=== PATIENT | male | born 1980 ===

== ENCOUNTER 2020-05-07 18:28 | Emergency (ER) | payer MEDICARE, MEDICAID, SELFPAY ==
[2020-05-07 18:37] VITALS: BP 163/84; PULSE 72; RESP 18; TEMP 36.8; O2SAT 99; BMI 32.8
--- NOTE | 2020-05-07 18:45 | XR_ITS ---
EXAMINATION: XR CHEST CLINICAL INFORMATION: Chest pain COMPARISON: Chest x-ray dated 07/23/2019 TECHNIQUE: Frontal view of the chest was obtained. FINDINGS: Normal symmetric lung volumes. No parenchymal consolidation. No pleural effusion. No pneumothorax. Cardiomediastinal silhouette and pulmonary vascularity are within normal limits. No acute osseous abnormalities. IMPRESSION: No acute findings
--- NOTE | 2020-05-07 18:45 | ECG_ITS ---
Test Reason : CP Blood Pressure : / mmHG Vent. Rate : 076 BPM Atrial Rate : 076 BPM P-R Int : 166 ms QRS Dur : 088 ms QT Int : 368 ms P-R-T Axes : 037 -01 -01 degrees QTc Int : 414 ms Normal sinus rhythm Possible Left atrial enlargement Nonspecific T wave abnormality Abnormal ECG When compared with ECG of 22-JUL-2019 23:10, No significant change was found Referred By: Marline Sheffield Electronically Signed By:TANA HOANG MD
--- NOTE | 2020-05-07 19:07 | ED_ITS ---
HPI - Chest Pain General Chief Complaint: Chest Pain Stated Complaint: chest pain Time Seen by Provider: 05/07/20 19:06 Source: patient Mode of arrival: ambulatory Limitations: no limitations History of Present Illness HPI narrative: 39-year-old male presents with left-sided chest pain, pressure, and intermittent shortness of breath for several days. States the pain got worse after using and erectile dysfunction medication last night. He does have a history of MS in the past associated with possible cocaine use. He does report that both of his parents had MIs at young ages approximately in their 30s. He started hyperlipidemia medications approximately 2 weeks ago and stated that His intermittent chest pain worsened with that medication. he does report to have increased fatigue and weakness, fatigue and weakness have been chronic over the past 6 months. He does not report any changes in vision, pain on inspiration, abdominal pain, abdominal distention, dysuria, hematuria, fevers, chills, nausea, vomiting, diarrhea, constipation and edema. Does not report smoking, alcohol use, or illicit drug use. MD complaint: chest pain and chest discomfort Pertinent past history: prior MS Onset (ago): day(s) ( Several days) Timing of current episode: episodic Prior episodes: Yes Onset: during rest and during exertion Pain location: left chest Pain radiation: none Severity: moderate Pain scale (0-10): 6 Quality: tightness, aching, heaviness, dull, similar to prior MS and burning Relieving factors: nothing Exacerbating factors: exertion, inspiration and stress Treatment prior to arrival: none Risk Factors Coronary artery disease risk factors: hyperlipidemia, hypertension and family history of CAD before age 50 Related Data Previous Rx's Medication Instructions Recorded metoprolol succinate 25 mg 25 mg PO DAILY #30 tab 04/28/20 tablet,extended release 24 hr nicotine 14 mg/24 hr daily 1 patch TRANSDERMAL DAILY #28 ea 04/28/20 transdermal patch omega-3 fatty acids 1,000 mg 1,000 mg PO BID #60 cap 04/28/20 capsule alprazolam 0.5 mg tablet 0.5 mg PO DAILY #30 tab 05/02/20 aspirin 81 mg tablet,delayed 81 mg PO DAILY 90 Days #90 tab 05/02/20 release gabapentin 300 mg capsule 300 mg PO TID 90 Days #270 cap 05/02/20 Allergies Allergy/AdvReac Type Severity Reaction Status Date / Time diclofenac [DICLOFENAC] Allergy Unknown STOMACH Verified 04/28/20 10:05 CRAMP, diarrhea duloxetine Allergy Unknown erectily Verified 04/28/20 10:05 dysfunction gabapentin Allergy Unknown sleepiness Verified 04/28/20 10:05 Flexeril Allergy Unknown erectile Uncoded 03/17/20 00:00 dysfunction Motrin Allergy Unknown blood in Uncoded 03/17/20 00:00 stools Review of Systems Review of Systems: Constitutional: No Weight loss, No Fever, No Chills, No Night Sweats, No Fatigue, No Malaise ENT/Mouth: No Hearing loss, No Ear Pain, No Nasal Congestion, No Sinus Pain, No Hoarseness, No sore throat, No Rhinorrhea, No Swallowing Difficulty Eyes: No Eye Pain, No Swelling, No Redness, No Foreign Body, No Discharge, No Vision Changes Cardiovascular: pos Chest Pain, pos SOB on exertion, no Dyspnea on Exertion, No Orthopnea, No Edema, No Palpitations Respiratory: No Cough, No Sputum, No Wheezing, No Smoke Exposure, No Dyspnea Gastrointestinal: no Nausea, No Vomiting, No Diarrhea, No abdominal Pain, No Hematochezia, No Melena Genitourinary: No irregular bleeding, No Dysuria, No Urinary Frequency, No Hematuria, No Urinary Incontinence, No Urgency, No Flank Pain, No Urinary Flow Changes, No Hesitancy Musculoskeletal: No joint pain, No Myalgias, No Joint Swelling Skin: No Skin Lesions, No rash Neuro: pos fatigue, No Weakness, No Numbness, No Paresthesias, No Loss of C onsciousness, No Dizziness, No Headache Psych: No Anxiety/Panic, No Depression, No SI/HI/AH/VH Heme/Lymph: No Bruising, No Bleeding,No Lymphadenopathy Endocrine: No Polyuria, No Polydipsia, No Temperature Intolerance [facility] Past Medical History Attestation statement: The following information was validated with the patient. Medical History CAD (coronary artery disease) Current smoker HTN (hypertension) Hyperlipidemia Long-term use of aspirin therapy Lumbar radiculopathy Past heart attack Surgical History History of back surgery S/P hernia surgery Social History Social History Smoking Status: Current every day smoker Use of substances other than those prescribed or required for medical reasons: No Advance Directives: No Advance Directives Information Provided: Yes Physical Exam Vital Signs: Vital Signs: Vital Signs Temp Pulse Resp BP Pulse Ox 05/07/20 21:54 60 16 138/93 H 05/07/20 20:00 97.9 F 63 18 119/71 99 05/07/20 18:37 98.3 F 72 18 163/84 H 99 Body Mass Index 32.8 Appearance: Alert. Oriented X3. No acute distress. Eyes: Pupils equal, round and reactive to light. ENT: Pharynx normal. Neck: Normal inspection. Neck supple. CVS: Normal heart rate and rhythm. Pulses normal. Respiratory: No respiratory distress. Breath sounds normal. Abdomen: Soft and nontender. Skin: Skin warm and dry. Normal skin color. Normal skin turgor. Extremities: No lower extremity edema. No lower extremity edema. Neuro: Oriented X 3. No motor deficit. No sensory deficit. Course Course Course Narrative: with his prior history of MS, family history of early MS, we will rule out ACS at this time. BUN elevated at 20, glucose 129, troponin is 5.8 . Repeat troponin is 6.0, heart score is 3, highly unlikely that this is ACS at this time. EKG is normal sinus rhythm, no changes noted to prior EKG. Vital signs are Hemodynamically stable. patient does verbalize understanding of and agrees to plan of care discharge home. He will follow-up with his primary care provider. official court interpreter utilized for all correspondence, Google translate Utilized for discharge instructions. MDM - Chest Pain Differential Diagnosis Differential diagnosis: Likely fracture of rib, pneumothorax, stable angina, unstable angina pectoris, atypical chest pain, st elevation myocardial infarction, costochondritis, chest pain and biliary colic Medical Records Data Attestation: I reviewed the patient's medical records. Lab Data Attestation: I reviewed the patient's lab results. Result diagrams: 05/07/20 19:07 05/07/20 19: Labs: Lab Results 05/07/20 05/07/20 05/07/20 Range/Units 19:07 19:07 19:07 WBC 7.7 (4.8-10.8) X10*3/uL RBC 4.40 L (4.60-5.80) X10*6/uL Hgb 14.0 (14.0-18.0) g/dl Hct 40.1 L (42-52) % MCV 91.1 (80-98) fL MCH 31.8 (27.0-33.0) pg MCHC 34.9 (31.0-36.0) g/dl RDW 12.4 (11.0-16.0) % Plt Count 252 (160-400) X10*3/uL MPV 9.8 (9.4-12.4) fL Immature Gran % (Auto) 1.0 H (0.0-0.4) % Neut % (Auto) 54.9 (45-73) % Lymph % (Auto) 35.5 (20-40) % Hudson % (Auto) 5.5 (2-11) % Eos % (Auto) 2.3 (0-4) % Baso % (Auto) 0.8 (0-2) % Lymph # (Auto) 2.7 (1.2-4.9) X10*3/uL Hudson # (Auto) 0.4 (0.1-1.2) X10*3/uL Eos # (Auto) 0.2 (0.0-0.4) X10*3/uL Baso # (Auto) 0.1 (0.0-0.2) X10*3/uL Abs Immat Gran (auto) 0.08 H (0.00-0.03) X10*3/uL Absolute Neuts (auto) 4.2 (2.0-8.3) X10*3/uL Absolute Nucleated RBC 0.000 (0.0-0.012) X10*3/uL Nucleated RBC % (auto) 0.0 (0.0-0.2) /100WBC Hold Blue Top SEE NOTE Sodium 139 (135-145) mmol/L Potassium 4.4 (3.3-5.1) mmol/l Chloride 105 (96-108) mmol/L Carbon Dioxide 24 (22-29) mmol/L Anion Gap 14 (12-20) BUN 20 H (9-16) mg/dL Creatinine 1.05 (0.5-1.4) mg/dL Estim Creat Clear Calc 105.0 Estimated GFR > 60 Random Glucose 129 H (60-115) mg/dL Calcium 9.1 (8.4-10.2) mg/dL Magnesium (1.6-2.6) mg/dL Total Bilirubin (0.0-1.0) mg/dL Direct Bilirubin (0.0-0.5) mg/dL AST (5-37) U/L ALT (0-40) U/L Alkaline Phosphatase (39-117) U/L Troponin I High Sens (<3.5-35.0) ng/L Total Protein (6.5-8.0) g/dL Albumin (3.5-5.0) g/dL Lipase (8-78) U/L 05/07/20 05/07/20 05/07/20 Range/Units 19:07 19:07 21:54 WBC (4.8-10.8) X10*3/uL RBC (4.60-5.80) X10*6/uL Hgb (14.0-18.0) g/dl Hct (42-52) % MCV (80-98) fL MCH (27.0-33.0) pg MCHC (31.0-36.0) g/dl RDW (11.0-16.0) % Plt Count (160-400) X10*3/uL MPV (9.4-12.4) fL Immature Gran % (Auto) (0.0-0.4) % Neut % (Auto) (45-73) % Lymph % (Auto) (20-40) % Hudson % (Auto) (2-11) % Eos % (Auto) (0-4) % Baso % (Auto) (0-2) % Lymph # (Auto) (1.2-4.9) X10*3/uL Hudson # (Auto) (0.1-1.2) X10*3/uL Eos # (Auto) (0.0-0.4) X10*3/uL Baso # (Auto) (0.0-0.2) X10*3/uL Abs Immat Gran (auto) (0.00-0.03) X10*3/uL Absolute Neuts (auto) (2.0-8.3) X10*3/uL Absolute Nucleated RBC (0.0-0.012) X10*3/uL Nucleated RBC % (auto) (0.0-0.2) /100WBC Hold Blue Top Sodium (135-145) mmol/L Potassium (3.3-5.1) mmol/l Chloride (96-108) mmol/L Carbon Dioxide (22-29) mmol/L Anion Gap (12-20) BUN (9-16) mg/dL Creatinine (0.5-1.4) mg/dL Estim Creat Clear Calc Estimated GFR Random Glucose (60-115) mg/dL Calcium (8.4-10.2) mg/dL Magnesium 2.1 (1.6-2.6) mg/dL Total Bilirubin 0.2 (0.0-1.0) mg/dL Direct Bilirubin < 0.2 (0.0-0.5) mg/dL AST 25 (5-37) U/L ALT 27 (0-40) U/L Alkaline Phosphatase 88 (39-117) U/L Troponin I High Sens 5.8 6.0 (<3.5-35.0) ng/L Total Protein 6.9 (6.5-8.0) g/dL Albumin 4.1 (3.5-5.0) g/dL Lipase 26 (8-78) U/L Imaging Data Chest x-ray: Attestation: I personally reviewed and interpreted this imaging study as follows: Radiologist's impression: TECHNIQUE: Frontal view of the chest was obtained. FINDINGS: Normal symmetric lung volumes. No parenchymal consolidation. No pleural effusion. No pneumothorax. Cardiomediastinal silhouette and pulmonary vascularity are within normal limits. No acute osseous abnormalities. IMPRESSION: No acute findings ECG Data ECG #1: Attestation: I personally reviewed and interpreted this ECG as follows: ECG interpretation date: 05/07/20 ECG interpretation time: 18:30 Interpretation: Vent. rate 76 BPM LA interval 166 ms QRS duration 88 ms QT/QTc 368/414 ms P-R-T axes 37 -1 -1 Normal sinus rhythm Possible Left atrial enlargement Nonspecific T wave abnormality Abnormal ECG When compared with ECG of 22-JUL-2019 23:10, No significant change was found Scores Heart Score History: -1- moderately suspicious ECG: -1- non specific repolarization disturbance Age: -0- < or = 45 Risk factory: -1- 1 or 2 risk factors Troponin: -0- < or = normal limit Score: 3 Risk: 1.7% Critical Care Time Critical Care Time Critical Care Time: Yes Total Critical Care Time: 35 Attestation: I have personally provided critical care time exclusive of time spent on separately billable procedures. Time includes review of laboratory data, radiology results, discussion with consultants, and monitoring for potential decompensation. Interventions were performed as documented. Discharge Plan Discharge Clinical Impression: Atypical chest pain Patient Disposition: Home, Self-Care Instructions: Chest Pain (ED) Additional Instructions: se le evalu? para el dolor tor?cico. Las troponinas son negativas, el EKG es el ritmo sinusal normal sin cambios en el electrocardiograma anterior. Usted debe hacer un seguimiento del m?dico de atenci?n primaria para un mayor e jercicio. Es posible que necesites gerard prueba de esfuerzo. Benjamin por elegir wayne departamento de emergencias para la evaluaci?n. Por favor, florinda un seguimiento con el m?dico de atenci?n primaria seg?n sea necesario. Regrese al servicio de urgencias para cualquier s?ntoma nuevo, preocupante o que empeore. you were evaluated for chest pain. Troponins are negative, EKG is normal sinus rhythm with no changes from Prior EKG. You must follow-up the primary care physician for further workup. You may need a stress test. Thank you for choosing this emergency department for evaluation. Please follow-up with primary care physician as needed. Return to the emergency department for any new, concerning, or worsening symptoms. Prescriptions: No Action alprazolam [Xanax] 0.5 mg tablet 0.5 mg PO DAILY Qty: 30 RF: 0 aspirin 81 mg tablet,delayed release (DR/EC) 81 mg PO DAILY 90 Days Qty: 90 RF: 4 gabapentin 300 mg capsule 300 mg PO TID 90 Days Qty: 270 RF: 0 metoprolol succinate 25 mg tablet extended release 24 hr 25 mg PO DAILY Qty: 30 RF: 0 omega-3 fatty acids [Fish Oil Concentrate] 1,000 mg capsule 1,000 mg PO BID Qty: 60 RF: 0 nicotine 14 mg/24 hr patch 24 hour 1 patch transdermal DAILY Qty: 28 RF: 0 Print Language: Uruguayan
--- NOTE | 2020-05-07 19:08 | PC.NURSE ---
Report taken from Rita, this RN resuming care. Pt found sitting upright in bed holding left side of his chest, primarily Azeri speaking only. JANITOR HELPER at bedside awaiting rn renal. IV established, labs obtained and sent. Pt resting in bed, call albert within reach, continue to monitor.
[2020-05-07 19:15] LABS: MANUAL DIFF FLAG NO
--- NOTE | 2020-05-07 19:22 | PC.NURSE ---
Lab notified of pending add ons including Magnesium, Lipase and Liver panel.
[2020-05-07 19:23] VITALS: PULSE 68
--- NOTE | 2020-05-07 19:28 | PC.NURSE ---
DONE BY PREVIOUS SHIFT
[2020-05-07 19:31] LABS: Basophils Absolute Auto 0.1 X10*3/uL (0.0-0.2); Basophils Percent Auto 0.8 % (0-2); Eosinophils Absolute Auto 0.2 X10*3/uL (0.0-0.4); Eosinophils Percent Auto 2.3 % (0-4); Hematocrit 40.1 % (42-52); Imm Gran Abs Auto 0.08 X10*3/uL (0.00-0.03); Lymphocytes Absolute Auto 2.7 X10*3/uL (1.2-4.9); Lymphocytes Percent Auto 35.5 % (20-40); Mean Corpuscular HGB Conc 34.9 g/dl (31.0-36.0); Mean Corpuscular Hemoglobin 31.8 pg (27.0-33.0); Mean Corpuscular Volume 91.1 fL (80-98); Mean Platelet Volume 9.8 fL (9.4-12.4); Monocytes Absolute Auto 0.4 X10*3/uL (0.1-1.2); Monocytes Percent Auto 5.5 % (2-11); Neutrophils Absolute Auto 4.2 X10*3/uL (2.0-8.3); Neutrophils Percent Auto 54.9 % (45-73); Platelet Count 252 X10*3/uL (160-400); Red Cell Distribution Width 12.4 % (11.0-16.0); White Blood Count 7.7 X10*3/uL (4.8-10.8)
[2020-05-07 19:42] LABS: Troponin-I High Sensitivity 5.8 ng/L (<3.5-35.0)
[2020-05-07 19:46] LABS: Anion Gap 14 (12-20); Blood Urea Nitrogen 20 mg/dL (9-16); Calcium 9.1 mg/dL (8.4-10.2); Carbon Dioxide 24 mmol/L (22-29); Chloride 105 mmol/L (96-108); Estimated Glomerular Filt Rate > 60; Glucose Random 129 mg/dL (60-115); Potassium 4.4 mmol/l (3.3-5.1); Sodium 139 mmol/L (135-145)
[2020-05-07 19:47] LABS: Alanine Aminotransferase 27 U/L (0-40); Albumin Level 4.1 g/dL (3.5-5.0); Alkaline Phosphatase 88 U/L (39-117); Aspartate Amino Transferase 25 U/L (5-37); Bilirubin Direct < 0.2 mg/dL (0.0-0.5); Bilirubin Total 0.2 mg/dL (0.0-1.0); Lipase 26 U/L (8-78); Magnesium 2.1 mg/dL (1.6-2.6); Total Protein 6.9 g/dL (6.5-8.0)
[2020-05-07 20:00] VITALS: BP 119/71; PULSE 63; RESP 18; TEMP 36.6; O2SAT 99
[2020-05-07] MEDS: 0.9 % Sodium Chloride 1,000 ML 999 ML IVCONT (20:50)
--- NOTE | 2020-05-07 20:50 | PC.NURSE ---
IVF hung per EMAR. Pt requesting to use the bathroom, provided with a bedside urinal. Aware of plan of care, awaiting results.
[2020-05-07 21:54] VITALS: BP 138/93; PULSE 60; RESP 16
--- NOTE | 2020-05-07 21:55 | PC.NURSE ---
Repeat Troponin obtained and sent. VSS. Pt denies pain/discomfort at this time. Continue to monitor.
[2020-05-08] VITALS: BP 125/88; PULSE 65; RESP 22; O2SAT 97
== END 2020-05-08 00:17 | disposition home or self-care (01) ==
PROVIDERS: Nurse Practitioner Family; Emergency Provider Emergency Medicine Emergency Medical Services; PCP Internal Medicine
DX: R07.9 Chest pain, unspecified (principal); I25.10 Atherosclerotic heart disease of native coronary artery without angina pectoris; F17.210 Nicotine dependence, cigarettes, uncomplicated; Z71.6 Tobacco abuse counseling; Z79.82 Long term (current) use of aspirin; Z79.899 Other long term (current) drug therapy
CPT/HCPCS: 36415; 71045; 80048; 80076; 83690; 83735; 84484; 85025; 93005; 96360; 99284; 99291

== ENCOUNTER 2020-06-11 18:20 | Emergency (ER) | payer OTHER, MEDICAID, MEDICARE, SELFPAY ==
[2020-06-11 18:28] VITALS: BP 125/76; PULSE 73; RESP 16; TEMP 36.6; O2SAT 98; BMI 32.8
--- NOTE | 2020-06-11 19:20 | ED_ITS ---
HPI - Back Pain/Injury General Chief Complaint: Back Pain/Injury Stated Complaint: back pain Time Seen by Provider: 06/11/20 18:47 Source: patient Mode of arrival: ambulatory History of Present Illness HPI Narrative: 39-year-old male with a past medical history of HTN, hyperlipidemia, lumbar radiculopathy, CAD, complaining of acute on chronic low back pain radiating down bilateral lower extremities since yesterday. Admits to recently having cortisone shots, however pain returned. Took gabapentin at home today without relief. Denies new injury/trauma or falls. Also reports pruritic rash to bilateral arms S/P planting. Denies fever, chills, numbness/tingling, weakness, incontinence/retention, new exposures/lotions or detergents, tick/insect bites MD elicited complaint: back pain Related Data Previous Rx's Medication Instructions Recorded nicotine 14 mg/24 hr daily 1 patch TRANSDERMAL DAILY #28 ea 04/28/20 transdermal patch omega-3 fatty acids 1,000 mg 1,000 mg PO BID #60 cap 04/28/20 capsule alprazolam 0.5 mg tablet 0.5 mg PO DAILY #30 tab 05/02/20 aspirin 81 mg tablet,delayed 81 mg PO DAILY 90 Days #90 tab 05/02/20 release gabapentin 300 mg capsule 300 mg PO TID 90 Days #270 cap 05/02/20 metoprolol succinate 25 mg 25 mg PO DAILY #30 tab 05/20/20 tablet,extended release 24 hr acetaminophen-codeine 1 tab PO Q8H PRN 3 Days #9 tab 06/11/20 hydrocortisone [Anti-Itch (HC)] 1 applic TOPICAL BID PRN #28 g 06/11/20 lidocaine [Lidoderm] 1 patch TOPICAL DAILY PRN #30 ea 06/11/20 MDD remove after 12 hours Allergies Allergy/AdvReac Type Severity Reaction Status Date / Time cyclobenzaprine Allergy Unknown erectile Verified 05/12/20 06:32 [From Flexeril] dysfunction diclofenac [DICLOFENAC] Allergy Unknown STOMACH Verified 05/12/20 06:32 CRAMP, diarrhea duloxetine Allergy Unknown erectily Verified 05/12/20 06:32 dysfunction gabapentin Allergy Unknown sleepiness Verified 05/12/20 06:32 ibuprofen [From Motrin] Allergy Unknown bloody Verified 05/12/20 06:32 stools tramadol Allergy Unknown facial rash Verified 05/12/20 06:32 Review of Systems Review of Systems: Constitutional: No Weight loss, No Fever, No Chills ENT/Mouth: No Ear Pain, No Nasal Congestion, No Sinus Pain, No Hoarseness, No sore throat, No Rhinorrhea Cardiovascular: No Chest Pain, No SOB Respiratory: No Cough, No Sputum, No Wheezing Gastrointestinal: No Nausea, No Vomiting, No Diarrhea, No Constipation, No Abdominal pain Genitourinary:, No Dysuria, No Urinary Frequency, No Hematuria, No Urinary Incontinence/retention, No Flank Pain Musculoskeletal: +back pain, No Myalgias, No Joint Swelling Skin: No Skin Lesions, +rash Neuro: No Weakness, No Numbness, +Paresthesias Yes all other systems are reviewed and are negative Neurologic: Denies Sensory deficit (Neuro) [facility] Past Medical History Attestation statement: The following information was validated with the patient. Source: nursing notes reviewed Medical History (Updated 06/11/20 @ 19:35 by STEPHANIE Kohler) CAD (coronary artery disease) Current smoker HTN (hypertension) Hyperlipidemia Long-term use of aspirin therapy Lumbar radiculopathy Past heart attack Surgical History (Updated 05/12/20 @ 06:33 by CHELSEA Bustillos) History of back surgery History of open reduction and internal fixation (ORIF) procedure S/P hernia surgery Family History Family History (Updated 05/12/20 @ 06:34 by CHELSEA Bustillos) Father CVD (cardiovascular disease) Mother Diabetes Hypertension CVD (cardiovascular disease) Social History Social History Smoking Status: Current every day smoker Advance Directives: No Advance Directives Information Provided: Yes Physical Exam Vital Signs: Vital Signs: Last Vital Signs Temp 98 F 06/11/20 18:28 Pulse 73 06/11/20 18:28 Resp 16 06/11/20 18:28 BP 125/76 06/11/20 18:28 Pulse Ox 98 06/11/20 18:28 Body Mass Index 32.8 Const: General: cooperative and healthy appearing Orientation/consciousness: patient oriented x3 Limitations: no limitations HENMT: Other: No mucous membrane involvement Head: Yes normal to inspection Ears: hearing grossly normal bilaterally General nose exam: Normal external nose present Face and sinus: Yes normal facial exam Mouth: Normal oral and palatal mucosa present Throat: Yes posterior oropharynx normal Eyes: General: appearance normal, both eyes and all related structures EOM: EOMs intact bilaterally Neck: Other: No midline cervical spinous tenderness Neck: Yes normal visual inspection Resp: Effort & Inspection: normal respiratory effort Cardio: Rate: regular rate Peripheral pulses: dorsalis pedis present GI: Inspection: Yes normal to inspection Palpation (GI): Soft to palpation, nontender, no guarding and not rigid Back/Spine/Pelvis: Other: No midline thoracic/lumbar spinous tenderness. + right-sided lower lumbar MSK tenderness Skin: Other: + raised red bumps noted to bilateral arms. No cellulitis, weeping, fluctuance or induration Neuro: Other: No saddle anesthesia General: patient oriented x3 Gait exam (Neuro): Normal gait present Motor exam (neuro): 5/5 motor strength present throughout Sensory Exam: No Sensory deficit (Neuro) Extrem: General: Yes normal to inspection MDM - Back Pain/Injury MDM Narrative Medical decision making narrative: On exam VSS, NAD/well-appearing, no midline spinous tenderness throughout, no red flag symptoms, likely MSK pain. Low c oncern for cauda equina/cord compression or fracture. Rash consistent with dermatitis. No mucous membrane involvement Discharge Plan Discharge Clinical Impression: Strain of lumbar region, Sciatica, Dermatitis Patient Disposition: Home, Self-Care Instructions: Acute Low Back Pain (ED) Additional Instructions: Your pain is likely musculoskeletal Lidoderm patches are numbing patches, apply to painful area Tylenol with codeine isn't opiate pain medication, take only when pain is severe You should also take ibuprofen at home If symptoms persist or worsen, pain becomes unbearable, you developed urinary retention or incontinence, or weakness return to the ED Hydrocortisone ointment as a topical steroid which helped with your rash/dermatitis Only apply to rash, do not apply to face, finger/toes, or genital area as can discolored skin Follow up with her doctor/dermatology as needed Prescriptions: New acetaminophen-codeine 300-15 mg tablet 1 tab PO Q8H PRN (Reason: pain) 3 Days Qty: 9 RF: 0 lidocaine [Lidoderm] 5 % adhesive patch,medicated 1 patch topical DAILY MDD remove after 12 hours PRN (Reason: pain) Qty: 30 RF: 0 hydrocortisone [Anti-Itch (HC)] 1 % ointment 1 applic topical BID PRN (Reason: skin irritation) Qty: 28 RF: 0 No Action alprazolam [Xanax] 0.5 mg tablet 0.5 mg PO DAILY Qty: 30 RF: 0 aspirin 81 mg tablet,delayed release (DR/EC) 81 mg PO DAILY 90 Days Qty: 90 RF: 4 gabapentin 300 mg capsule 300 mg PO TID 90 Days Qty: 270 RF: 0 metoprolol succinate 25 mg tablet extended release 24 hr 25 mg PO DAILY Qty: 30 RF: 4 omega-3 fatty acids [Fish Oil Concentrate] 1,000 mg capsule 1,000 mg PO BID Qty: 60 RF: 0 nicotine 14 mg/24 hr patch 24 hour 1 patch transdermal DAILY Qty: 28 RF: 0 Referrals: Latasha Navarrete MD [Primary Care Provider] - 2 days Print Language: Albanian
[2020-06-11] MEDS: Lidocaine 4 % Patch ADH..PATCH 1 PATCH TRANSDERMA (19:32)
[2020-06-11] MEDS: Ketorolac Tromethamine 15 MG/ML VIAL IM (19:33)
== END 2020-06-11 19:44 | disposition home or self-care (01) ==
PROVIDERS: Emergency Provider Emergency Medicine; PCP Internal Medicine
DX: M54.42 Lumbago with sciatica, left side (principal); M54.41 Lumbago with sciatica, right side; I25.10 Atherosclerotic heart disease of native coronary artery without angina pectoris; I10 Essential (primary) hypertension; F17.200 Nicotine dependence, unspecified, uncomplicated; Z71.6 Tobacco abuse counseling; Z79.899 Other long term (current) drug therapy
CPT/HCPCS: 96372; 99283; 99284; J1885

== ENCOUNTER → 2020-08-29 14:05 | Outpatient (BNVA) | payer OTHER, SELFPAY | PROVIDERS: PCP Internal Medicine; Visit Provider Internal Medicine Gastroenterology | DX: Z13.89 Encounter for screening for other disorder (principal) | CPT/HCPCS: Q3014 ==

== ENCOUNTER → 2020-08-31 09:59 | Outpatient (BNVA) | payer OTHER, SELFPAY | PROVIDERS: PCP Internal Medicine; Visit Provider Internal Medicine Cardiovascular Disease | DX: G47.30 Sleep apnea, unspecified (principal); R07.89 Other chest pain; I10 Essential (primary) hypertension | CPT/HCPCS: 93005; 99212 ==

== ENCOUNTER 2020-09-08 14:00 | Outpatient (RCR) | payer OTHER, SELFPAY ==
--- NOTE | 2020-08-05 14:01 | MHC.PT.EP ---
[facility] [place] Office [place] Office [place] Office [address] Dolores Goddard [address] [phone] F: [phone] F: [phone] F: [phone] F: [phone] Physical Therapy Plan of Care Date of Evaluation: 08/05/20 Date of Surgery: N/A Diagnosis: right shoulder pain, unspecified chronicity Assessment: pt has greatest pain provocation w/ passive, active, and resisted motions of shoulder internal rotation indicating potential subscapularis tendinopathy/tear. pt presents to physical therapy with pain, decreased range of motion, decreased strength, impaired functional mobility, impaired postural awareness, and gait deviations. pt is a good candidate for skilled PT due to age, potential remediation of impairments, typical disease/condition progression and prognosis, comorbidities, and motivation. pt would benefit from tailored strengthening and stretching exercise program, functional training, gait training, postural re-training, neuromuscular re-education, modalities as needed for pain, equipment safety demonstration. Frequency and Duration: The patient will be seen 2x/wk for 4 wks Short Term Goals: pt will be I w/ HEP to promote self-management of condition. pt will improve R shoulder abduction by 15 degrees to facilitate ease in reaching for objects on higher shelves. Usp Goals: pt will report statistically significant improvement in self-reported outcome measure, SPADI, to promote return to PLOF. pt will report <2/10 R shoulder pain w/ upper body ADLs to promote return to PLOF. Treatment Plan: Modalities to reduce pain, spasms and effusion. Manual therapy to restore motion and function. Therapeutic exercise to improve strength and flexibility. Neuromuscular re-education for posture and balance. Therapeutic activities to return to functional activities of daily living. Electronically signed by: Vanesa Mckeon PT, DPT Please sign and return to therapist. Thank you for your referral.
--- NOTE | 2020-09-20 14:32 | MHC.PT.DC ---
[facility] [place] [facility] [place] Office [place] Office [address] Dolores Goddard [address] [phone] F: [phone] F: [phone] F: [phone] F: [phone] Physical Therapy Discharge Report Diagnosis: right shoulder pain, unspecified chronicity Date of Surgery: N/A Date of Evaluation: 08/05/20 Date of Discharge: 09/20/20 Treatments to Date: 6 Cancellations to Date: 5 No Shows to Date: 3 Discharge Status: Improved Function Visit Non-compliance Discharge Summary: Per the last therapist's note: Progressing well and independent with HEP, anticipate DC. He was consistently reporting less pain. Due to his poor attendance he is being discharged from this physical therapy plan of care. Electronically signed by: Vanesa Mckeon PT, DPT Please sign and return to therapist. Thank you for your referral.
== END 2020-09-20 14:32 | disposition other institution (70) ==
LOC: HO.PT 14:00
PROVIDERS: PCP Internal Medicine; Visit Provider Internal Medicine
DX: M25.511 Pain in right shoulder (principal)
CPT/HCPCS: 97110; 97161; 97530

== ENCOUNTER 2020-09-14 07:40 | Outpatient (REF) | payer OTHER, SELFPAY ==
--- NOTE | ~2020-09-14 | US_ITS ---
EXAMINATION: US ABDOMEN COMPLETE CLINICAL INFORMATION: Unspecified abdominal pain. COMPARISON: CT abdomen and pelvis 08/01/2018. TECHNIQUE: Real-time imaging of the abdominal viscera. FINDINGS: PANCREAS: Normal. ABDOMINAL AORTA: The proximal, mid, and distal segments are normal in caliber. INFERIOR VENA CAVA: Visualized portions are normal. LIVER: Liver echotexture is increased. The liver is normal in size. The liver contour is normal. No focal hepatic lesion. There is no intrahepatic biliary duct dilatation seen. GALLBLADDER: Normal. The gallbladder is physiologically distended without evidence of stones, sludge, polyps, wall thickening or pericholecystic fluid. COMMON BILE DUCT: Normal in caliber measuring 0.2 cm in diameter. RIGHT KIDNEY: Normal. No hydronephrosis. No renal calculi or focal parenchymal lesions. The kidney measures 10.1 cm in maximum dimension. LEFT KIDNEY: Normal. No hydronephrosis. No renal calculi or focal parenchymal lesions. The kidney measures 11.1 cm in maximum dimension. SPLEEN: Normal. The spleen measures 9.2 cm in maximum dimension. FREE FLUID: None. US/US abdomen complete IMPRESSION: Echogenic liver. Differential would include fatty infiltration and liver disease. There does not appear to be evidence of fatty infiltration on previous CT July 2018. Otherwise unremarkable exam.
== END 2020-09-14 07:41 | disposition home or self-care (01) ==
LOC: HO.US 07:40
PROVIDERS: PCP Internal Medicine; Visit Provider Internal Medicine Gastroenterology
DX: R10.9 Unspecified abdominal pain (principal)
CPT/HCPCS: 76700

== ENCOUNTER → 2020-09-19 10:02 | Outpatient (BNVA) | payer OTHER, SELFPAY | PROVIDERS: PCP Internal Medicine; Visit Provider Internal Medicine Gastroenterology | CPT/HCPCS: Q3014 ==

== ENCOUNTER 2020-10-26 11:12 | Outpatient (REF) | payer OTHER, SELFPAY ==
--- NOTE | ~2020-10-26 | US_ITS ---
EXAMINATION: US VENOUS ULTRASOUND WITH DOPPLER LOWER EXTREMITY, LEFT CLINICAL INFORMATION: Swelling COMPARISON: None TECHNIQUE: Ultrasound of the deep veins is performed from the hip to the calf with compression sonography and color and pulse Doppler assessment. Spectral analysis with color-flow imaging is performed. FINDINGS: There is normal venous compression and respiratory variation and augmented flow. The visualized common femoral vein, superficial femoral vein, profunda femoral vein, popliteal vein, and the trifurcation region shows no evidence of deep venous thrombosis. There is no significant popliteal fossa cyst. US/US venous duplex LE LT IMPRESSION: No DVT demonstrated in the left lower extremity.
== END 2020-10-26 11:13 | disposition home or self-care (01) ==
LOC: HO.HMGCX 11:12
PROVIDERS: PCP Internal Medicine; Visit Provider Nurse Practitioner Family
DX: R20.0 Anesthesia of skin (principal); R20.2 Paresthesia of skin; R60.0 Localized edema
CPT/HCPCS: 93971

== ENCOUNTER 2020-11-01 06:22 | Day surgery (SDC) | payer OTHER, SELFPAY ==
[2020-10-26 11:18] VITALS: BMI 34.5
--- NOTE | 2020-10-31 09:13 | P.CONAN_ITS ---
Documented by User: Rupa Jiang 10/31/20 09:17 HPI - Anesthesia Eval Consult details Narrative: 40yo M for Upper Endoscopy and Colonoscopy [facility] Active Problems Active Problems: All Active Problems (Updated 10/27/20 @ 13:21 by Jena Taylor NP) Left leg swelling (Acute) Cellulitis (Acute) Anxiety (Acute) Tinea corporis (Acute) Asthma (Acute) Chest discomfort (Acute) MARYURI (generalized anxiety disorder) (Acute) Allergic rhinitis (Acute) History of gastric ulcer (Acute) History of Helicobacter pylori infection (Acute) Chronic diarrhea (Acute) Abdominal pain (Acute) Sleep disorder breathing (Acute) Obesity (BMI 30-39.9) (Acute) NAFL (nonalcoholic fatty liver) (Acute) Numbness and tingling of left leg (Acute) Edema, leg (Acute) Right shoulder pain (Acute) Lumbar radiculopathy (Acute) Long-term use of aspirin therapy (Acute) Current smoker (Acute) Hyperlipidemia (Acute) CAD (coronary artery disease) (Acute) HTN (hypertension) (Acute) Past Medical History Medical History Anxiety Asthma CAD (coronary artery disease) Current smoker HTN (hypertension) Hyperlipidemia Long-term use of aspirin therapy Lumbar radiculopathy NAFL (nonalcoholic fatty liver) Past heart attack Right shoulder pain Family History Family History Father CVD (cardiovascular disease) Mother Diabetes Hypertension CVD (cardiovascular disease) Surgical History Surgical History H/O colonoscopy History of back surgery History of endoscopy History of open reduction and internal fixation (ORIF) procedure S/P hernia surgery Social History Social History Household Members: Children Alcohol intake: current Alcohol intake frequency: does not drink Smoking Status: Former smoker Substance Use Type: Marijuana Advance Directives Information Provided: No Current occupational status: disabled Meds Allergies Allergy/AdvReac Type Severity Reaction Status Date / Time cyclobenzaprine Allergy Intermediate erectile Verified 10/26/20 11:21 [From Flexeril] dysfunction diclofenac [DICLOFENAC] Allergy Intermediate STOMACH Verified 10/26/20 11:21 CRAMP, diarrhea ibuprofen [From Motrin] Allergy Intermediate bloody Verified 10/26/20 11:21 stools duloxetine Allergy Mild erectily Verified 10/26/20 11:21 dysfunction Home Medications Medication Instructions Recorded Confirmed Last Taken Type ketoconazole 2 % topical cream 1 appl TOPICAL BID 06/28/20 10/26/20 Unknown History Exam Exam Date and Time: October 31, 2020 0913 Height,Weight and Vital Signs: Height 5 ft 8 in Weight 103 kg Narrative Narrative: Seen by cardiology for CP 08/2020. Likely noncardiac.Per Golden Noe MD: He does not need exercise stress testing. This should be treated as noncardiac chest pain. EKG 08/2020 NSR @ 68 Assessment and Plan Assessment Anesthesia Assessment: Chart Reviewed Documented by User: Enid Barrow 11/01/20 07:09 [facility] Past Medical History Medical History Anxiety Asthma CAD (coronary artery disease) Current smoker HTN (hypertension) Hyperlipidemia Long-term use of aspirin therapy Lumbar radiculopathy NAFL (nonalcoholic fatty liver) Past heart attack Right shoulder pain Family History Family History Father CVD (cardiovascular disease) Mother Diabetes Hypertension CVD (cardiovascular disease) Surgical History Surgical History H/O colonoscopy History of back surgery History of endoscopy History of open reduction and internal fixation (ORIF) procedure S/P hernia surgery Social History Social History Household Members: Children Alcohol intake: current Alcohol intake frequency: does not drink Smoking Status: Former smoker Substance Use Type: Marijuana Advance Directives Information Provided: No Current occupational status: disabled Meds Allergies Allergy/AdvReac Type Severity Reaction Status Date / Time cyclobenzaprine Allergy Intermediate erectile Verified 10/26/20 11:21 [From Flexeril] dysfunction diclofenac [DICLOFENAC] Allergy Intermediate STOMACH Verified 10/26/20 11:21 CRAMP, diarrhea ibuprofen [From Motrin] Allergy Intermediate bloody Verified 10/26/20 11:21 stools duloxetine Allergy Mild erectily Verified 10/26/20 11:21 dysfunction Home Medications Medication Instructions Recorded Confirmed Last Taken Type ketoconazole 2 % topical cream 1 appl TOPICAL BID 06/28/20 10/26/20 Unknown History Exam Airway Mallampati Class: II TM Dist: >3cm Neck ROM: Full Assessment and Plan Final Anesthetic Review NPO: Yes ASA Class: III Final Preanesthetic Review: No Changes in Pt Med Stat, Meds/Allgs Chart Reviewed, Consent Obtained/Reviewed and Anes Risks/Benef Reviewed Patient Risk: Intermediate Procedure Risk: Low Assessment/Block/Sedation in SS: Assess/Block/Sedation-SS Anesthetic Plan Anesthetic Plan: MAC: Disposition: Standard PACU
[2020-11-01 07:05] VITALS: BP 126/73; PULSE 69; RESP 18; TEMP 36.8; O2SAT 97
--- NOTE | 2020-11-01 07:14 | W.PM.OPN ---
Operative Note Operative Note Date of Service: 11/01/20 Narrative: Pre-op diagnosis: COLON CANCER SCREENING, DIARRHEA, ABDOMINAL PAIN, DYSPHAGIA Procedure: FLEXIBLE TRANSORAL UPPER GASTROINTESTINAL ENDOSCOPY WITH BIOPSIES AND COLONOSCOPY TILL CECUM WITH BIOPSIES AND SNARE POLYPECTOMY UPPER ENDOSCOPY Consent: Indications for the procedure and potential complications of bleeding, perforation, reaction to medications and missed diagnosis were discussed with the patient and informed consent was obtained. Instrument: Olympus GIF H 190 mid size upper endoscope Monitoring: Vital signs and clinical assessment, continuous EKG monitoring, Pulse oximetry, Carbon Dioxide monitoring and blood pressure monitoring were done throughout the procedure. Procedure: The patient was placed in the left lateral decubitis position and pre-procedure medications were administered and a bite block was placed. The endoscope was inserted into the mouth and advanced under direct vision to the third part of duodenum. A careful inspection was made as the upper endoscope was withdrawn including a retroflexed examination of the proximal stomach; Findings and interventions are described below. Findings: Larynx: Normal Esophagus: Tortuous esophagus with increased tertiary contractions without stricture or ring. GE junction at 40 cms. No esophagitis or Clemente's. Stomach: Moderate diffuse gastric erythema with nodular appearing gastric mucosa. Chronic appearing antral erosions and a healing 6-7 mm antral ulcer - biopsied. Biopsies were obtained from the gastric body and antrum. Grade 2 flap valve on retroflexed examination of the cardia. Duodenum: Normal bulb and descending duodenum. Biopsies were obtained from 3rd part of duodenum to check for celiac sprue. Intervention: Biopsies as noted above COLONOSCOPY PROCEDURE NOTE Consent: Indications for the procedure and potential complications of bleeding, perforation, reaction to medications and missed diagnosis were discussed with the patient and informed consent was obtained. Instrument: Olympus PCF H 190 L variable stiffness pediatric colonoscope Monitoring: Vital signs and clinical assessment, intermittent blood pressure monitoring, continuous EKG monitoring, Pulse oximetry and Carbon Dioxide monitoring were done throughout the procedure. Colon withdrawl time was 26 minutes. Procedure: The patient was placed in the left lateral decubitis position and pre-procedure medications were administered. After a digital rectal examination of the ano-rectum, the video colonoscope was inserted into the rectum and advanced through the colon to the cecum. The colonoscope was slowly withdrawn in a retrograde panoramic fashion and the colon mucosa was carefully examined including a retroflexed view of the rectum. Findings and interventions are described below. Procedure Difficulty: : Without difficulty Findings: Terminal Ileum: Distal 5 cms was examined and appeared normal - random biopsies were obtained. Cecum: Normal Ascending Colon: Normal - random biopsies were obtained. Transverse Colon: Normal Descending Colon: A 7-8 mm sessile polyp removed with a cold snare (and accidently placed in the right colon biopsy jar) Sigmoid Colon: Moderate diverticulosis. Random biopsies were obtained from the left colon. Rectum: Normal Ano-rectum: Moderate internal hemorrhoids Colon preparation: Good Impression and Post Procedure Diagnosis: Endoscopy Findings: ESOPHAGUS: Tortuous esophagus with increased tertiary contractions without stricture or ring. GE junction at 40 cms. No esophagitis or Clemente's. STOMACH: Moderate diffuse gastric erythema with nodular appearing gastric mucosa. Chronic appearing antral erosions and a healing 6-7 mm antral ulcer - biopsied. Biopsies were obtained from the gastric body and antrum. DUODENUM: Normal - biopsied to check for celiac sprue Colonoscopy Findings: One small polyp removed Moderate diverticulosis seen in the entire colon Moderate hemorrhoids on retroflexed exam. Plan: Await pathology results Patient has an appointment on 11/17/20 in the GI Clinic with Kye Hatch M.D.. Repeat Colonoscopy interval based on path results - in 5 years if polyps are adenomatous and 10 years if polyps are hyperplastic. Above findings were reviewed with the patient and PUD, colon polyps and diverticulosis handouts were given in the discharge area Surgeon: Kye Hatch MD Anesthesia: MAC (Roseann Soto STARCH TREATING ASSISTANT) Medical Dosimetrist: Ema Rowland Estimated blood loss (mL): 0 Pathology: other (A. SMALL BOWEL BXS, R/O CELIAC B. GASTRIC ULCER BXS C. GASTRIC ANTRUM, R/O H. PYLORI D. GASTRIC BODY BXS E. TI BXS, R/O IBD F. RANDOM COLON BXS, R/O MICROSCOPIC COLITIS, AND D) Condition: stable Disposition: PACU
--- NOTE | 2020-11-01 07:14 | MHC.SHP ---
Pre-Procedural Eval Section A The patient is an INPATIENT: No The History & Physical has been completed within 30 days and I have reviewed it.: No Section B Chief Complaint: digestive problems Details of Present Illness: 40 YM with Hypertension, coronary artery disease, lumbar radiculopathy, obesity, constipation, hypercholesterolemia, anxiety, chronic obstructive asthma and a h/o cocaine abuse followed in GI for GERD, dysphagia and gastric ulcer associated with Helicobacter pylori infection. 02/2019 patient was treated for H pylori with amoxicillin, clarithromycin and omeprazole. 09/08/19 repeat EGD showed persistent gastric ulcers with Helicobacter pylori gastritis. Patient admits to taking a baby aspirin once a week. Pt was advised to take quadruple therapy x 14 days for H Pylori eradication. Patient complains of abdominal gas with intermittent diarrhea felt to be functional. Stool for WBC and occult blood was negative in July of 2018. Patient complains of upper/RUQ pain and bloating and thinks he may passed a stone with his bowel movement. Abdominal ultrasound showed fatty liver and was negative for gallstones. Patient was advised to schedule a colonoscopy for further evaluation. Same-day upper endoscopy will be scheduled to follow up on gastric ulcers and H pylori infection. EGD and Colon in 4-6 weeks, GI FU 2 weeks after EGD and Colon Relevant Family History (Specify if Yes): No Present Medications: see Short Stay Collaborative assessment Medical History: Significant History (CAD (coronary artery disease) Current smoker HTN (hypertension) Hyperlipidemia Long-term use of aspirin therapy Lumbar radiculopathy Past heart attack Right shoulder pain) History of Previous Operations: Relevant previous surgery/procedure and date(s) (H/O colonoscopy History of back surgery History of endoscopy History of open reduction and internal fixation (ORIF) procedure S/P hernia surgery) Allergies: Allergies Allergy/AdvReac Type Severity Reaction Status Date / Time cyclobenzaprine Allergy Intermediate erectile Verified 10/26/20 11:21 [From Flexeril] dysfunction diclofenac [DICLOFENAC] Allergy Intermediate STOMACH Verified 10/26/20 11:21 CRAMP, diarrhea ibuprofen [From Motrin] Allergy Intermediate bloody Verified 10/26/20 11:21 stools duloxetine Allergy Mild erectily Verified 10/26/20 11:21 dysfunction Review of Systems Sugical H&P ROS: Negative: Constitution, Cardiovascular and Respiratory and Yes, Specify: Gastrointestinal (abdominal pain, diarrhea) Exam Surgical H&P Exam: Normal: Heart, Normal: Lungs, Normal: Extremities and Normal: Abdomen Plan Diagnosis/Plan: Unchanged I have reviewed the history and physical and performed a pertinent physical examination on my patient. No changes have occurred unless specified.
[2020-11-01] MEDS: Lactated Ringers 1,000 ML 100 ML IVCONT (07:15)
[2020-11-01 08:36] VITALS: BP 122/75; PULSE 63; RESP 16; TEMP 37.1; O2SAT 100
[2020-11-01 08:51] VITALS: BP 123/85; PULSE 69; RESP 17; TEMP 37.1; O2SAT 98
== END 2020-11-01 09:40 | disposition home or self-care (01) ==
PROVIDERS: PCP Internal Medicine; Visit Provider Internal Medicine Gastroenterology
PROC: (CPT 45385; principal; 2020-11-01 07:30)
DX: Z12.11 Encounter for screening for malignant neoplasm of colon (principal); D12.4 Benign neoplasm of descending colon; K21.9 Gastro-esophageal reflux disease without esophagitis; K25.9 Gastric ulcer, unspecified as acute or chronic, without hemorrhage or perforation; K29.50 Unspecified chronic gastritis without bleeding; B96.81 Helicobacter pylori [H. pylori] as the cause of diseases classified elsewhere; K57.30 Diverticulosis of large intestine without perforation or abscess without bleeding; K64.8 Other hemorrhoids; K76.0 Fatty (change of) liver, not elsewhere classified; J45.909 Unspecified asthma, uncomplicated; I25.2 Old myocardial infarction; I10 Essential (primary) hypertension; Z87.891 Personal history of nicotine dependence; F12.90 Cannabis use, unspecified, uncomplicated; Z79.899 Other long term (current) drug therapy; Z79.82 Long term (current) use of aspirin; Z88.8 Allergy status to other drugs, medicaments and biological substances
CPT/HCPCS: 45385; 45380; 43239; 88305; 88342; J3010

== ENCOUNTER → 2020-11-17 14:21 | Outpatient (BNVA) | payer OTHER, SELFPAY | PROVIDERS: PCP Internal Medicine; Visit Provider Internal Medicine Gastroenterology | DX: Z13.89 Encounter for screening for other disorder (principal) | CPT/HCPCS: 99212 ==

== ENCOUNTER 2021-01-30 18:51 | Emergency (ER) | payer OTHER, SELFPAY ==
--- NOTE | ~2021-01-30 | XR_ITS ---
EXAMINATION: XR CHEST CLINICAL INFORMATION: Chest pain COMPARISON: 05/07/2020 TECHNIQUE: 2 views of the chest were obtained. FINDINGS: Normal symmetric lung volumes. No parenchymal consolidation. No pleural effusion. No pneumothorax. Cardiomediastinal silhouette and pulmonary vascularity are within normal limits. No acute osseous abnormalities. XR/XR chest 2V IMPRESSION: Unremarkable examination.
--- NOTE | 2021-01-30 19:06 | ECG_ITS ---
Test Reason : CHEST PAIN Blood Pressure : / mmHG Vent. Rate : 074 BPM Atrial Rate : 074 BPM P-R Int : 148 ms QRS Dur : 078 ms QT Int : 374 ms P-R-T Axes : 026 007 003 degrees QTc Int : 415 ms Normal sinus rhythm Possible Left atrial enlargement Otherwise normal ECG When compared with ECG of 07-MAY-2020 18:30, No significant change was found Referred By: Tiana Silva Electronically Signed By:TY BRAND
[2021-01-30 19:07] VITALS: BP 146/91; PULSE 77; RESP 22; TEMP 36.6; O2SAT 100; BMI 31.6
--- NOTE | 2021-01-30 19:12 | ED_ITS ---
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 He is feeling very anxious and restless. He has been taking sertraline for his anxiety every day. Last week his best friend from a heart attack and he feels like this is contributing to his symptoms. He denies any associated shortness of breath, nausea, diaphoresis, dizziness. No current drug use Related Data Home Medications Medication Instructions Recorded Confirmed ketoconazole 2 % topical cream 1 appl TOPICAL BID 06/28/20 11/17/20 Previous Rx's Medication Instructions Recorded hydrocortisone [Anti-Itch (HC)] 1 applic TOPICAL BID PRN #28 g 06/11/20 lidocaine 5 % topical patch 1 patch TOPICAL DAILY PRN #30 ea 06/27/20 MDD remove after 12 hours clonidine HCl 0.1 mg tablet 0.1 mg PO BID 5 Days #10 tab 08/23/20 amoxicillin 500 mg capsule 1,000 mg PO BID 10 Days #40 cap 11/17/20 aspirin 81 mg tablet,delayed 81 mg PO DAILY 90 Days #90 tab 11/24/20 release cetirizine 10 mg tablet 10 mg PO DAILY PRN 30 Days #30 tab 11/24/20 gabapentin 400 mg capsule 400 mg PO TID 30 Days #90 cap 11/24/20 omeprazole 20 mg capsule,delayed 20 mg PO DAILY 90 Days #90 cap 11/24/20 release metoprolol succinate 25 mg 25 mg PO DAILY #30 tab 12/20/20 tablet,extended release 24 hr omega-3 fatty acids 1,000 mg 1,000 mg PO BID 30 Days #60 cap 12/20/20 capsule albuterol sulfate 90 mcg/actuation 1 inh INHALATION QID PRN 30 Days 01/24/21 aerosol inhaler #6.7 g alprazolam 0.5 mg tablet 0.5 mg PO DAILY 30 Days #30 tab 01/24/21 diphenhydramine HCl 25 mg capsule 50 mg PO BEDTIME PRN #30 cap 01/24/21 tramadol 50 mg tablet 50 mg PO BID PRN 30 Days #60 tab 01/24/21 Allergies Allergy/AdvReac Type Severity Reaction Status Date / Time cyclobenzaprine Allergy Intermediate erectile Verified 11/17/20 14:26 [From Flexeril] dysfunction diclofenac [DICLOFENAC] Allergy Intermediate STOMACH Verified 11/17/20 14:26 CRAMP, diarrhea ibuprofen [From Motrin] Allergy Intermediate bloody Verified 11/17/20 14:26 stools duloxetine Allergy Mild erectily Verified 11/17/20 14:26 dysfunction Review of Systems Review of Systems: Yes all other systems are reviewed and are negative Constitutional: Constitutional: Reports no additional constitutional complaints, Denies body ache(s), Denies chills, Denies fever(s), Denies headache(s) and Denies weakness Eyes: Eyes: Reports no additional eye complaints and Denies change in vision ENT: Reports system reviewed and no additional complaints, except as documented, Denies dizziness, Denies headache(s), Denies nasal congestion, Denies nasal discharge and Denies neck pain Cardiovascular: Cardiovascular: Reports no additional cardiovascular compla ints, Reports chest pain, Denies leg edema and Denies dyspnea Respiratory: Respiratory: Reports no additional respiratory complaints, Denies cough and Denies dyspnea Gastrointestinal: Gastrointestinal: Reports no additional gastrointestinal complaints, Denies abdominal pain, Denies diarrhea, Denies nausea and Denies vomiting Genitourinary: Genitourinary: Denies urinary incontinence Musculoskeletal: Musculoskeletal: Reports no additional musculoskeletal complaints, Denies back pain, Denies arthralgias, Denies joint swelling, Denies neck pain, Denies numbness and Reports tingling Integumentary/Breasts: Skin/Breast: Reports system reviewed and no additional complaints, except as docu and Denies rash Neurologic: Reports system reviewed and no additional complaints, except as documented, Denies Abnormal speech present, Denies dizziness, Denies headache(s), Denies numbness, Reports tingling and Denies weakness Psychiatric: Psychiatric: Reports anxiety PMFSH Past Medical History Attestation statement: The following information was validated with the patient. Source: old records reviewed and nursing notes reviewed Medical History Anxiety Asthma CAD (coronary artery disease) Current smoker HTN (hypertension) Hyperlipidemia Left hip pain Long-term use of aspirin therapy Lumbar pain Lumbar radiculopathy NAFL (nonalcoholic fatty liver) Past heart attack Right shoulder pain Surgical History H/O colonoscopy History of back surgery History of endoscopy History of esophagogastroduodenoscopy (EGD) History of open reduction and internal fixation (ORIF) procedure S/P hernia surgery Family History Family History Father CVD (cardiovascular disease) Mother Diabetes Hypertension CVD (cardiovascular disease) Social History Social History Household Members: Children Alcohol intake: never Substance Use Type: Marijuana Advance Directives: No Advance Directives Information Provided: No Current occupational status: disabled Physical Exam Vital Signs: Vital Signs: Last Vital Signs Temp 98 F 01/30/21 19:07 Pulse 76 01/30/21 20:00 Resp 16 01/30/21 20:00 BP 132/86 01/30/21 20:00 Pulse Ox 100 01/30/21 20:00 Body Mass Index 31.6 Const: General: anxious Orientation/consciousness: patient oriented x3 Limitations: no limitations HENMT: Head: Yes normal to inspection Ears: hearing grossly normal bilater ally General nose exam: Normal external nose present Face and sinus: Yes normal facial exam Mouth: Normal oral and palatal mucosa present Throat: Yes posterior oropharynx normal Eyes: General: appearance normal, both eyes and all related structures Pupils: Equal, round and reactive pupils present Neck: Neck: Yes normal visual inspection Chest: Chest palpation & inspection: normal inspection of the chest Resp: Effort & Inspection: normal respiratory effort Auscultation: clear to auscultation bilaterally Cardio: Rate: regular rate Rhythm: regular rhythm Peripheral pulses: Peripheral pulses 2+ throughout GI: Inspection: Yes normal to inspection Palpation (GI): Soft to palpation and nontender Auscultation: normal bowel sounds Back/Spine/Pelvis: Thoracic/Lumbar Spine: thoracic and lumbar spine normal to inspection Skin: General skin exam: no rashes or lesions noted Neuro: General: patient oriented x3, no focal motor deficits and normal sen sation to monofilament Cranial nerves: Yes Equal, round and reactive pupils present Cognition (Neuro): normal cognition Speech: No Abnormal speech present Gait exam (Neuro): Normal gait present Motor exam (neuro): 5/5 motor strength present throughout Extrem: General: Yes normal to inspection, Yes no pedal edema and Yes no calf tenderness Course Course Course Narrative: 40-year-old male here with complaints of chest discomfort, feeling anxious with multiple life stressors in the last week. Will check chest x-ray, EKG and labs due to history of [place] which was secondary to cocaine use. Patient is no longer using cocaine. - Troponin x2 unchanged. EKG shows no ischemic changes. Chest x-ray unremarkable. Patient improved with dose of Ativan here. Likely anxiety. Reviewed worrisome signs and symptoms and when to return to the emergency department. Comfortable discharge home. MDM - Chest Pain Medical Records Data Attestation: I reviewed the patient's medical records. Lab Data Attestation: I reviewed the patient's lab results. Result diagrams: 01/30/21 19:13 01/30/21 20:27 Labs: Lab Results 01/30/21 01/30/21 01/30/21 Range/Units 19:13 19:13 20:27 WBC 8.3 (4.8-10.8) X10*3/uL RBC 4.70 (4.60-5.80) X10*6/uL Hgb 14.3 (14.0-18.0) g/dl Hct 41.3 L (42-52) % MCV 87.9 (80-98) fL MCH 30.4 (27.0-33.0) pg MCHC 34.6 (31.0-36.0) g/dl RDW 12.8 (11.0-16.0) % Plt Count 280 (160-400) X10*3/uL MPV 9.8 (9.4-12.4) fL Immature Gran % (Auto) 0.5 H (0.0-0.4) % Neut % (Auto) 61.8 (45-73) % Lymph % (Auto) 31.0 (20-40) % Harlan % (Auto) 4.5 (2-11) % Eos % (Auto) 1.4 (0-4) % Baso % (Auto) 0.8 (0-2) % Lymph # (Auto) 2.6 (1.2-4.9) X10*3/uL Harlan # (Auto) 0.4 (0.1-1.2) X10*3/uL Eos # (Auto) 0.1 (0.0-0.4) X10*3/uL Baso # (Auto) 0.1 (0.0-0.2) X10*3/uL Abs Immat Gran (auto) 0.04 H (0.00-0.03) X10*3/uL Absolute Neuts (auto) 5.1 (2.0-8.3) X10*3/uL Absolute Nucleated RBC 0.000 (0.0-0.012) X10*3/uL Nucleated RBC % (auto) 0.0 (0.0-0.2) /100WBC Sodium 141 (135-145) mmol/L Potassium 4.8 (3.3-5.1) mmol/L Chloride 106 (96-108) mmol/L Carbon Dioxide 26 (22-29) mmol/L Anion Gap 14 (12-20) BUN 21 H (9-16) mg/dL Creatinine 1.10 (0.5-1.4) mg/dL Estim Creat Clear Calc 103.5 Estimated GFR > 60 Random Glucose 110 (60-115) mg/dL Calcium 9.7 D (8.4-10.2) mg/dL Magnesium 2.2 (1.6-2.6) mg/dL Total Bilirubin 0.4 (0.0-1.0) mg/dL Direct Bilirubin < 0.2 (0.0-0.5) mg/dL AST 23 (5-37) U/L ALT 30 (0-40) U/L Alkaline Phosphatase 96 (39-117) U/L Troponin I High Sens 4.7 (<3.5-35.0) ng/L Total Protein 7.0 (6.5-8.0) g/dL Albumin 4.3 (3.5-5.0) g/dL 01/30/21 Range/Units 22:00 WBC (4.8-10.8) X10*3/uL RBC (4.60-5.80) X10*6/uL Hgb (14.0-18.0) g/dl Hct (42-52) % MCV (80-98) fL MCH (27.0-33.0) pg MCHC (31.0-36.0) g/dl RDW (11.0-16.0) % Plt Count (160-400) X10*3/uL MPV (9.4-12.4) fL Immature Gran % (Auto) (0.0-0.4) % Neut % (Auto) (45-73) % Lymph % (Auto) (20-40) % Harlan % (Auto) (2-11) % Eos % (Auto) (0-4) % Baso % (Auto) (0-2) % Lymph # (Auto) (1.2-4.9) X10*3/uL Harlan # (Auto) (0.1-1.2) X10*3/uL Eos # (Auto) (0.0-0.4) X10*3/uL Baso # (Auto) (0.0-0.2) X10*3/uL Abs Immat Gran (auto) (0.00-0.03) X10*3/uL Absolute Neuts (auto) (2.0-8.3) X10*3/uL Absolute Nucleated RBC (0.0-0.012) X10*3/uL Nucleated RBC % (auto) (0.0-0.2) /100WBC Sodium (135-145) mmol/L Potassium (3.3-5.1) mmol/L Chloride (96-108) mmol/L Carbon Dioxide (22-29) mmol/L Anion Gap (12-20) BUN (9-16) mg/dL Creatinine (0.5-1.4) mg/dL Estim Creat Clear Calc Estimated GFR Random Glucose (60-115) mg/dL Calcium (8.4-10.2) mg/dL Magnesium (1.6-2.6) mg/dL Total Bilirubin (0.0-1.0) mg/dL Direct Bilirubin (0.0-0.5) mg/dL AST (5-37) U/L ALT (0-40) U/L Alkaline Phosphatase (39-117) U/L Troponin I High Sens 5.0 (<3.5-35.0) ng/L Total Protein (6.5-8.0) g/dL Albumin (3.5-5.0) g/dL Imaging Data Chest x-ray: Attestation: I personally reviewed and interpreted this imaging study as follows: Radiologist's impression: EXAMINATION: XR CHEST CLINICAL INFORMATION: Chest pain COMPARISON: 05/07/2020 TECHNIQUE: 2 views of the chest were obtained. FINDINGS: Normal symmetric lung volumes. No parenchymal consolidation. No pleural effusion. No pneumothorax. Cardiomediastinal silhouette and pulmonary vascularity are within normal limits. No acute osseous abnormalities. XR/XR chest 2V IMPRESSION: Unremarkable examination. ECG Data ECG #1: Attestation: I personally reviewed and interpreted this ECG as follows: ECG interpretation date: 01/30/21 ECG interpretation time: 18:58 Interpretation: NSR with rate 74, normal pr, normal qrs, normal qtc Discharge Plan Discharge Clinical Impression: Atypical chest pain, Anxiety Patient Disposition: Home, Self-Care Instructions: Chest Pain (ED), Anxiety (ED) Additional Instructions: Your x-ray, labs and EKG are all unremarkable. Prescriptions: No Action lidocaine [Lidoderm] 5 % adhesive patch,medicated 1 patch topical DAILY MDD remove after 12 hours PRN (Reason: pain) Qty: 30 RF: 0 aspirin 81 mg tablet,delayed release (DR/EC) 81 mg PO DAILY 90 Days Qty: 90 RF: 4 cetirizine [Zyrtec] 10 mg tablet 10 mg PO DAILY PRN (Reason: itching) 30 Days Qty: 30 RF: 11 gabapentin 400 mg capsule 400 mg PO TID 30 Days Qty: 90 RF: 3 omeprazole 20 mg capsule,delayed release(DR/EC) 20 mg PO DAILY 90 Days Qty: 90 RF: 3 omega-3 fatty acids [Fish Oil Concentrate] 1,000 mg capsule 1,000 mg PO BID 30 Days Qty: 60 RF: 3 metoprolol succinate 25 mg tablet extended release 24 hr 25 mg PO DAILY Qty: 30 RF: 4 albuterol sulfate 90 mcg/actuation HFA aerosol inhaler 1 inh inhalation QID PRN (Reason: shortness of breath or wheezing) 30 Days Qty: 6.7 RF: 3 alprazolam [Xanax] 0.5 mg tablet 0.5 mg PO DAILY 30 Days Qty: 30 RF: 0 diphenhydramine HCl [Benadryl] 25 mg capsule 50 mg PO BEDTIME PRN (Reason: sleep) Qty: 30 RF: 0 Hold Instructions: Doctor's Order tramadol 50 mg tablet 50 mg PO BID PRN (Reason: pain) 30 Days Qty: 60 RF: 0 hydrocortisone [Anti-Itch (HC)] 1 % ointment 1 applic topical BID PRN (Reason: skin irritation) Qty: 28 RF: 0 ketoconazole 2 % cream 1 appl topical BID RF: 0 clonidine HCl 0.1 mg tablet 0.1 mg PO BID 5 Days Qty: 10 RF: 0 amoxicillin 500 mg capsule 1,000 mg PO BID 10 Days Qty: 40 RF: 0 Referrals: Latasha Navarrete MD [Primary Care Provider] - 2 days Interventions: ED Discharge Assessment Last Done: 01/30/21 22:47 Discharge Date/Time: 01/30/21 22:47
[2021-01-30 19:20] LABS: MANUAL DIFF FLAG NO
[2021-01-30] MEDS: LORazepam 2 MG/ML VIAL 1 MG IVPUSH (19:21)
[2021-01-30 19:23] LABS: Basophils Absolute Auto 0.1 X10*3/uL (0.0-0.2); Basophils Percent Auto 0.8 % (0-2); Eosinophils Absolute Auto 0.1 X10*3/uL (0.0-0.4); Eosinophils Percent Auto 1.4 % (0-4); Hematocrit 41.3 % (42-52); Hemoglobin 14.3 g/dl (14.0-18.0); Imm Gran Abs Auto 0.04 X10*3/uL (0.00-0.03); Imm Gran Pct Auto 0.5 % (0.0-0.4); Lymphocytes Absolute Auto 2.6 X10*3/uL (1.2-4.9); Mean Corpuscular HGB Conc 34.6 g/dl (31.0-36.0); Mean Corpuscular Hemoglobin 30.4 pg (27.0-33.0); Mean Corpuscular Volume 87.9 fL (80-98); Mean Platelet Volume 9.8 fL (9.4-12.4); Monocytes Absolute Auto 0.4 X10*3/uL (0.1-1.2); Monocytes Percent Auto 4.5 % (2-11); Neutrophils Absolute Auto 5.1 X10*3/uL (2.0-8.3); Neutrophils Percent Auto 61.8 % (45-73); Platelet Count 280 X10*3/uL (160-400); Red Cell Distribution Width 12.8 % (11.0-16.0); White Blood Count 8.3 X10*3/uL (4.8-10.8)
[2021-01-30 19:52] LABS: Troponin-I High Sensitivity 4.7 ng/L (<3.5-35.0)
[2021-01-30 20:00] VITALS: BP 132/86; PULSE 76; RESP 16; O2SAT 100
[2021-01-30 21:02] LABS: Alanine Aminotransferase 30 U/L (0-40); Albumin Level 4.3 g/dL (3.5-5.0); Alkaline Phosphatase 96 U/L (39-117); Anion Gap 14 (12-20); Aspartate Amino Transferase 23 U/L (5-37); Bilirubin Direct < 0.2 mg/dL (0.0-0.5); Bilirubin Total 0.4 mg/dL (0.0-1.0); Blood Urea Nitrogen 21 mg/dL (9-16); Calcium 9.7 mg/dL (8.4-10.2); Carbon Dioxide 26 mmol/L (22-29); Chloride 106 mmol/L (96-108); Creatinine Clr Calc Pharmacy 103.5; Estimated Glomerular Filt Rate > 60; Glucose Random 110 mg/dL (60-115); Magnesium 2.2 mg/dL (1.6-2.6); Potassium 4.8 mmol/L (3.3-5.1); Sodium 141 mmol/L (135-145)
== END 2021-01-30 22:47 | disposition home or self-care (01) ==
PROVIDERS: Nurse Practitioner Family; Emergency Provider Emergency Medicine; PCP Internal Medicine
DX: R07.89 Other chest pain (principal); F41.9 Anxiety disorder, unspecified; I10 Essential (primary) hypertension; I25.10 Atherosclerotic heart disease of native coronary artery without angina pectoris; I25.2 Old myocardial infarction; Z79.82 Long term (current) use of aspirin; Z79.899 Other long term (current) drug therapy
CPT/HCPCS: 36415; 71046; 80048; 80076; 83735; 84484; 85025; 93005; 96374; 99284; J2060

== ENCOUNTER → 2021-04-24 09:19 | Outpatient (BNVA) | payer OTHER, SELFPAY | PROVIDERS: PCP Internal Medicine; Referring Provider Internal Medicine; Visit Provider Internal Medicine Cardiovascular Disease | DX: I25.118 Atherosclerotic heart disease of native coronary artery with other forms of angina pectoris (principal); I10 Essential (primary) hypertension; G47.30 Sleep apnea, unspecified | CPT/HCPCS: 99212 ==

== ENCOUNTER 2021-05-03 09:23 | Outpatient (REF) | payer OTHER, SELFPAY | END 2021-05-03 09:24 | disposition home or self-care (01) | LOC: HO.LAB 09:23 | PROVIDERS: PCP Internal Medicine; Visit Provider Internal Medicine | DX: Z20.822 Contact with and (suspected) exposure to COVID-19 (principal) | CPT/HCPCS: C9803; U0003; U0005 ==

== ENCOUNTER 2021-08-06 18:27 | Emergency (ER) | payer OTHER, SELFPAY | END 2021-08-06 19:02 | disposition left against medical advice (07) | PROVIDERS: Emergency Provider Emergency Medicine; PCP Internal Medicine | DX: J45.909 Unspecified asthma, uncomplicated (principal) ==

== ENCOUNTER 2021-08-25 09:53 | Outpatient (REF) | payer OTHER, SELFPAY ==
[2021-08-25 10:11] LABS: MANUAL DIFF FLAG NO
[2021-08-25 10:52] LABS: Basophils Absolute Auto 0.1 X10*3/uL (0.0-0.2); Basophils Percent Auto 1.1 % (0-2); Eosinophils Absolute Auto 0.2 X10*3/uL (0.0-0.4); Hematocrit 42.1 % (42.0-52.0); Hemoglobin 13.8 g/dl (14.0-18.0); Imm Gran Abs Auto 0.04 X10*3/uL (0.00-0.03); Imm Gran Pct Auto 0.5 % (0.0-0.4); Lymphocytes Absolute Auto 2.4 X10*3/uL (1.2-4.9); Lymphocytes Percent Auto 30.5 % (20-40); Mean Corpuscular HGB Conc 32.8 g/dl (31.0-36.0); Mean Corpuscular Hemoglobin 29.7 pg (27.0-33.0); Mean Corpuscular Volume 90.7 fL (80.0-98.0); Mean Platelet Volume 10.4 fL (9.4-12.4); Monocytes Absolute Auto 0.5 X10*3/uL (0.1-1.2); Monocytes Percent Auto 6.2 % (2-11); Neutrophils Absolute Auto 4.7 x10*3/uL (2.0-8.3); Neutrophils Percent Auto 59.7 % (45-73); Platelet Count 264 X10*3/uL (160-400); Red Blood Count 4.64 X10*6/uL (4.60-5.80); Red Cell Distribution Width 12.8 % (11.0-16.0); White Blood Count 7.9 X10*3/uL (4.8-10.8)
[2021-08-25 10:59] LABS: Estimated Average Glucose 114 mg/dL; Hemoglobin A1c % 5.6 %
[2021-08-25 11:17] LABS: Alanine Aminotransferase 19 U/L (0-40); Albumin Level 4.3 g/dL (3.5-5.0); Alkaline Phosphatase 85 U/L (39-117); Anion Gap 13 (12-20); Aspartate Amino Transferase 15 U/L (5-37); Bilirubin Total 0.3 mg/dL (0.0-1.0); Blood Urea Nitrogen 20 mg/dL (9-16); Calcium 9.9 mg/dL (8.4-10.2); Carbon Dioxide 31 mmol/L (22-29); Chloride 104 mmol/L (96-108); Estimated Glomerular Filt Rate > 60; Glucose Random 94 mg/dL (60-115); Potassium 4.6 mmol/L (3.3-5.1); Sodium 143 mmol/L (135-145); Total Protein 7.1 g/dL (6.5-8.0)
[2021-08-25 11:40] LABS: TSH reflex Free T4 1.04 uIU/mL (0.32-4.0)
== END 2021-08-25 09:54 | disposition home or self-care (01) ==
LOC: HO.LAB 09:53
PROVIDERS: PCP Internal Medicine; Visit Provider Nurse Practitioner Family
DX: I10 Essential (primary) hypertension (principal); R53.82 Chronic fatigue, unspecified; H53.8 Other visual disturbances; E11.65 Type 2 diabetes mellitus with hyperglycemia
CPT/HCPCS: 36415; 80053; 83036; 84443; 85025

== ENCOUNTER 2021-10-11 14:47 | Emergency (ER) | payer OTHER, SELFPAY ==
[2021-10-11 15:04] VITALS: BP 131/87; PULSE 68; RESP 18; TEMP 36.9; O2SAT 98; BMI 31.3
[2021-10-11 15:39] LABS: COVID-19 Test Negative (Negative)
--- NOTE | 2021-10-11 15:59 | ECG_ITS ---
Test Reason : BACK PAIN Blood Pressure : / mmHG Vent. Rate : 063 BPM Atrial Rate : 063 BPM P-R Int : 166 ms QRS Dur : 088 ms QT Int : 382 ms P-R-T Axes : 042 006 -01 degrees QTc Int : 390 ms Normal sinus rhythm Normal ECG When compared with ECG of 30-JAN-2021 18:58, No significant change was found Referred By: El Pena Electronically Signed By:TY BRAND
[2021-10-11 16:29] VITALS: BP 132/86; PULSE 61; RESP 20; TEMP 37; O2SAT 99
--- NOTE | 2021-10-11 17:15 | ED_ITS ---
HPI - General Adult General Chief complaint: Back Pain/Injury Stated complaint: abd pain Time Seen by Provider: 10/11/21 16:40 Source: patient Mode of arrival: ambulatory Limitations: no limitations History of Present Illness HPI narrative: 41-year-old male presents to the ED for dizziness, abdominal pain, diarrhea, body aches, right shoulder pain, and back pain since yesterday. Patient states his son is sick and came back negative for COVID but was not tested for influenza and RSV. Patient states epigastric pain. Patient states history side due to history of drug use. Patient denies any chest pain or shortness of breath. Related Data Home Medications Medication Instructions Recorded Confirmed ketoconazole 2 % topical cream 1 appl TOPICAL BID 06/28/20 08/25/21 Previous Rx's Medication Instructions Recorded hydrocortisone 1 % topical 1 applic TOPICAL BID PRN #28 g 06/11/20 ointment (Anti-Itch (hydrocortisone)) clonidine HCl 0.1 mg tablet 0.1 mg PO BID 5 Days #10 tab 08/23/20 cetirizine 10 mg tablet (Zyrtec) 10 mg PO DAILY PRN 30 Days #30 tab 11/24/20 diphenhydramine HCl 25 mg capsule 50 mg PO BEDTIME PRN #30 cap 03/25/21 (Benadryl) aspirin 81 mg tablet,delayed 81 mg PO DAILY 90 Days #90 tab 06/27/21 release albuterol sulfate 90 mcg/actuation 1 inh INHALATION QID PRN 30 Days 08/07/21 aerosol inhaler #6.7 g omeprazole 20 mg capsule,delayed 20 mg PO DAILY 90 Days #90 cap 08/25/21 release omega-3 fatty acids 1,000 mg 1,000 mg PO BID 30 Days #60 cap 09/09/21 capsule metoprolol succinate 25 mg 25 mg PO DAILY #30 tab 09/19/21 tablet,extended release 24 hr alprazolam 0.5 mg tablet (Xanax) 0.5 mg PO DAILY 30 Days #30 tab 09/26/21 gabapentin 400 mg capsule 400 mg PO TID 30 Days #90 cap 09/26/21 tramadol 50 mg tablet 50 mg PO BID PRN 30 Days #60 tab 09/27/21 Allergies Allergy/AdvReac Type Severity Reaction Status Date / Time cyclobenzaprine Allergy Intermediate erectile Verified 01/28/22 09:23 [From Flexeril] dysfunction diclofenac [DICLOFENAC] Allergy Intermediate STOMACH Verified 08/25/21 09:23 CRAMP, diarrhea ibuprofen [From Motrin] Allergy Intermediate bloody Verified 08/25/21 09:23 stools duloxetine Allergy Mild erectily Verified 08/25/21 09:23 dysfunction Review of Systems Review of Systems: Diarrhea, abdominal pain, body aches, chills, right shoulder pain, and back pain. Yes all other systems are reviewed and are negative [facility] Past Medical History Medical History Anxiety Asthma CAD (coronary artery disease) Current smoker HTN (hypertension) Hyperlipidemia Left hip pain Long-term use of aspirin therapy Lumbar pain Lumbar radiculopathy NAFL (nonalcoholic fatty liver) Past heart attack Right shoulder pain Surgical History H/O colonoscopy History of back surgery History of endoscopy History of esophagogastroduodenoscopy (EGD) History of open reduction and internal fixation (ORIF) procedure S/P hernia surgery Family History Family History Father CVD (cardiovascular disease) Mother Diabetes Hypertension CVD (cardiovascular disease) Social History Social History Household Members: Children Housing: House Alcohol intake: never Patient Tobacco Use Status: Never used Tobacco Substance Use Type: Marijuana Advance Directives: No Advance Directives Information Provided: No service: No Current occupational status: unemployed and disabled 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 Cognitive needs: No Hearing needs: No Vision needs: No Physical Exam ED Vital Signs: Vital Signs - 24 hr 10/11/21 15:04 10/11/21 16:29 Temperature 98.5 F 98.6 F Pulse Rate 68 61 Respiratory Rate 18 20 Blood Pressure 131/87 132/86 Pulse Oximetry 98 99 BMI result Body Mass Index 31.3 Const General: cooperative, healthy appearing, comfortable, no acute distress, well developed, alert, awake and Physically active Orientation/consciousness: patient oriented x3 HENMT Head: Yes normal to inspection, Yes No palpable skull fracture present, Yes normocephalic, Yes atraumatic and No abrasion Eyes General: appearance normal, both eyes and all related structures Neck Neck: Yes normal visual inspection, Yes full ROM, Yes no lymphadenopathy, Yes no meningeal signs, Yes trachea midline, Yes supple, No anterior neck swelling and No tender Chest Chest palpation & inspection: normal inspection of the chest and normal palpation of entire chest wall Resp Effort & Inspection: normal respiratory effort and able to speak in complete sentences Auscultation: clear to auscultation bilaterally Cardio Jugular venous distension: no JVD Heart sounds: S1 normal heart sound present and S2 normal heart sound present GI Inspection: Yes normal to inspection and No abdominal wall ecchymosis Palpation (GI): Soft to palpation, not firm, nontender, no guarding and not rigid General: No CVA tenderness and Yes no CVA tenderness Back/Spine/Pelvis Back: no CVA tenderness, No CVA tenderness and No back tenderness Skin General skin exam: no rashes or lesions noted and elasticity normal Neuro General: patient oriented x3, gait normal, no meningeal signs and CN's II-XI in tact bilaterally Cranial nerves: Yes CN's II-XII intact bilaterally Extrem General: Yes normal to inspection and Yes full ROM Psych Appearance: grossly normal, well kempt and not disheveled Course Course Course Narrative: Patient eloped from the ER visit. Patient no longer wanted to stay. Patient left before EKG and labs and SARS could be drawn. Medical Decision Making MDM Narrative Medical decision making narrative: Eloped Lab Data Labs: Lab Results 10/11/21 Range/Units 15:12 COVID-19 ([facility]) Negative (Negative) COVID-19 Clin Com See Note Discharge Plan Discharge Clinical Impression: Strain of lumbar region, Diarrhea, Abdominal pain, Right shoulder pain Patient Disposition: Elopement Prescriptions: No Action cetirizine [Zyrtec] 10 mg tablet 10 mg PO DAILY PRN (Reason: itching) 30 Days Qty: 30 11RF diphenhydramine HCl [Benadryl] 25 mg capsule 50 mg PO BEDTIME PRN (Reason: sleep) Qty: 30 0RF Hold Instructions: Doctor's Order aspirin 81 mg tablet,delayed release (DR/EC) 81 mg PO DAILY 90 Days Qty: 90 4RF albuterol sulfate 90 mcg/actuation HFA aerosol inhaler 1 inh inhalation QID PRN (Reason: shortness of breath or wheezing) 30 Days Qty: 6.7 3RF omega-3 fatty acids 1,000 mg capsule 1,000 mg PO BID 30 Days Qty: 60 3RF metoprolol succinate 25 mg tablet extended release 24 hr 25 mg PO DAILY Qty: 30 4RF alprazolam [Xanax] 0.5 mg tablet 0.5 mg PO DAILY 30 Days Qty: 30 0RF gabapentin 400 mg capsule 400 mg PO TID 30 Days Qty: 90 3RF tramadol 50 mg tablet 50 mg PO BID PRN (Reason: pain) 30 Days Qty: 60 0RF hydrocortisone [Anti-Itch (HC)] 1 % ointment 1 applic topical BID PRN (Reason: skin irritation) Qty: 28 0RF ketoconazole 2 % cream 1 appl topical BID 0RF clonidine HCl 0.1 mg tablet 0.1 mg PO BID 5 Days Qty: 10 0RF omeprazole 20 mg capsule,delayed release(DR/EC) 20 mg PO DAILY 90 Days Qty: 90 3RF Interventions: ED Discharge Assessment Last Done: 10/11/21 17:13 Discharge Date/Time: 10/11/21 17:15
== END 2021-10-11 17:15 | disposition left against medical advice (07) ==
PROVIDERS: Emergency Provider Emergency Medicine; PCP Internal Medicine
DX: M54.50 Low back pain, unspecified (principal); M25.511 Pain in right shoulder; R19.7 Diarrhea, unspecified; R10.9 Unspecified abdominal pain; Z20.822 Contact with and (suspected) exposure to COVID-19; Z79.899 Other long term (current) drug therapy
CPT/HCPCS: 87635; 93005; 99283; 99284

== ENCOUNTER → 2021-10-16 12:26 | Outpatient (BNVA) | payer OTHER, SELFPAY | PROVIDERS: PCP Internal Medicine; Referring Provider Internal Medicine; Visit Provider Internal Medicine Cardiovascular Disease | DX: R07.89 Other chest pain (principal) | CPT/HCPCS: 99212 ==

== ENCOUNTER 2021-12-04 08:03 | Outpatient (REF) | payer OTHER, SELFPAY ==
--- NOTE | ~2021-12-04 | XR_ITS ---
EXAMINATION: BILATERAL SHOULDER X-RAY CLINICAL INFORMATION: Pain COMPARISON: Previous exam August 2018 TECHNIQUE: 4 views of each shoulder FINDINGS: Right: Bone alignment is normal. No fracture or dislocation is seen. The glenohumeral joint is normal. There is arthritis at the acromioclavicular joint. Soft tissues are normal. Left: Bone alignment is normal. No fracture or dislocation is seen. The glenohumeral joint is normal. There is arthritis at the acromioclavicular joint. Soft tissues are unremarkable. 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
--- NOTE | ~2021-12-04 | XR_ITS ---
EXAMINATION: BILATERAL HIP X-RAY CLINICAL INFORMATION: Pain COMPARISON: None TECHNIQUE: 2 views of each hip FINDINGS: Bone alignment is normal. No fracture or dislocation is seen. Joint spaces are normal. There is a small 3 mm soft tissue calcification adjacent to the superior lateral left hip joint. Soft tissues are otherwise normal. XR/XR hip RT min 2V IMPRESSION: Unremarkable exam.
--- NOTE | ~2021-12-04 | XR_ITS ---
EXAMINATION: XR LUMBOSACRAL SPINE CLINICAL INFORMATION: Low back pain COMPARISON: Previous x-ray most recent November 2019 TECHNIQUE: Three views of the lumbosacral spine. FINDINGS: Bone alignment is normal. No fracture or dislocation is seen. Disc spaces are normal. There is spondylosis from L1 to L2 L3-L4. Paraspinal soft tissues are normal. XR/XR lumbar spine 2-3V IMPRESSION: Mild degenerative spondylosis.
--- NOTE | ~2021-12-04 | XR_ITS ---
EXAMINATION: BILATERAL HIP X-RAY CLINICAL INFORMATION: Pain COMPARISON: None TECHNIQUE: 2 views of each hip FINDINGS: Bone alignment is normal. No fracture or dislocation is seen. Joint spaces are normal. There is a small 3 mm soft tissue calcification adjacent to the superior lateral left hip joint. Soft tissues are otherwise normal. XR/XR hip LT min 2V IMPRESSION: Unremarkable exam.
--- NOTE | ~2021-12-04 | XR_ITS ---
EXAMINATION: BILATERAL SHOULDER X-RAY CLINICAL INFORMATION: Pain COMPARISON: Previous exam August 2018 TECHNIQUE: 4 views of each shoulder FINDINGS: Right: Bone alignment is normal. No fracture or dislocation is seen. The glenohumeral joint is normal. There is arthritis at the acromioclavicular joint. Soft tissues are normal. Left: Bone alignment is normal. No fracture or dislocation is seen. The glenohumeral joint is normal. There is arthritis at the acromioclavicular joint. Soft tissues are unremarkable. XR/XR shoulder RT min 2V IMPRESSION: Arthritis at the bilateral medial clavicular joints.
[2021-12-04 09:17] LABS: C Reactive Protein 0.53 mg/dL (< or = 0.50); Rheumatoid Factor < 15.0 IU/mL (<15.0)
[2021-12-04 09:54] LABS: Erythrocyte Sedimentation Rate 9 MM/HR (0-15)
[2021-12-06 13:16] LABS: Anti Nuclear Antibody Screen NEGATIVE (NEGATIVE)
[2021-12-06 13:27] LABS: Anti DNA DS Antibody <1 IU/mL
== END 2021-12-04 08:04 | disposition home or self-care (01) ==
LOC: HO.LAB 08:03
PROVIDERS: PCP Internal Medicine; Visit Provider Internal Medicine
DX: M25.512 Pain in left shoulder (principal); M25.511 Pain in right shoulder; M25.551 Pain in right hip; M25.552 Pain in left hip; M25.50 Pain in unspecified joint; M54.50 Low back pain, unspecified
CPT/HCPCS: 36415; 85652; 86038; 86039; 86140; 86225; 86431

== ENCOUNTER 2021-12-08 | Outpatient (REF) | payer OTHER, SELFPAY | END 2021-12-08 00:01 | disposition home or self-care (01) | LOC: HO.XRAY | PROVIDERS: Visit Provider Internal Medicine | DX: M25.552 Pain in left hip (principal); M25.551 Pain in right hip; M54.50 Low back pain, unspecified; M25.512 Pain in left shoulder; M25.511 Pain in right shoulder | CPT/HCPCS: 72100; 73030; 73502 ==

== ENCOUNTER → 2021-12-28 10:00 | Outpatient (BNVA) | payer OTHER, SELFPAY | PROVIDERS: PCP Internal Medicine; Visit Provider Internal Medicine Cardiovascular Disease | DX: I10 Essential (primary) hypertension (principal); I25.118 Atherosclerotic heart disease of native coronary artery with other forms of angina pectoris | CPT/HCPCS: 99212 ==

== ENCOUNTER 2022-03-08 12:22 | Emergency (ER) | payer OTHER, SELFPAY ==
--- NOTE | ~2022-03-08 | XR_ITS ---
EXAMINATION: XR CHEST CLINICAL INFORMATION: Question pneumonia COMPARISON: 01/30/2021 TECHNIQUE: Frontal view of the chest was obtained. FINDINGS: No acute finding. No infiltrate. Lung nettles are grossly clear. The cardiac silhouette is within normal limits. There is no effusion. The hilar regions do not appear pathologically enlarged. Comparable to previous. XR/XR chest 1V IMPRESSION: No acute finding
--- NOTE | 2022-03-08 12:34 | ECG_ITS ---
Test Reason : CHEST PAIN Blood Pressure : / mmHG Vent. Rate : 056 BPM Atrial Rate : 056 BPM P-R Int : 172 ms QRS Dur : 088 ms QT Int : 388 ms P-R-T Axes : 031 005 001 degrees QTc Int : 374 ms Sinus bradycardia Otherwise normal ECG When compared with ECG of 11-OCT-2021 16:16, No significant change was found Referred By: Generic ED Physician Electronically Signed By:TY BRAND
[2022-03-08 12:40] VITALS: BP 140/83; PULSE 62; RESP 18; TEMP 36.7; O2SAT 99; BMI 30.9
[2022-03-08 13:28] LABS: COVID-19 Test Negative (Negative); IDNOW Serial# 9DB6401D
--- NOTE | 2022-03-08 15:20 | ED_ITS ---
HPI - General Adult General Chief complaint: General Medical Stated complaint: chest pain sob body aches Time Seen by Provider: 03/08/22 14:41 Source: patient Mode of arrival: ambulatory History of Present Illness HPI narrative: 41-year-old male history of hypertension chronic back pain, GERD, marijuana use, anemia, CAD, presents to ED for generalized body aches, lethargy, chest pain, and shortness of breath 3 days. patient states chest pain and shortnes of breath resovedd 2 days ago. Patient states main complaint is bodyaches and lethargy. Patient denies any fever, chills coughing, pleurisy, shortness of breath, abdominal pain, coughing up blood, recent long travel, recent surgery, recent trauma, or any estrogen hormone use. Related Data Home Medications Medication Instructions Recorded Confirmed ketoconazole 2 % topical cream 1 appl topical BID rash 06/28/20 12/28/21 Previous Rx's Medication Instructions Recorded aspirin 81 mg tablet,delayed 81 mg PO DAILY cad prophylaxis 90 06/27/21 release days #90 tabs albuterol sulfate 90 mcg/actuation 1 inh inhalation QID PRN shortness 08/07/21 aerosol inhaler of breath or wheezing 30 days #6.7 grams omeprazole 20 mg capsule,delayed 20 mg PO DAILY 90 days #90 caps 08/25/21 release bupropion HCl 150 mg 24 hr tablet, 150 mg PO QAM 90 days #90 tabs 11/28/21 extended release omega-3 fatty acids 1,000 mg 1,000 mg PO BID 30 days #60 caps 12/06/21 capsule tramadol 50 mg tablet 50 mg PO BID pain 7 days #14 tabs 12/22/21 metoprolol succinate 25 mg 25 mg PO DAILY #30 tabs 12/24/21 tablet,extended release 24 hr Allergies Allergy/AdvReac Type Severity Reaction Status Date / Time cyclobenzaprine Allergy Intermediate erectile Verified 12/28/21 10:06 [From Flexeril] dysfunction diclofenac [DICLOFENAC] Allergy Intermediate STOMACH Verified 12/28/21 10:06 CRAMP, diarrhea ibuprofen [From Motrin] Allergy Intermediate bloody Verified 12/28/21 10:06 stools duloxetine Allergy Mild erectily Verified 12/28/21 10:06 dysfunction PMFSH Past Medical History Medical History Anxiety Asthma CAD (coronary artery disease) Current smoker HTN (hypertension) Hyperlipidemia Left hip pain Left shoulder pain Long-term use of aspirin therapy Lumbar pain Lumbar radiculopathy Moderate recurrent major depression NAFL (nonalcoholic fatty liver) Past heart attack Polyarthralgia Right hip pain Right shoulder pain Surgical History H/O colonoscopy History of back surgery History of endoscopy History of esophagogastroduodenoscopy (EGD) History of open reduction and internal fixation (ORIF) procedure S/P hernia surgery Family History Family History Father CVD (cardiovascular disease) Mother Diabetes Hypertension CVD (cardiovascular disease) Social History Social History Household Members: Children Housing: House Alcohol intake: former Patient Tobacco Use Status: Former Tobacco user Tobacco use type: Cigarette e-Cigarette/Vaping Use: Never Used Second Hand Smoke Exposure: No Substance Use Type: Marijuana Advance Directives: No Advance Directives Information Provided: No service: No Current occupational status: unemployed and disabled 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 Cognitive needs: No Hearing needs: No Vision needs: No Physical Exam ED Vital Signs: Vital Signs - 24 hr 03/08/22 12:40 Temperature 98.1 F Pulse Rate 62 Respiratory Rate 18 Blood Pressure 140/83 H Pulse Oximetry 99 Oxygen Delivery Method Room Air BMI result Body Mass Index 30.9 Const General: cooperative, healthy appearing, comfortable, no acute distress, well developed, alert and awake Orientation/consciousness: oriented to time and patient oriented x3 HENMT Head: Yes normal to inspection, Yes No palpable skull fracture present, Yes normocephalic, Yes atraumatic and No abrasion Eyes General: appearance normal, both eyes and all related structures Neck Neck: Yes normal visual inspection, Yes full ROM, Yes no lymphadenopathy, Yes no meningeal signs, Yes trachea midline, Yes supple, No anterior neck swelling and No tender Chest Chest palpation & inspection: normal inspection of the chest and normal palpation of entire chest wall Resp Effort & Inspection: normal respiratory effort and able to speak in complete sentences Auscultation: clear to auscultation bilaterally Cardio Jugular venous distension: no JVD Heart sounds: S1 normal heart sound present and S2 normal heart sound present GI Inspection: Yes normal to inspection and No abdominal wall ecchymosis Palpation (GI): Soft to palpation, not firm, nontender, no guarding and not rigid General: No CVA tenderness and Yes no CVA tenderness Back/Spine/Pelvis Back: no CVA tenderness, No CVA tenderness and No back tenderness Skin General skin exam: no rashes or lesions noted, elasticity normal and turgor normal Neuro General: oriented to time, patient oriented x3, gait normal, no meningeal signs and CN's II-XI intact bilaterally Cranial nerves: Yes CN's II-XII intact bilaterally Extrem Other: Lower extremities negative for swelling, pitting edema, calf tenderness General: Yes normal to inspection and Yes full ROM Psych Appearance: grossly normal, well kempt and not disheveled Course Course Course Narrative: Patient have the labs make sure there is no anemia. Will do EKG and troponin. Will order chest x-ray. COVID swab negative. Not suspecting PE. Perc score 0. Presently patient denies any chest pain or shortness of breath. Reevaluation(s) Reevaluation #1: Patient walked out the ER and eloped/left AMA before results came back or I talk to him. Time: 17:00 Medical Decision Making [facility] Narrative Medical decision making narrative: Eight atypical chest pain. Myalgias Lab Data Result diagrams: 03/08/22 16:12 03/08/22 16:12 Labs: Lab Results 03/08/22 03/08/22 03/08/22 Range/Units 12:49 16:12 16:12 WBC 9.0 (4.8-10.8) X10*3/uL RBC 5.03 (4.60-5.80) X10*6/uL Hgb 15.4 (14.0-18.0) g/dl Hct 45.0 (42.0-52.0) % MCV 89.5 (80.0-98.0) fL MCH 30.6 (27.0-33.0) pg MCHC 34.2 (31.0-36.0) g/dl RDW 12.6 (11.0-16.0) % Plt Count 267 (160-400) X10*3/uL MPV 9.8 (9.4-12.4) fL Immature Gran % (Auto) 0.9 H (0.0-0.4) % Neut % (Auto) 55.9 (45-73) % Lymph % (Auto) 34.0 (20-40) % Throckmorton % (Auto) 6.2 (2-11) % Eos % (Auto) 2.1 (0-4) % Baso % (Auto) 0.9 (0-2) % Lymph # (Auto) 3.1 (1.2-4.9) X10*3/uL Throckmorton # (Auto) 0.6 (0.1-1.2) X10*3/uL Eos # (Auto) 0.2 (0.0-0.4) X10*3/uL Baso # (Auto) 0.1 (0.0-0.2) X10*3/uL Abs Immat Gran (auto) 0.08 H (0.00-0.03) X10*3/uL Absolute Neuts (auto) 5.1 (2.0-8.3) x10*3/uL Absolute Nucleated RBC 0.000 (0.0-0.012) X10*3/uL Nucleated RBC % (auto) 0.0 (0.0-0.2) /100WBC PT 10.7 (10.0-13.1) SEC INR 0.9 (0.9-1.1) APTT 34.4 (26.0-36.4) SEC Sodium (135-145) mmol/L Potassium (3.3-5.1) mmol/L Chloride (96-108) mmol/L Carbon Dioxide (22-29) mmol/L Anion Gap (12-20) BUN (9-16) mg/dL Creatinine (0.5-1.4) mg/dL Estim Creat Clear Calc Estimated GFR Random Glucose (60-115) mg/dL Calcium (8.4-10.2) mg/dL Total Bilirubin (0.0-1.0) mg/dL AST (5-37) U/L ALT (0-40) U/L Alkaline Phosphatase (39-117) U/L Troponin I High Sens (<3.5-35.0) ng/L B-Natriuretic Peptide (<100) pg/mL Total Protein (6.5-8.0) g/dL Albumin (3.5-5.0) g/dL COVID-19 (TATYANA) Negative (Negative) COVID-19 Clin Com See Note 03/08/22 03/08/22 Range/Units 16:12 16:12 WBC (4.8-10.8) X10*3/uL RBC (4.60-5.80) X10*6/uL Hgb (14.0-18.0) g/dl Hct (42.0-52.0) % MCV (80.0-98.0) fL MCH (27.0-33.0) pg MCHC (31.0-36.0) g/dl RDW (11.0-16.0) % Plt Count (160-400) X10*3/uL MPV (9.4-12.4) fL Immature Gran % (Auto) (0.0-0.4) % Neut % (Auto) (45-73) % Lymph % (Auto) (20-40) % Throckmorton % (Auto) (2-11) % Eos % (Auto) (0-4) % Baso % (Auto) (0-2) % Lymph # (Auto) (1.2-4.9) X10*3/uL Throckmorton # (Auto) (0.1-1.2) X10*3/uL Eos # (Auto) (0.0-0.4) X10*3/uL Baso # (Auto) (0.0-0.2) X10*3/uL Abs Immat Gran (auto) (0.00-0.03) X10*3/uL Absolute Neuts (auto) (2.0-8.3) x10*3/uL Absolute Nucleated RBC (0.0-0.012) X10*3/uL Nucleated RBC % (auto) (0.0-0.2) /100WBC PT (10.0-13.1) SEC INR (0.9-1.1) APTT (26.0-36.4) SEC Sodium 142 (135-145) mmol/L Potassium 4.3 (3.3-5.1) mmol/L Chloride 102 (96-108) mmol/L Carbon Dioxide 30 H (22-29) mmol/L Anion Gap 14 (12-20) BUN 17 H (9-16) mg/dL Creatinine 0.96 (0.5-1.4) mg/dL Estim Creat Clear Calc 109.2 Estimated GFR > 60 Random Glucose 88 (60-115) mg/dL Calcium 10.1 (8.4-10.2) mg/dL Total Bilirubin 0.3 (0.0-1.0) mg/dL AST 16 (5-37) U/L ALT 23 (0-40) U/L Alkaline Phosphatase 86 (39-117) U/L Troponin I High Sens 3.7 (<3.5-35.0) ng/L B-Natriuretic Peptide 34 (<100) pg/mL Total Protein 7.8 (6.5-8.0) g/dL Albumin 4.9 (3.5-5.0) g/dL COVID-19 (TATYANA) (Negative) COVID-19 Clin Com ECG Data Interpretation: Normal sinus rhythm. Ventricular 56. Parents of 172 pr QRS 88. QTC 374. Negative STEMI Discharge Plan Discharge Clinical Impression: Atypical chest pain, Myalgia Patient Disposition: Left Against Medical Advice Prescriptions: No Action aspirin 81 mg tablet,delayed release (DR/EC) 81 mg PO DAILY 90 Days Qty: 90 4RF albuterol sulfate 90 mcg/actuation HFA aerosol inhaler 1 inh inhalation QID PRN (Reason: shortness of breath or wheezing) 30 Days Qty: 6.7 3RF omega-3 fatty acids 1,000 mg capsule 1,000 mg PO BID 30 Days Qty: 60 3RF tramadol 50 mg tablet 50 mg PO BID 7 Days Qty: 14 0RF metoprolol succinate 25 mg tablet extended release 24 hr 25 mg PO DAILY Qty: 30 4RF ketoconazole 2 % cream 1 appl topical BID omeprazole 20 mg capsule,delayed release(DR/EC) 20 mg PO DAILY 90 Days Qty: 90 3RF bupropion HCl 150 mg tablet extended release 24 hr 150 mg PO QAM 90 Days Qty: 90 0RF Interventions: ED Discharge Assessment Last Done: 03/08/22 17:34 Discharge Date/Time: 03/08/22 17:00
[2022-03-08 16:18] LABS: MANUAL DIFF FLAG NO
[2022-03-08 16:24] LABS: Basophils Absolute Auto 0.1 X10*3/uL (0.0-0.2); Basophils Percent Auto 0.9 % (0-2); Eosinophils Absolute Auto 0.2 X10*3/uL (0.0-0.4); Eosinophils Percent Auto 2.1 % (0-4); Hemoglobin 15.4 g/dl (14.0-18.0); Imm Gran Abs Auto 0.08 X10*3/uL (0.00-0.03); Imm Gran Pct Auto 0.9 % (0.0-0.4); Lymphocytes Absolute Auto 3.1 X10*3/uL (1.2-4.9); Mean Corpuscular HGB Conc 34.2 g/dl (31.0-36.0); Mean Corpuscular Hemoglobin 30.6 pg (27.0-33.0); Mean Corpuscular Volume 89.5 fL (80.0-98.0); Mean Platelet Volume 9.8 fL (9.4-12.4); Monocytes Absolute Auto 0.6 X10*3/uL (0.1-1.2); Monocytes Percent Auto 6.2 % (2-11); Neutrophils Absolute Auto 5.1 x10*3/uL (2.0-8.3); Neutrophils Percent Auto 55.9 % (45-73); Platelet Count 267 X10*3/uL (160-400); Red Blood Count 5.03 X10*6/uL (4.60-5.80); Red Cell Distribution Width 12.6 % (11.0-16.0)
[2022-03-08 16:30] LABS: INTERNATIONAL NORM RATIO 0.9 (0.9-1.1); Prothrombin Time 10.7 SEC (10.0-13.1)
[2022-03-08 16:33] LABS: Partial Thromboplastin Time 34.4 SEC (26.0-36.4)
[2022-03-08 16:37] LABS: Alanine Aminotransferase 23 U/L (0-40); Albumin Level 4.9 g/dL (3.5-5.0); Alkaline Phosphatase 86 U/L (39-117); Anion Gap 14 (12-20); Aspartate Amino Transferase 16 U/L (5-37); Bilirubin Total 0.3 mg/dL (0.0-1.0); Blood Urea Nitrogen 17 mg/dL (9-16); Calcium 10.1 mg/dL (8.4-10.2); Carbon Dioxide 30 mmol/L (22-29); Chloride 102 mmol/L (96-108); Creatinine Clr Calc Pharmacy 109.2; Estimated Glomerular Filt Rate > 60; Glucose Random 88 mg/dL (60-115); Potassium 4.3 mmol/L (3.3-5.1); Sodium 142 mmol/L (135-145); Total Protein 7.8 g/dL (6.5-8.0)
[2022-03-08 16:43] LABS: B Type Natriuretic Peptide 34 pg/mL (<100); Troponin-I High Sensitivity 3.7 ng/L (<3.5-35.0)
--- NOTE | 2022-03-08 17:00 | PC.NURSE ---
PT BECAME VERBALLY AGGRESSIVE AT REGISTRATION STAFF MEMBER AFTER SHE CLOSED HIS CURTAIN TO HIS ASSIGNED ROOM. PT WELL APPEARING, AMBULATING STEADILY AND INDEPENDENTLY WITH NO ISSUE. PT LEFT UNIT, ALL STAFF MEMBERS AWARE.
== END 2022-03-08 17:00 | disposition left against medical advice (07) ==
PROVIDERS: Physician Assistant; Emergency Provider Emergency Medicine; PCP Internal Medicine
DX: R07.89 Other chest pain (principal); M79.10 Myalgia, unspecified site; R06.02 Shortness of breath; Z20.822 Contact with and (suspected) exposure to COVID-19; F17.200 Nicotine dependence, unspecified, uncomplicated; I10 Essential (primary) hypertension; E78.5 Hyperlipidemia, unspecified; Z79.82 Long term (current) use of aspirin; Z79.899 Other long term (current) drug therapy
CPT/HCPCS: 36415; 71045; 80053; 83880; 84484; 85025; 85610; 85730; 87635; 93005; 99283

== ENCOUNTER → 2022-03-12 12:55 | Outpatient (BNVA) | payer OTHER, SELFPAY | PROVIDERS: PCP Internal Medicine; Visit Provider Student in an Organized Health Care Education/Training Program | DX: M25.50 Pain in unspecified joint (principal); M79.671 Pain in right foot; M79.672 Pain in left foot; M25.511 Pain in right shoulder | CPT/HCPCS: 99202 ==

== ENCOUNTER 2022-05-22 08:33 | Outpatient (REF) | payer OTHER, SELFPAY ==
--- NOTE | ~2022-05-22 | MR_ITS ---
EXAMINATION: MR SHOULDER WITHOUT CONTRAST, RIGHT CLINICAL INFORMATION: Myopathy COMPARISON: None TECHNIQUE: MRI of the shoulder without contrast was performed on a high-field scanner. FINDINGS: ROTATOR CUFF: Moderate supraspinatus and infraspinatus tendinosis. No focal tear. Teres minor is intact. Moderate subscapularis tendinosis. No muscle atrophy or fatty infiltration. BICEPS: Intact CORACOACROMIAL ARCH: The undersurface of the acromion is mildly curved with no subacromial spur. Moderate to severe acromioclavicular arthritis, with the prominent marrow edema marginating the joint. Small fluid in the subacromial subdeltoid space. LABRUM/CAPSULE: Increased signal in the superior labrum and the posterosuperior labrum from degeneration and probable tear. GLENOHUMERAL JOINT/MARROW: Marrow signal is within normal limits. No fracture. MR/MR shoulder RT wo con IMPRESSION: 1. Moderate supraspinatus, infraspinatus and subscapularis tendinosis. No focal rotator cuff tear is seen. 2. Superior and posterosuperior labral degeneration and probable tear. 3. Moderate to severe acromioclavicular arthritis. 4. Mild subacromial subdeltoid bursitis.
== END 2022-05-22 08:34 | disposition home or self-care (01) ==
LOC: HO.MRI 08:33
PROVIDERS: Visit Provider Student in an Organized Health Care Education/Training Program
DX: M25.511 Pain in right shoulder (principal); G72.9 Myopathy, unspecified; R53.83 Other fatigue; E55.9 Vitamin D deficiency, unspecified
CPT/HCPCS: 73221

== ENCOUNTER → 2022-06-13 11:43 | Outpatient (BNVA) | payer OTHER, SELFPAY | PROVIDERS: PCP Internal Medicine; Visit Provider Student in an Organized Health Care Education/Training Program | DX: S43.431D Superior glenoid labrum lesion of right shoulder, subsequent encounter (principal) | CPT/HCPCS: 99212 ==

== ENCOUNTER → 2022-07-02 08:57 | Outpatient (BNVA) | payer OTHER, MEDICAID, SELFPAY | PROVIDERS: PCP Internal Medicine; Visit Provider Orthopaedic Surgery | DX: S43.431D Superior glenoid labrum lesion of right shoulder, subsequent encounter (principal); R20.0 Anesthesia of skin; R20.2 Paresthesia of skin | CPT/HCPCS: 99202 ==

== ENCOUNTER 2022-08-14 09:29 | Outpatient (REF) | payer OTHER, MEDICAID, SELFPAY ==
--- NOTE | ~2022-08-14 | MR_ITS ---
EXAMINATION: MR CERVICAL SPINE WITHOUT CONTRAST CLINICAL INFORMATION: 42-year-old with numbness and tingling right upper extremity, anesthesia of skin. COMPARISON: 10/26/2019 CT TECHNIQUE: MRI of the cervical spine was obtained using routine sequences without contrast. FINDINGS: Alignment: Normal. No spondylolisthesis or retrolisthesis. Craniocervical Junction/C1-C2 Articulations: Intact and aligned. Visualized Intracranial Structures: Within normal limits. Vertebral Bodies: Stable vertebral body heights. No interval compression fractures. Disc Spaces and Endplates: Rgfs-[id number] disc space height loss at C5-C6 similar to previous CT, with mild spondylosis, unchanged. Remaining cervical intervertebral disc space heights are stable and well maintained. There are Schmorl's nodes along the inferior endplate of C5 on the right, unchanged. Bone Marrow: Minor type I degenerative marrow signal changes seen along the endplates at C5-C6 on the right. No suspicious marrow replacing process or other bone marrow edema. C2-C3: Small central disc protrusion with minimal indentation of the ventral thecal sac without cord impingement or canal stenosis, unchanged. There is uncovertebral spurring noted bilaterally with moderate right-sided neural foraminal stenosis, unchanged in appearance. C3-C4: Broad-based central disc protrusion, better appreciated on current study with effacement of the ventral dural sac abutting the ventral aspect of the spinal cord to the left of midline with moderate central spinal canal stenosis. There is uncovertebral spurring bilaterally, right more than left, and minor facet arthrosis, with [id number] right-sided and moderate left-sided neural foraminal stenosis, unchanged in appearance. C4-C5: Shallow broad-based central disc protrusion with central annular fissuring, with mild flattening of the ventral dural sac without cord impingement. There is mild central canal stenosis. There is mild uncovertebral spurring on the left and mild facet hypertrophic changes on the left with moderate left-sided neural foraminal stenosis, unchanged in appearance. C5-C6: Broad-based disc osteophyte complex similar to prior study, with flattening of the ventral dural sac without cord impingement. Mild central spinal canal stenosis is probably unchanged. There is uncovertebral spurring, right more than left, without significant facet arthrosis, with [id number]-fs-[id number] right-sided and [id number]-vb-[id number] left-sided neural foraminal stenosis, stable in appearance. C6-C7: Shallow broad-based disc protrusion, with a left paramedian component with mild flattening of the ventral dural sac without cord impingement or canal stenosis. No significant facet arthrosis or neuroforaminal stenosis. C7-T1: No disc herniation or canal stenosis. Posterolateral endplate spurring noted bilaterally without significant facet arthropathy, canal or neuroforaminal stenosis. Spinal Cord: The cervical and visualized upper thoracic spinal cord is normal in signal intensity throughout, without focal lesion, edema or syrinx. Extracranial Soft Tissues: The visualized extracranial head/neck soft tissues are unremarkable within the limitations of the study. MR/MR cervical spine wo con IMPRESSION: 1. Discogenic degenerative changes primarily at C5-C6 with disc osteophyte complex at this level and mild spondylosis, stable in appearance. 2. Multilevel central disc protrusions and disc osteophyte complexes, as described above, with moderate central spinal canal stenosis at C3-C4 and mild central spinal canal stenosis at C4-C5 and C5-C6, stable in appearance. 3. Multilevel DJD as described above with multilevel bilateral neural foraminal stenosis, most significant on the right at C3-C4 and C5-C6 and on the left at C4-C5 and C5-C6.
== END 2022-08-14 09:30 | disposition home or self-care (01) ==
LOC: HO.MRI 09:29
PROVIDERS: PCP Internal Medicine; Visit Provider Orthopaedic Surgery
DX: R20.0 Anesthesia of skin (principal); R20.2 Paresthesia of skin
CPT/HCPCS: 72141

== ENCOUNTER → 2022-09-05 11:02 | Outpatient (BNVA) | payer OTHER, MEDICAID, SELFPAY | PROVIDERS: PCP Internal Medicine; Referring Provider Internal Medicine; Visit Provider Internal Medicine | DX: K29.70 Gastritis, unspecified, without bleeding (principal); B96.81 Helicobacter pylori [H. pylori] as the cause of diseases classified elsewhere; R10.9 Unspecified abdominal pain; Z87.19 Personal history of other diseases of the digestive system | CPT/HCPCS: 99212 ==

== ENCOUNTER 2022-09-06 12:18 | Day surgery (SDC) | payer OTHER, SELFPAY ==
[2022-09-06 12:38] VITALS: BMI 29.7
[2022-09-06 12:48] LABS: Amphetamine Screen Urine Not Detected (Not Detect); Barbiturates, Urine Not Detected (Not Detect); Benzodiazepines Screen Urine Not Detected (Not Detect); Cannabinoid Screen Urine POSITIVE (Not Detect); Cocaine Screen Urine Not Detected (Not Detect); Fentanyl, urine Not Detected (Not Detect); Opiate Screen Urine Not Detected (Not Detect); Phencyclidine Screen Urine Not Detected (Not Detect)
[2022-09-06 12:54] VITALS: BP 125/77; PULSE 64; RESP 18; TEMP 36.4; O2SAT 98
[2022-09-06] MEDS: Lactated Ringers 1,000 ML 50 ML IVCONT (12:58)
--- NOTE | 2022-09-06 13:24 | HO.ANESPROP2 ---
[facility] Active Problems Active Problems: All Active Problems (Updated 07/02/22 @ 10:09 by Flex Ramey) Right arm numbness (Acute) Labral tear of shoulder (Acute) Foot pain, bilateral (Acute) Foot pain, bilateral (Acute) Left shoulder pain (Acute) Right hip pain (Acute) Polyarthralgia (Acute) Moderate recurrent major depression (Acute) Moderate depressive disorder (Acute) GERD (gastroesophageal reflux disease) (Acute) Chronic fatigue (Acute) Blurry vision (Acute) Hyperglycemia (Acute) Sleep disorder breathing (Acute) Diarrhea (Acute) Helicobacter pylori gastritis (Acute) Lumbar pain (Acute) Left hip pain (Acute) Left leg swelling (Acute) Cellulitis (Acute) Tinea corporis (Acute) Chest discomfort (Acute) MARYURI (generalized anxiety disorder) (Acute) Allergic rhinitis (Acute) History of gastric ulcer (Acute) History of Helicobacter pylori infection (Acute) Chronic diarrhea (Acute) Abdominal pain (Acute) Sleep disorder breathing (Acute) Obesity (BMI 30-39.9) (Acute) Numbness and tingling of left leg (Acute) Edema, leg (Acute) Right shoulder pain (Acute) Lumbar radiculopathy (Acute) Long-term use of aspirin therapy (Acute) Current smoker (Acute) Hyperlipidemia (Acute) CAD (coronary artery disease) (Acute) HTN (hypertension) (Acute) Past Medical History Medical History Anxiety Asthma CAD (coronary artery disease) Current smoker Foot pain, bilateral Foot pain, bilateral HTN (hypertension) Hyperlipidemia Left hip pain Left shoulder pain Long-term use of aspirin therapy Lumbar pain Lumbar radiculopathy Moderate recurrent major depression NAFL (nonalcoholic fatty liver) Past heart attack Polyarthralgia Right hip pain Right shoulder pain Family History Family History Father CVD (cardiovascular disease) Mother Diabetes Hypertension CVD (cardiovascular disease) Surgical History Surgical History H/O colonoscopy History of back surgery History of endoscopy History of esophagogastroduodenoscopy (EGD) History of open reduction and internal fixation (ORIF) procedure S/P hernia surgery History of Problems with Anesthesia: No Social History Social History Household Members: Children Housing: House Alcohol intake: former Patient Tobacco Use Status: Former Tobacco user Quit Date: 2021 Tobacco use type: Cigarette e-Cigarette/Vaping Use: Never Used Second Hand Smoke Exposure: No Substance Use Type: Marijuana Are you DNR?: No Advance Directives: No Advance Directives Information Provided: Yes service: No Current occupational status: unemployed and disabled 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 Cognitive needs: No Hearing needs: No Vision needs: No Meds Allergies Allergy/AdvReac Type Severity Reaction Status Date / Time cyclobenzaprine Allergy Intermediate erectile Verified 09/05/22 11:08 [From Flexeril] dysfunction diclofenac [DICLOFENAC] Allergy Intermediate STOMACH Verified 09/05/22 11:08 CRAMP, diarrhea ibuprofen [From Motrin] Allergy Intermediate bloody Verified 09/05/22 11:08 stools duloxetine Allergy Mild erectily Verified 09/05/22 11:08 dysfunction Active Medications: Current Medications Lactated Ringer's (Lr) 1,000 mls @ 50 mls/hr IVCONT .Q20H LAURA Last Admin: 09/06/22 12:58 Dose: 50 mls/hr Home Medications Medication Instructions Recorded Confirmed Last Taken Type aspirin 81 mg tablet,delayed 81 mg PO DAILY 09/05/22 Unknown History release clonazepam 0.5 mg tablet 0.5 mg PO BEDTIME PRN anxiety 09/05/22 Unknown History tramadol 50 mg tablet 50 mg PO BEDTIME 09/05/22 Unknown History Exam Exam Date and Time: September 06, 2022 1324 Height,Weight and Vital Signs: Height 5 ft 7.5 in Weight 87.543 kg Last Vital Signs Temp 97.5 F 09/06/22 12:54 Pulse 64 09/06/22 12:54 Resp 18 09/06/22 12:54 BP 125/77 09/06/22 12:54 Pulse Ox 98 09/06/22 12:54 O2 Del Method 09/06/22 12:54 Pertinent Lab Results Pertinent Lab Results: Laboratory Tests 09/06/22 12:25 Urine Opiates Screen Not Detected Urine Fentanyl Screen Not Detected Ur Barbiturates Screen Not Detected Ur Phencyclidine Scrn Not Detected Ur Amphetamines Screen Not Detected U Benzodiazepines Scrn Not Detected Urine Cocaine Screen Not Detected U Marijuana (THC) Screen POSITIVE H Airway Mallampati Class: III TM Dist: >3cm Neck ROM: Full Loose/Missing/Broken Teeth: No Heart: RRR Lungs: CTA Assessment and Plan Assessment Anesthesia Assessment: Anesthesia Plan Discussed and Chart Reviewed Final Anesthetic Review History of Problems with Anesthesia: No NPO: Yes ASA Class: II Final Preanesthetic Review: Meds/Allgs Chart Reviewed, Consent Obtained/Reviewed and Anes Risks/Benef Reviewed Patient Risk: Low Procedure Risk: Intermediate Anesthetic Plan Anesthetic Plan: MAC: Disposition: Standard PACU
--- NOTE | 2022-09-06 13:33 | MHC.SHP ---
Pre-Procedural Eval Section A Date of Service: 09/06/22 The History & Physical has been completed within 30 days and I have reviewed it.: Yes Section B Chief Complaint: abdominal pain,gastric ulcer, Allergies: Allergies Allergy/AdvReac Type Severity Reaction Status Date / Time cyclobenzaprine Allergy Intermediate erectile Verified 09/05/22 11:08 [From Flexeril] dysfunction diclofenac [DICLOFENAC] Allergy Intermediate STOMACH Verified 09/05/22 11:08 CRAMP, diarrhea ibuprofen [From Motrin] Allergy Intermediate bloody Verified 09/05/22 11:08 stools duloxetine Allergy Mild erectily Verified 09/05/22 11:08 dysfunction Plan Diagnosis/Plan: Unchanged I have reviewed the history and physical and performed a pertinent physical examination on my patient. No changes have occurred unless specified. Time Spent With Patient Time: Total time managing care of this patient today ____ minutes.
--- NOTE | 2022-09-06 13:55 | P.OP_ITS ---
Operative Note Operative Note Date of Service: 09/06/22 Narrative: Procedure: Esophagogastroduodenoscopy Endoscopist: Miya Valdes MD Indication: Abd pain, hx of gastric ulcers Anesthesia Provider: Dr Liana Hurtado Anesthesia Type: MAC ?? EGD Procedure:?? The procedure, indications, preparation and potential complications were reviewed with the patient, who indicated understanding and gave written informed consent to proceed. A physical exam was performed. The endoscope was introduced through the mouth, and advanced to the second part of duodenum. The mucosa was carefully examined on slow withdrawal of the endoscope. The patient tolerated the procedure well. There were no immediate complications.? ? EGD Findings:? * Esophagus:? Normal mucosa noted in the entire esophagus. The Z line was at 39 cm. * Stomach:? Normal mucosa was noted in the stomach. No erosions or ulcers noted. Random gastric biopsies were taken to rule out persistent H Pylori infection. * Duodenum:? Normal mucosa was noted in the whole of the examined duodenum. ? EGD Impressions:? * Normal esophagus * Normal stomach (biopsy) * Normal duodenum ?? Recommendations:?? * Follow biopsy results. Our office will call or send a letter with results within 7-10 days. * If H pylori +, patient will be prescribed eradication therapy followed by test of cure. * Avoid NSAIDs. Above has been reviewed with the patient. Relevant educational hand outs were provided at discharge.
[2022-09-06 14:01] VITALS: BP 102/58; PULSE 66; RESP 20; TEMP 36.9; O2SAT 100
[2022-09-06 14:16] VITALS: BP 125/69; PULSE 64; RESP 18; TEMP 36.9; O2SAT 100
== END 2022-09-06 14:41 | disposition home or self-care (01) ==
PROVIDERS: Anesthesiology; PCP Family Medicine; Visit Provider Internal Medicine
PROC: 0DJ08ZZ Inspection of Upper Intestinal Tract, Via Natural or Artificial Opening Endoscopic (ICD-10-PCS; CPT 43235; principal; 2022-09-06 14:00)
DX: R10.9 Unspecified abdominal pain (principal); Z87.11 Personal history of peptic ulcer disease; A04.8 Other specified bacterial intestinal infections; K76.0 Fatty (change of) liver, not elsewhere classified; K21.9 Gastro-esophageal reflux disease without esophagitis; I25.10 Atherosclerotic heart disease of native coronary artery without angina pectoris; I25.2 Old myocardial infarction; I10 Essential (primary) hypertension; J45.909 Unspecified asthma, uncomplicated; F33.1 Major depressive disorder, recurrent, moderate; E66.9 Obesity, unspecified; Z79.82 Long term (current) use of aspirin; Z79.899 Other long term (current) drug therapy; Z88.8 Allergy status to other drugs, medicaments and biological substances; Z87.891 Personal history of nicotine dependence; F12.90 Cannabis use, unspecified, uncomplicated
CPT/HCPCS: 43239; 80307; 88305; 88342; J2250

== ENCOUNTER 2022-10-10 09:44 | Emergency (ER) | payer OTHER, SELFPAY ==
--- NOTE | ~2022-10-10 | XR_ITS ---
EXAMINATION: XR SHOULDER, RIGHT CLINICAL INFORMATION: Pain and limited range of motion. History of labral tear COMPARISON: None TECHNIQUE: 3 views of the right shoulder. FINDINGS: There is reduction in the glenohumeral and AC joint space with moderate periarticular spurring. No loose bodies, fracture or bony erosive changes. There is no dislocation. The soft tissues are normal. XR/XR shoulder RT min 2V IMPRESSION: Degenerative arthritic changes right AC joint and glenohumeral joint.
[2022-10-10 09:53] VITALS: BP 145/73; PULSE 74; RESP 16; TEMP 36.1; O2SAT 97; BMI 28.8
--- NOTE | 2022-10-10 10:05 | ED_ITS ---
HPI - Extremity Injury (Upper) General Chief Complaint: Upper Respiratory Symptoms Stated Complaint: R shoulder pain Time Seen by Provider: 10/10/22 10:03 Source: patient Mode of arrival: ambulatory Limitations: no limitations History of Present Illness HPI narrative: 42 yo male presents to the ER for evaluation of acute on chronic right shoulder pain. He states on Saturday he lifted his child in the car seat he re-injured his shoulder. He last saw Orthopedics in June and physical therapy was ordered but he never went. he was supposed to have a follow up in 4-6 weeks but has not seen them again, thinks he might have an appointment next month. He states the pain is much worse and not responding to his previously prescribed Tramadol. He states he cannot lift his shoulder without severe pain. He feels like his hand is getting a little swollen. complaint: injury to: right and shoulder Onset (ago): day(s) Handedness: right Place: home Severity: severe Severity scale (1-10): 10 Relieving factors: immobilization Exacerbating factors: movement of extremity Context: injury Associated symptoms: denies other symptoms Related Data Home Medications Medication Instructions Recorded Confirmed aspirin 81 mg tablet,delayed 81 mg PO DAILY 09/05/22 release clonazepam 0.5 mg tablet 0.5 mg PO BEDTIME PRN anxiety 09/05/22 tramadol 50 mg tablet 50 mg PO BEDTIME 09/05/22 Previous Rx's Medication Instructions Recorded albuterol sulfate 90 mcg/actuation 1 inh inhalation QID PRN shortness 08/07/21 aerosol inhaler of breath or wheezing 30 days #6.7 grams omeprazole 20 mg capsule,delayed 20 mg PO DAILY 90 days #90 caps 08/25/21 release omega-3 fatty acids 1,000 mg 1,000 mg PO BID 30 days #60 caps 12/06/21 capsule metoprolol succinate 25 mg 25 mg PO DAILY #30 tabs 12/24/21 tablet,extended release 24 hr gabapentin 400 mg capsule 400 mg PO TID 30 days #90 caps 08/06/22 lidocaine 5 % topical patch 1 patch topical DAILY #15 ea 10/10/22 oxycodone 5 mg tablet 5 mg PO Q8H PRN severe pain (scale 10/10/22 score 7-10) #6 tabs Allergies Allergy/AdvReac Type Severity Reaction Status Date / Time cyclobenzaprine Allergy Intermediate erectile Verified 09/05/22 11:08 [From Flexeril] dysfunction diclofenac [DICLOFENAC] Allergy Intermediate STOMACH Verified 09/05/22 11:08 CRAMP, diarrhea ibuprofen [From Motrin] Allergy Intermediate bloody Verified 09/05/22 11:08 stools duloxetine Allergy Mild erectily Verified 09/05/22 11:08 dysfunction Review of Systems Review of Systems: Yes all other systems are reviewed and are negative [facility] Past Medical History Medical History Anxiety Asthma CAD (coronary artery disease) Current smoker Foot pain, bilateral Foot pain, bilateral HTN (hypertension) Hyperlipidemia Left hip pain Left shoulder pain Long-term use of aspirin therapy Lumbar pain Lumbar radiculopathy Moderate recurrent major depression NAFL (nonalcoholic fatty liver) Past heart attack Polyarthralgia Right hip pain Right shoulder pain Surgical History H/O colonoscopy History of back surgery History of endoscopy History of esophagogastroduodenoscopy (EGD) History of open reduction and internal fixation (ORIF) procedure S/P hernia surgery Family History Family History Father CVD (cardiovascular disease) Mother Diabetes Hypertension CVD (cardiovascular disease) Social History Social History Household Members: Children Housing: House Alcohol intake: former Patient Tobacco Use Status: Former Tobacco user Quit Date: 2021 Tobacco use type: Cigarette e-Cigarette/Vaping Use: Never Used Second Hand Smoke Exposure: No Substance Use Type: Marijuana Advance Directives: No Advance Directives Information Provided: No service: No Current occupational status: unemployed and disabled 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 Oriented X3. No acute distress. HEENT: normal inspection CVS: Normal heart rate and rhythm. Pulses normal. Respiratory: No respiratory distress. Skin: Skin warm and dry. Normal skin color. Normal skin turgor. No rashes. Extremities: normal inspection of the bilatereral shoulders, no gross deformity. right arm held in flexion and adduction. tenderness of the lateral shoulder and AC joint. significant limitattions in ROM and ability to abduction the right arm beyond 20 degrees. normal inspection of the right hand, no appreciated swelling. NV intact distally. Neuro: Oriented X 3. no sensory deficits on the RUE. unable to assess strength of the RUE due to pain Course Reevaluation(s) Reevaluation #1: Pain improved after intramuscular Dilaudid. X-ray showing degenerative arthritis. Discussed the importance of outpatient follow-up with orthopedics and compliance with physical therapy. Will discharge with a sling, short course of pain control. Patient expressed understanding of follow-up with orthopedics. Stable for DC Medications Administered Discontinued Medications Generic Name Dose Route Start Last Admin Trade Name Freq PRN Reason Stop Dose Admin Hydromorphone HCl 1 mg 10/10/22 10:11 10/10/22 10:24 Hydromorphone Hcl 1 Mg/Ml Syringe IM 10/10/22 10:12 1 mg ONCE ONE Administration Protocol Hydromorphone HCl 1 mg 10/10/22 12:01 10/10/22 12:06 Hydromorphone Hcl 1 Mg/Ml Syringe IM 10/10/22 12:02 1 mg ONCE ONE Administration Protocol Medical Decision Making Differential Diagnosis Differential Diagnoses: The differential diagnosis associated with the presentation includes rotator cuff injury, tendonitis, labral tear, ac joint separation, fracture, bursitis Independent Interpretation I performed an independent interpretation of an: Plain X-Ray Interpretation: shoudler x-ray reviewed - no acute fractures Radiology Impression Discussion of test interpretation with radiology: I have reviewed the radiologist's reading. Radiologist Impression: EXAMINATION: XR SHOULDER, RIGHT CLINICAL INFORMATION: Pain and limited range of motion. History of labral tear? COMPARISON: None? TECHNIQUE: 3 views of the right shoulder. FINDINGS: There is reduction in the glenohumeral and AC joint space with moderate periarticular spurring. No loose bodies, fracture or bony erosive changes. There is no dislocation. The soft tissues are normal. XR/XR shoulder RT min 2V IMPRESSION: Degenerative arthritic changes right AC joint and glenohumeral joint. MRI April MR/MR shoulder RT wo con IMPRESSION: 1.? Moderate supraspinatus, infraspinatus and subscapularis tendinosis. No focal rotator cuff tear is seen. 2.? Superior and posterosuperior labral degeneration and probable tear. 3.? Moderate to severe acromioclavicular arthritis. 4.? Mild subacromial subdeltoid bursitis. ? External Record Review External record reviewed: Office record, Outpatient record, Prior outpatient labs and Prior outpatient radiology Prescription Management I considered prescription management with: Pain Medication Critical Care Time Critical Care Time Critical Care Time: No Discharge Plan Discharge Clinical Impression: Arthritis of right shoulder region Patient Disposition: Home, Self-Care Additional Instructions: Where the provided swelling as needed for pain and support. Take the prescribed medication as needed for severe pain only. It is very important that you follow-up with orthopedics for further evaluation and treatment. Also recommend following up with Pain Management for further evaluation of your chronic right shoulder pain. EXAMINATION: XR SHOULDER, RIGHT CLINICAL INFORMATION: Pain and limited range of motion. History of labral tear? COMPARISON: None? TECHNIQUE: 3 views of the right shoulder. FINDINGS: There is reduction in the glenohumeral and AC joint space with moderate periarticular spurring. No loose bodies, fracture or bony erosive changes. There is no dislocation. The soft tissues are normal. XR/XR shoulder RT min 2V IMPRESSION: Degenerative arthritic changes right AC joint and glenohumeral joint. Prescriptions: New oxycodone 5 mg tablet 5 mg PO Q8H PRN (Reason: severe pain (scale score 7-10)) Qty: 6 0RF Rx Instructions: Partial Fill upon patient request. lidocaine 5 % adhesive patch,medicated 1 patch topical DAILY Qty: 15 0RF Rx Instructions: leave on most painful area for up to 12 hrs No Action albuterol sulfate 90 mcg/actuation HFA aerosol inhaler 1 inh inhalation QID PRN (Reason: shortness of breath or wheezing) 30 Days Qty: 6.7 3RF omega-3 fatty acids 1,000 mg capsule 1,000 mg PO BID 30 Days Qty: 60 3RF metoprolol succinate 25 mg tablet extended release 24 hr 25 mg PO DAILY Qty: 30 4RF gabapentin 400 mg capsule 400 mg PO TID 30 Days Qty: 90 3RF omeprazole 20 mg capsule,delayed release(DR/EC) 20 mg PO DAILY 90 Days Qty: 90 3RF clonazepam 0.5 mg tablet 0.5 mg PO BEDTIME PRN (Reason: anxiety) aspirin 81 mg tablet,delayed release (DR/EC) 81 mg PO DAILY tramadol 50 mg tablet 50 mg PO BEDTIME Referrals: [facility] Orthopedic Surgeons [Provider Group] (acute on chronic right shoulder pain) [facility] Pain Management [Provider Group] (Chronic right shoulder pain, degenerative arthritis, possible labral tear and tendinitis) Lily Lopez MD [Primary Care Provider] - Stand Alone Forms: Work/School Release Interventions: ED Discharge Assessment Last Done: 10/10/22 12:41 Discharge Date/Time: 10/10/22 12:41 Print Language: Bahraini
[2022-10-10] MEDS: HYDROmorphone HCl 1 MG/ML SYRINGE IM ×2 (10:24→12:06)
== END 2022-10-10 12:41 | disposition home or self-care (01) ==
PROVIDERS: Emergency Provider Emergency Medicine; PCP Family Medicine
DX: M19.011 Primary osteoarthritis, right shoulder (principal); M25.511 Pain in right shoulder; Z87.891 Personal history of nicotine dependence; Z79.899 Other long term (current) drug therapy
CPT/HCPCS: 73030; 96372; 99283; 99284; J1170

== ENCOUNTER 2022-10-16 08:13 | Emergency (ER) | payer OTHER, SELFPAY ==
--- NOTE | 2022-10-16 08:15 | ECG_ITS ---
Test Reason : CP Blood Pressure : / mmHG Vent. Rate : 060 BPM Atrial Rate : 060 BPM P-R Int : 174 ms QRS Dur : 086 ms QT Int : 384 ms P-R-T Axes : 040 007 -03 degrees QTc Int : 384 ms Normal sinus rhythm Possible Left atrial enlargement Borderline ECG When compared with ECG of 08-MAR-2022 12:27, No significant change was found Referred By: Generic ED Physician Electronically Signed By:HUSSEIN NAYAK MD
[2022-10-16 08:20] VITALS: BP 128/86; PULSE 68; RESP 18; TEMP 36.7; O2SAT 99; BMI 28.8
--- NOTE | 2022-10-16 08:41 | PC.NURSE ---
42 y/o M pw sudden onset L sided chest pain, numbness and tingling to L arm, associated dizziness and headache. EKG done in triage, 18G IV in place, on monitor, in gown, labs drawn and sent. no significant medical hx
[2022-10-16 08:46] LABS: MANUAL DIFF FLAG NO
--- NOTE | 2022-10-16 08:46 | ED.CHESTPAIN ---
HPI - Chest Pain General Chief Complaint: Chest Pain Stated Complaint: chest pains/ RAD to arms Time Seen by Provider: 10/16/22 08:37 Source: patient Mode of arrival: ambulatory Limitations: no limitations History of Present Illness HPI narrative: Chest pain with radiations in both arms, starting around 7 hours ago it went away and he lied in bed. Patient felt it again this morning. Patient had a cardiac catherization but no stent was placed. Patient states there was a minor blockage. MD complaint: chest pain and chest heaviness Pertinent past history: coronary artery disease Onset (ago): hour(s) Timing of current episode: episodic Onset: during rest Pain location: left chest Pain radiation: right arm and left arm Severity: mild Quality: heaviness Related Data Home Medications Medication Instructions Recorded Confirmed aspirin 81 mg tablet,delayed 81 mg PO DAILY 09/05/22 release clonazepam 0.5 mg tablet 0.5 mg PO BEDTIME PRN anxiety 09/05/22 tramadol 50 mg tablet 50 mg PO BEDTIME 09/05/22 Previous Rx's Medication Instructions Recorded albuterol sulfate 90 mcg/actuation 1 inh inhalation QID PRN shortness 08/07/21 aerosol inhaler of breath or wheezing 30 days #6.7 grams omeprazole 20 mg capsule,delayed 20 mg PO DAILY 90 days #90 caps 08/25/21 release omega-3 fatty acids 1,000 mg 1,000 mg PO BID 30 days #60 caps 12/06/21 capsule metoprolol succinate 25 mg 25 mg PO DAILY #30 tabs 12/24/21 tablet,extended release 24 hr gabapentin 400 mg capsule 400 mg PO TID 30 days #90 caps 08/06/22 lidocaine 5 % topical patch 1 patch topical DAILY #15 ea 10/10/22 oxycodone 5 mg tablet 5 mg PO Q8H PRN severe pain (scale 10/10/22 score 7-10) #6 tabs Allergies Allergy/AdvReac Type Severity Reaction Status Date / Time cyclobenzaprine Allergy Intermediate erectile Verified 10/16/22 08:23 [From Flexeril] dysfunction diclofenac [DICLOFENAC] Allergy Intermediate STOMACH Verified 10/16/22 08:23 CRAMP, diarrhea ibuprofen [From Motrin] Allergy Intermediate bloody Verified 10/16/22 08:23 stools duloxetine Allergy Mild erectily Verified 10/16/22 08:23 dysfunction Review of Systems Review of Systems: Yes all other systems are reviewed and are negative Cardiovascular: Cardiovascular: Reports chest pain Neurologic: Denies Sensory deficit (Neuro) [facility] Past Medical History Medical History Anxiety Asthma CAD (coronary artery disease) Current smoker Foot pain, bilateral Foot pain, bilateral HTN (hypertension) Hyperlipidemia Left hip pain Left shoulder pain Long-term use of aspirin therapy Lumbar pain Lumbar radiculopathy Moderate recurrent major depression NAFL (nonalcoholic fatty liver) Past heart attack Polyarthralgia Right hip pain Right shoulder pain Surgical History H/O colonoscopy History of back surgery History of endoscopy History of esophagogastroduodenoscopy (EGD) History of open reduction and internal fixation (ORIF) procedure S/P hernia surgery Family History Family History Father CVD (cardiovascular disease) Mother Diabetes Hypertension CVD (cardiovascular disease) Social History Social History Household Members: Children Housing: House Alcohol intake: former Patient Tobacco Use Status: Former Tobacco user Quit Date: 2021 Tobacco use type: Cigarette e-Cigarette/Vaping Use: Never Used Second Hand Smoke Exposure: No Substance Use Type: Marijuana Advance Directives: No Advance Directives Information Provided: Yes service: No Current occupational status: unemployed and disabled 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 Cognitive needs: No Hearing needs: No Vision needs: No Physical Exam Vital Signs: Vital Signs: Last Vital Signs Temp 98.0 F 10/16/22 08:20 Pulse 68 10/16/22 08:20 Resp 18 10/16/22 08:20 BP 128/86 10/16/22 08:20 Pulse Ox 99 10/16/22 08:20 O2 Del Method 10/16/22 08:20 BMI result Body Mass Index 28.8 Const: Other: very anxious General: healthy appearing Nutritional Appearance: average body habitus Orientation/consciousness: oriented to person and patient oriented x3 Limitations: no limitations HEENT: Head: Yes normal to inspection Ears: external ears normal General nose exam: Normal external nose present Mouth: Normal oral and palatal mucosa present and oropharynx normal Throat: Yes posterior oropharynx normal Eyes: General: appearance normal, both eyes and all related structures Neck: Other: supple Neck: Yes normal visual inspection Chest: Chest palpation & inspection: normal inspection of the chest Resp: Auscultation: clear to auscultation bilaterally Cardio: Jugular venous distension: no JVD Rate: regular rate Rhythm: regular rhythm Heart sounds: S1 normal heart sound present and S2 normal heart sound present GI: Inspection: Yes normal to inspection Palpation (GI): Soft to palpation, nontender and No hepatosplenomegaly present Auscultation: normal bowel sounds : General: Yes no CVA tenderness Back/Spine/Pelvis: Back: no CVA tenderness Skin: General skin exam: no rashes or lesions noted Neuro: General: oriented to person and patient oriented x3 Cranial nerves: Yes CN's II-XII intact bilaterally Motor exam (neuro): 5/5 motor strength present throughout Sensory Exam: No Sensory deficit (Neuro) Extrem: General: Yes normal to inspection Psych: Appearance: grossly normal Course Reevaluation(s) Reevaluation #1: no further pain, Troponins negative will dc home Time: 12:54 Medications Administered Generic Name Dose Route Start Last Admin Trade Name Freq PRN Reason Stop Dose Admin Nitroglycerin 0.4 mg 10/16/22 08:52 10/16/22 09:00 Nitroglycerin 0.4 Mg Tab.Subl SUBLINGUAL 0.4 mg [id number] PRN Administration Chest Pain Discontinued Medications Generic Name Dose Route Start Last Admin Trade Name Freq PRN Reason Stop Dose Admin Aspirin 162 mg 10/16/22 08:52 10/16/22 08:58 Aspirin Enteric Coated 81 Mg Tablet.Dr GALLEGOS 10/16/22 08:53 162 mg ONCE ONE Administration Medical Decision Making Differential Diagnosis Differential Diagnoses: The differential diagnosis associated with the presentation includes (Acute coronary syndrome, anxiety, polysubstance abuse) Admission/Observation Consideration of admission/observation: Escalation of care including admission/observation considered (In a 47 yo male with CAD by history admission was considered) Lab Data 10/16/22 08:36 10/16/22 08:36 Labs: Lab Results 10/16/22 10/16/22 10/16/22 Range/Units 08:36 08:36 08:36 WBC 6.8 (4.8-10.8) X10*3/uL RBC 5.10 (4.60-5.80) X10*6/uL Hgb 15.2 (14.0-18.0) g/dl Hct 44.7 (42.0-52.0) % MCV 87.6 (80.0-98.0) fL MCH 29.8 (27.0-33.0) pg MCHC 34.0 (31.0-36.0) g/dl RDW 12.5 (11.0-16.0) % Plt Count 291 (160-400) X10*3/uL MPV 9.4 (9.4-12.4) fL Immature Gran % (Auto) 0.3 (0.0-0.4) % Neut % (Auto) 59.2 (45-73) % Lymph % (Auto) 32.9 (20-40) % [place] % (Auto) 5.2 (2-11) % Eos % (Auto) 1.5 (0-4) % Baso % (Auto) 0.9 (0-2) % Lymph # (Auto) 2.2 (1.2-4.9) X10*3/uL [place] # (Auto) 0.4 (0.1-1.2) X10*3/uL Eos # (Auto) 0.1 (0.0-0.4) X10*3/uL Baso # (Auto) 0.1 (0.0-0.2) X10*3/uL Abs Immat Gran (auto) 0.02 (0.00-0.03) X10*3/uL Absolute Neuts (auto) 4.0 (2.0-8.3) x10*3/uL Absolute Nucleated RBC 0.000 (0.0-0.012) X10*3/uL Nucleated RBC % (auto) 0.0 (0.0-0.2) /100WBC Sodium 142 (135-145) mmol/L Potassium 4.4 (3.3-5.1) mmol/L Chloride 106 (96-108) mmol/L Carbon Dioxide 26 (22-29) mmol/L Anion Gap 14 (12-20) BUN 18 H (9-16) mg/dL Creatinine 0.86 (0.5-1.4) mg/dL Estim Creat Clear Calc 117.0 Estimated GFR > 60 Random Glucose 126 H (60-115) mg/dL Calcium 9.4 D (8.4-10.2) mg/dL Magnesium 2.1 (1.6-2.6) mg/dL Total Bilirubin 0.4 (0.0-1.0) mg/dL AST 18 (5-37) U/L ALT 20 (0-40) U/L Alkaline Phosphatase 81 (39-117) U/L Troponin I High Sens 3.9 (<3.5-35.0) ng/L Total Protein 6.7 (6.5-8.0) g/dL Albumin 4.3 (3.5-5.0) g/dL 10/16/22 Range/Units 11:28 WBC (4.8-10.8) X10*3/uL RBC (4.60-5.80) X10*6/uL Hgb (14.0-18.0) g/dl Hct (42.0-52.0) % MCV (80.0-98.0) fL MCH (27.0-33.0) pg MCHC (31.0-36.0) g/dl RDW (11.0-16.0) % Plt Count (160-400) X10*3/uL MPV (9.4-12.4) fL Immature Gran % (Auto) (0.0-0.4) % Neut % (Auto) (45-73) % Lymph % (Auto) (20-40) % [place] % (Auto) (2-11) % Eos % (Auto) (0-4) % Baso % (Auto) (0-2) % Lymph # (Auto) (1.2-4.9) X10*3/uL [place] # (Auto) (0.1-1.2) X10*3/uL Eos # (Auto) (0.0-0.4) X10*3/uL Baso # (Auto) (0.0-0.2) X10*3/uL Abs Immat Gran (auto) (0.00-0.03) X10*3/uL Absolute Neuts (auto) (2.0-8.3) x10*3/uL Absolute Nucleated RBC (0.0-0.012) X10*3/uL Nucleated RBC % (auto) (0.0-0.2) /100WBC Sodium (135-145) mmol/L Potassium (3.3-5.1) mmol/L Chloride (96-108) mmol/L Carbon Dioxide (22-29) mmol/L Anion Gap (12-20) BUN (9-16) mg/dL Creatinine (0.5-1.4) mg/dL Estim Creat Clear Calc Estimated GFR Random Glucose (60-115) mg/dL Calcium (8.4-10.2) mg/dL Magnesium (1.6-2.6) mg/dL Total Bilirubin (0.0-1.0) mg/dL AST (5-37) U/L ALT (0-40) U/L Alkaline Phosphatase (39-117) U/L Troponin I High Sens < 3.5 (<3.5-35.0) ng/L Total Protein (6.5-8.0) g/dL Albumin (3.5-5.0) g/dL Independent Interpretation I performed an independent interpretation of an: EKG (sinus 60, jpoint elevation I and AVL, flipped Ts III and AVF) Social Determinants Patient?s care significantly limited by Social Determinants of Health including: Alcoholism and drug addiction in family Discharge Plan Discharge Clinical Impression: Chest discomfort Patient Disposition: Home, Self-Care Instructions: Chest Pain (ED) Prescriptions: No Action albuterol sulfate 90 mcg/actuation HFA aerosol inhaler 1 inh inhalation QID PRN (Reason: shortness of breath or wheezing) 30 Days Qty: 6.7 3RF omega-3 fatty acids 1,000 mg capsule 1,000 mg PO BID 30 Days Qty: 60 3RF metoprolol succinate 25 mg tablet extended release 24 hr 25 mg PO DAILY Qty: 30 4RF gabapentin 400 mg capsule 400 mg PO TID 30 Days Qty: 90 3RF oxycodone 5 mg tablet 5 mg PO Q8H PRN (Reason: severe pain (scale score 7-10)) Qty: 6 0RF Rx Instructions: Partial Fill upon patient request. lidocaine 5 % adhesive patch,medicated 1 patch topical DAILY Qty: 15 0RF Rx Instructions: leave on most painful area for up to 12 hrs omeprazole 20 mg capsule,delayed release(DR/EC) 20 mg PO DAILY 90 Days Qty: 90 3RF clonazepam 0.5 mg tablet 0.5 mg PO BEDTIME PRN (Reason: anxiety) aspirin 81 mg tablet,delayed release (DR/EC) 81 mg PO DAILY tramadol 50 mg tablet 50 mg PO BEDTIME Referrals: Lily Lopez MD [Primary Care Provider] - 3 days
[2022-10-16 08:48] LABS: Basophils Absolute Auto 0.1 X10*3/uL (0.0-0.2); Basophils Percent Auto 0.9 % (0-2); Eosinophils Absolute Auto 0.1 X10*3/uL (0.0-0.4); Eosinophils Percent Auto 1.5 % (0-4); Hematocrit 44.7 % (42.0-52.0); Hemoglobin 15.2 g/dl (14.0-18.0); Imm Gran Abs Auto 0.02 X10*3/uL (0.00-0.03); Imm Gran Pct Auto 0.3 % (0.0-0.4); Lymphocytes Absolute Auto 2.2 X10*3/uL (1.2-4.9); Lymphocytes Percent Auto 32.9 % (20-40); Mean Corpuscular Hemoglobin 29.8 pg (27.0-33.0); Mean Corpuscular Volume 87.6 fL (80.0-98.0); Mean Platelet Volume 9.4 fL (9.4-12.4); Monocytes Absolute Auto 0.4 X10*3/uL (0.1-1.2); Monocytes Percent Auto 5.2 % (2-11); Neutrophils Percent Auto 59.2 % (45-73); Platelet Count 291 X10*3/uL (160-400); Red Cell Distribution Width 12.5 % (11.0-16.0); White Blood Count 6.8 X10*3/uL (4.8-10.8)
[2022-10-16] MEDS: Aspirin Enteric Coated 81 MG TABLET.DR 162 MG PO (08:58)
[2022-10-16] MEDS: Nitroglycerin 0.4 MG TAB.SUBL SUBLINGUAL (09:00)
[2022-10-16 09:04] LABS: Alanine Aminotransferase 20 U/L (0-40); Albumin Level 4.3 g/dL (3.5-5.0); Alkaline Phosphatase 81 U/L (39-117); Anion Gap 14 (12-20); Aspartate Amino Transferase 18 U/L (5-37); Bilirubin Total 0.4 mg/dL (0.0-1.0); Blood Urea Nitrogen 18 mg/dL (9-16); Calcium 9.4 mg/dL (8.4-10.2); Carbon Dioxide 26 mmol/L (22-29); Chloride 106 mmol/L (96-108); Estimated Glomerular Filt Rate > 60; Glucose Random 126 mg/dL (60-115); Magnesium 2.1 mg/dL (1.6-2.6); Potassium 4.4 mmol/L (3.3-5.1); Sodium 142 mmol/L (135-145); Total Protein 6.7 g/dL (6.5-8.0)
[2022-10-16 09:11] LABS: Troponin-I High Sensitivity 3.9 ng/L (<3.5-35.0)
[2022-10-16 12:02] LABS: Troponin-I High Sensitivity < 3.5 ng/L (<3.5-35.0)
== END 2022-10-16 13:00 | disposition home or self-care (01) ==
PROVIDERS: Emergency Provider Emergency Medicine; PCP Family Medicine
DX: R07.89 Other chest pain (principal); M79.602 Pain in left arm; M79.601 Pain in right arm; Z79.899 Other long term (current) drug therapy; Z87.891 Personal history of nicotine dependence
CPT/HCPCS: 36415; 80053; 83735; 84484; 85025; 93005; 99283; 99284

== ENCOUNTER → 2022-10-22 08:48 | Outpatient (BNVA) | payer OTHER, SELFPAY | PROVIDERS: PCP Family Medicine; Visit Provider Internal Medicine | DX: S43.431D Superior glenoid labrum lesion of right shoulder, subsequent encounter (principal); M54.12 Radiculopathy, cervical region; M25.511 Pain in right shoulder | CPT/HCPCS: 99202 ==

== ENCOUNTER 2022-11-06 07:49 | Emergency (ER) | payer OTHER, SELFPAY ==
[2022-11-06 08:02] VITALS: BP 169/115; PULSE 72; RESP 14; TEMP 36.7; O2SAT 98; BMI 28.8
--- NOTE | 2022-11-06 08:08 | ED_ITS ---
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 Patient states that the pain is on the low right side of his back that radiates down his right leg. Patient denies any dizziness, lightheadedness, abdominal pain, nausea, vomiting, fever, chills, blurry vision, double vision, loss of vision, chest pain, difficulty breathing, shortness of breath, night sweats, pain with urination, increased urinary frequency, increased urinary urgency, blood in his urine or stool, syncope or a near syncopal episode, recent trauma or falls, bowel incontinence, bladder incontinence, bowel retention, bladder retention, or any other complaints at this time. Onset (ago): day(s) Location: back Radiation: distal Severity: mild Severity scale (1-10): 3 Relieving factors: none Exacerbating factors: none Associated symptoms: denies other symptoms Treatments prior to arrival: none Related Data Home Medications Medication Instructions Recorded Confirmed aspirin 81 mg tablet,delayed 81 mg PO DAILY 09/05/22 10/22/22 release clonazepam 0.5 mg tablet 0.5 mg PO BEDTIME PRN anxiety 09/05/22 10/22/22 tramadol 50 mg tablet 50 mg PO BEDTIME 09/05/22 10/22/22 Previous Rx's Medication Instructions Recorded albuterol sulfate 90 mcg/actuation 1 inh inhalation QID PRN shortness 08/07/21 aerosol inhaler of breath or wheezing 30 days #6.7 grams omeprazole 20 mg capsule,delayed 20 mg PO DAILY 90 days #90 caps 08/25/21 release omega-3 fatty acids 1,000 mg 1,000 mg PO BID 30 days #60 caps 12/06/21 capsule metoprolol succinate 25 mg 25 mg PO DAILY #30 tabs 12/24/21 tablet,extended release 24 hr gabapentin 400 mg capsule 400 mg PO TID 30 days #90 caps 08/06/22 lidocaine 5 % topical patch 1 patch topical DAILY #15 ea 10/10/22 oxycodone 5 mg tablet 5 mg PO Q8H PRN severe pain (scale 10/10/22 score 7-10) #6 tabs cyclobenzaprine 5 mg tablet 5 mg PO TID PRN muscle spasm 7 11/06/22 days #21 tabs Allergies Allergy/AdvReac Type Severity Reaction Status Date / Time cyclobenzaprine Allergy Intermediate erectile Verified 10/22/22 09:24 [From Flexeril] dysfunction diclofenac [DICLOFENAC] Allergy Intermediate STOMACH Verified 10/22/22 09:24 CRAMP, diarrhea ibuprofen [From Motrin] Allergy Intermediate bloody Verified 10/22/22 09:24 stools duloxetine Allergy Mild erectily Verified 10/22/22 09:24 dysfunction Review of Systems Constitutional: Constitutional: Reports no additional constitutional complaints, Denies chills, Denies fever(s) and Denies night sweats Eyes: Eyes: Reports no additional eye complaints, Denies blurry vision, Denies change in vision, Denies diplopia, Denies eye discharge, Denies loss of vision and Denies eye pain ENT: Denies dizziness Cardiovascular: Cardiovascular: Reports no additional cardiovascular complaints, Denies chest pain, Denies lightheadedness, Denies Loss of Consciousness and Denies dyspnea Respiratory: Respiratory: Reports no additional respiratory complaints and Denies dyspnea Gastrointestinal: Gastrointestinal: Reports no additional gastrointestinal complaints, Denies abdominal pain, Denies melena, Denies hematochezia, Denies change in bowel habits and Denies change in stool character Genitourinary: Genitourinary: Reports no additional male genitourinary complaints, Denies hematuria, Denies oliguria, Denies difficulty urinating, Denies dysuria, Denies urinary frequency, Denies urinary hesitancy, Denies urinary incontinence and Denies urinary urgency Musculoskeletal: Musculoskeletal: Reports no additional musculoskeletal complaints, Reports back pain, Denies numbness and Denies tingling Neurologic: Denies dizziness, Denies loss of vision, Denies numbness and Denies tingling Psychiatric: Psychiatric: Reports no additional psychiatric complaints Endocrine: Endocrine: Reports no additional endocrine complaints Hematologic/Lymphatic: Hematologic/Lymphatic: Reports no additional hematologic/lymphatic complaints Allergic/Immunologic: Allergic/Immunologic: Reports no additional allergic/immunologic complaints PMFSH Past Medical History Attestation statement: The following information was validated with the patient. Source: old records reviewed and nursing notes reviewed Medical History Anxiety Asthma CAD (coronary artery disease) Current smoker Foot pain, bilateral Foot pain, bilateral HTN (hypertension) Hyperlipidemia Left hip pain Left shoulder pain Long-term use of aspirin therapy Lumbar pain Lumbar radiculopathy Moderate recurrent major depression NAFL (nonalcoholic fatty liver) Past heart attack Polyarthralgia Right hip pain Right shoulder pain Surgical History H/O colonoscopy History of back surgery History of endoscopy History of esophagogastroduodenoscopy (EGD) History of open reduction and internal fixation (ORIF) procedure S/P hernia surgery Family History Family History Father CVD (cardiovascular disease) Mother Diabetes Hypertension CVD (cardiovascular disease) Social History Social History Household Members: Children Housing: House Alcohol intake: former Patient Tobacco Use Status: Former Tobacco user Quit Date: 2021 Tobacco use type: Cigarette e-Cigarette/Vaping Use: Never Used Second Hand Smoke Exposure: No Substance Use Type: Marijuana Advance Directives: No Advance Directives Information Provided: Yes service: No Current occupational status: unemployed and disabled 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 Cognitive needs: No Hearing needs: No Vision needs: No Physical Exam ED Vital Signs: Vital Signs - 24 hr 11/06/22 08:02 Temperature 98.1 F Pulse Rate 72 Respiratory Rate 14 Blood Pressure 169/115 H Pulse Oximetry 98 Oxygen Delivery Method Room Air BMI result Body Mass Index 28.8 Const General: cooperative, no acute distress, alert and awake Nutritional Appearance: well nourished Orientation/consciousness: patient oriented x3 Limitations: no limitations HENMT Head: Yes normal to inspection and Yes atraumatic Ears: hearing grossly normal bilaterally and external ears normal General nose exam: Normal external nose present, no nasal discharge noted and no epistaxis Face and sinus: Yes normal facial exam, No abrasion and No laceration Mouth: Normal oral and palatal mucosa present, no drooling and no muffled voice Eyes General: appearance normal, both eyes and all related structures Periorbital: periorbital findings normal Eyelids: Yes eyelids normal Conjunctivae: conjunctivae normal Pupils: Equal, round and reactive pupils present EOM: EOMs intact bilaterally Neck Neck: Yes normal visual inspection, Yes full ROM and Yes no lymphadenopathy Chest Chest palpation & inspection: normal inspection of the chest Resp Effort & Inspection: normal respiratory effort and able to speak in complete sentences Auscultation: clear to auscultation bilaterally Cardio Rate: regular rate Rhythm: regular rhythm GI Inspection: Yes normal to inspection General: Yes no CVA tenderness Back/Spine/Pelvis Back: no CVA tenderness Cervical Spine: normal cervical lordosis and cervical ROM normal Thoracic/Lumbar Spine: thoracic and lumbar spine normal to inspection and thoraco-lumbar ROM normal Pelvis: no pain with anterior-posterior compression Neuro General: patient oriented x3 and moves all extremities Cranial nerves: Yes Equal, round and reactive pupils present Cognition (Neuro): normal cognition Motor exam (neuro): 5/5 motor strength present throughout Sensory Exam: Normal double simultaneous stimulation for sensation Coordination: [id number] test normal Extrem General: Yes normal to inspection, Yes full ROM and Yes capillary refill normal Psych Appearance: grossly normal Mental Status: mental status grossly normal Affect: normal affect Attitude: cooperative Thought process: Normal thought process present Thought content: Normal thought content present Insight: Good insight present (Psych) Medications Administered Discontinued Medications Generic Name Dose Route Start Last Admin Trade Name Freq PRN Reason Stop Dose Admin Cyclobenzaprine HCl 5 mg 11/06/22 08:29 11/06/22 08:40 Cyclobenzaprine Hcl 5 Mg Tablet PO 11/06/22 08:30 5 mg ONCE ONE Administration Ketorolac Tromethamine 15 mg 11/06/22 08:29 11/06/22 08:40 Ketorolac Tromethamine 15 Mg/Ml Vial IM 11/06/22 08:30 15 mg ONCE ONE Administration Medical Decision Making Medical Decision Making [facility] Narrative: Patient is a 42 year old assigned male at with a history of CAD, HTN, MARYURI, and sciatic back pain presenting to the emergency department today with an acute sciatic back pain flare. Patient's physical exam was unremarkable. I explained my physical exam findings to the patient. I answered all questions asked by the patient. Patient received PO Flexeril and IM Toradol which he stated helped his symptoms significantly. I stressed the importance of the patient taking his medication as prescribed. I stressed the importance of the patient following up with his primary care provider and a occupational health specialist. I stressed the importance of the patient returning to the emergency department immediately if his symptoms were to worsen or if he were to develop any dizziness, shortness of breath, difficulty breathing, chest pain, blurry vision, loss of vision, nausea, vomiting, abdominal pain, fever, chills, back pain, or any other complaints. Patient verbalized agreement and understanding with this treatment plan and discharge. Differential Diagnosis Differential Diagnoses: The differential diagnosis associated with the presentation includes sciatica Discharge Plan Discharge Clinical Impression: Sciatica Patient Disposition: Home, Self-Care Instructions: Sciatica (ED) Additional Instructions: Follow up with your primary care provider and a occupational health specialist. Return to the emergency department immediately if your symptoms worsen or if you develop any dizziness, shortness of breath, difficulty breathing, chest pain, blurry vision, loss of vision, nausea, vomiting, abdominal pain, fever, chills, back pain, or any other complaints. Anderson un seguimiento con petersen proveedor de atenci?n primaria y un especialista en [place] vertebral. Regrese al departamento de emergencias de inmediato si gaurav s?ntomas empeoran o si presenta mareos, falta de aire, dificultad para respirar, dolor de pecho, visi?n borrosa, p?rdida de la visi?n, n?useas, v?mitos, dolor abdominal, fiebre, escalofr?os, dolor de espalda o cualquier otras quejas. Prescriptions: New cyclobenzaprine 5 mg tablet 5 mg PO TID PRN (Reason: muscle spasm) 7 Days Qty: 21 0RF No Action albuterol sulfate 90 mcg/actuation HFA aerosol inhaler 1 inh inhalation QID PRN (Reason: shortness of breath or wheezing) 30 Days Qty: 6.7 3RF omega-3 fatty acids 1,000 mg capsule 1,000 mg PO BID 30 Days Qty: 60 3RF metoprolol succinate 25 mg tablet extended release 24 hr 25 mg PO DAILY Qty: 30 4RF gabapentin 400 mg capsule 400 mg PO TID 30 Days Qty: 90 3RF oxycodone 5 mg tablet 5 mg PO Q8H PRN (Reason: severe pain (scale score 7-10)) Qty: 6 0RF Rx Instructions: Partial Fill upon patient request. lidocaine 5 % adhesive patch,medicated 1 patch topical DAILY Qty: 15 0RF Rx Instructions: leave on most painful area for up to 12 hrs omeprazole 20 mg capsule,delayed release(DR/EC) 20 mg PO DAILY 90 Days Qty: 90 3RF clonazepam 0.5 mg tablet 0.5 mg PO BEDTIME PRN (Reason: anxiety) aspirin 81 mg tablet,delayed release (DR/EC) 81 mg PO DAILY tramadol 50 mg tablet 50 mg PO BEDTIME Referrals: [facility] [Provider Group] (Call to establish and follow up with a occupational health specialist. Llame para establecer y hacer un seguimiento con un especialista en [place] vertebral.) Lily Lopez MD [Primary Care Provider] - Interventions: ED Discharge Assessment Last Done: 11/06/22 08:44 Discharge Date/Time: 11/06/22 08:45 Print Language: Japanese
[2022-11-06] MEDS: Cyclobenzaprine HCl 5 MG TABLET PO (08:40)
[2022-11-06] MEDS: Ketorolac Tromethamine 15 MG/ML VIAL IM (08:40)
== END 2022-11-06 08:45 | disposition home or self-care (01) ==
PROVIDERS: Emergency Provider Emergency Medicine; PCP Family Medicine
DX: M54.41 Lumbago with sciatica, right side (principal); Z79.899 Other long term (current) drug therapy; Z87.891 Personal history of nicotine dependence
CPT/HCPCS: 96372; 99282; 99283; 99284; J1885

== ENCOUNTER 2022-11-09 13:43 | Outpatient (REF) | payer OTHER, SELFPAY ==
--- NOTE | ~2022-11-09 | XR_ITS ---
EXAMINATION: XR HIP, RIGHT CLINICAL INFORMATION: Pain COMPARISON: Hip radiographs 12/08/2021 TECHNIQUE: Two views of the right hip. FINDINGS: No acute fracture or dislocation. Joint spaces are maintained. Soft tissues are unremarkable. XR/XR hip RT min 2V IMPRESSION: No acute osseous abnormality.
== END 2022-11-09 13:44 | disposition home or self-care (01) ==
LOC: HO.XRAY 13:43
PROVIDERS: PCP Family Medicine; Visit Provider Family Medicine
DX: M25.551 Pain in right hip (principal)
CPT/HCPCS: 73502

== ENCOUNTER → 2023-01-17 07:59 | Outpatient (BNVA) | payer OTHER, SELFPAY | PROVIDERS: Visit Provider Internal Medicine Gastroenterology | DX: K29.70 Gastritis, unspecified, without bleeding (principal); B96.81 Helicobacter pylori [H. pylori] as the cause of diseases classified elsewhere; K52.9 Noninfective gastroenteritis and colitis, unspecified; Z87.19 Personal history of other diseases of the digestive system | CPT/HCPCS: 99212 ==

== ENCOUNTER 2023-02-07 08:26 | Emergency (ER) | payer OTHER, SELFPAY ==
[2023-02-07 08:58] VITALS: BP 129/82; PULSE 63; RESP 16; TEMP 36.3; O2SAT 99; BMI 30.9
[2023-02-07 09:08] VITALS: BP 123/81; PULSE 57; RESP 16; TEMP 37.1; O2SAT 100
--- NOTE | 2023-02-07 09:26 | PC.NURSE ---
pt a&ox3, respirations even and unlabored. pt reporting back pain for 2 months, pain is in lower right back but radiates into his upper right back. pt reports hx of back surgery d/t a fall at work. vss.
--- NOTE | 2023-02-07 09:36 | ED.GENADULT ---
HPI - General Adult General Chief complaint: Back Pain/Injury Stated complaint: back pain Time Seen by Provider: 02/07/23 09:35 Source: patient and hourly sign language interpreter Mode of arrival: ambulatory Limitations: language barrier History of Present Illness HPI narrative: Patient is a 42 year old assigned male at with a history of MARYURI, CAD, HTN and chronic back pain presenting to the emergency department today with an acute back pain flare. Patient states that the pain is on the low right side of his back that radiates down his right leg. Patient denies any dizziness, lightheadedness, abdominal pain, nausea, vomiting, fever, chills, blurry vision, double vision, loss of vision, chest pain, difficulty breathing, shortness of breath, night sweats, pain with urination, increased urinary frequency, increased urinary urgency, blood in his urine or stool, syncope or a near syncopal episode, recent trauma or falls, bowel incontinence, bladder incontinence, bowel retention, bladder retention, or any other complaints at this time. Onset (ago): day(s) Location: back Radiation: extremity Severity: mild Severity scale (1-10): 3 Quality: aching and dull Pain Consistency: constant Relieving factors: none Exacerbating factors: none Associated symptoms: denies other symptoms Treatments prior to arrival: none Related Data Home Medications Medication Instructions Recorded Confirmed aspirin 81 mg tablet,delayed 81 mg PO DAILY 09/05/22 01/17/23 release clonazepam 0.5 mg tablet 0.5 mg PO BEDTIME PRN anxiety 09/05/22 01/17/23 tramadol 50 mg tablet 50 mg PO BEDTIME 09/05/22 01/17/23 Previous Rx's Medication Instructions Recorded albuterol sulfate 90 mcg/actuation 1 inh inhalation QID PRN shortness 08/07/21 aerosol inhaler of breath or wheezing 30 days #6.7 grams omeprazole 20 mg capsule,delayed 20 mg PO DAILY 90 days #90 caps 08/25/21 release omega-3 fatty acids 1,000 mg 1,000 mg PO BID 30 days #60 caps 12/06/21 capsule metoprolol succinate 25 mg 25 mg PO DAILY #30 tabs 12/24/21 tablet,extended release 24 hr gabapentin 400 mg capsule 400 mg PO TID 30 days #90 caps 08/06/22 lidocaine 5 % topical patch 1 patch topical DAILY #15 ea 10/10/22 oxycodone 5 mg tablet 5 mg PO Q8H PRN severe pain (scale 10/10/22 score 7-10) #6 tabs amoxicillin 500 mg tablet 1,000 mg PO Q12H 14 days #56 tabs 01/17/23 levofloxacin 750 mg tablet 750 mg PO DAILY H Pylori gastritis 01/17/23 14 days #14 tabs omeprazole 20 mg tablet,delayed 20 mg PO BID h Pylori gastritis 14 01/17/23 release days #28 tabs prednisone 20 mg tablet 20 mg PO DAILY 7 days #7 tabs 02/07/23 Allergies Allergy/AdvReac Type Severity Reaction Status Date / Time cyclobenzaprine Allergy Intermediate erectile Verified 01/17/23 08:07 [From Flexeril] dysfunction diclofenac [DICLOFENAC] Allergy Intermediate STOMACH Verified 01/17/23 08:07 CRAMP, diarrhea ibuprofen [From Motrin] Allergy Intermediate bloody Verified 01/17/23 08:07 stools duloxetine Allergy Mild erectily Verified 01/17/23 08:07 dysfunction Review of Systems Constitutional: Constitutional: Reports no additional constitutional complaints, Denies chills, Denies fever(s) and Denies night sweats Eyes: Eyes: Reports no additional eye complaints, Denies blurry vision, Denies change in vision, Denies diplopia, Denies eye discharge, Denies loss of vision and Denies eye pain ENT: Denies dizziness Cardiovascular: Cardiovascular: Reports no additional cardiovascular complaints, Denies chest pain, Denies lightheadedness, Denies Loss of Consciousness and Denies dyspnea Respiratory: Respiratory: Reports no additional respiratory complaints and Denies dyspnea Gastrointestinal: Gastrointestinal: Reports no additional gastrointestinal complaints, Denies abdominal pain, Denies melena, Denies hematochezia, Denies change in bowel habits and Denies change in stool character Genitourinary: Genitourinary: Reports no additional male genitourinary complaints, Denies hematuria, Denies oliguria, Denies difficulty urinating, Denies dysuria, Denies urinary frequency, Denies urinary hesitancy, Denies urinary incontinence and Denies urinary urgency Musculoskeletal: Musculoskeletal: Reports no additional musculoskeletal complaints, Reports back pain, Denies numbness and Denies tingling Neurologic: Denies dizziness, Denies loss of vision, Denies numbness and Denies tingling Psychiatric: Psychiatric: Reports no additional psychiatric complaints Endocrine: Endocrine: Reports no additional endocrine complaints Hematologic/Lymphatic: Hematologic/Lymphatic: Reports no additional hematologic/lymphatic complaints Allergic/Immunologic: Allergic/Immunologic: Reports no additional allergic/immunologic complaints PMFSH Past Medical History Attestation statement: The following information was validated with the patient. Source: old records reviewed and nursing notes reviewed Medical History Anxiety Asthma CAD (coronary artery disease) Current smoker Foot pain, bilateral Foot pain, bilateral HTN (hypertension) Hyperlipidemia Left hip pain Left shoulder pain Long-term use of aspirin therapy Lumbar pain Lumbar radiculopathy Moderate recurrent major depression NAFL (nonalcoholic fatty liver) Past heart attack Polyarthralgia Right hip pain Right shoulder pain Surgical History H/O colonoscopy History of back surgery History of endoscopy History of open reduction and internal fixation (ORIF) procedure S/P hernia surgery Family History Family History Father CVD (cardiovascular disease) Mother Diabetes Hypertension CVD (cardiovascular disease) Social History Social History Household Members: Children Housing: House Alcohol intake: never Patient Tobacco Use Status: Former Tobacco user Quit Date: 2021 Tobacco use type: Cigarette Smoked in Last 30 Days: No e-Cigarette/Vaping Use: Never Used Second Hand Smoke Exposure: No Use of substances other than those prescribed or required for medical reasons: Yes Substance Use Type: Marijuana Substance Use Frequency Other:: 1 Last Used Substance: Days (ago) Advance Directives: No service: No Current occupational status: unemployed and disabled 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 Cognitive needs: No Hearing needs: No Vision needs: No Physical Exam ED Vital Signs: Vital Signs - 24 hr 02/07/23 08:58 02/07/23 09:08 Temperature 97.4 F 98.7 F Pulse Rate 63 57 Respiratory Rate 16 16 Blood Pressure 129/82 123/81 Pulse Oximetry 99 100 Oxygen Delivery Method Room Air Room Air BMI result Body Mass Index 30.9 Const General: cooperative, no acute distress, alert and awake Nutritional Appearance: well nourished Orientation/consciousness: patient oriented x3 Limitations: no limitations HENMT Head: Yes normal to inspection and Yes atraumatic Ears: hearing grossly normal bilaterally and external ears normal General nose exam: Normal external nose present, no nasal discharge noted and no epistaxis Face and sinus: Yes normal facial exam, No abrasion and No laceration Mouth: Normal oral and palatal mucosa present, no drooling and no muffled voice Eyes General: appearance normal, both eyes and all related structures Periorbital: periorbital findings normal Eyelids: Yes eyelids normal Conjunctivae: conjunctivae normal Pupils: Equal, round and reactive pupils present EOM: EOMs intact bilaterally Neck Neck: Yes normal visual inspection, Yes full ROM and Yes no lymphadenopathy Chest Chest palpation & inspection: normal inspection of the chest Resp Effort & Inspection: normal respiratory effort and able to speak in complete sentences Auscultation: clear to auscultation bilaterally Cardio Rate: regular rate Rhythm: regular rhythm GI Inspection: Yes normal to inspection Palpation (GI): Soft to palpation, not firm, nontender and no guarding General: Yes no CVA tenderness Back/Spine/Pelvis Back: no CVA tenderness Cervical Spine: normal cervical lordosis and cervical ROM normal Thoracic/Lumbar Spine: thoraco-lumbar ROM normal Neuro General: patient oriented x3 and moves all extremities Cranial nerves: Yes Equal, round and reactive pupils present Cognition (Neuro): normal cognition Motor exam (neuro): 5/5 motor strength present throughout Sensory Exam: Normal double simultaneous stimulation for sensation Coordination: [id number] test normal Extrem General: Yes normal to inspection, Yes full ROM and Yes capillary refill normal Psych Appearance: grossly normal Mental Status: mental status grossly normal Affect: normal affect Attitude: cooperative Thought process: Normal thought process present Thought content: Normal thought content present Insight: Good insight present (Psych) Medications Administered Discontinued Medications Generic Name Dose Route Start Last Admin Trade Name Luisq PRN Reason Stop Dose Admin Cyclobenzaprine HCl 5 mg 02/07/23 10:02/07/23 10:10 Cyclobenzaprine Hcl 5 Mg Tablet PO 02/07/23 10:03 5 mg ONCE ONE Administration Ketorolac Tromethamine 15 mg 02/07/23 10:02/07/23 10:11 Ketorolac Tromethamine 15 Mg/Ml Vial IM 02/07/23 10:03 15 mg ONCE ONE Administration Prednisone 20 mg 02/07/23 10:02 02/07/23 10:11 Prednisone 20 Mg Tablet PO 02/07/23 10:03 20 mg ONCE ONE Administration Medical Decision Making Medical Decision Making MDM Narrative: Patient is a 42 year old assigned male at with a history of CAD, HTN, MARYURI, and chronic back pain presenting to the emergency department today with an acute low back pain flare. Patient's physical exam was unremarkable. I explained my physical exam findings to the patient. I answered all questions asked by the patient. Patient received PO Flexeril, PO Prednisone, and IM Toradol which he stated helped his symptoms significantly. I stressed the importance of the patient taking his medication as prescribed. I stressed the importance of the patient following up with his primary care provider and a pain specialist. I stressed the importance of the patient returning to the emergency department immediately if his symptoms were to worsen or if he were to develop any dizziness, shortness of breath, difficulty breathing, chest pain, blurry vision, loss of vision, nausea, vomiting, abdominal pain, fever, chills, back pain, or any other complaints. Patient verbalized agreement and understanding with this treatment plan and discharge. Differential Diagnosis Differential Diagnoses: The differential diagnosis associated with the presentation includes Acute on chronic low back pain Chronic back pain Discharge Plan Discharge Clinical Impression: Chronic back pain Patient Disposition: Home, Self-Care Instructions: Chronic Back Pain (DC) Additional Instructions: Follow up with your primary care provider and a pain specialist. Return to the emergency department immediately if your symptoms worsen or if you develop any dizziness, shortness of breath, difficulty breathing, chest pain, blurry vision, loss of vision, nausea, vomiting, abdominal pain, fever, chills, back pain, or any other complaints. Anderson un seguimiento con petersen proveedor de atenci?n primaria y un especialista en dolor. Regrese al departamento de emergencias de inmediato si gaurav s?ntomas empeoran o si presenta mareos, falta de aire, dificultad para respirar, dolor de pecho, visi?n borrosa, p?rdida de la visi?n, n?useas, v?mitos, dolor abdominal, fiebre, escalofr?os, dolor de espalda o cualquier otras quejas. Prescriptions: New prednisone 20 mg tablet 20 mg PO DAILY 7 Days Qty: 7 0RF No Action albuterol sulfate 90 mcg/actuation HFA aerosol inhaler 1 inh inhalation QID PRN (Reason: shortness of breath or wheezing) 30 Days Qty: 6.7 3RF omega-3 fatty acids 1,000 mg capsule 1,000 mg PO BID 30 Days Qty: 60 3RF metoprolol succinate 25 mg tablet extended release 24 hr 25 mg PO DAILY Qty: 30 4RF gabapentin 400 mg capsule 400 mg PO TID 30 Days Qty: 90 3RF oxycodone 5 mg tablet 5 mg PO Q8H PRN (Reason: severe pain (scale score 7-10)) Qty: 6 0RF Rx Instructions: Partial Fill upon patient request. lidocaine 5 % adhesive patch,medicated 1 patch topical DAILY Qty: 15 0RF Rx Instructions: leave on most painful area for up to 12 hrs omeprazole 20 mg capsule,delayed release(DR/EC) 20 mg PO DAILY 90 Days Qty: 90 3RF clonazepam 0.5 mg tablet 0.5 mg PO BEDTIME PRN (Reason: anxiety) aspirin 81 mg tablet,delayed release (DR/EC) 81 mg PO DAILY tramadol 50 mg tablet 50 mg PO BEDTIME amoxicillin 500 mg tablet 1,000 mg PO Q12H 14 Days Qty: 56 0RF levofloxacin 750 mg tablet 750 mg PO DAILY 14 Days Qty: 14 0RF omeprazole 20 mg tablet,delayed release (DR/EC) 20 mg PO BID 14 Days Qty: 28 0RF Referrals: Merrick Hogan MD [Physician] - (Call to establish and follow up with a pain specialist. Llame para establecer y hacer un seguimiento con un especialista en dolor.) Lily Lopez MD [Primary Care Provider] - Interventions: ED Discharge Assessment Last Done: 02/07/23 10:31 Discharge Date/Time: 02/07/23 10:32 Print Language: Danish
[2023-02-07] MEDS: Cyclobenzaprine HCl 5 MG TABLET PO (10:10)
[2023-02-07] MEDS: predniSONE 20 MG TABLET PO (10:11)
[2023-02-07] MEDS: Ketorolac Tromethamine 15 MG/ML VIAL IM (10:11)
== END 2023-02-07 10:32 | disposition home or self-care (01) ==
PROVIDERS: Emergency Provider Emergency Medicine Emergency Medical Services; PCP Family Medicine
DX: M54.50 Low back pain, unspecified (principal); I25.10 Atherosclerotic heart disease of native coronary artery without angina pectoris; Z79.899 Other long term (current) drug therapy; Z87.891 Personal history of nicotine dependence
CPT/HCPCS: 96372; 99284; J1885

== ENCOUNTER → 2023-03-05 08:12 | Outpatient (BNVA) | payer OTHER, SELFPAY | PROVIDERS: PCP Family Medicine; Visit Provider Internal Medicine Gastroenterology | DX: Z11.0 Encounter for screening for intestinal infectious diseases (principal) | CPT/HCPCS: 99211 ==

== ENCOUNTER 2023-03-06 12:09 | Day surgery (SDC) | payer OTHER, SELFPAY ==
[2023-01-11 13:13] VITALS: BMI 29.3
--- NOTE | 2023-03-05 09:45 | HO.ANESPROP2 ---
Documented by User: Rupa Jiang NP 03/05/23 09:50 HPI - Anesthesia Eval Consult details Narrative: 42yo M for Epidural Steroid Injection and right shoulder injection s/p EGD 08/2022 with MAC sporatic f/u with cardiology for CAD, atypical CP, hx NE in setting of cocaine use (clean for years). Last visit 12/2021 without any cardiac symptoms, significant anxiety. [facility]LY [facility], [facility] Active Problems Active Problems: All Active Problems (Updated 02/08/23 @ 00:02 by Mian Arrieta) Tinea corporis (Acute) Chest discomfort (Acute) MARYURI (generalized anxiety disorder) (Acute) Allergic rhinitis (Acute) History of gastric ulcer (Acute) History of Helicobacter pylori infection (Acute) Chronic diarrhea (Acute) Abdominal pain (Acute) Sleep disorder breathing (Acute) Obesity (BMI 30-39.9) (Acute) Numbness and tingling of left leg (Acute) Edema, leg (Acute) Cellulitis (Acute) Left leg swelling (Acute) Helicobacter pylori gastritis (Acute) Diarrhea (Acute) Sleep disorder breathing (Acute) Hyperglycemia (Acute) Blurry vision (Acute) Chronic fatigue (Acute) GERD (gastroesophageal reflux disease) (Acute) Moderate depressive disorder (Acute) Labral tear of shoulder (Acute) Right arm numbness (Acute) Cervical radiculopathy (Acute) Foot pain, bilateral (Acute) Foot pain, bilateral (Acute) Left shoulder pain (Acute) Right hip pain (Acute) Polyarthralgia (Acute) Moderate recurrent major depression (Acute) Lumbar pain (Acute) Left hip pain (Acute) Right shoulder pain (Acute) Lumbar radiculopathy (Acute) Long-term use of aspirin therapy (Acute) Current smoker (Acute) Hyperlipidemia (Acute) CAD (coronary artery disease) (Acute) HTN (hypertension) (Acute) Past Medical History Medical History Anxiety Asthma CAD (coronary artery disease) Current smoker Foot pain, bilateral Foot pain, bilateral HTN (hypertension) Hyperlipidemia Left hip pain Left shoulder pain Long-term use of aspirin therapy Lumbar pain Lumbar radiculopathy Moderate recurrent major depression NAFL (nonalcoholic fatty liver) Past heart attack Polyarthralgia Right hip pain Right shoulder pain Family History Family History Father CVD (cardiovascular disease) Mother Diabetes Hypertension CVD (cardiovascular disease) Surgical History Surgical History H/O colonoscopy History of back surgery History of endoscopy History of open reduction and internal fixation (ORIF) procedure S/P hernia surgery History of Problems with Anesthesia: No Social History Social History Household Members: Children Housing: House Alcohol intake: never Patient Tobacco Use Status: Former Tobacco user Quit Date: 2021 Tobacco use type: Cigarette e-Cigarette/Vaping Use: Never Used Second Hand Smoke Exposure: No Use of substances other than those prescribed or required for medical reasons: Yes Substance Use Type: Marijuana Are you DNR?: No Advance Directives: No Advance Directives Information Provided: Yes Advance Directives on File: No service: No Current occupational status: unemployed and disabled 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 Cognitive needs: No Hearing needs: No Vision needs: No Meds Allergies Allergy/AdvReac Type Severity Reaction Status Date / Time cyclobenzaprine Allergy Intermediate erectile Verified 01/17/23 08:07 [From Flexeril] dysfunction diclofenac [DICLOFENAC] Allergy Intermediate STOMACH Verified 01/17/23 08:07 CRAMP, diarrhea ibuprofen [From Motrin] Allergy Intermediate bloody Verified 01/17/23 08:07 stools duloxetine Allergy Mild erectily Verified 01/17/23 08:07 dysfunction Home Medications Medication Instructions Recorded Confirmed Last Taken Type aspirin 81 mg tablet,delayed 81 mg PO DAILY 09/05/22 03/06/23 Unknown History release clonazepam 0.5 mg tablet 0.5 mg PO BEDTIME PRN anxiety 09/05/22 03/06/23 Unknown History Exam Exam Date and Time: March 05, 2023 0945 Height,Weight and Vital Signs: Height 5 ft 8 in Weight 87.543 kg Pertinent Lab Results Pertinent Lab Results: Laboratory Tests 10/16/22 10/16/22 08:36 08:36 WBC 6.8 Hgb 15.2 Hct 44.7 Plt Count 291 Sodium 142 Potassium 4.4 Chloride 106 Carbon Dioxide 26 BUN 18 H Creatinine 0.86 Narrative Narrative: EKG Vent. Rate : 060 BPM ? ? Atrial Rate : 060 BPM ?? P-R Int : 174 ms? QRS Dur : 086 ms ? ? QT Int : 384 ms ? ? ? P-R-T Axes : 040 007 -03 degrees ?? QTc Int : 384 ms ? Normal sinus rhythm Possible Left atrial enlargement Borderline ECG When compared with ECG of 08-MAR-2022 12:27, No significant change was found Assessment and Plan Assessment Anesthesia Assessment: Chart Reviewed Final Anesthetic Review History of Problems with Anesthesia: No Documented by User: Ave Hanson MD 03/06/23 15:01 [facility] Past Medical History Medical History Anxiety Asthma CAD (coronary artery disease) Current smoker Foot pain, bilateral Foot pain, bilateral HTN (hypertension) Hyperlipidemia Left hip pain Left shoulder pain Long-term use of aspirin therapy Lumbar pain Lumbar radiculopathy Moderate recurrent major depression NAFL (nonalcoholic fatty liver) Past heart attack Polyarthralgia Right hip pain Right shoulder pain Family History Family History Father CVD (cardiovascular disease) Mother Diabetes Hypertension CVD (cardiovascular disease) Family history of problems with anesthesia: No Surgical History Surgical History H/O colonoscopy History of back surgery History of endoscopy History of open reduction and internal fixation (ORIF) procedure S/P hernia surgery Social History Social History Household Members: Children Housing: House Alcohol intake: never Patient Tobacco Use Status: Former Tobacco user Quit Date: 2021 Tobacco use type: Cigarette e-Cigarette/Vaping Use: Never Used Second Hand Smoke Exposure: No Use of substances other than those prescribed or required for medical reasons: Yes Substance Use Type: Marijuana Are you DNR?: No Advance Directives: No Advance Directives Information Provided: Yes Advance Directives on File: No service: No Current occupational status: unemployed and disabled 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 Cognitive needs: No Hearing needs: No Vision needs: No Meds Allergies Allergy/AdvReac Type Severity Reaction Status Date / Time cyclobenzaprine Allergy Intermediate erectile Verified 01/17/23 08:07 [From Flexeril] dysfunction diclofenac [DICLOFENAC] Allergy Intermediate STOMACH Verified 01/17/23 08:07 CRAMP, diarrhea ibuprofen [From Motrin] Allergy Intermediate bloody Verified 01/17/23 08:07 stools duloxetine Allergy Mild erectily Verified 01/17/23 08:07 dysfunction Home Medications Medication Instructions Recorded Confirmed Last Taken Type aspirin 81 mg tablet,delayed 81 mg PO DAILY 09/05/22 03/06/23 Unknown History release clonazepam 0.5 mg tablet 0.5 mg PO BEDTIME PRN anxiety 09/05/22 03/06/23 Unknown History Exam Airway Mallampati Class: II TM Dist: >3cm Neck ROM: Full Heart: rrr Lungs: cta Assessment and Plan Assessment Anesthesia Assessment: Anesthesia Plan Discussed Final Anesthetic Review Family History of Problems with Anesthesia: No NPO: Yes ASA Class: III Final Preanesthetic Review: No Changes in Pt Med Stat, Meds/Allgs Chart Reviewed, Consent Obtained/Reviewed and Anes Risks/Benef Reviewed Patient Risk: Low Procedure Risk: Low Anesthetic Plan Anesthetic Plan: MAC: Disposition: Standard PACU
--- NOTE | ~2023-03-06 | FL_ITS ---
EXAMINATION: XR FLUOROSCOPY WITH IMAGES CLINICAL INFORMATION: Cervical epidural injection. COMPARISON: None available. TECHNIQUE: Fluoroscopy Supervised By: Dr. Luan Serra. Fluoroscopy Time: 0.2 minutes. Cumulative Dose: 8.22 mGy. DAP: 0.734 Gy-cm2. Images: 2. FINDINGS: There is a needle positioned along the interspinous region of the T2 and T3 vertebrae with minimal contrast opacifying the posterior tibial space and the soft tissues. No gross bony abnormality. FL/FL guidance in OR IMPRESSION: Fluoroscopy was provided to referring physician for pain management.
--- NOTE | ~2023-03-06 | FL_ITS ---
EXAMINATION: XR FLUOROSCOPY WITH IMAGES CLINICAL INFORMATION: Right shoulder. COMPARISON: None available. TECHNIQUE: Fluoroscopy Supervised By: Dr. Luan Serra. Fluoroscopy Time: 0.2 minutes. Cumulative Dose: 4.08 mGy. DAP: 0.583 Gycm2. Images: 1. FINDINGS: Solitary digital image reveals needle position overlying the left humeral head with contrast opacifying the soft tissues. Visualized bones are grossly unremarkable. FL/FL guidance in OR IMPRESSION: Fluoroscopy was provided to referring physician for pain management.
[2023-03-06 12:50] VITALS: BMI 31.6
[2023-03-06 12:52] VITALS: BP 127/69; PULSE 64; RESP 18; TEMP 36.1; O2SAT 98
[2023-03-06] MEDS: Lactated Ringers 1,000 ML 100 ML IVCONT (13:10)
--- NOTE | 2023-03-06 15:29 | MHC.SHP ---
Pre-Procedural Eval Section A Date of Service: 03/06/23 The patient is an INPATIENT: No Changes since office visit: Yes Patient answered all questions The History & Physical has been completed within 30 days and I have reviewed it.: No Section B Chief Complaint: Radiculopathy, cervical region, Pain in right shou Relevant Family History (Specify if Yes): Yes Relevant Social History: None Present Medications: see Short Stay Collaborative assessment Medical History: No relevant PMH History of Previous Operations: No relevant previous surgery Allergies: Allergies Allergy/AdvReac Type Severity Reaction Status Date / Time cyclobenzaprine Allergy Intermediate erectile Verified 01/17/23 08:07 [From Flexeril] dysfunction diclofenac [DICLOFENAC] Allergy Intermediate STOMACH Verified 01/17/23 08:07 CRAMP, diarrhea ibuprofen [From Motrin] Allergy Intermediate bloody Verified 01/17/23 08:07 stools duloxetine Allergy Mild erectily Verified 01/17/23 08:07 dysfunction Review of Systems Sugical H&P ROS: Negative: Constitution, Cardiovascular and Respiratory Exam Surgical H&P Exam: Normal: HEENT, Normal: Heart and Normal: Lungs Plan Diagnosis/Plan: Unchanged I have reviewed the history and physical and performed a pertinent physical examination on my patient. No changes have occurred unless specified. Proceed with cervical PAULA and right shoulder injection. Time Spent With Patient Time: Total time managing care of this patient today ____ minutes.
--- NOTE | 2023-03-06 16:12 | P.BOP_ITS ---
Brief Operative Note Date of Service: 03/06/23 Pre-op diagnosis: Cervical radiculopathy, right shoulder pain Post-op diagnosis: same Procedure: Cervical interlaminar epidural steroid injection, right glenohumeral injection Implants: None Surgeon: Luan Serra MD Anesthesia: MAC Was an Central Office Supervisor used for this Procedure?: No Estimated blood loss (mL): 1 Pathology: none sent Condition: stable Disposition: PACU
[2023-03-06 16:18] VITALS: BP 142/85; PULSE 63; RESP 17; TEMP 36.1; O2SAT 98
--- NOTE | 2023-03-06 16:26 | P.OP_ITS ---
Operative Note Operative Note Date of Service: 03/06/23 Narrative: Interlaminar epidural steroid injection, C7/T1, Right parasaggital After obtaining written consent, pre-procedure blood pressure and heart rate were stable and recorded in the nursing record. Standard monitors were applied. The patient was placed in the prone position and sedated by the route driver salesperson. The cervical thoracic area was widely prepped with chloraprep and draped in sterile fashion. Fluoroscopic guidance was used to identify the desired interlaminar space and for needle placement. Subcutaneous 0.5% lidocaine was used to anesthetize the skin overlying the target. A 20-gauge Ortega needle was advanced to the epidural space using loss of resistance to contrast technique under fluoroscopic AP and contralateral oblique views. There was no evidence of heme or CSF and no paresthesias were elicited with needle placement. Confirmation of epidural needle placement was performed with 1cc of omnipaque 180. Next 3 ml 0.5% lidocaine mixed with 10 mg dexamethasone was administered epidurally with no pain elicited on injection. The needle tract tubing was then cleared by reinserting the stylet. The needle was removed, skin cleansed and a sterile bandage was applied. The patient tolerated the procedure well and no complications were encountered. Glenohumeral shoulder injection, right With the patient in the prone position, right the right shoulder area was widely prepped with ChloraPrep and draped. Fluoroscopic guidance was used to identify the glenohumeral joint. Subcutaneous 0.5% lidocaine was used to anesthetize the skin overlying the target. A 22 gauge spinal needle with a small bend on the tip was advanced to the glenohumeral joint under fluoroscopic AP views. Aspiration was negative for heme or synovial fluid. Contrast Omnipaque 180 was injected outlining the glenohumeral joint. Next 3 mL of 0.5% lidocaine mixed with 40 mg Kenalog was administered intra-articularly with no pain elicited on injection. The needle tract was then cleared by reinserting the stylet. The needle was removed, skin cleaned and a sterile bandage was applied. The patient tolerated the procedure well and no complications were encountered. Following the procedures the patient's vital signs were stable. The patient was brought to the PACU and later discharged home in good condition with post- procedural instructions. Time Out: Immediately prior to the procedure, the following was verbally confirmed that there is a signed consent form and that the correct patient, planned procedure, site and side are consistent with documentation and that necessary equipment and/or blood products are available prior to the start of the case. Complications: none EBL: <1 cc
[2023-03-06 16:33] VITALS: BP 151/92; PULSE 64; RESP 16; TEMP 36.1; O2SAT 98
[2023-03-07 12:40] LABS: H Pylori Breath Test Positive (Negative)
== END 2023-03-06 17:02 | disposition home or self-care (01) ==
PROVIDERS: Internal Medicine Gastroenterology; PCP Family Medicine; Visit Provider Internal Medicine
PROC: 3E0R33Z Introduction of Anti-inflammatory into Spinal Canal, Percutaneous Approach (ICD-10-PCS; CPT 62321; principal; 2023-03-06 13:50)
DX: M54.12 Radiculopathy, cervical region (principal); M25.511 Pain in right shoulder; M54.2 Cervicalgia; I25.10 Atherosclerotic heart disease of native coronary artery without angina pectoris; I10 Essential (primary) hypertension; J45.909 Unspecified asthma, uncomplicated; Z79.82 Long term (current) use of aspirin; Z79.899 Other long term (current) drug therapy; Z88.8 Allergy status to other drugs, medicaments and biological substances; Z87.891 Personal history of nicotine dependence
CPT/HCPCS: 62321; 20610; 36415; 83013; J1100; J2250; J2795; J3010; J3301; Q9965

== ENCOUNTER → 2023-03-06 12:09 | Outpatient (BNV) | payer OTHER, SELFPAY | PROVIDERS: PCP Family Medicine; Visit Provider Internal Medicine | DX: M54.12 Radiculopathy, cervical region (principal); M25.511 Pain in right shoulder | CPT/HCPCS: 62321 ==

== ENCOUNTER 2023-06-12 10:55 | Emergency (ER) | payer OTHER, SELFPAY ==
--- NOTE | ~2023-06-12 | XR_ITS ---
EXAMINATION: XR CHEST CLINICAL INFORMATION: Left anterior chest pain COMPARISON: 03/08/2022 TECHNIQUE: Frontal view of the chest was obtained. FINDINGS: No significant abnormality is noted involving the heart, lungs, mediastinum, bony thorax or soft tissues. XR/XR chest 1V IMPRESSION: Unremarkable examination.
--- NOTE | 2023-06-12 10:56 | ECG_ITS ---
Test Reason : cp Blood Pressure : / mmHG Vent. Rate : 060 BPM Atrial Rate : 060 BPM P-R Int : 172 ms QRS Dur : 092 ms QT Int : 386 ms P-R-T Axes : 041 002 001 degrees QTc Int : 386 ms Normal sinus rhythm Normal ECG When compared with ECG of 16-OCT-2022 08:16, No significant change was found Referred By: Generic ED Physician Electronically Signed By:TANA HOANG MD
[2023-06-12 11:01] VITALS: BP 143/87; PULSE 59; RESP 16; TEMP 36.6; O2SAT 99; BMI 30.8
[2023-06-12 11:19] LABS: Hematocrit 42.5 % (42.0-52.0); Hemoglobin 14.4 g/dl (14.0-18.0); Mean Corpuscular HGB Conc 33.9 g/dl (31.0-36.0); Mean Corpuscular Hemoglobin 30.2 pg (27.0-33.0); Mean Corpuscular Volume 89.1 fL (80.0-98.0); Mean Platelet Volume 9.8 fL (9.4-12.4); Platelet Count 263 X10*3/uL (160-400); Red Blood Count 4.77 X10*6/uL (4.60-5.80); Red Cell Distribution Width 12.7 % (11.0-16.0); White Blood Count 7.5 X10*3/uL (4.8-10.8)
[2023-06-12 11:25] LABS: INTERNATIONAL NORM RATIO 0.9 (0.9-1.1); Prothrombin Time 11.1 SEC (11.1-13.3)
[2023-06-12 11:40] LABS: Potassium 4.5 mmol/L (3.3-5.1)
[2023-06-12 11:41] LABS: Alanine Aminotransferase 22 U/L (0-40); Albumin Level 4.4 g/dL (3.5-5.0); Alkaline Phosphatase 71 U/L (39-117); Anion Gap 13 (12-20); Aspartate Amino Transferase 19 U/L (5-37); Bilirubin Total 0.2 mg/dL (0.0-1.0); Blood Urea Nitrogen 15 mg/dL (9-16); Calcium 9.5 mg/dL (8.4-10.2); Carbon Dioxide 29 mmol/L (22-29); Chloride 106 mmol/L (96-108); Creatinine Clr Calc Pharmacy 113.9; Estimated Glomerular Filt Rate > 60; Glucose Random 101 mg/dL (60-115); Sodium 143 mmol/L (135-145); Total Protein 7.3 g/dL (6.5-8.0)
[2023-06-12 11:43] LABS: Troponin-I High Sensitivity < 2.7 ng/L (<3.5-35.0)
[2023-06-12 12:14] VITALS: BP 129/76; PULSE 58; RESP 14; O2SAT 98
--- NOTE | 2023-06-12 12:23 | ED_ITS ---
HPI - Chest Pain General Chief Complaint: Chest Pain Stated Complaint: Chest pain Time Seen by Provider: 06/12/23 11:32 History of Present Illness HPI narrative: Patient is a 42-year-old male with a history of coronary artery disease. Never got a stent. Positive history of hypercholesterolemia positive history of hypertension presented today with having left-sided chest pain that does not radiate is not associated with shortness of breath not associated with diaphoresis the pain is sharp patient moved heavy furniture the day before then had constant chest pain that is been unrelenting for the last 2 days. Patient claims it is worse when he moves his shoulder on the left side. There is no pain on movement of the right shoulder. Patient denies any diaphoresis. Denies any fever chills coughing congestion upper respiratory symptoms. No leg swelling. No history of blood clots. No history of long distance travel. Patient is from home. Have not had a recent stress test. Related Data Home Medications Medication Instructions Recorded Confirmed aspirin 81 mg tablet,delayed 81 mg PO DAILY 09/05/22 03/06/23 release clonazepam 0.5 mg tablet 0.5 mg PO BEDTIME PRN anxiety 09/05/22 03/06/23 Previous Rx's Medication Instructions Recorded albuterol sulfate 90 mcg/actuation 1 inh inhalation QID PRN shortness 08/07/21 aerosol inhaler of breath or wheezing 30 days #6.7 grams omeprazole 20 mg capsule,delayed 20 mg PO DAILY 90 days #90 caps 08/25/21 release omega-3 fatty acids 1,000 mg 1,000 mg PO BID 30 days #60 caps 12/06/21 capsule metoprolol succinate 25 mg 25 mg PO DAILY #30 tabs 12/24/21 tablet,extended release 24 hr gabapentin 400 mg capsule 400 mg PO TID 30 days #90 caps 08/06/22 lidocaine 5 % topical patch 1 patch topical DAILY #15 ea 10/10/22 omeprazole 20 mg tablet,delayed 20 mg PO BID h Pylori gastritis 14 01/17/23 release days #28 tabs prednisone 20 mg tablet 20 mg PO DAILY 7 days #7 tabs 02/07/23 Allergies Allergy/AdvReac Type Severity Reaction Status Date / Time cyclobenzaprine Allergy Intermediate erectile Verified 06/12/23 11:04 [From Flexeril] dysfunction diclofenac [DICLOFENAC] Allergy Intermediate STOMACH Verified 06/12/23 11:04 CRAMP, diarrhea ibuprofen [From Motrin] Allergy Intermediate bloody Verified 06/12/23 11:04 stools duloxetine Allergy Mild erectily Verified 06/12/23 11:04 dysfunction Review of Systems 2 Review of Systems: Positive chest pain Yes all other systems are reviewed and are negative [facility] Past Medical History Attestation statement: The following information was validated with the patient. Medical History Foot pain, bilateral Foot pain, bilateral Left shoulder pain Right hip pain Polyarthralgia Moderate recurrent major depression Lumbar pain Left hip pain NAFL (nonalcoholic fatty liver) Right shoulder pain Asthma Past heart attack Lumbar radiculopathy Long-term use of aspirin therapy Current smoker HTN (hypertension) Hyperlipidemia CAD (coronary artery disease) Anxiety Surgical History H/O colonoscopy History of endoscopy History of open reduction and internal fixation (ORIF) procedure S/P hernia surgery History of back surgery Family History Family History Father CVD (cardiovascular disease) Mother Diabetes Hypertension CVD (cardiovascular disease) Social History Social History Household Members: Children Housing: House Alcohol intake: never Patient Tobacco Use Status: Former Tobacco user Quit Date: 2021 Tobacco use type: Cigarette Smoked in Last 30 Days: No e-Cigarette/Vaping Use: Never Used Second Hand Smoke Exposure: No Use of substances other than those prescribed or required for medical reasons: Yes Substance Use Type: Marijuana Advance Directives: No service: No Current occupational status: unemployed and disabled 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 Oriented X3. No acute distress. Eyes: Pupils equal, round and reactive to light. ENT: Pharynx normal. Neck: Normal inspection. Neck supple. No lymph nodes noted. No crepitus CVS: Normal heart rate and rhythm. Pulses normal. Normal S1 and S2 Respiratory: No respiratory distress. Breath sounds normal. No Wheezing. No rales Abdomen: Soft and nontender. No rigidity. No distention. good BS x4 Skin: Skin warm and dry. Normal skin color. Normal skin turgor. Extremities: No lower extremity edema. Neurovascular intact to all extremities. No Lacerations. No Rash Neuro: Oriented X 3. No motor deficit. No sensory deficit. Moving all extermities. No slurred speech Medical Decision Making Medical Decision Making [facility] Narrative: My interpretation patient's EKG showed a sinus rhythm heart rate is 75 MO QRS QTC within normal limits is no acute ST segment elevation there is T-wave inversion over lead 3 which is old. EKG is unchanged from previous. My interpretation patient's chest x-ray is grossly negative for any acute evidence of pneumonia pneumothorax. I reviewed radiology's reading. Patient's chest pain atypical does have multiple risk factor however patient's EKG is unchanged troponin is negative. Heart score is a 3. Will have patient follow-up closely with his streaming media specialist on an outpatient basis if the 2nd set of troponin is negative. There is no risk factor for PE history not consistent. Two sets of heart enzymes and Differential Diagnosis Differential Diagnoses: The differential diagnosis associated with the presentation includes ACS, pneumonia, pneumothorax, PE, dissection Admission/Observation Consideration of admission/observation: Escalation of care including admission/observation considered Heart score is 3 will have patient closely follow-up Lab Data [facility] Lab Attestation statement: I reviewed the patient's lab results. 06/12/23 11:10 06/12/23 11:10 Labs: Lab Results 06/12/23 06/12/23 Range/Units 11:10 12:30 WBC 7.5 (4.8-10.8) X10*3/uL RBC 4.77 (4.60-5.80) X10*6/uL Hgb 14.4 (14.0-18.0) g/dl Hct 42.5 (42.0-52.0) % MCV 89.1 (80.0-98.0) fL MCH 30.2 (27.0-33.0) pg MCHC 33.9 (31.0-36.0) g/dl RDW 12.7 (11.0-16.0) % Plt Count 263 (160-400) X10*3/uL MPV 9.8 (9.4-12.4) fL Absolute Nucleated RBC 0.000 (0.0-0.012) X10*3/uL Nucleated RBC % (auto) 0.0 (0.0-0.2) /100WBC PT 11.1 (11.1-13.3) SEC INR 0.9 (0.9-1.1) Sodium 143 (135-145) mmol/L Potassium 4.5 (3.3-5.1) mmol/L Chloride 106 (96-108) mmol/L Carbon Dioxide 29 (22-29) mmol/L Anion Gap 13 (12-20) BUN 15 (9-16) mg/dL Creatinine 0.91 (0.5-1.4) mg/dL Estim Creat Clear Calc 113.9 Estimated GFR > 60 Random Glucose 101 (60-115) mg/dL Calcium 9.5 (8.4-10.2) mg/dL Total Bilirubin 0.2 (0.0-1.0) mg/dL AST 19 (5-37) U/L ALT 22 (0-40) U/L Alkaline Phosphatase 71 (39-117) U/L Troponin I High Sens < 2.7 < 2.7 (<3.5-35.0) ng/L Total Protein 7.3 (6.5-8.0) g/dL Albumin 4.4 (3.5-5.0) g/dL Independent Interpretation I performed an independent interpretation of an: EKG (My interpretation patient's EKG as above) and Plain X-Ray (Chest x-ray grossly negative for any acute evidence of pneumonia pneumothorax) Radiology Impression Discussion of test interpretation with radiology: I have reviewed the radiologist's reading. Independent Historian Clinical information obtained from an independent historian. History obtained from or confirmed by: Spouse External Record Review External record reviewed: Office record Previous office cardiology record was reviewed Chronic Conditions Patient?s care impacted by: Hypertension History of coronary artery disease, hypertension, hypercholesterolemia Discharge Plan Discharge Clinical Impression: Chest pain Patient Disposition: Home, Self-Care Instructions: Chest Pain (DC) Prescriptions: No Action albuterol sulfate 90 mcg/actuation HFA aerosol inhaler 1 inh inhalation QID PRN (Reason: shortness of breath or wheezing) 30 Days Qty: 6.7 3RF omega-3 fatty acids 1,000 mg capsule 1,000 mg PO BID 30 Days Qty: 60 3RF metoprolol succinate 25 mg tablet extended release 24 hr 25 mg PO DAILY Qty: 30 4RF gabapentin 400 mg capsule 400 mg PO TID 30 Days Qty: 90 3RF lidocaine 5 % adhesive patch,medicated 1 patch topical DAILY Qty: 15 0RF Rx Instructions: leave on most painful area for up to 12 hrs prednisone 20 mg tablet 20 mg PO DAILY 7 Days Qty: 7 0RF omeprazole 20 mg capsule,delayed release(DR/EC) 20 mg PO DAILY 90 Days Qty: 90 3RF clonazepam 0.5 mg tablet 0.5 mg PO BEDTIME PRN (Reason: anxiety) aspirin 81 mg tablet,delayed release (DR/EC) 81 mg PO DAILY omeprazole 20 mg tablet,delayed release (DR/EC) 20 mg PO BID 14 Days Qty: 28 0RF Referrals: Golden Noe MD [Physician] - 06/14/23
[2023-06-12 13:01] LABS: Troponin-I High Sensitivity < 2.7 ng/L (<3.5-35.0)
== END 2023-06-12 14:01 | disposition home or self-care (01) ==
PROVIDERS: Emergency Provider Emergency Medicine Emergency Medical Services; PCP Family Medicine
DX: R07.89 Other chest pain (principal); I10 Essential (primary) hypertension; M25.511 Pain in right shoulder; Z87.891 Personal history of nicotine dependence; Z79.899 Other long term (current) drug therapy
CPT/HCPCS: 36415; 71045; 80053; 84484; 85027; 85610; 93005; 99284; 99285

== ENCOUNTER 2023-08-08 08:11 | Outpatient (AMB) | payer OTHER, SELFPAY ==
[2023-08-08 08:31] VITALS: BP 130/92; PULSE 64; BMI 31.0
--- NOTE | 2023-08-08 08:31 | MHC.OFFVIS ---
Intake Vital Signs 08/08/23 08:31 Height 5 ft 8 in Weight 204 lb 2.369 oz BMI 31.0 BP 130/92 H Blood Pressure Location Rt brachial Position Sitting Pulse 64 Pulse Source Pulse Oximeter Intake Visit Reasons: [facility] f/u Distribution Associate Required: Yes Distribution Associate Language: Wet Silk Hanger Name: neha briseno [id number] Machine Load Clerk: Machine Load Clerk Present Allergies cyclobenzaprine [From Flexeril] Allergy (Intermediate, Verified 08/08/23 08:34) erectile dysfunction diclofenac [DICLOFENAC] Allergy (Intermediate, Verified 08/08/23 08:34) STOMACH CRAMP, diarrhea ibuprofen [From Motrin] Allergy (Intermediate, Verified 08/08/23 08:34) bloody stools duloxetine Allergy (Mild, Verified 08/08/23 08:34) erectily dysfunction Medication List - Last Reconciled 08/08/23 by Rosa Maria Kramer, MAIL WEIGHER-C albuterol sulfate 90 mcg/actuation 1 inh inhalation QID PRN 30 days aspirin 81 mg PO DAILY gabapentin 400 mg PO TID 30 days lidocaine 5% 1 patch topical DAILY metoprolol succinate ER 25 mg PO DAILY omeprazole 20 mg PO BID 14 days HPI [facility] f/u HPI Melissa Brambila is a 43-year-old male with past medical history of hypertension, hyperlipidemia, smoking, prior cocaine use, NSTEMI, mild CAD who presents for follow-up. His last prior visit to our office was 12/28/2021. Today he reports that he has a lot of anxiety about his health. He describes being under high stress in his family situation. He smokes marijuana routinely. He denies any recent cocaine use. He has not had exertional chest discomfort. He has some left shoulder discomfort that hurts with movement. No shortness of breath, palpitations, lightheadedness, presyncope, syncope, PND, orthopnea or edema. No routine exercise. Takes meds as directed. Has a counselor that he follows with. [facility] Medical History (Updated 08/08/23 @ 10:48 by Rosa Maria Kramer, MAIL WEIGHER-C) Anxiety Foot pain, bilateral Foot pain, bilateral Left shoulder pain Right hip pain Polyarthralgia Moderate recurrent major depression Lumbar pain Left hip pain NAFL (nonalcoholic fatty liver) Right shoulder pain Asthma Past heart attack Lumbar radiculopathy Long-term use of aspirin therapy Current smoker HTN (hypertension) Hyperlipidemia CAD (coronary artery disease) Surgical History H/O colonoscopy History of endoscopy History of open reduction and internal fixation (ORIF) procedure S/P hernia surgery History of back surgery Family History Father CVD (cardiovascular disease) Mother Diabetes Hypertension CVD (cardiovascular disease) Social History Household Members: Children Housing: House Alcohol intake: never Patient Tobacco Use Status: Former Tobacco user Quit Date: 2021 Tobacco use type: Cigarette e-Cigarette/Vaping Use: Never Used Second Hand Smoke Exposure: No Substance Use Type: Marijuana service: No Current occupational status: unemployed and disabled 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 Cognitive needs: No Hearing needs: No Vision needs: No Review of Systems Const Details: reports of stress and anxiety All systems reviewed & are unremarkable except as noted in HPI and below ENT Denies dizziness Card Denies chest pain, Denies chest pain at rest, Denies chest pain with activity, Denies rapid heart rate, Denies pedal edema, Denies edema, Denies leg edema, Denies lightheadedness, Denies palpitations, Denies dyspnea, Denies dyspnea on exertion and Denies orthopnea Resp Denies cough, Denies dyspnea and Denies dyspnea on exertion GI Denies hematochezia and Denies change in stool character Musc Denies abnormal gait, Denies limited range of motion, Denies muscle cramps, Denies muscle weakness, Denies numbness, Denies radiating pain into limb, Denies stiffness and Denies tingling Neuro Denies abnormal gait, Denies dizziness, Denies numbness and Denies tingling Endo Denies palpitations Physical Exam Vital Signs: Last Vital Signs Pulse 64 08/08/23 08:31 BP 130/92 H 08/08/23 08:31 BMI result Body Mass Index 31.0 Const General: cooperative, healthy appearing, comfortable and no acute distress Orientation/consciousness: patient oriented x3 Neck Neck: Yes normal visual inspection Resp Effort & Inspection: normal respiratory effort Auscultation: clear to auscultation bilaterally, no crackles, no rales, no rhonchi and no wheezes Cardio Jugular venous distension: no JVD Rate: regular rate Rhythm: regular rhythm Heart sounds: S1 normal heart sound present, S2 normal heart sound present, no murmurs and no rubs Neuro General: patient oriented x3 Extrem General: Yes normal to inspection and No no pedal edema Psych Appearance: grossly normal Mental Status: mental status grossly normal Speech and movement: Normal speech and movement present Assessment & Plan Assessment & Plan (1) CAD (coronary artery disease): Code(s): I25.10 - Atherosclerotic heart disease of [place] coronary artery without angina pectoris Qualifiers: Associated angina: with stable angina Coronary Disease-Associated Artery/Lesion type: [place] artery [place] vs. transplanted heart: [place] heart Qualified Code(s): I25.118 - Atherosclerotic heart disease of [place] coronary artery with other forms of angina pectoris Plan: History of NSTEMI in the setting of cocaine use with prior notes indicating mild right PDA stenosis. At this time he says he has stopped all cocaine use however continues to smoke marijuana. Last EKG done 06/12/2023 when he was in the emergency room for chest discomfort. EKG showed normal sinus rhythm with no acute ST or T-wave abnormalities. Troponin level was normal x2. He ruled out for ACS. His symptoms are atypical for angina. Signs and symptoms of true angina reviewed with him. Benefits of increasing physical activity, smoking cessation, good blood pressure and cholesterol control reviewed. Continue aspirin and metoprolol. He is not on statins for unclear reason. No recent lipid profile in our system. Labs followed by his PCP. Will forward this note to his PCP. Recommend start of statin therapy if no contraindications. Cardiology follow-up in 1 year, sooner if needed. (2) Left shoulder pain: Code(s): M25.512 - Pain in left shoulder Plan: As above (3) HTN (hypertension): Code(s): I10 - Essential (primary) hypertension Qualifiers: Hypertension type: essential hypertension Qualified Code(s): I10 - Essential (primary) hypertension Plan: Mild elevation today. Patient reports feeling anxious and stressed. He is speaking with a counselor and has an appointment today. He is on metoprolol, will continue without change. If blood pressure remains elevated then use of hydrochlorothiazide versus Luis Angel/Arb can be added. Benefits of exercise and weight reduction reviewed. (4) Anxiety: Code(s): F41.9 - Anxiety disorder, unspecified Plan: As above Plan Time spent on chart review, documentation, interview and assessment Quality Reporting (2019) Adult ([facility] 138/09/19/68) Smoking risk assessment performed?: Yes Patient Tobacco Use Status: Former Tobacco user Coding Level of Care Code Est Pt Level 4 (74365) Diagnoses Coronary artery disease of [place] artery of [place] heart with stable angina pectoris I25.118 Associated angina: with stable angina Coronary Disease-Associated Artery/Lesion type: [place] artery [place] vs. transplanted heart: [place] heart Left shoulder pain M25.512 Essential hypertension I10 Hypertension type: essential hypertension Anxiety F41.9 Time Spent (min) 28
== END 2023-08-08 09:06 | disposition home or self-care (01) ==
PROVIDERS: PCP Family Medicine; Visit Provider Nurse Practitioner Family
DX: I25.118 Atherosclerotic heart disease of native coronary artery with other forms of angina pectoris (principal); M25.512 Pain in left shoulder; I10 Essential (primary) hypertension; F41.9 Anxiety disorder, unspecified
CPT/HCPCS: 99214

== ENCOUNTER → 2023-08-08 08:11 | Outpatient (BNVA) | payer OTHER, SELFPAY | PROVIDERS: PCP Family Medicine; Visit Provider Nurse Practitioner Family | DX: I25.118 Atherosclerotic heart disease of native coronary artery with other forms of angina pectoris (principal); M25.512 Pain in left shoulder; F41.9 Anxiety disorder, unspecified; I10 Essential (primary) hypertension; F12.90 Cannabis use, unspecified, uncomplicated | CPT/HCPCS: 99212 ==

== ENCOUNTER 2023-08-22 07:33 | Outpatient (AMB) | payer OTHER, SELFPAY ==
--- NOTE | 2023-08-22 07:37 | MHC.OFFVIS ---
Intake Vital Signs 08/22/23 07:39 Height 5 ft 8 in Weight 207 lb 3.752 oz BMI 31.5 BP 122/75 Blood Pressure Location Lt brachial Position Sitting Pulse 72 Intake Visit Reasons: Pain swallowing Intake Note: Kosta presents in the office as a follow up for painful swallowing. CC: He states he had a heart attack in 2018 he states that he has been cranky. Physical Medicine Specialist Required: Yes Allergies cyclobenzaprine [From Flexeril] Allergy (Intermediate, Verified 08/22/23 07:40) erectile dysfunction diclofenac [DICLOFENAC] Allergy (Intermediate, Verified 08/22/23 07:40) STOMACH CRAMP, diarrhea ibuprofen [From Motrin] Allergy (Intermediate, Verified 08/22/23 07:40) bloody stools duloxetine Allergy (Mild, Verified 08/22/23 07:40) erectily dysfunction Medication List - Last Reconciled 08/22/23 by Kye Hatch MD albuterol sulfate 90 mcg/actuation 1 inh inhalation QID PRN 30 days aspirin 81 mg PO DAILY blood pressure test kit-large As directed gabapentin 400 mg PO TID 30 days lidocaine 5% 1 patch topical DAILY loratadine 10 mg PO DAILY metoprolol succinate ER 25 mg PO DAILY omeprazole 20 mg PO BID 14 days sucralfate 1 g PO QID HPI Pain swallowing HPI Details GI clinic visit for this 43-year-old Croatian-speaking male with HTN, CAD, obesity, anxiety, hx of cocaine use disorder for FU of OROPHARYNGEAL DYSPHAGIA AND ESOPHAGEAL MOTILITY DISORDER and gastric ulcer related to persistent H Pylori infection. 02/2019 patient was treated for H pylori with amoxicillin, clarithromycin and omeprazole. 11/2019 Pt was retreated for H Pylori with Pylera x 14 days. He was last seen in office in 2020 and was prescribed levo based salvage therapy which he does not recall taking. Reports taking omeprazole daily. Pt has hx of substance use but reports has been abstinent for years now. CHRONIC ILLNESSES: Hypertension, coronary artery disease, lumbar radiculopathy, obesity, constipation, hypercholesterolemia, anxiety, chronic obstructive asthma and a h/o cocaine abuse IMAGING STUDIES: 09/14/20 ABD US SHOWED: Echogenic liver. Differential would include fatty infiltration and liver disease. There does not appear to be evidence of fatty infiltration on previous CT July 2018. Otherwise unremarkable exam. 12/14 BARIUM SWALLOW SHOWED: ? The esophagus showed a normal mucosal fold pattern, without mucosal thickening, ulceration, mass or stricture. ? The patient passed a barium pill without difficulty. There was mild to moderate esophageal ? dysmotility, with tertiary contractions and to and fro motion of the ingested oral contrast. ? There is no hiatus hernia. Gastroesophageal reflux is not seen despite reflux maneuvers. ?ENDOSCOPIC STUDIES: 08/2022 EGD WAS PERFORMED BY DR WEEMS: EGD Impressions:? Normal esophagus Normal stomach (biopsy) Normal duodenum?? Recommendations:?? Follow biopsy results. Our office will call or send a letter with results within 7-10 days. If H pylori +, patient will be prescribed eradication therapy followed by test of cure. Avoid NSAIDs. BIOPSIES SHOWED: Stomach, biopsy: - Antral-type and oxyntic mucosa with moderate chronic active inflammation. - Positive for H pylori. 11/01/20 EGD and colonoscopy showed: ESOPHAGUS:? Tortuous esophagus with increased tertiary contractions without stricture or ring. GE junction at 40 cms.? No esophagitis or Clemente's. STOMACH:? Moderate diffuse gastric erythema with nodular appearing gastric mucosa. Chronic appearing antral erosions and a healing 6-7 mm antral ulcer - biopsied.? Biopsies were obtained from the gastric body and antrum. DUODENUM:? Normal - biopsied to check for celiac sprue Colonoscopy Findings:??One small polyp removed Moderate diverticulosis seen in the entire colon Moderate hemorrhoids on retroflexed exam. Plan:? Patient has an appointment on 11/17/20 in the GI Clinic with Kye Hatch M.D.. Repeat Colonoscopy interval based on path results - in 5 years if polyps are adenomatous and 10 years if polyps are hyperplastic. Above findings were reviewed with the patient and PUD, colon polyps and diverticulosis handouts were given in the discharge BIOPSIES SHOWED: A.? Small bowel, biopsy:? Duodenal mucosa with mildly increased intraepithelial lymphocytes and preserved villous architecture.? See comment. B.? Stomach, ulcer, biopsy: - Ulcerated antral-type mucosa with marked inflammation and regenerative changes. - Positive for H. pylori. C.? Stomach, antrum, biopsy: - Antral-type mucosa with severe chronic active inflammation. - Positive for H pylori. D.? Stomach, body, biopsy: - Clinically polypoid oxyntic mucosa with severe chronic active inflammation. - Positive for H pylori. E.? Terminal ileum, biopsy:? Terminal ileal mucosa within normal limits. F.? Colon, random and descending polyp, biopsy and polypectomy: - Colonic mucosa within normal limits. - Tubular adenoma; no high grade dysplasia or carcinoma seen. G.? Colon, random left, biopsy:? Colonic mucosa within normal limits. 09/08/19 EGD SHOWED: ? LARYNX: Changes suggestive of LPRD ? ESOPHAGUS: Dysphagia likely due to esophageal motility disorder. ? STOMACH: Gastritis and non healing Gastric ulcer likely due to aspirin use for CAD. ? DUODENUM: Normal ? Plan:? Continue present medications (Omeprazole at 20 mg PO once daily) ? Patient has an appointment on 10/01/19 in the GI Clinic with Kye Hatch M.D ? Above findings were reviewed with the patient and handout on gastritis was ? provided in the discharge area. ? Biopsies showed: ? A. Stomach ulcers: ? - Antral-type mucosa with severe chronic active inflammation. ? - Positive for H. pylori. ? B. Stomach, antrum, biopsy: ? - Antral-type mucosa with severe chronic active inflammation. ? - Positive for H. pylori. ? C. Stomach, body, biopsy: ? - Oxyntic mucosa with severe chronic active inflammation. ? - Positive for H. pylori. ?? ? Pt was retreated for H Pylori with Pylera x 14 days TODAY'S VISIT [facility] [employer],?[place] Pt is accompanied by his son Having stomach and unable to eat. Complains of food getting stuck in the esophagus - especially chicken, bread, ham Hurts when he touches his throat. Has choking episode twice a week and he provokes vomiting with the finger. H Pylori breath test was positive since he did not take the antibiotics the last time. Pt is requesting a new prescription for the antibiotics (Gets depressed and throws out his medications). ?PAST VISITS: EGD results reviewed - gastric biopsies were positive for H Pylori Pt does not recall taking the last treatment ? EGD and Colonoscopy findings and bx results were discussed with the patient. ? Admits to missing antibiotic doses when he was treated for H Pylori in the past ? ? ? Complains of urgency with bowel accidents since he had the colonoscopy. ? ? ? Having diarrhea with 5 episodes between 3:30 to 9 am every morning. ?Abd US results were reviewed with the patient and advised wt loss for fatty liver. ? Continues to have abdominal pain ? In the afternoon when I have something to eat, notes abdominal pain and distension as if somebody is pushing from inside and outside. ? Abdominal discomfort with everything he eats. ? Notes constipation and stool are yellowish. ? Stomach does not hurt but bowels does. ? Diarrhea is minimal and has 2-3 BMs a day. ? Took an OTC medication yesterday and does not have pain in going to the bathroom. ? Notes abdominal pain early am and it wakes him up or he is unable to sleep due to pain. ? Admits to taking Prilosec once daily - advised to increase to twice a day. ? Taking aspirin intermittently - once a week. ? Complains of intermittent abdominal pain, gas and diarrhea. ? [place] he was passing gas and had an accident. ? When I eat something the food goes down. After I finish food comes back into the throat ? Has been chewing his food well. ? I am feeling a lot of acid in the stomach ? I have a lot of anxiety. ? Notes acid in his stomach since he just finished drinking coffee. ? Denies nausea or vomiting, change in appetite or weight. ? Complains of diarrhea for the past several months - has 3 BMs per day. ? Denies blood in the stool. ? Has diarrhea after he eats - unsure about any precipitating foods ? spicy foods and hot sauce. ? Complains of increased gas and feels fairly uncomfortable. ? Unable to sleep due to gas and bloating [facility] Medical History (Updated 08/22/23 @ 08:13 by Kye Hatch MD) Anxiety Foot pain, bilateral Foot pain, bilateral Left shoulder pain Right hip pain Polyarthralgia Moderate recurrent major depression Lumbar pain Left hip pain NAFL (nonalcoholic fatty liver) Right shoulder pain Asthma Past heart attack Lumbar radiculopathy Long-term use of aspirin therapy Current smoker HTN (hypertension) Hyperlipidemia CAD (coronary artery disease) Surgical History H/O colonoscopy History of endoscopy History of open reduction and internal fixation (ORIF) procedure S/P hernia surgery History of back surgery Family History Father CVD (cardiovascular disease) Mother Diabetes Hypertension CVD (cardiovascular disease) Social History Household Members: Children Housing: House Alcohol intake: never Patient Tobacco Use Status: Former Tobacco user Quit Date: 2021 Tobacco use type: Cigarette e-Cigarette/Vaping Use: Never Used Second Hand Smoke Exposure: No Substance Use Type: Marijuana service: No Current occupational status: unemployed and disabled 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 Cognitive needs: No Hearing needs: No Vision needs: No Review of Systems Const All systems reviewed & are unremarkable except as noted in HPI and below Physical Exam Vital Signs: Last Vital Signs Pulse 72 08/22/23 07:39 BP 122/75 08/22/23 07:39 BMI result Body Mass Index 31.5 Const General: healthy appearing, no acute distress and anxious Nutritional Appearance: average body habitus Orientation/consciousness: patient oriented x3 Limitations: language barrier HEENT Head: Yes normal to inspection Ears: hearing grossly normal bilaterally Eyes Sclerae: sclerae normal Pupils: Equal, round and reactive pupils present Neck Neck: Yes normal visual inspection Chest Chest palpation & inspection: normal inspection of the chest Resp Effort & Inspection: normal respiratory effort Auscultation: clear to auscultation bilaterally Cardio Palpation: normal PMI Rate: regular rate Rhythm: regular rhythm Heart sounds: S1 normal heart sound present, S2 normal heart sound present and no murmurs GI Palpation (GI): Soft to palpation, nontender and No hepatosplenomegaly present Auscultation: normal bowel sounds Rectal Exam - Male: Yes deferred Skin General skin exam: no rashes or lesions noted Neuro General: patient oriented x3, gait normal and moves all extremities Cranial nerves: Yes Equal, round and reactive pupils present Psych Appearance: grossly normal Mental Status: mental status grossly normal Assessment & Plan Assessment & Plan (1) History of gastric ulcer: Code(s): Z87.19 - Personal history of other diseases of the digestive system (2) Chronic diarrhea: Code(s): K52.9 - Noninfective gastroenteritis and colitis, unspecified (3) Abdominal pain: Code(s): R10.9 - Unspecified abdominal pain (4) GERD (gastroesophageal reflux disease): Code(s): K21.9 - Gastro-esophageal reflux disease without esophagitis (5) Dysphagia, pharyngoesophageal phase: Code(s): R13.14 - Dysphagia, pharyngoesophageal phase (6) Helicobacter pylori gastritis: Code(s): K29.70 - Gastritis, unspecified, without bleeding; B96.81 - Helicobacter pylori [H. pylori] as the cause of diseases classified elsewhere Plan 43 YM with Hypertension, coronary artery disease, lumbar radiculopathy, obesity, constipation, hypercholesterolemia, anxiety, chronic obstructive asthma and a h/o cocaine abuse followed in GI for GERD, dysphagia and gastric ulcer associated with Helicobacter pylori infection. 02/2019 patient was treated for H pylori with amoxicillin, clarithromycin and omeprazole. 09/08/19 repeat EGD showed persistent gastric ulcers with Helicobacter pylori gastritis. Patient admits to taking a baby aspirin once a week. Pt was advised to take quadruple therapy x 14 days for H Pylori eradication. Patient complains of abdominal gas with intermittent diarrhea felt to be functional. Stool for WBC and occult blood was negative in July of 2018. Patient complains of upper/RUQ pain and bloating and thinks he may passed a stone with his bowel movement. Abdominal ultrasound showed fatty liver and was negative for gallstones. 11/01/20 PT had an EGD and colonoscopy and findings as noted above 08/2022 FU EGD was performed by Dr Weems and findings as noted above 01/17/23 Pt retreated for HPylori with Amox + Levo + Omeprazole x 14 days 08/22/23 Schedule a barium swallow for evaluation of dysphagia. Treatment of H pylori with amoxicillin + levofloxacin + omeprazole x 14 days since pt states he did not take the antibiotics after his last visit . FU in 3 months. Orders: Orders [place] barium swallow Today R13.14 - Dysphagia, pharyngoesophageal phase Medications: New amoxicillin 1,000 mg (2 x 500 mg) PO Q12H 56 tabs 0RF 14 days B96.81 - Helicobacter pylori [H. pylori] as the cause of diseases classified elsewhere, K29.70 - Gastritis, unspecified, without bleeding levofloxacin 750 mg PO DAILY 14 tabs 0RF 14 days B96.81 - Helicobacter pylori [H. pylori] as the cause of diseases classified elsewhere, K29.70 - Gastritis, unspecified, without bleeding Changed From omeprazole 20 mg PO BID 14 days 28 tabs 0RF h Pylori gastritis K21.9 - Gastro-esophageal reflux disease without esophagitis To omeprazole 20 mg PO BID 90 days 180 tabs 1RF h Pylori gastritis K21.9 - Gastro-esophageal reflux disease without esophagitis Quality Reporting (2019) Adult ([facility] 138/09/19/68) Smoking risk assessment performed?: Yes Patient Tobacco Use Status: Former Tobacco user Coding Level of Care Code Est Pt Level 4 (01955) Diagnoses History of gastric ulcer Z87.19 Chronic diarrhea K52.9 Abdominal pain R10.9 GERD (gastroesophageal reflux disease) K21.9 Dysphagia, pharyngoesophageal phase R13.14 Helicobacter pylori gastritis K29.70; B96.81 Time Spent (min) 22
[2023-08-22 07:39] VITALS: BP 122/75; PULSE 72; BMI 31.5
== END 2023-08-22 08:18 | disposition home or self-care (01) ==
PROVIDERS: PCP Family Medicine; Visit Provider Internal Medicine Gastroenterology
DX: Z87.19 Personal history of other diseases of the digestive system (principal); K52.9 Noninfective gastroenteritis and colitis, unspecified; R10.9 Unspecified abdominal pain; K21.9 Gastro-esophageal reflux disease without esophagitis; R13.14 Dysphagia, pharyngoesophageal phase; K29.70 Gastritis, unspecified, without bleeding; B96.81 Helicobacter pylori [H. pylori] as the cause of diseases classified elsewhere
CPT/HCPCS: 99214

== ENCOUNTER → 2023-08-22 07:33 | Outpatient (BNVA) | payer OTHER, SELFPAY | PROVIDERS: PCP Family Medicine; Visit Provider Internal Medicine Gastroenterology | DX: K29.70 Gastritis, unspecified, without bleeding (principal); B96.81 Helicobacter pylori [H. pylori] as the cause of diseases classified elsewhere; K21.9 Gastro-esophageal reflux disease without esophagitis; K52.9 Noninfective gastroenteritis and colitis, unspecified; R10.9 Unspecified abdominal pain; R13.14 Dysphagia, pharyngoesophageal phase | CPT/HCPCS: 99212 ==

== ENCOUNTER 2023-10-18 08:35 | Outpatient (REF) | payer OTHER, SELFPAY | END 2023-10-18 08:36 | disposition home or self-care (01) | LOC: HO.XRAY 08:35 | PROVIDERS: PCP Family Medicine; Visit Provider Internal Medicine Gastroenterology | DX: Z13.89 Encounter for screening for other disorder (principal) ==

== ENCOUNTER 2023-10-19 12:37 | Emergency (ER) | payer OTHER, SELFPAY ==
--- NOTE | 2023-10-19 | ECG_ITS ---
Test Reason : chest pain Blood Pressure : / mmHG Vent. Rate : 066 BPM Atrial Rate : 066 BPM P-R Int : 168 ms QRS Dur : 090 ms QT Int : 378 ms P-R-T Axes : 038 -01 -01 degrees QTc Int : 396 ms Normal sinus rhythm Normal ECG When compared with ECG of 12-JUN-2023 10:56, No significant change was found Referred By: Generic ED Physician Electronically Signed By:TY BRAND
--- NOTE | ~2023-10-19 | XR_ITS ---
EXAMINATION: XR CHEST CLINICAL INFORMATION: Chest pain COMPARISON: 06/12/2023 TECHNIQUE: 2 views of the chest were obtained. FINDINGS: Lung volumes are symmetric. No focal consolidation is seen. No evidence of pneumothorax, pleural effusion, or pulmonary edema. The cardiomediastinal contour is unremarkable. No acute osseous findings are seen. XR/XR chest 2V IMPRESSION: No acute cardiopulmonary findings.
[2023-10-19 12:48] VITALS: BP 133/86; PULSE 64; RESP 18; TEMP 36.7; O2SAT 100; BMI 30.9
--- NOTE | 2023-10-19 12:48 | ED.CHESTPAIN ---
HPI - Chest Pain General Chief Complaint: Chest Pain Stated Complaint: chest pains Time Seen by Provider: 10/19/23 12:58 Source: patient and interpreter deaf Mode of arrival: ambulatory Limitations: no limitations History of Present Illness HPI narrative: 43 yo male w/ hx of CAD, HDL, HTN, and anxiety here for eval of acute onset 9/10 chest pain x2-3 , pain is mid chest with no radiation intermittent not exertional related.. hx of [place] in 2007 without stent placement Report by the patient he used to use Cocaine that he has not used for years now. states this feels similar. Assoc disphoresis, nausea, and dizziness. Admits increased stressors at home with young son who was hyperactive. Denies known sick contacts. Denies fever, chills, V, palpitations, SOB, dyspnea. Denies recent travel, no prolonged immobilization, no lower extremity swelling or tenderness. Related Data Home Medications Medication Instructions Recorded Confirmed aspirin 81 mg tablet,delayed 81 mg PO DAILY 09/05/22 08/22/23 release blood pressure test kit-large #1 ea 08/22/23 08/22/23 loratadine 10 mg tablet 10 mg PO DAILY 08/22/23 08/22/23 sucralfate 1 gram tablet 1 g PO QID 08/22/23 08/22/23 Previous Rx's Medication Instructions Recorded albuterol sulfate 90 mcg/actuation 1 inh inhalation QID PRN shortness 08/07/21 aerosol inhaler of breath or wheezing 30 days #6.7 grams metoprolol succinate 25 mg 25 mg PO DAILY #30 tabs 12/24/21 tablet,extended release 24 hr gabapentin 400 mg capsule 400 mg PO TID 30 days #90 caps 08/06/22 lidocaine 5 % topical patch 1 patch topical DAILY #15 ea 10/10/22 amoxicillin 500 mg tablet 1,000 mg (2 x 500 mg) PO Q12H 14 08/22/23 days #56 tabs levofloxacin 750 mg tablet 750 mg PO DAILY 14 days #14 tabs 08/22/23 omeprazole 20 mg tablet,delayed 20 mg PO BID h Pylori gastritis 90 08/22/23 release days #180 tabs Allergies Allergy/AdvReac Type Severity Reaction Status Date / Time cyclobenzaprine Allergy Intermediate erectile Verified 10/19/23 12:48 [From Flexeril] dysfunction diclofenac [DICLOFENAC] Allergy Intermediate STOMACH Verified 10/19/23 12:48 CRAMP, diarrhea ibuprofen [From Motrin] Allergy Intermediate bloody Verified 10/19/23 12:48 stools duloxetine Allergy Mild erectily Verified 10/19/23 12:48 dysfunction Review of Systems Review of Systems: All other systems are reviewed and are negative Constitutional: Reports as per HPI and Reports no additional constitutional complaints Eyes: Reports as per HPI and Reports no additional eye complaints Reports system reviewed and no additional complaints, except as documented Cardiovascular: Reports as per HPI and Reports no additional cardiovascular complaints Respiratory: Reports as per HPI and Reports no additional respiratory complaints Gastrointestinal: Reports as per HPI and Reports no additional gastrointestinal complaints Genitourinary: Reports no additional female genitourinary complaints Musculoskeletal: Reports no additional musculoskeletal complaints Skin/Breast: Reports system reviewed and no additional complaints, except as docu Psychiatric: Reports no additional psychiatric complaints Endocrine: Reports no additional endocrine complaints Hematologic/Lymphatic: Reports no additional hematologic/lymphatic complaints Allergic/Immunologic: Reports no additional allergic/immunologic complaints Reports system reviewed and no additional complaints, except as documented and Reports Abnormal speech present [facility] Past Medical History Medical History Anxiety Foot pain, bilateral Foot pain, bilateral Left shoulder pain Right hip pain Polyarthralgia Moderate recurrent major depression Lumbar pain Left hip pain NAFL (nonalcoholic fatty liver) Right shoulder pain Asthma Past heart attack Lumbar radiculopathy Long-term use of aspirin therapy Current smoker HTN (hypertension) Hyperlipidemia CAD (coronary artery disease) Surgical History H/O colonoscopy History of endoscopy History of open reduction and internal fixation (ORIF) procedure S/P hernia surgery History of back surgery Family History Family History Father CVD (cardiovascular disease) Mother Diabetes Hypertension CVD (cardiovascular disease) Social History Social History Household Members: Children Housing: House Alcohol intake: never Patient Tobacco Use Status: Former Tobacco user Quit Date: 2021 Tobacco use type: Cigarette Smoked in Last 30 Days: No e-Cigarette/Vaping Use: Never Used Second Hand Smoke Exposure: No Use of substances other than those prescribed or required for medical reasons: Yes Substance Use Type: Marijuana Advance Directives: No service: No Current occupational status: unemployed and disabled 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 Blood pressure elevated. Heart rate normal. Respiratory rate normal. Temperature normal. Oxygen saturation normal. Appearance: Anxious,Alert. Oriented X3. No acute distress. Head: Normal external exam. Normocephalic. Atraumatic. No Charles signs noted. No raccoon eyes noted Eyes: PERRLA. EOMI. Conjunctiva and sclera normal. Eyelids normal. ENT: TM's Normal. Pharynx normal. Uvula midline. Moist mucous membranes. No trismus noted. No drooling noted. No muffled voice noted. Neck: Normal inspection. Neck supple. FROM. No adenopathy. Thyroid Normal. No meningeal signs. No neck mass noted. CVS: Normal heart rate and rhythm. Heart sound normal. No murmurs noted. Pulses normal throughout. Respiratory: No respiratory distress. Painless inspiration. Breath sounds normal. No wheezes/rales/rhonchi noted. Chest nontender. No accessory muscle usage noted or decreased air movement noted. Abdomen: Soft and nontender. Bowel sounds normal in all 4 quadrants. No distention noted. No organomegaly noted. No visible injury noted. Back: No CVA tenderness. Full range of motion noted. Skin: Skin warm and dry. Normal skin color. Normal skin turgor. No rashes/lesions/lacerations noted. Extremities: No lower extremity edema. Extremities exhibit normal range of motion. Extremities nontender. Neuro: Oriented X 3. Cranial nerve exam: II-XII are grossly intact No motor deficit. No sensory deficit. Reflexes normal. Course Course Course Narrative: RME:?43 yo male w/ hx of CAD, HDL, HTN, and anxiety here for eval of acute onset 04/07 chest pain x2-3. hx of [place] in 2008 without stent placement. states this feels similar. Assoc disphoresis, nausea, and dizziness. Admits increased stressors at home with young son who was hyperactive. Denies known sick contacts. Denies fever, chills, V, palpitations, SOB, dyspnea. Denies recent travel or long car rides. labs, EKG, and cxr ordered. Full HPI, ROS and PE to be performed by the primary ED provider. Reevaluation(s) Reevaluation #1: 43-year-old male with history of anxiety presented with chest pain for 3 days negative cardiac marker, unremarkable EKG, no risk for PE/ DVT with negative D-dimer. Time: 15:59 Medications Administered Discontinued Medications Generic Name Dose Route Start Last Admin Trade Name Freq PRN Reason Stop Dose Admin Hydroxyzine HCl 25 mg 10/19/23 14:35 10/19/23 15:09 Hydroxyzine Hcl 25 Mg Tablet PO 10/19/23 14:36 25 mg ONCE ONE Administration Medical Decision Making Differential Diagnosis Differential Diagnoses: The differential diagnosis associated with the presentation includes ( ACS, pulmonary embolism, pneumonia, pleural effusion, anxiety, electrolyte derangement, severe anemia.) Admission/Observation Consideration of admission/observation: Escalation of care including admission/observation considered Lab Data MDM Lab Attestation statement: I reviewed the patient's lab results. 10/19/23 12:59 10/19/23 12:59 Labs: Lab Results 10/19/23 10/19/23 Range/Units 12:59 15:08 WBC 8.0 (4.8-10.8) X10*3/uL RBC 5.01 (4.60-5.80) X10*6/uL Hgb 15.2 (14.0-18.0) g/dl Hct 43.8 (42.0-52.0) % MCV 87.4 (80.0-98.0) fL MCH 30.3 (27.0-33.0) pg MCHC 34.7 (31.0-36.0) g/dl RDW 13.0 (11.0-16.0) % Plt Count 266 (160-400) X10*3/uL MPV 9.4 (9.4-12.4) fL Immature Gran % (Auto) 0.5 H (0.0-0.4) % Neut % (Auto) 59.4 (45-73) % Lymph % (Auto) 32.3 (20-40) % [place] % (Auto) 5.1 (2-11) % Eos % (Auto) 1.7 (0-4) % Baso % (Auto) 1.0 (0-2) % Lymph # (Auto) 2.6 (1.2-4.9) X10*3/uL [place] # (Auto) 0.4 (0.1-1.2) X10*3/uL Eos # (Auto) 0.1 (0.0-0.4) X10*3/uL Baso # (Auto) 0.1 (0.0-0.2) X10*3/uL Abs Immat Gran (auto) 0.04 H (0.00-0.03) X10*3/uL Absolute Neuts (auto) 4.8 (2.0-8.3) x10*3/uL Absolute Nucleated RBC 0.000 (0.0-0.012) X10*3/uL Nucleated RBC % (auto) 0.0 (0.0-0.2) /100WBC D-Dimer High Sensitivty < 150 NG/ML Sodium 141 (135-145) mmol/L Potassium 4.3 (3.3-5.1) mmol/L Chloride 103 (96-108) mmol/L Carbon Dioxide 28 (22-29) mmol/L Anion Gap 14 (12-20) BUN 15 (9-16) mg/dL Creatinine 0.96 (0.5-1.4) mg/dL Estim Creat Clear Calc 107.2 Estimated GFR > 60 Random Glucose 98 (60-115) mg/dL Calcium 10.0 (8.4-10.2) mg/dL Magnesium 1.9 (1.6-2.6) mg/dL Total Bilirubin 0.4 (0.0-1.0) mg/dL AST 20 (5-37) U/L ALT 31 (0-40) U/L Alkaline Phosphatase 86 (39-117) U/L Troponin I High Sens 4.9 D 4.9 (<3.5-35.0) ng/L Total Protein 7.5 (6.5-8.0) g/dL Albumin 4.5 (3.5-5.0) g/dL Lipase 18 (8-78) U/L Independent Interpretation I performed an independent interpretation of an: Plain X-Ray ( No acute intrathoracic pathology.) Radiology Impression Discussion of test interpretation with radiology: I have reviewed the radiologist's reading. Chronic Conditions Patient?s care impacted by: Other ( Anxiety.) Discharge Plan Discharge Clinical Impression: Anxiety, Atypical chest pain Patient Disposition: Home, Self-Care Instructions: Anxiety (ED), Chest Pain (ED) Prescriptions: No Action albuterol sulfate 90 mcg/actuation HFA aerosol inhaler 1 inh inhalation QID PRN (Reason: shortness of breath or wheezing) 30 Days Qty: 6.7 3RF metoprolol succinate 25 mg tablet extended release 24 hr 25 mg PO DAILY Qty: 30 4RF gabapentin 400 mg capsule 400 mg PO TID 30 Days Qty: 90 3RF lidocaine 5 % adhesive patch,medicated 1 patch topical DAILY Qty: 15 0RF Rx Instructions: leave on most painful area for up to 12 hrs aspirin 81 mg tablet,delayed release (DR/EC) 81 mg PO DAILY sucralfate 1 gram tablet 1 g PO QID loratadine 10 mg tablet 10 mg PO DAILY (DME) blood pressure test kit-large Kit See Rx Instructions .ROUTE DAILY Qty: 1 Rx Instructions: As directed omeprazole 20 mg tablet,delayed release (DR/EC) 20 mg PO BID 90 Days Qty: 180 1RF amoxicillin 500 mg tablet 1,000 mg PO Q12H 14 Days Qty: 56 0RF levofloxacin 750 mg tablet 750 mg PO DAILY 14 Days Qty: 14 0RF Referrals: Lily Lopez MD [Primary Care Provider] -
[2023-10-19 13:03] LABS: MANUAL DIFF FLAG NO
[2023-10-19 13:04] LABS: Basophils Absolute Auto 0.1 X10*3/uL (0.0-0.2); Eosinophils Absolute Auto 0.1 X10*3/uL (0.0-0.4); Eosinophils Percent Auto 1.7 % (0-4); Hematocrit 43.8 % (42.0-52.0); Hemoglobin 15.2 g/dl (14.0-18.0); Imm Gran Abs Auto 0.04 X10*3/uL (0.00-0.03); Imm Gran Pct Auto 0.5 % (0.0-0.4); Lymphocytes Absolute Auto 2.6 X10*3/uL (1.2-4.9); Lymphocytes Percent Auto 32.3 % (20-40); Mean Corpuscular HGB Conc 34.7 g/dl (31.0-36.0); Mean Corpuscular Hemoglobin 30.3 pg (27.0-33.0); Mean Corpuscular Volume 87.4 fL (80.0-98.0); Mean Platelet Volume 9.4 fL (9.4-12.4); Monocytes Absolute Auto 0.4 X10*3/uL (0.1-1.2); Monocytes Percent Auto 5.1 % (2-11); Neutrophils Absolute Auto 4.8 x10*3/uL (2.0-8.3); Neutrophils Percent Auto 59.4 % (45-73); Platelet Count 266 X10*3/uL (160-400); Red Blood Count 5.01 X10*6/uL (4.60-5.80)
[2023-10-19 13:08] VITALS: BP 134/83; PULSE 63; RESP 14; TEMP 37.2; O2SAT 100
[2023-10-19 13:20] LABS: Alanine Aminotransferase 31 U/L (0-40); Albumin Level 4.5 g/dL (3.5-5.0); Alkaline Phosphatase 86 U/L (39-117); Anion Gap 14 (12-20); Aspartate Amino Transferase 20 U/L (5-37); Bilirubin Total 0.4 mg/dL (0.0-1.0); Blood Urea Nitrogen 15 mg/dL (9-16); Carbon Dioxide 28 mmol/L (22-29); Chloride 103 mmol/L (96-108); Creatinine Clr Calc Pharmacy 107.2; Estimated Glomerular Filt Rate > 60; Glucose Random 98 mg/dL (60-115); Lipase 18 U/L (8-78); Magnesium 1.9 mg/dL (1.6-2.6); Potassium 4.3 mmol/L (3.3-5.1); Sodium 141 mmol/L (135-145); Total Protein 7.5 g/dL (6.5-8.0)
[2023-10-19 13:31] LABS: Troponin-I High Sensitivity 4.9 ng/L (<3.5-35.0)
--- NOTE | 2023-10-19 14:31 | PC.NURSE ---
ekg and labs done in waiting room. IV inserted. NSR on tele. awaiting repeat trop. pt sleeping at this time. describes pain as intermittant and accompanied by SOB.
[2023-10-19] MEDS: hydrOXYzine HCL 25 MG TABLET PO (15:09)
[2023-10-19 15:21] LABS: D Dimer High Sensitivity < 150 NG/ML
[2023-10-19 15:33] LABS: Troponin-I High Sensitivity 4.9 ng/L (<3.5-35.0)
[2023-10-19 15:36] VITALS: BP 133/80; PULSE 65; RESP 20; TEMP 37; O2SAT 99
[2023-10-19 16:10] VITALS: BP 133/80; PULSE 65; RESP 20; TEMP 37; O2SAT 99
== END 2023-10-19 16:10 | disposition home or self-care (01) ==
PROVIDERS: Physician Assistant Medical; Emergency Provider Emergency Medicine; PCP Family Medicine
DX: R07.89 Other chest pain (principal); F41.1 Generalized anxiety disorder; F43.0 Acute stress reaction; I25.10 Atherosclerotic heart disease of native coronary artery without angina pectoris; I10 Essential (primary) hypertension; Z79.899 Other long term (current) drug therapy
CPT/HCPCS: 36415; 71046; 80053; 83690; 83735; 84484; 85025; 85379; 93005; 99283; 99284

== ENCOUNTER → 2023-10-19 12:43 | Outpatient (BNV) | payer OTHER, SELFPAY | PROVIDERS: Emergency Provider Emergency Medicine; PCP Family Medicine; Visit Provider Internal Medicine | DX: R07.9 Chest pain, unspecified (principal) | CPT/HCPCS: 93010 ==

== ENCOUNTER 2023-11-19 08:13 | Outpatient (REF) | payer OTHER, SELFPAY ==
--- NOTE | ~2023-11-19 | FL_ITS ---
EXAMINATION: XR FLUOROSCOPY UPPER GI WITH AIR CLINICAL INFORMATION: Dysphagia COMPARISON: 11/26/2018. TECHNIQUE: Fluoroscopic air contrast upper GI examination was performed utilizing standard techniques with thin and thick barium and effervescent granules. Numerous spot images were obtained. FINDINGS: Lateral cine images of the oropharynx and hypopharynx demonstrate normal swallow mechanism with normal epiglottic inversion and soft palate elevation. There was a small amount of laryngeal penetration to the level of the true vocal cords on the initial swallow. This did not extend into the subglottic trachea. No nasopharyngeal reflux present. Hypopharyngeal structures appear normal without evidence of mass or diverticulum. There was no significant cricopharyngeal achalasia. Dual and single contrast images of the esophagus demonstrate normal caliber, contour, and mucosal pattern. No evidence of stricture, mass, or ulcerations identified. There is to and fro motion of the barium column with mildly disorganized esophageal peristalsis seen. A small type I hiatal hernia is present. No significant gastroesophageal reflux was seen during the course of the examination and on reflux views. Dual contrast and single contrast images of the stomach demonstrated normal contour and mucosal pattern without evidence of mass, ulceration, or other abnormality. Contrast freely passed into the gastric antrum and duodenal bulb without delay. Single and air-contrast images of the duodenal bulb demonstrate no abnormality. The duodenal sweep has a normal appearance, course, and mucosal fold appearance. No malrotation. The imaged proximal jejunum has a normal fold pattern and caliber. FLUOROSCOPY TIME: 5 minutes 33 seconds Number of Spot Images: 11 Number of Cine: 13 DOSE AREA PRODUCT: 2753 uGy-m2 (microgray-meter squared) FL/FL barium swallow IMPRESSION: 1. Small amount of laryngeal penetration to level of the true vocal cords on the initial swallow. No tracheal aspiration was seen. 2. Mild to moderate esophageal dysmotility. 3. Small type I hiatal hernia. This procedure was performed by Richard Soto PA-C, and supervised by Dr. Landry
== END 2023-11-19 08:14 | disposition home or self-care (01) ==
LOC: HO.XRAY 08:13
PROVIDERS: PCP Family Medicine; Visit Provider Internal Medicine Gastroenterology
DX: R13.14 Dysphagia, pharyngoesophageal phase (principal)
CPT/HCPCS: 74220

== ENCOUNTER → 2023-11-19 08:14 | Outpatient (BNV) | payer OTHER, SELFPAY | PROVIDERS: PCP Family Medicine; Visit Provider Physician Assistant Surgical | DX: R13.10 Dysphagia, unspecified (principal) | CPT/HCPCS: 74246 ==

== ENCOUNTER 2023-11-21 09:17 | Outpatient (AMB) | payer OTHER, SELFPAY ==
--- NOTE | 2023-11-21 09:28 | A.OFFVIS_ITS ---
Vital Signs 11/21/23 09:43 Height 5 ft 8 in Weight 203 lb BMI 30.9 BP 136/80 Blood Pressure Location Lt brachial Position Sitting Pulse 70 Intake Visit Reasons: 3 month f/u BA swallow Intake Note: Patient follow up for Barium swallow results. Patient cc: diarrhea all the time after eating, medication are getting patient really confuse ?? and dizziness, swallowing problems, vomiting and abdominal burning sensation Research Leader Required: Yes Research Leader Name: [facility] interpeter Accompanied by: Self / Same As Patient Allergies cyclobenzaprine [From Flexeril] Allergy (Intermediate, Verified 03/19/24 08:59) erectile dysfunction diclofenac [DICLOFENAC] Allergy (Intermediate, Verified 03/19/24 08:59) STOMACH CRAMP, diarrhea ibuprofen [From Motrin] Allergy (Intermediate, Verified 03/19/24 08:59) bloody stools duloxetine Allergy (Mild, Verified 03/19/24 08:59) erectily dysfunction Medication List - Last Reconciled 11/21/23 by Kye Hatch MD albuterol sulfate 90 mcg/actuation 1 inh inhalation QID PRN 30 days amoxicillin 1,000 mg (2 x 500 mg) PO Q12H 14 days aspirin 81 mg PO DAILY blood pressure test kit-large As directed gabapentin 400 mg PO TID 30 days levofloxacin 750 mg PO DAILY 14 days lidocaine 5% 1 patch topical DAILY loratadine 10 mg PO DAILY metoprolol succinate ER 25 mg PO DAILY omeprazole 20 mg PO BID 90 days sucralfate 1 g PO QID HPI HPI 3 month f/u BA swallow: Details: GI clinic visit for this 43-year-old Korean-speaking male with HTN, CAD, obesity, anxiety, hx of cocaine use disorder for FU of OROPHARYNGEAL DYSPHAGIA AND ESOPHAGEAL MOTILITY DISORDER and gastric ulcer related to persistent H Pylori infection. 02/2019 patient was treated for H pylori with amoxicillin, clarithromycin and omeprazole. 11/2019 Pt was retreated for H Pylori with Pylera x 14 days. He was last seen in office in 2020 and was prescribed levo based salvage therapy which he does not recall taking. Reports taking omeprazole daily. Pt has hx of substance use but reports has been abstinent for years now. CHRONIC ILLNESSES: Hypertension, coronary artery disease, lumbar radiculopathy, obesity, constipation, hypercholesterolemia, anxiety, chronic obstructive asthma and a h/o cocaine abuse IMAGING STUDIES: 10/2023 BARIUM SWALLOW SHOWED: 1. Small amount of laryngeal penetration to level of the true vocal cords on the initial swallow. No tracheal aspiration was seen. 2. Mild to moderate esophageal dysmotility. 3. Small type I hiatal hernia. 09/14/20 ABD US SHOWED: Echogenic liver. Differential would include fatty infiltration and liver disease. There does not appear to be evidence of fatty infiltration on previous CT July 2018. Otherwise unremarkable exam. 12/14 BARIUM SWALLOW SHOWED:? The esophagus showed a normal mucosal fold pattern, without mucosal thickening, ulceration, mass or stricture. ? The patient passed a barium pill without difficulty. There was mild to moderate esophageal ? dysmotility, with tertiary contractions and to and fro motion of the ingested oral contrast. ? There is no hiatus hernia. Gastroesophageal reflux is not seen despite reflux maneuvers. ?ENDOSCOPIC STUDIES: 08/2022 EGD WAS PERFORMED BY DR WEEMS: EGD Impressions:? * Normal esophagus * Normal stomach (biopsy) * Normal duodenum?? * Recommendations:?? * Follow biopsy results. Our office will call or send a letter with results within 7-10 days. * If H pylori +, patient will be prescribed eradication therapy followed by test of cure. * Avoid NSAIDs. BIOPSIES SHOWED: Stomach, biopsy: - Antral-type and oxyntic mucosa with moderate chronic active inflammation. - Positive for H pylori. 11/01/20 EGD and colonoscopy showed: ESOPHAGUS:? Tortuous esophagus with increased tertiary contractions without stricture or ring. GE junction at 40 cms.? No esophagitis or Clemente's. STOMACH:? Moderate diffuse gastric erythema with nodular appearing gastric mucosa. Chronic appearing antral erosions and a healing 6-7 mm antral ulcer - biopsied.? Biopsies were obtained from the gastric body and antrum. DUODENUM:? Normal - biopsied to check for celiac sprue Colonoscopy Findings:??One small polyp removed Moderate diverticulosis seen in the entire colon Moderate hemorrhoids on retroflexed exam. Plan:? Patient has an appointment on 11/17/20 in the GI Clinic with Kye Hatch M.D.. Repeat Colonoscopy interval based on path results - in 5 years if polyps are adenomatous and 10 years if polyps are hyperplastic. Above findings were reviewed with the patient and PUD, colon polyps and diverticulosis handouts were given in the discharge BIOPSIES SHOWED: A.? Small bowel, biopsy:? Duodenal mucosa with mildly increased intraepithelial lymphocytes and preserved villous architecture.? See comment. B.? Stomach, ulcer, biopsy: - Ulcerated antral-type mucosa with marked inflammation and regenerative changes. - Positive for H. pylori.C.? Stomach, antrum, biopsy: - Antral-type mucosa with severe chronic active inflammation. - Positive for H pylori.D.? Stomach, body, biopsy: - Clinically polypoid oxyntic mucosa with severe chronic active inflammation. - Positive for H pylori.E.? Terminal ileum, biopsy:? Terminal ileal mucosa within normal limits. F.? Colon, random and descending polyp, biopsy and polypectomy: - Colonic mucosa within normal limits. - Tubular adenoma; no high grade dysplasia or carcinoma seen.G.? Colon, random left, biopsy:? Colonic mucosa within normal limits. 09/08/19 EGD SHOWED:? LARYNX: Changes suggestive of LPRD ? ESOPHAGUS: Dysphagia likely due to esophageal motility disorder. ? STOMACH: Gastritis and non healing Gastric ulcer likely due to aspirin use for CAD. ? DUODENUM: Normal ? Plan:? Continue present medications (Omeprazole at 20 mg PO once daily) ? Patient has an appointment on 10/01/19 in the GI Clinic with Kye Hatch M.D ? Above findings were reviewed with the patient and handout on gastritis was ? provided in the discharge area. ? Biopsies showed: ? A. Stomach ulcers: ? - Antral-type mucosa with severe chronic active inflammation. ? - Positive for H. pylori. ? B. Stomach, antrum, biopsy: ? - Antral-type mucosa with severe chronic active inflammation. ? - Positive for H. pylori. ? C. Stomach, body, biopsy: ? - Oxyntic mucosa with severe chronic active inflammation. ? - Positive for H. pylori. ?? ? Pt was retreated for H Pylori with Pylera x 14 days TODAY'S VISIT [facility] Rn Discharge,?Cecil Pt is accompanied by his infant son Barium swallow results reviewed with the patient Complains of PIERCE and disorientation after he started taking antibiotics for H Pylori. Only able to take the antibiotics for 5 days and then had to discontinue. Having stomach and unable to eat. Complains of dysphagia since his last EGD was performed Notes growling in the stomach which causes stress. PAST VISITS: Complains of food getting stuck in the esophagus - especially chicken, bread, ham Hurts when he touches his throat. Has choking episode twice a week and he provokes vomiting with the finger. H Pylori breath test was positive since he did not take the antibiotics the last time. Pt is requesting a new prescription for the antibiotics (Gets depressed and throws out his medications). EGD results reviewed - gastric biopsies were positive for H Pylori Pt does not recall taking the last treatment ? EGD and Colonoscopy findings and bx results were discussed with the patient. ? Admits to missing antibiotic doses when he was treated for H Pylori in the past ? ? ? Complains of urgency with bowel accidents since he had the colonoscopy. ? ? ? Having diarrhea with 5 episodes between 3:30 to 9 am every morning. ?Abd US results were reviewed with the patient and advised wt loss for fatty liver. ? Continues to have abdominal pain ? In the afternoon when I have something to eat, notes abdominal pain and distension as if somebody is pushing from inside and outside. ? Abdominal discomfort with everything he eats. ? Notes constipation and stool are yellowish. ? Stomach does not hurt but bowels does. ? Diarrhea is minimal and has 2-3 BMs a day. ? Took an OTC medication yesterday and does not have pain in going to the bathroom. ? Notes abdominal pain early am and it wakes him up or he is unable to sleep due to pain. ? Admits to taking Prilosec once daily - advised to increase to twice a day. ? Taking aspirin intermittently - once a week. ? Complains of intermittent abdominal pain, gas and diarrhea. ? Hyndman he was passing gas and had an accident. ? When I eat something the food goes down. After I finish food comes back into the throat ? Has been chewing his food well. ? I am feeling a lot of acid in the stomach ? I have a lot of anxiety. ? Notes acid in his stomach since he just finished drinking coffee. ? Denies nausea or vomiting, change in appetite or weight. ? Complains of diarrhea for the past several months - has 3 BMs per day. ? Denies blood in the stool. ? Has diarrhea after he eats - unsure about any precipitating foods ? spicy foods and hot sauce. ? Complains of increased gas and feels fairly uncomfortable. ? Unable to sleep due to gas and bloating [facility] Medical History Anxiety Foot pain, bilateral Foot pain, bilateral Left shoulder pain Right hip pain Polyarthralgia Moderate recurrent major depression Lumbar pain Left hip pain NAFL (nonalcoholic fatty liver) Right shoulder pain Asthma Past heart attack Lumbar radiculopathy Long-term use of aspirin therapy Current smoker HTN (hypertension) Hyperlipidemia CAD (coronary artery disease) Surgical History H/O colonoscopy History of endoscopy History of open reduction and internal fixation (ORIF) procedure S/P hernia surgery History of back surgery Family History Father CVD (cardiovascular disease) Mother Diabetes Hypertension CVD (cardiovascular disease) Social History Household Members: Children Housing: House Alcohol intake: never Patient Tobacco Use Status: Former Tobacco user Tobacco use type: Cigarette e-Cigarette/Vaping Use: Never Used Second Hand Smoke Exposure: No Substance Use Type: Marijuana service: No Current occupational status: unemployed and disabled 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 Cognitive needs: No Hearing needs: No Vision needs: No Review of Systems Const All systems reviewed & are unremarkable except as noted in HPI and below Physical Exam Vital Signs: Last Vital Signs Pulse 70 11/21/23 09:43 BP 136/80 11/21/23 09:43 BMI result Body Mass Index 30.9 Const General: healthy appearing, no acute distress and anxious Nutritional Appearance: obese Orientation/consciousness: patient oriented x3 Limitations: language barrier HEENT Head: Yes normal to inspection Ears: hearing grossly normal bilaterally Mouth: Normal oral and palatal mucosa present Eyes Sclerae: sclerae normal Pupils: Equal, round and reactive pupils present Neck Neck: Yes normal visual inspection Chest Chest palpation & inspection: normal inspection of the chest Resp Effort & Inspection: normal respiratory effort Auscultation: clear to auscultation bilaterally Cardio Palpation: normal PMI Rate: regular rate Rhythm: regular rhythm Heart sounds: S1 normal heart sound present, S2 normal heart sound present and no murmurs GI Palpation (GI): Soft to palpation, nontender and No hepatosplenomegaly present Auscultation: normal bowel sounds Rectal Exam - Male: Yes deferred Skin General skin exam: no rashes or lesions noted Neuro General: patient oriented x3, gait normal and moves all extremities Cranial nerves: Yes Equal, round and reactive pupils present Psych Appearance: grossly normal Mental Status: mental status grossly normal Quality Reporting (2019) Adult ([facility] 138/09/19/68) Smoking risk assessment performed?: Yes Patient Tobacco Use Status: Former Tobacco user Assessment & Plan Assessment & Plan (1) History of gastric ulcer: Code(s): Z87.19 - Personal history of other diseases of the digestive system Category: Medical (2) History of Helicobacter pylori infection: Code(s): Z86.19 - Personal history of other infectious and parasitic diseases Category: Medical (3) Chronic diarrhea: Code(s): K52.9 - Noninfective gastroenteritis and colitis, unspecified Category: Medical (4) Abdominal pain: Code(s): R10.9 - Unspecified abdominal pain Category: Medical (5) GERD (gastroesophageal reflux disease): Code(s): K21.9 - Gastro-esophageal reflux disease without esophagitis Category: Medical (6) Dysphagia, pharyngoesophageal phase: Code(s): R13.14 - Dysphagia, pharyngoesophageal phase Category: Medical Plan 43 YM with Hypertension, coronary artery disease, lumbar radiculopathy, obesity, constipation, hypercholesterolemia, anxiety, chronic obstructive asthma and a h/o cocaine abuse followed in GI for GERD, dysphagia and gastric ulcer associated with Helicobacter pylori infection. 02/2019 patient was treated for H pylori with amoxicillin, clarithromycin and omeprazole. 09/08/19 repeat EGD showed persistent gastric ulcers with Helicobacter pylori gastritis. Patient admits to taking a baby aspirin once a week. Pt was advised to take quadruple therapy x 14 days for H Pylori eradication. Patient complains of abdominal gas with intermittent diarrhea felt to be functional. Stool for WBC and occult blood was negative in July of 2018. Patient complains of upper/RUQ pain and bloating and thinks he may passed a stone with his bowel movement. Abdominal ultrasound showed fatty liver and was negative for gallstones. 11/01/20 PT had an EGD and colonoscopy and findings as noted above 08/2022 FU EGD was performed by Dr Weems and findings as noted above 01/17/23 Pt retreated for HPylori with Amox + Levo + Omeprazole x 14 days 08/22/23 Schedule a barium swallow for evaluation of dysphagia. Treatment of H pylori with amoxicillin + levofloxacin + omeprazole x 14 days since pt states he did not take the antibiotics after his last visit . 11/21/23 Complains of PIERCE and disorientation after he started taking antibiotics for H Pylori. Only able to take the antibiotics for 5 days and then had to discontinue. Having stomach disocmfort and unable to eat. Complains of dysphagia since his last EGD was performed Notes growling in the stomach which causes stress. FU in 3 months Medications: Discontinued amoxicillin Discontinued Reason: Patient no longer taking 1,000 mg (2 x 500 mg) PO Q12H 14 days 56 tabs 0RF B96.81 - Helicobacter pylori [H. pylori] as the cause of diseases classified elsewhere, K29.70 - Gastritis, unspecified, without bleeding levofloxacin Discontinued Reason: Patient no longer taking 750 mg PO DAILY 14 days 14 tabs 0RF B96.81 - Helicobacter pylori [H. pylori] as the cause of diseases classified elsewhere, K29.70 - Gastritis, unspecified, without bleeding Coding Level of Care Code Est Pt Level 4 (22365) Diagnoses History of gastric ulcer Z87.19 History of Helicobacter pylori infection Z86.19 Chronic diarrhea K52.9 Abdominal pain R10.9 GERD (gastroesophageal reflux disease) K21.9 Dysphagia, pharyngoesophageal phase R13.14 Time Spent (min) 18
[2023-11-21 09:43] VITALS: BP 136/80; PULSE 70; BMI 30.9
== END 2023-11-21 10:48 | disposition home or self-care (01) ==
PROVIDERS: PCP Family Medicine; Visit Provider Internal Medicine Gastroenterology
DX: Z87.19 Personal history of other diseases of the digestive system (principal); Z86.19 Personal history of other infectious and parasitic diseases; K52.9 Noninfective gastroenteritis and colitis, unspecified; R10.9 Unspecified abdominal pain; K21.9 Gastro-esophageal reflux disease without esophagitis; R13.14 Dysphagia, pharyngoesophageal phase
CPT/HCPCS: 99499

== ENCOUNTER → 2023-11-21 09:17 | Outpatient (BNVA) | payer OTHER, SELFPAY | PROVIDERS: PCP Family Medicine; Visit Provider Internal Medicine Gastroenterology ==

== ENCOUNTER 2023-12-24 15:45 | Outpatient (REF) | payer OTHER, SELFPAY ==
[2023-12-24 18:50] LABS: Alanine Aminotransferase 27 U/L (0-40); Albumin Level 4.6 g/dL (3.5-5.0); Alkaline Phosphatase 81 U/L (39-117); Anion Gap 14 (12-20); Aspartate Amino Transferase 20 U/L (5-37); Bilirubin Total 0.3 mg/dL (0.0-1.0); Blood Urea Nitrogen 13 mg/dL (9-16); Calcium 9.9 mg/dL (8.4-10.2); Carbon Dioxide 27 mmol/L (22-29); Chloride 105 mmol/L (96-108); Cholesterol 248 mg/dL (<200); Estimated Glomerular Filt Rate > 60; Glucose Random 100 mg/dL (60-115); HDL Cholesterol 59 mg/dL (>40); LDL Cholesterol Calculated 161 mg/dL (<100); Potassium 4.4 mmol/L (3.3-5.1); Sodium 142 mmol/L (135-145); Total Protein 7.5 g/dL (6.5-8.0); Triglycerides 143 mg/dL (<150)
[2023-12-24 19:06] LABS: TSH reflex Free T4 1.68 uIU/mL (0.32-4.0)
[2023-12-24 20:16] LABS: Reflex LDLD? No
[2023-12-25 07:27] LABS: Estimated Average Glucose 114 mg/dL; Hemoglobin A1C 148.9586 umol/L; Hemoglobin A1c % 5.6 % (<6.0)
== END 2023-12-24 15:46 | disposition home or self-care (01) ==
LOC: HO.HHCL 15:45
PROVIDERS: Visit Provider Family Medicine
DX: I10 Essential (primary) hypertension (principal)
CPT/HCPCS: 36415; 80053; 80061; 83036; 84443

== ENCOUNTER 2024-02-03 10:52 | Emergency (ER) | payer OTHER, SELFPAY ==
--- NOTE | ~2024-02-03 | XR_ITS ---
EXAMINATION: RIGHT SHOULDER, RIGHT HAND CLINICAL INFORMATION: Fall while playing volleyball with hand and shoulder pain COMPARISON: None available. TECHNIQUE: 3 views right shoulder, 3 views right hand FINDINGS: Shoulder: Moderate degenerative change seen involving the AC joint. The glenohumeral joint is unremarkable. No tendinous calcification seen. No fractures or dislocations. Hand: No significant bone, joint or soft tissue abnormality seen. XR/XR shoulder RT min 2V IMPRESSION: No evidence of an acute osseous injury. Degenerative changes AC joint.
--- NOTE | ~2024-02-03 | XR_ITS ---
EXAMINATION: RIGHT SHOULDER, RIGHT HAND CLINICAL INFORMATION: Fall while playing volleyball with hand and shoulder pain COMPARISON: None available. TECHNIQUE: 3 views right shoulder, 3 views right hand FINDINGS: Shoulder: Moderate degenerative change seen involving the AC joint. The glenohumeral joint is unremarkable. No tendinous calcification seen. No fractures or dislocations. Hand: No significant bone, joint or soft tissue abnormality seen. XR/XR hand RT min 3V IMPRESSION: No evidence of an acute osseous injury. Degenerative changes AC joint.
[2024-02-03 11:21] VITALS: BP 147/95; PULSE 64; RESP 18; TEMP 36.9; O2SAT 100; BMI 30.4
--- NOTE | 2024-02-03 13:52 | ED_ITS ---
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 Patient states that while he was hitting a overhead volleyball past, he suddenly developed a pain in his right shoulder. He states that he was seen at a urgent care where he was given a IM injection of Toradol. He states that this provided him with some relief. He states that his symptoms slightly improved up until yesterday when he decided to play volleyball again. He heard a cracking sensation in his right shoulder. He states that he has had pain and decreased range of motion of the shoulder secondary to pain. Denies taking any medications prior to his arrival. Denies history of similar symptoms in the past. No other complaints or concerns at this time. MD Complaint: extremity pain Onset (ago): day(s) Pain Consistency: constant Location: right and upper extremity Quality: aching Radiation: none Relieving factors: nothing Exacerbating factors: nothing Associated symptoms: denies other symptoms Related Data Home Medications ?Medication ?Instructions ?Recorded ?Confirmed aspirin 81 mg tablet,delayed 81 mg PO DAILY 09/05/22 11/21/23 release blood pressure test kit-large #1 ea 08/22/23 11/21/23 loratadine 10 mg tablet 10 mg PO DAILY 08/22/23 11/21/23 sucralfate 1 gram tablet 1 g PO QID 08/22/23 11/21/23 Previous Rx's ?Medication ?Instructions ?Recorded albuterol sulfate 90 mcg/actuation 1 inh inhalation QID PRN shortness 08/07/21 aerosol inhaler of breath or wheezing 30 days #6.7 grams metoprolol succinate 25 mg 25 mg PO DAILY #30 tabs 12/24/21 tablet,extended release 24 hr gabapentin 400 mg capsule 400 mg PO TID 30 days #90 caps 08/06/22 lidocaine 5 % topical patch 1 patch topical DAILY #15 ea 10/10/22 omeprazole 20 mg tablet,delayed 20 mg PO BID h Pylori gastritis 90 08/22/23 release days #180 tabs acetaminophen 650 mg 650 mg PO Q8H PRN pain #30 tabs 02/03/24 tablet,extended release (Tylenol 8 Hour) methocarbamol 750 mg tablet 750 mg PO TID 3 days #9 tabs 02/03/24 Allergies Allergy/AdvReac Type Severity Reaction Status Date / Time cyclobenzaprine Allergy Intermediate erectile Verified 02/03/24 11:23 [From Flexeril] dysfunction diclofenac [DICLOFENAC] Allergy Intermediate STOMACH Verified 02/03/24 11:23 CRAMP, diarrhea ibuprofen [From Motrin] Allergy Intermediate bloody Verified 02/03/24 11:23 stools duloxetine Allergy Mild erectily Verified 02/03/24 11:23 dysfunction Review of Systems Review of Systems: Yes all other systems are reviewed and are negative Constitutional: Constitutional: Reports as per [facility] Past Medical History Medical History Anxiety Foot pain, bilateral Foot pain, bilateral Left shoulder pain Right hip pain Polyarthralgia Moderate recurrent major depression Lumbar pain Left hip pain NAFL (nonalcoholic fatty liver) Right shoulder pain Asthma Past heart attack Lumbar radiculopathy Long-term use of aspirin therapy Current smoker HTN (hypertension) Hyperlipidemia CAD (coronary artery disease) Surgical History H/O colonoscopy History of endoscopy History of open reduction and internal fixation (ORIF) procedure S/P hernia surgery History of back surgery Family History Family History Father CVD (cardiovascular disease) Mother Diabetes Hypertension CVD (cardiovascular disease) Social History Social History Household Members: Children Housing: House Alcohol intake: never Patient Tobacco Use Status: Former Tobacco user Tobacco use type: Cigarette e-Cigarette/Vaping Use: Never Used Second Hand Smoke Exposure: No Substance Use Type: Marijuana Advance Directives: No Advance Directives Information Provided: Yes Do you have a plan to hurt others: No Plan service: No Current occupational status: unemployed and disabled 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 Cognitive needs: No Hearing needs: No Vision needs: No Physical Exam Vital Signs: Vital Signs: Last Vital Signs Temp 98.4 F 02/03/24 11:21 Pulse 64 02/03/24 11:21 Resp 18 02/03/24 11:21 BP 147/95 H 02/03/24 11:21 Pulse Ox 100 02/03/24 11:21 O2 Del Method Room Air 02/03/24 11:21 BMI result Body Mass Index 30.4 Const: General: cooperative, comfortable and no acute distress Orientation/consciousness: patient oriented x3 Limitations: no limitations HEENT: Head: Yes normal to inspection, Yes normocephalic and Yes atraumatic Ears: hearing grossly normal bilaterally General nose exam: Normal external nose present Face and sinus: Yes normal facial exam Mouth: Normal oral and palatal mucosa present, oropharynx normal and moist mucous membranes Throat: Yes posterior oropharynx normal Eyes: General: appearance normal, both eyes and all related structures Eyelids: Yes eyelids normal Conjunctivae: conjunctivae normal Sclerae: sclerae normal Pupils: Equal, round and reactive pupils present EOM: EOMs intact bilaterally Neck: Neck: Yes normal visual inspection, Yes full ROM and Yes no lymphadenopathy Lymphatic: no lymphadenopathy noted Chest: Chest palpation & inspection: normal inspection of the chest Resp: Effort & Inspection: normal respiratory effort and able to speak in complete sentences Auscultation: clear to auscultation bilaterally, no crackles, no rales, no rhonchi and no wheezes Cardio: Rate: regular rate Rhythm: regular rhythm Heart sounds: S1 normal heart sound present and S2 normal heart sound present GI: Inspection: Yes normal to inspection Skin: General skin exam: no rashes or lesions noted Trauma: no lacerations or abrasions Wounds: no wounds Neuro: General: patient oriented x3 and moves all extremities Cranial nerves: Yes Equal, round and reactive pupils present Extrem: Other: Tenderness to palpation overlying the right AC joint. Decreased range of motion of the shoulder secondary to pain. Abduction to approximately 80? however unable to anymore secondary to pain. Positive empty can, positive arm drop, strong radial pulse. General: Yes normal to inspection Right upper extremity: normal to inspection Left upper extremity: normal to inspection Right lower extremity: normal to inspection Left lower extremity: normal to inspection Medical Decision Making Medical Decision Making MDM Narrative: This is a 43-year-old male, who presents emergency department with complaints of right shoulder pain x2 weeks, worsening over the last 2 days. On arrival, patient mildly hypertensive at 147/95, all other vital signs within normal limits. He has tenderness palpation along the right AC joint. He has worsening pain with movement of the shoulder, unable to fully perform range of motion secondary to pain. Differential diagnoses include calcific tendinitis, rotator cuff injury, fracture, strain. X-ray was performed of the right shoulder hand revealing degenerative changes of the AC joint. Discussed findings with patient and . Patient placed in sling, advised follow-up with Orthopedics. He understands and agrees with plan. Patient stable for discharge. Differential Diagnosis Differential Diagnoses: The differential diagnosis associated with the presentation includes See above Admission/Observation Consideration of admission/observation: Escalation of care including admission/observation considered Escalation of care including admission/observation considered however given workup today not warranted at this time. Radiology Impression Discussion of test interpretation with radiology: I have reviewed the radiologist's reading. Radiologist Impression: TECHNIQUE: 3 views right shoulder, 3 views right hand FINDINGS: Shoulder: Moderate degenerative change seen involving the AC joint. The glenohumeral joint is unremarkable. No tendinous calcification seen. No fractures or dislocations. Hand: No significant bone, joint or soft tissue abnormality seen. XR/XR shoulder RT min 2V IMPRESSION: No evidence of an acute osseous injury. Degenerative changes AC joint. Dictated By: Ghanshyam Estevez MD Discharge Plan Discharge Clinical Impression: Pain in right shoulder Patient Disposition: Home, Self-Care Instructions: Shoulder Pain (ED) Additional Instructions: You were seen in the emergency department due to right shoulder pain. Your x-ray shows degenerative changes overlying your right AC joint. Your exam is concerning for a rotator cuff injury. Please rest, ice, use sling for comfort. Take Tylenol as needed for pain. You may also take Flexeril, this is a muscle relaxants, please be advised that this can cause drowsiness, do not drink or drive while taking this medication. Do not drive while wearing the sling. Do not wear sling / as this can cause frozen shoulder. Any new or worsening symptoms occur including but not limited to worsening pain, swelling, chest pain, shortness breast, please return for re-evaluation. Follow-up with the orthopedics, call today to make an appointment. Prescriptions: New methocarbamol 750 mg tablet 750 mg PO TID 3 Days Qty: 9 0RF acetaminophen [Tylenol 8 Hour] 650 mg tablet extended release 650 mg PO Q8H PRN (Reason: pain) Qty: 30 0RF No Action albuterol sulfate 90 mcg/actuation HFA aerosol inhaler 1 inh inhalation QID PRN (Reason: shortness of breath or wheezing) 30 Days Qty: 6.7 3RF metoprolol succinate 25 mg tablet extended release 24 hr 25 mg PO DAILY Qty: 30 4RF gabapentin 400 mg capsule 400 mg PO TID 30 Days Qty: 90 3RF lidocaine 5 % adhesive patch,medicated 1 patch topical DAILY Qty: 15 0RF Rx Instructions: leave on most painful area for up to 12 hrs aspirin 81 mg tablet,delayed release (DR/EC) 81 mg PO DAILY sucralfate 1 gram tablet 1 g PO QID loratadine 10 mg tablet 10 mg PO DAILY (DME) blood pressure test kit-large Kit See Rx Instructions .ROUTE DAILY Qty: 1 Rx Instructions: As directed omeprazole 20 mg tablet,delayed release (DR/EC) 20 mg PO BID 90 Days Qty: 180 1RF Referrals: [facility] – [place] Orthopedic Surgeons [Provider Group] Print Language: Malay
[2024-02-03] MEDS: Ketorolac Tromethamine 30 MG/ML VIAL IM (14:10)
--- NOTE | 2024-02-03 14:24 | PC.NURSE ---
sling applied to RUE by tech. pt tolerated well.
[2024-02-03 14:25] VITALS: BP 147/95; PULSE 64; RESP 18; TEMP 36.9; O2SAT 100
== END 2024-02-03 14:25 | disposition home or self-care (01) ==
PROVIDERS: Emergency Provider Emergency Medicine; PCP Family Medicine
DX: M25.511 Pain in right shoulder (principal); I25.10 Atherosclerotic heart disease of native coronary artery without angina pectoris; Z79.899 Other long term (current) drug therapy
CPT/HCPCS: 73030; 73130; 96372; 99283; 99284; J1885

== ENCOUNTER 2024-02-16 07:58 | Emergency (ER) | payer OTHER, SELFPAY ==
[2024-02-16 08:05] VITALS: BP 146/106; PULSE 81; RESP 16; TEMP 36.4; O2SAT 97; BMI 30.6
--- NOTE | 2024-02-16 08:35 | ED_ITS ---
HPI - Extremity Problem General Chief complaint: Extremity Injury, Upper Stated complaint: arm pain Time Seen by Provider: 02/16/24 08:00 History of Present Illness HPI Narrative: 43-year-old man with a PMHx of GERD, hypertension, a previous right shoulder labral tear, and coronary artery disease presents to the emergency department with right shoulder pain x1 day. He reports he was seen in the ER two weeks ago for the same issue and received a Toradol injection at an urgent care center prior to that visit. States that the Toradol gave some relief. He states his symptoms improved up until yesterday while grilling, he heard a cracking sensation in his shoulder, which has since worsened. The pain radiates to his right neck and sternum, is constant and severe, 10/10, and is accompanied by numbness and reduced shoulder movement due to pain. Despite using acetaminophen, muscle relaxers, splinting, and cold compresses, he has had no relief. He denies experiencing headache, vision changes, chest pain, palpitations, shortness of breath, nausea, abdominal pain, or back pain. He also denies fever, chills, or general malaise. Related Data Home Medications ?Medication ?Instructions ?Recorded ?Confirmed aspirin 81 mg tablet,delayed 81 mg PO DAILY 09/05/22 11/21/23 release blood pressure test kit-large #1 ea 08/22/23 11/21/23 loratadine 10 mg tablet 10 mg PO DAILY 08/22/23 11/21/23 sucralfate 1 gram tablet 1 g PO QID 08/22/23 11/21/23 Previous Rx's ?Medication ?Instructions ?Recorded albuterol sulfate 90 mcg/actuation 1 inh inhalation QID PRN shortness 08/07/21 aerosol inhaler of breath or wheezing 30 days #6.7 grams metoprolol succinate 25 mg 25 mg PO DAILY #30 tabs 12/24/21 tablet,extended release 24 hr gabapentin 400 mg capsule 400 mg PO TID 30 days #90 caps 08/06/22 lidocaine 5 % topical patch 1 patch topical DAILY #15 ea 10/10/22 omeprazole 20 mg tablet,delayed 20 mg PO BID h Pylori gastritis 90 08/22/23 release days #180 tabs acetaminophen 650 mg 650 mg PO Q8H PRN pain #30 tabs 02/03/24 tablet,extended release (Tylenol 8 Hour) methocarbamol 750 mg tablet 750 mg PO TID 3 days #9 tabs 02/03/24 oxycodone 5 mg tablet 5 mg PO Q8H PRN severe pain (scale 02/16/24 score 7-10) #6 tabs Allergies Allergy/AdvReac Type Severity Reaction Status Date / Time cyclobenzaprine Allergy Intermediate erectile Verified 02/16/24 08:05 [From Flexeril] dysfunction diclofenac [DICLOFENAC] Allergy Intermediate STOMACH Verified 02/16/24 08:05 CRAMP, diarrhea ibuprofen [From Motrin] Allergy Intermediate bloody Verified 02/16/24 08:05 stools duloxetine Allergy Mild erectily Verified 02/16/24 08:05 dysfunction Review of Systems Constitutional: Constitutional: Reports as per HPI Eyes: Eyes: Reports as per HPI ENT: Reports as per HPI Cardiovascular: Cardiovascular: Reports as per HPI Respiratory: Respiratory: Reports as per HPI Gastrointestinal: Gastrointestinal: Reports as per HPI Genitourinary: Genitourinary: Reports as per HPI Musculoskeletal: Musculoskeletal: Reports as per HPI Integumentary/Breasts: Skin/Breast: Reports as per HPI Neurologic: Reports as per HPI Psychiatric: Psychiatric: Reports as per HPI Endocrine: Endocrine: Reports as per HPI Hematologic/Lymphatic: Hematologic/Lymphatic: Reports as per HPI Allergic/Immunologic: Allergic/Immunologic: Reports as per HPI PMFSH Past Medical History Medical History Anxiety Foot pain, bilateral Foot pain, bilateral Left shoulder pain Right hip pain Polyarthralgia Moderate recurrent major depression Lumbar pain Left hip pain NAFL (nonalcoholic fatty liver) Right shoulder pain Asthma Past heart attack Lumbar radiculopathy Long-term use of aspirin therapy Current smoker HTN (hypertension) Hyperlipidemia CAD (coronary artery disease) Surgical History H/O colonoscopy History of endoscopy History of open reduction and internal fixation (ORIF) procedure S/P hernia surgery History of back surgery Family History Family History Father CVD (cardiovascular disease) Mother Diabetes Hypertension CVD (cardiovascular disease) Social History Social History Household Members: Children Housing: House Alcohol intake: never Patient Tobacco Use Status: Former Tobacco user Tobacco use type: Cigarette e-Cigarette/Vaping Use: Never Used Second Hand Smoke Exposure: No Substance Use Type: Marijuana Advance Directives: No Advance Directives Information Provided: No Do you have a plan to hurt others: No Plan service: No Current occupational status: unemployed and disabled 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 Oriented X3. No acute distress. Head: normocephalic, atraumatic. Eyes: Pupils equal, round and reactive to light. ENT: Pharynx normal. No tonsillar swelling or exudate. Neck: Normal inspection. Neck supple. CVS: Normal heart rate and rhythm. Pulses normal. Respiratory: No respiratory distress. Breath sounds normal. Abdomen: Soft and nontender. +BS x4 Skin: Skin warm and dry. Normal skin color. Normal skin turgor. No rashes. Extremities: No lower extremity edema. No joint swelling. Tenderness to palpation at the right AC joint, increased pain with shoulder movement, and limited range of motion due to pain Neuro/psych: Oriented X 3. No motor deficit. No sensory deficit. CN II-XII intact. Normal speech and cognition. Medications Administered Discontinued Medications Generic Name Dose Route Start Last Admin Trade Name Aurora PRN Reason Stop Dose Admin Ketorolac Tromethamine 30 mg 02/16/24 08:57 02/16/24 09:04 Ketorolac Tromethamine 30 Mg/Ml Vial IM 02/16/24 08:58 30 mg ONCE ONE Administration Oxycodone HCl 5 mg 02/16/24 08:57 02/16/24 09:04 Oxycodone Hcl Immed Release 5 Mg Tablet PO 02/16/24 08:58 5 mg ONCE ONE Administration Medical Decision Making Medical Decision Making MDM Narrative: 43-year-old male with a medical history of GERD, hypertension, right shoulder labral tear, and CAD presented to the emergency department complaining of right shoulder pain over the past day. On arrival, his blood pressure was mildly elevated at 146/106; all other vital signs were normal. He has not taken his antihypertensive medication today. Physical examination reveals tenderness to palpation at the right AC joint, increased pain with shoulder movement, and limited active and passive range of motion due to pain. Sensation is intact. Otherwise, remaining PE is unremarkable. Possible diagnoses include rotator cuff tear, fracture, strain, or tendonitis. X-rays of the right shoulder and hand from 02/03/2024 show degenerative changes in the AC joint. The findings were discussed with the patient. Oxycodone and ketorolac are given for pain relief. The plan is to discharge the patient with a follow-up appointment scheduled with orthopedics on February 26, possible MRI needed for further work up. Advised to wear sling for no more than 3 days to avoid frozen shoulder. In the meantime, may take oxycodone for severe pain, otherwise, NSAIDs and warm compress. Return precautions were reviewed with the patient, who demonstrated understanding. Differential Diagnosis Differential Diagnoses: The differential diagnosis associated with the presentation includes rotator cuff injury, labral tear, bursitis, shoulder dislocation, AC joint separation External Record Review External record reviewed: Outpatient record, Prior outpatient labs and Prior outpatient radiology Tests considered The following testing was considered but not selected: repeat xr considered but no new trauma Prescription Management I considered prescription management with: Pain Medication Chronic Conditions Patient?s care impacted by: Other (History of right labral tear, rotator cuff tendinosis) Critical Care Time Critical Care Time Critical Care Time: No Discharge Plan Discharge Clinical Impression: Pain in right shoulder Qualifiers: Chronicity: acute Qualified Code(s): M25.511 - Pain in right shoulder Patient Disposition: Home, Self-Care Instructions: Shoulder Pain (ED) Additional Instructions: Your MRI from 2021 showed multiple abnormalities in your shoulder including tendinitis, arthritis. It is recommended you follow up with Orthopedics for further evaluation and treatment, you may need a new MRI to see if there is any other injuries to the tendons and ligaments in your shoulder. Where the provided sling for the next 72 hours and then slowly work on increased range of motion. Do not wear the sling longer than that see do not get a frozen shoulder. Take the prescribed oxycodone as needed for severe pain only. Recommend Tylenol 1000 mg every 6-8 hours around the clock. Recommend calling the orthopedics office again on Saturday to see if you can get earlier than the 1st. If you develop new or worsening symptoms call 911 or come back to the ER for further evaluation. Prescriptions: New oxycodone 5 mg tablet 5 mg PO Q8H PRN (Reason: severe pain (scale score 7-10)) Qty: 6 0RF Rx Instructions: Partial Fill upon patient request. No Action albuterol sulfate 90 mcg/actuation HFA aerosol inhaler 1 inh inhalation QID PRN (Reason: shortness of breath or wheezing) 30 Days Qty: 6.7 3RF metoprolol succinate 25 mg tablet extended release 24 hr 25 mg PO DAILY Qty: 30 4RF gabapentin 400 mg capsule 400 mg PO TID 30 Days Qty: 90 3RF lidocaine 5 % adhesive patch,medicated 1 patch topical DAILY Qty: 15 0RF Rx Instructions: leave on most painful area for up to 12 hrs methocarbamol 750 mg tablet 750 mg PO TID 3 Days Qty: 9 0RF acetaminophen [Tylenol 8 Hour] 650 mg tablet extended release 650 mg PO Q8H PRN (Reason: pain) Qty: 30 0RF aspirin 81 mg tablet,delayed release (DR/EC) 81 mg PO DAILY sucralfate 1 gram tablet 1 g PO QID loratadine 10 mg tablet 10 mg PO DAILY (DME) blood pressure test kit-large Kit See Rx Instructions .ROUTE DAILY Qty: 1 Rx Instructions: As directed omeprazole 20 mg tablet,delayed release (DR/EC) 20 mg PO BID 90 Days Qty: 180 1RF [place] [facility] [place] [Provider Group] Lily Lopez MD [Primary Care Provider] - Interventions: ED Discharge Assessment Last Done: 02/16/24 10:44 Discharge Date/Time: 02/16/24 11:10 Print Language: Korean
[2024-02-16] MEDS: Ketorolac Tromethamine 30 MG/ML VIAL IM (09:04)
[2024-02-16] MEDS: oxyCODONE HCl Immed Release 5 MG TABLET PO (09:04)
[2024-02-16 10:44] VITALS: BP 174/104; PULSE 62; RESP 18; TEMP 36.2; O2SAT 100
== END 2024-02-16 11:10 | disposition home or self-care (01) ==
PROVIDERS: Emergency Provider Emergency Medicine; PCP Family Medicine
DX: M25.511 Pain in right shoulder (principal); I25.10 Atherosclerotic heart disease of native coronary artery without angina pectoris; Z79.899 Other long term (current) drug therapy; Z87.891 Personal history of nicotine dependence
CPT/HCPCS: 96372; 99283; 99284; J1885

== ENCOUNTER 2024-02-27 09:41 | Outpatient (AMB) | payer OTHER, SELFPAY ==
--- NOTE | 2024-02-27 10:03 | MHC.OFFVIS ---
Intake Visit Reasons: OV- RT shoulder pain ac joint OA Intake Note: Kosta a 43 year old male who presents today for a follow up of right shoulder pain. Patient was last seen with Dr. Blankenship who referred him to PT and ordered an MRI of cervical spine. Patient reports he did not attend PT due to his pain. Currently he has constant pain that radiates into his clavicle area and down his arm. States he is unable to lift items as his feels his arm will fall off. Limited ROM. He mentions recently that he was playing volleyball and felt a crack with hitting the ball. Raw Scales Operator Name: Stefany ID#[id number] Allergies cyclobenzaprine [From Flexeril] Allergy (Intermediate, Verified 02/27/24 10:21) erectile dysfunction diclofenac [DICLOFENAC] Allergy (Intermediate, Verified 02/27/24 10:21) STOMACH CRAMP, diarrhea ibuprofen [From Motrin] Allergy (Intermediate, Verified 02/27/24 10:21) bloody stools duloxetine Allergy (Mild, Verified 02/27/24 10:21) erectily dysfunction Medication List - Last Reconciled 02/27/24 by Zora Hamilton PA-C acetaminophen ER (Tylenol 8 Hour) 650 mg PO Q8H PRN albuterol sulfate 90 mcg/actuation 1 inh inhalation QID PRN 30 days aspirin 81 mg PO DAILY atorvastatin 10 mg PO DAILY blood pressure test kit-large As directed clonidine HCl mg PO DAILY famotidine PO gabapentin 400 mg PO TID 30 days lidocaine 5% 1 patch topical DAILY loratadine 10 mg PO DAILY losartan 25 mg PO DAILY methocarbamol 750 mg PO TID 3 days metoprolol succinate ER 25 mg PO DAILY omeprazole 20 mg PO BID 90 days oxycodone 5 mg PO Q8H PRN sucralfate 1 g PO QID HPI HPI OV- RT shoulder pain ac joint OA: Details: Kosta is a 43-year-old male who presents today for a follow up of right shoulder pain. He was recommended PT and ordered an MRI of cervical spine when he was last seen by Dr. Blankenship. He reports that he did not attend PT secondary to pain. Currently, he states he has been experiencing constant pain that radiates into his clavicle area and down his arm. He reports that he is unable to lift items as his feels his arm will fall off. He reports limited ROM. He recently mentioned that he felt a crack when hitting the ball while playing volleyball. He is allergic to Flexeril. FORMERLY [facility], [facility] Medical History Anxiety Foot pain, bilateral Foot pain, bilateral Left shoulder pain Right hip pain Polyarthralgia Moderate recurrent major depression Lumbar pain Left hip pain NAFL (nonalcoholic fatty liver) Right shoulder pain Asthma Past heart attack Lumbar radiculopathy Long-term use of aspirin therapy Current smoker HTN (hypertension) Hyperlipidemia CAD (coronary artery disease) Surgical History H/O colonoscopy History of endoscopy History of open reduction and internal fixation (ORIF) procedure S/P hernia surgery History of back surgery Family History Father CVD (cardiovascular disease) Mother Diabetes Hypertension CVD (cardiovascular disease) Social History Household Members: Children Housing: House Alcohol intake: never Patient Tobacco Use Status: Former Tobacco user Tobacco use type: Cigarette e-Cigarette/Vaping Use: Never Used Second Hand Smoke Exposure: No Substance Use Type: Marijuana service: No Current occupational status: unemployed and disabled 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 Cognitive needs: No Hearing needs: No Vision needs: No Review of Systems Const All systems reviewed & are unremarkable except as noted in HPI and below Physical Exam Const General: cooperative, healthy appearing, comfortable and no acute distress Orientation/consciousness: patient oriented x3 Neck Neck: Yes normal visual inspection and Yes no JVD Chest Chest palpation & inspection: normal inspection of the chest Resp Effort & Inspection: normal respiratory effort Auscultation: clear to auscultation bilaterally, crackles (no), rales (no), rhonchi (no) and wheezes (no) Cardio Jugular venous distension: no JVD Rate: regular rate Rhythm: regular rhythm Heart sounds: S1 normal heart sound present, S2 normal heart sound present, Murmur heart sound present (no) and Rub heart sound present (no) Neuro General: patient oriented x3 Extrem Other: Right shoulder: Normal to inspection. Tenderness over the bicipital groove and proximal biceps tendon. Forward flexion to 95, external rotation to 90, internal rotation to S1. pain with RTC strength. Positive Combs and cross body abduction. NVI. General: Yes normal to inspection, Yes no pedal edema and Yes no calf tenderness Psych Appearance: grossly normal Mental Status: mental status grossly normal Speech and movement: Normal speech and movement present Quality Reporting (2019) Adult ([facility] 138/09/19/68) Smoking risk assessment performed?: Yes Patient Tobacco Use Status: Former Tobacco user Assessment & Plan Assessment & Plan (1) Tendinitis of right rotator cuff: Code(s): M75.81 - Other shoulder lesions, right shoulder Category: Medical Plan We discussed options which include injections and physical therapy, which he has tried and failed in the past. He did have a previous MRI in 2021. However with this new injury and his significant limitations with daily activities, I will repeat MRI of the right shoulder to reevaluate the integrity of the rotator cuff. Once this is complete, he will see us back to discuss results and a prescription for Celebrex was sent to the pharmacy to help with his discomfort. Orders: Orders MR shoulder RT wo con 02/27/24 M77.8 - Other enthesopathies, not elsewhere classified Medications: New celecoxib (Celebrex) 200 mg PO BID 60 caps 3RF 30 days Patient Instructions: Scribed for Zora Hamilton PA-C, by She Rivero medical delivery technician, on 02/27/2024 at 10:00 AM Zora CHAVIRA PA-C, have personally reviewed and agree with the information entered by the scribe. Coding Level of Care Code Est Pt Level 3 (86215) Diagnoses Tendinitis of right rotator cuff M75.81
== END 2024-02-27 11:09 | disposition home or self-care (01) ==
PROVIDERS: PCP Family Medicine; Visit Provider Physician Assistant
DX: M75.81 Other shoulder lesions, right shoulder (principal)
CPT/HCPCS: 99213

== ENCOUNTER → 2024-02-27 09:41 | Outpatient (BNVA) | payer OTHER, SELFPAY | PROVIDERS: PCP Family Medicine; Visit Provider Physician Assistant | DX: M75.81 Other shoulder lesions, right shoulder (principal) | CPT/HCPCS: 99212 ==

== ENCOUNTER 2024-03-19 08:46 | Outpatient (AMB) | payer OTHER, SELFPAY ==
[2024-03-19 08:59] VITALS: BP 152/108; PULSE 68; BMI 30.9
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
== END 2024-03-19 10:08 | disposition home or self-care (01) ==
PROVIDERS: PCP Family Medicine; Visit Provider Internal Medicine Gastroenterology
DX: Z87.19 Personal history of other diseases of the digestive system (principal); Z86.19 Personal history of other infectious and parasitic diseases; K52.9 Noninfective gastroenteritis and colitis, unspecified; R10.9 Unspecified abdominal pain; K29.70 Gastritis, unspecified, without bleeding; B96.81 Helicobacter pylori [H. pylori] as the cause of diseases classified elsewhere; K21.9 Gastro-esophageal reflux disease without esophagitis; R13.14 Dysphagia, pharyngoesophageal phase
CPT/HCPCS: 99214

== ENCOUNTER → 2024-03-19 08:46 | Outpatient (BNVA) | payer OTHER, SELFPAY | PROVIDERS: PCP Family Medicine; Visit Provider Internal Medicine Gastroenterology | DX: K21.9 Gastro-esophageal reflux disease without esophagitis (principal); K59.09 Other constipation; K29.70 Gastritis, unspecified, without bleeding; K52.9 Noninfective gastroenteritis and colitis, unspecified; R10.9 Unspecified abdominal pain; B96.81 Helicobacter pylori [H. pylori] as the cause of diseases classified elsewhere; Z87.19 Personal history of other diseases of the digestive system; Z86.19 Personal history of other infectious and parasitic diseases | CPT/HCPCS: 99212 ==

== ENCOUNTER 2024-05-08 10:29 | Outpatient (REF) | payer OTHER, SELFPAY ==
--- NOTE | ~2024-05-08 | XR_ITS ---
EXAMINATION: XR ORBITS CLINICAL INFORMATION: Pre-MRI COMPARISON: None available. TECHNIQUE: 3 views of orbits obtained for evaluation of foreign bodies FINDINGS: No foreign bodies identified in the facial bones or orbits. There is incidental findings of mucous retention cysts in the left maxillary sinus XR/XR pre mri screening IMPRESSION: No foreign bodies identified. Patient fits for MRI Electronically signed by: Reza Pritchard MD 05/08/2024 04:55 PM EDT
== END 2024-05-08 10:30 | disposition home or self-care (01) ==
LOC: HO.XRAY 10:29
PROVIDERS: Visit Provider Internal Medicine Hypertension Specialist
DX: Z13.89 Encounter for screening for other disorder (principal)

== ENCOUNTER 2024-05-18 09:32 | Outpatient (AMB) | payer OTHER, SELFPAY ==
--- NOTE | 2024-05-18 09:40 | A.OFFVIS_ITS ---
<Statement entered by Kaz Walters MD - 05/19/24 10:07> I agree with history, findings, assessment and plan documented by Liana Flowers PA-c. Will obtain venous insufficiency testing and have patient follow-up Intake Visit Reasons: [facility] referral for VV Intake Note: Patient presents for VV. Has bilateral pain , minimal swelling and occasional cramping. Accompanied by: Child Allergies cyclobenzaprine [From Flexeril] Allergy (Intermediate, Verified 05/18/24 09:42) erectile dysfunction diclofenac [DICLOFENAC] Allergy (Intermediate, Verified 05/18/24 09:42) STOMACH CRAMP, diarrhea ibuprofen [From Motrin] Allergy (Intermediate, Verified 05/18/24 09:42) bloody stools duloxetine Allergy (Mild, Verified 05/18/24 09:42) erectily dysfunction HPI HPI [facility] referral for VV: Details: Rafia, the MA, was interpreting. Brambila presenting today as a referral from his PCP for bilateral lower extremity varicose veins. He states he has had them for approximately 10 years; however, over the last year or so they have been swelling and there has been increased cramping and pain. He is able to walk 1-2 blocks without difficulty but does experience pain. He states the pain as well as the swelling is worse at night. He has not been using any conservative measures at this point. He is not a diabetic and he used to smoke socially only but quit 2-1/2 years ago. He does not have a history of PE, DVT, or phlebitis. He states he does elevate his legs intermittently. [facility] Medical History Anxiety Foot pain, bilateral Foot pain, bilateral Left shoulder pain Right hip pain Polyarthralgia Moderate recurrent major depression Lumbar pain Left hip pain NAFL (nonalcoholic fatty liver) Right shoulder pain Asthma Past heart attack Lumbar radiculopathy Long-term use of aspirin therapy Current smoker HTN (hypertension) Hyperlipidemia CAD (coronary artery disease) Surgical History H/O colonoscopy History of endoscopy History of open reduction and internal fixation (ORIF) procedure S/P hernia surgery History of back surgery Family History Father CVD (cardiovascular disease) Mother Diabetes Hypertension CVD (cardiovascular disease) Social History Household Members: Children Housing: House Alcohol intake: never Patient Tobacco Use Status: Former Tobacco user Tobacco use type: Cigarette e-Cigarette/Vaping Use: Never Used Second Hand Smoke Exposure: No Substance Use Type: Marijuana service: No Current occupational status: unemployed and disabled 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 Cognitive needs: No Hearing needs: No Vision needs: No Review of Systems Const Reports as per HPI and Denies weakness ENT Reports Normal hearing present and Denies dizziness Card Reports as per HPI, Denies chest pain, Denies chest pain at rest, Denies chest pain with activity, Denies dyspnea and Denies dyspnea on exertion Resp Reports as per HPI, Denies cough, Denies dyspnea and Denies dyspnea on exertion GI Reports as per HPI, Denies abdominal pain, Denies nausea and Denies vomiting Musc Denies numbness Skin/Breast Reports as per HPI, Denies erythema and Denies wounds Neuro Reports Normal hearing present, Denies dizziness, Denies numbness, Denies Sensory deficit (Neuro) and Denies weakness Psych Reports no additional complaints Endo Reports no additional complaints Physical Exam Const General: healthy appearing and no acute distress Orientation/consciousness: patient oriented x3 HEENT Head: Yes normal to inspection Ears: hearing grossly normal bilaterally Mouth: Normal oral and palatal mucosa present Resp Effort & Inspection: normal respiratory effort and able to speak in complete sentences Auscultation: clear to auscultation bilaterally Cardio Jugular venous distension: no JVD Rate: regular rate Rhythm: regular rhythm Heart sounds: S1 normal heart sound present and S2 normal heart sound present Bruits: no abdominal aortic bruits, no carotid bruits, no femoral bruits and no renal bruits Peripheral pulses: Peripheral pulses 2+ throughout GI Inspection: Yes normal to inspection Palpation (GI): No Abdominal aortic bruit present Skin Other: Right lower extremity: Multiple varicosities, small and large, noted behind the knee as well as the right lower leg to the ankle anteriorly and posteriorly. An approximate 6 cm tortuosity noted in the right lower extremity anteriorly. No swelling noted today. Strong, palpable DP and PT pulses. Left lower extremity: Several small varicosities noted in the left lower extremity above the ankle. Telangiectasia and spider veins noted in the upper anterior thigh. General skin exam: no rashes or lesions noted Wounds: no wounds Hair: normal Neuro General: patient oriented x3 Cranial nerves: Yes Normal hearing present Cognition (Neuro): normal cognition Gait exam (Neuro): Normal gait present Motor exam (neuro): 5/5 motor strength present throughout Sensory Exam: No Sensory deficit (Neuro) Extrem General: Yes normal to inspection, Yes full ROM, Yes capillary refill normal and Yes normal gait Quality Reporting (2019) Adult ([facility] 138/09/19/68) Smoking risk assessment performed?: Yes Patient Tobacco Use Status: Former Tobacco user Assessment & Plan Assessment & Plan (1) Varicose veins of right lower extremity with inflammation: Code(s): I83.11 - Varicose veins of right lower extremity with inflammation Category: Medical Plan: Kosta is presenting today as a referral from his PCP for an approximately 10 year history of varicose veins, now causing cramping and swelling. He he states the pain and cramping as well as swelling is worse at night. He has not use conservative measures at this point. In short, the patient has evidence of venous insufficiency. I have discussed the pathophysiology with the patient. In addition I have provided informational material regarding venous disease to the patient. We have discussed conservative measures including compression, elevation, and exercise. I have also provided a handout regarding appropriate use of compression stockings and where to purchase good compression stockings as well; Rafia explained the compression stockings in [place]. I have taken the liberty of ordering venous insufficiency testing with the patient. They will follow up with me after testing. The patient had an opportunity to ask questions regarding the treatment plan. All questions were answered. No major barriers to understanding were identif ied. The patient expressed understanding and agreement with the above treatment plan. The patient is aware they should contact our office by phone for worsening of the current condition or the appearance of new symptoms. Thank you for allowing me to participate in the vascular care of this patient. If you have any questions or concerns regarding the treatment for the above condition please do not hesitate to contact me. The office telephone contact is [phone]. This note is constructed using voice recognition software. While every effort has been made to ensure accuracy, demand inspector errors may have been included. Thank you for allowing me to participate in the care of your patient. Yours sincerely, STEPHANIE James Orders: Orders US venous duplex LE BI 1 Week I83.11 - Varicose veins of right lower extremity with inflammation Coding Level of Care Code New Pt New Pt Level 4 (69350) Patient Type New Diagnoses Varicose veins of right lower extremity with inflammation I83.11
== END 2024-05-18 09:54 | disposition home or self-care (01) ==
PROVIDERS: PCP Family Medicine; Visit Provider Surgery Vascular Surgery
DX: I83.11 Varicose veins of right lower extremity with inflammation (principal)
CPT/HCPCS: 99204

== ENCOUNTER → 2024-05-18 09:32 | Outpatient (BNVA) | payer OTHER, SELFPAY | PROVIDERS: PCP Family Medicine; Visit Provider Surgery Vascular Surgery | DX: I83.11 Varicose veins of right lower extremity with inflammation (principal); I83.92 Asymptomatic varicose veins of left lower extremity | CPT/HCPCS: 99202 ==

== ENCOUNTER 2024-05-25 18:09 | Outpatient (REF) | payer OTHER, SELFPAY ==
--- NOTE | ~2024-05-25 | MR_ITS ---
EXAMINATION: MR SHOULDER WITHOUT CONTRAST, RIGHT CLINICAL INFORMATION: Right shoulder pain. Reduced range of motion with crepitus. Pain, swelling, numbness. COMPARISON: Most recent right shoulder radiographs dated 02/03/2024 and right shoulder MRI dated 05/22/2022. TECHNIQUE: MRI of the right shoulder without contrast was performed on a high-field scanner. FINDINGS: ROTATOR CUFF: Tpilktsr-gl-ldxemc supraspinatus and infraspinous tendinosis, increased when compared to the prior examination. There is bursal surface fraying of the anterior supraspinatus tendon extending posteriorly into the intrasubstance of the junctional fibers and to the articular surface of the infraspinatus tendon. Overall tearing measures up to 2.6 x 2.6 cm and contains a full-thickness component. Moderate subscapularis tendinosis, unchanged. No muscle atrophy or fatty infiltration. BICEPS: Poorly visualized. Evaluation limited secondary to patient motion. There appear to be heterogeneous thin fibers which could indicate longitudinal partial tearing. CORACOACROMIAL ARCH: The undersurface of the acromion is flat with small subacromial spurs. Severe acromioclavicular osteoarthritis with decreased edema when compared to the prior examination. LABRUM/CAPSULE: Heterogeneity through the periphery of the superior and posterosuperior labrum, consistent with irregular tearing and slightly progressed when compared to the prior examination. Intact inferior joint capsule. GLENOHUMERAL JOINT/MARROW: Intact articular cartilage. Marrow edema within the greater tuberosity, increased when compared to the prior examination. Small joint effusion. MR/MR shoulder RT wo con IMPRESSION: 1. Lonmxsts-xl-xselpu supraspinatus and infraspinous tendinosis, increased when compared to the prior examination. Bursal surface fraying of the anterior supraspinatus tendon extending posteriorly into the intrasubstance of the junctional fibers and articular surface of the infraspinatus tendon. Overall tearing measures 2.6 x 2.6 cm and contains a full-thickness component. Moderate subscapularis tendinosis, unchanged. 2. Poorly visualized biceps tendon with heterogeneous thin fibers which could indicate longitudinal partial tearing. 3. Severe acromioclavicular osteoarthritis with decreased edema when compared to the prior examination. Small subacromial spurs. 4. Irregular tearing through the periphery of the superior and posterosuperior labrum, slightly progressed when compared to the prior examination. 5. Small glenohumeral joint effusion. Electronically signed by: Misael Booker MD 06/10/2024 01:54 PM [facility]
== END 2024-05-25 18:10 | disposition home or self-care (01) ==
LOC: HO.MRI 18:09
PROVIDERS: PCP Family Medicine; Visit Provider Physician Assistant
DX: M77.8 Other enthesopathies, not elsewhere classified (principal)
CPT/HCPCS: 73221

== ENCOUNTER 2024-05-28 10:18 | Outpatient (AMB) | payer OTHER, SELFPAY ==
--- NOTE | 2024-05-28 10:31 | MHC.OFFVIS ---
Vital Signs 05/28/24 10:34 Height 5 ft 8 in Weight 203 lb BMI 30.9 Intake Visit Reasons: MRI review RT shoulder Intake Note: Kosta a 43 year old right hand dominant male who presents today for an MRI review of right shoulder. Patient reports ongoing pain and weakness in his shoulder. States his pain has gotten worse since his last visit. Allergies cyclobenzaprine [From Flexeril] Allergy (Intermediate, Verified 05/28/24 10:34) erectile dysfunction diclofenac [DICLOFENAC] Allergy (Intermediate, Verified 05/28/24 10:34) STOMACH CRAMP, diarrhea ibuprofen [From Motrin] Allergy (Intermediate, Verified 05/28/24 10:34) bloody stools duloxetine Allergy (Mild, Verified 05/28/24 10:34) erectily dysfunction Medication List - Last Reconciled 05/28/24 by Zora Hamilton PA-C acetaminophen ER (Tylenol 8 Hour) 650 mg PO Q8H PRN albuterol sulfate 90 mcg/actuation 1 inh inhalation QID PRN 30 days aspirin 81 mg PO DAILY atorvastatin 10 mg PO DAILY blood pressure test kit-large As directed celecoxib (Celebrex) 200 mg PO BID 30 days clonidine HCl mg PO DAILY famotidine PO gabapentin 400 mg PO TID 30 days lidocaine 5% 1 patch topical DAILY loratadine 10 mg PO DAILY losartan 25 mg PO DAILY methocarbamol 750 mg PO TID 3 days metoprolol succinate ER 25 mg PO DAILY omeprazole 20 mg PO BID 90 days oxycodone 5 mg PO Q8H PRN HPI HPI MRI review RT shoulder: Details: 43-year-old right hand dominant male who returns to the office today with an canoe inspector final for an MRI review of right shoulder. He reports his pain got worse since his last visit and states he has ongoing pain and weakness in his shoulder. His pain is aggravated at night and with lifting. He also experiences he has occasional electric sensation in his shoulder that radiates to his neck. [facility] Medical History Anxiety Foot pain, bilateral Foot pain, bilateral Left shoulder pain Right hip pain Polyarthralgia Moderate recurrent major depression Lumbar pain Left hip pain NAFL (nonalcoholic fatty liver) Right shoulder pain Asthma Past heart attack Lumbar radiculopathy Long-term use of aspirin therapy Current smoker HTN (hypertension) Hyperlipidemia CAD (coronary artery disease) Surgical History H/O colonoscopy History of endoscopy History of open reduction and internal fixation (ORIF) procedure S/P hernia surgery History of back surgery Family History Father CVD (cardiovascular disease) Mother Diabetes Hypertension CVD (cardiovascular disease) Social History Household Members: Children Housing: House Alcohol intake: never Patient Tobacco Use Status: Former Tobacco user Tobacco use type: Cigarette e-Cigarette/Vaping Use: Never Used Second Hand Smoke Exposure: No Substance Use Type: Marijuana service: No Current occupational status: unemployed and disabled 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 Tenderness over the bicipital groove and along the deltoid region of the shoulder. Forward flexion to 175, external rotation to 90, internal rotation to S1. 5/5 RTC strength. Positive O?Briens. NVI. Quality Reporting (2019) Adult ([facility] 138/09/19/68) Smoking risk assessment performed?: Yes Patient Tobacco Use Status: Former Tobacco user Results Reviewed Results Reviewed: MRI of the right shoulder shows intact RTC with ac joint oa Assessment & Plan Assessment & Plan (1) Biceps tendonitis on right: Code(s): M75.21 - Bicipital tendinitis, right shoulder Category: Medical Plan MRI was reviewed with the patient today. I recommend working on physical therapy and stressed the importance of working on RTC and periscapular stabilization. I did offer him injection on proximal biceps tendon which he agrees with. The injection is to be performed under fluoroscopy ; therefore a referral for pain management was placed for this. They will contact him directly to book this appt. He will contact us with any questions or concerns. Orders: Orders PT Evaluation and Treatment Today M75.21 - Bicipital tendinitis, right shoulder Referrals Pain Management Referral M75.21 - Bicipital tendinitis, right shoulder Patient Instructions: Scribed for Ta-Tiff Hamilton PA-C, by Ramakrishna Rosales, medical insurance biller, on 05/28/2024 at 10:45 AM EST.? I, Zora Hamilton PA-C, have personally reviewed and agree with the information entered by the scribe. Coding Level of Care Code Est Pt Level 3 (15193) Complex EM visit Add On G2211 Diagnoses Biceps tendonitis on right M75.21
[2024-05-28 10:34] VITALS: BMI 30.9
== END 2024-05-28 11:37 | disposition home or self-care (01) ==
LOC: HO.HOS 10:18
PROVIDERS: PCP Family Medicine; Visit Provider Physician Assistant
DX: M75.21 Bicipital tendinitis, right shoulder (principal)
CPT/HCPCS: 99213; G2211

== ENCOUNTER → 2024-05-28 10:18 | Outpatient (BNVA) | payer OTHER, SELFPAY | PROVIDERS: PCP Family Medicine; Visit Provider Physician Assistant | DX: M75.21 Bicipital tendinitis, right shoulder (principal) | CPT/HCPCS: 99212 ==

== ENCOUNTER 2024-06-05 12:46 | Outpatient (REF) | payer OTHER, SELFPAY ==
--- NOTE | ~2024-06-05 | US_ITS ---
EXAMINATION: US LOWER EXTREMITY VENOUS (REFLUX EXAM), BILATERAL CLINICAL INDICATION: Chronic venous insufficiency with lower extremity varicose veins with inflammation COMPARISON: None. TECHNIQUE: Color flow triplex imaging and compression Doppler was performed to evaluate both the deep and the superficial systems bilaterally. To evaluate the superficial system, the examination was performed in the upright position. Color-flow Doppler ultrasound and compression ultrasound were utilized. In addition, maneuvers were utilized to demonstrate reflux. FINDINGS: 1. DEEP VENOUS ULTRASOUND OF THE RIGHT LOWER EXTREMITY: Common Femoral Vein: Compressible, normal respiratory variation and augmented flow. Femoral Vein: Compressible, normal color flow and augmentation. Popliteal Vein: Compressible, normal augmentation. Deep Reflux: There is no evidence of reflux in the deep system in either the common femoral vein, superficial femoral or the popliteal vein. There is no evidence of a Mendez's cyst. 2. SUPERFICIAL ULTRASOUND WITH DOPPLER OF RIGHT LOWER EXTREMITY: GREAT SAPHENOUS VEIN: Saphenofemoral Junction: 0.6 cm; Reflux: 0 ms Proximal Thigh: 0.3 cm; Reflux: 0 ms Mid Thigh: 0.1 cm; Reflux: 0 ms Above Knee: 0.2 cm; Reflux: 0 ms At Knee: 0.3 cm; Reflux: 2804 ms Below Knee: 0.2 cm; Reflux: 1820 ms Mid Calf: 0.1 cm; Reflux: 0 ms Ankle: There are 0.1 cm; Reflux: 0 ms DUPLICATED MEDIAL GREAT SAPHENOUS VEIN: Diameter: None imaged Reflux: NA DUPLICATED LATERAL GREAT SAPHENOUS VEIN: Diameter: 0.1 cm Reflux: None SMALL SAPHENOUS VEIN: Saphenopopliteal Junction: 0.2 cm; Reflux: 0 ms Proximal: 0.2 cm; Reflux: 0 ms Distal: 0.1 cm; Reflux: 0 ms VEIN OF GIACOMINI: Size: NA Reflux: NA PERFORATORS: Location: None significant Size: NA Reflux: NA VARICOSITIES: Location: Distal thigh off the great saphenous vein Size: 0.4 cm Reflux: 2300 ms 3. DEEP VENOUS ULTRASOUND OF THE LEFT LOWER EXTREMITY: Common Femoral Vein: Compressible, normal respiratory variation and augmented flow. Femoral Vein: Compressible, normal color flow and augmentation. Popliteal Vein: Compressible, normal augmentation. Deep Reflux: There is no evidence of reflux in the deep system in either the common femoral vein, superficial femoral or the popliteal vein. There is no evidence of a Mendez's cyst. 4. SUPERFICIAL ULTRASOUND WITH DOPPLER OF LEFT LOWER EXTREMITY: GREAT SAPHENOUS VEIN: Saphenofemoral Junction: 0.5 cm; Reflux: 0 ms Proximal Thigh: 0.2 cm; Reflux: 0 ms Mid Thigh: 0.1 cm; Reflux: 0 ms Above Knee: 0.1 cm; Reflux: 0 ms At Knee: 0.1 cm; Reflux: 0 ms Below Knee: 0.1 cm; Reflux: 0 ms Mid Calf: 0.1 cm; Reflux: 0 ms Ankle: 0.1 cm; Reflux: 0 ms DUPLICATED MEDIAL GREAT SAPHENOUS VEIN: Diameter: None imaged Reflux: NA DUPLICATED LATERAL GREAT SAPHENOUS VEIN: Diameter: 0.2 cm Reflux: None SMALL SAPHENOUS VEIN: Saphenopopliteal Junction: 0.1 cm; Reflux: 0 ms Proximal: 0.1 cm; Reflux: 0 ms Distal: 0.1 cm; Reflux: 0 ms VEIN OF GIACOMINI: Size: NA Reflux: NA PERFORATORS: Location: None significant Size: NA Reflux: NA VARICOSITIES: Location: None Imaged Size: NA Reflux: NA US/US venous duplex LE BI IMPRESSION: 1. Right: Focal reflux in the great saphenous vein at the level of the knee and below the knee. Refluxing varicose vein in the distal thigh. 2. Left: No significant venous insufficiency or reflux. Electronically signed by: Yves Samuels MD 06/08/2024 04:56 PM EST
== END 2024-06-05 12:47 | disposition home or self-care (01) ==
LOC: HO.US 12:46
PROVIDERS: PCP Family Medicine; Visit Provider Physician Assistant Surgical
DX: I83.11 Varicose veins of right lower extremity with inflammation (principal)
CPT/HCPCS: 93970

== ENCOUNTER 2024-07-03 10:49 | Outpatient (AMB) | payer OTHER, SELFPAY ==
--- NOTE | 2024-07-03 10:54 | MHC.OFFVIS ---
Vital Signs 07/03/24 11:01 Height 5 ft 8 in Weight 207 lb 4 oz BMI 31.5 BP 122/78 Blood Pressure Location Lt brachial Position Sitting Respiration 18 Pulse 70 Pulse Source Pulse Oximeter Pulse Oximetry (%) 98 Oxygen Delivery Method Room Air Intake Visit Reasons: Bicipital tendinitis, right shoulder Intake Note: Patient presents for Bicipital Tendinitis, right shoulder. I feel like I have a tear on right bicep in a lot of pain. 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 Services: 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 Iron Worker Present Information Interpreted: non-clinical & clinical Allergies cyclobenzaprine [From Flexeril] Allergy (Intermediate, Verified 07/07/24 14:14) erectile dysfunction diclofenac [DICLOFENAC] Allergy (Intermediate, Verified 07/07/24 14:14) STOMACH CRAMP, diarrhea ibuprofen [From Motrin] Allergy (Intermediate, Verified 07/07/24 14:14) bloody stools duloxetine Allergy (Mild, Verified 07/07/24 14:14) erectily dysfunction HPI HPI Bicipital tendinitis, right shoulder: Details: 43-year-old male who presents today to the office for a right shoulder bicipital tendinitis. He was referred to us for consideration of bicipital tendon injection. He has constant pain that radiates into his clavicle area and down his arm. He states that he is unable to lift items as his feels his arm will fall off. He has limited ROM. He has numbing sensations in his fingers. He states that he was playing volleyball and felt a crack with hitting the ball. He states that he had good relief from the last injection but had a fall after the injection and his pain returned to baseline. He was referred to the physical Past procedure 03/06/23: Interlaminar epidural steroid injection, C7/T1, Right parasaggital: % relief. [facility] Medical History Anxiety Foot pain, bilateral Foot pain, bilateral Left shoulder pain Right hip pain Polyarthralgia Moderate recurrent major depression Lumbar pain Left hip pain NAFL (nonalcoholic fatty liver) Right shoulder pain Asthma Past heart attack Lumbar radiculopathy Long-term use of aspirin therapy Current smoker HTN (hypertension) Hyperlipidemia CAD (coronary artery disease) Surgical History H/O colonoscopy History of endoscopy History of open reduction and internal fixation (ORIF) procedure S/P hernia surgery History of back surgery Family History Father CVD (cardiovascular disease) Mother Diabetes Hypertension CVD (cardiovascular disease) Social History Household Members: Children Housing: House Alcohol intake: never Patient Tobacco Use Status: Former Tobacco user Tobacco use type: Cigarette e-Cigarette/Vaping Use: Never Used Second Hand Smoke Exposure: No Substance Use Type: Marijuana service: No Current occupational status: unemployed and disabled 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 Alert and oriented. Mood and affect appropriate. Follows and participates in conversation appropriately. Respiratory effort is unlabored. Able to transition from sit to stand unassisted. Ambulates with bilaterally normal heel strike and toe off. He does not have any tenderness in the bicipital groove muscle. Most of his pain appears to be around the AC joint and the supraspinatus tendon. Office Procedures AMB Joint Injection/Aspiration Joint Injection/Aspiration Details: Right supraspinatus tendon injection, US guided After obtaining written consent, pre-procedure blood pressure and pulse were recorded and are in the nursing record for review. The site was prepped using aseptic technique and site was prepped using sterile technique. A 25-gauge needle was advanced under ultrasound guidance to the supraspinatus tendon. 10 mg of Kenalog was injected on the left side around the supraspinatus tendon using posterolateral approach. Time Out: Immediately prior to the procedure, the following was verbally confirmed that there is a signed consent form and that the correct patient, planned procedure, site and side are consistent with documentation and that necessary equipment and/or blood products are available prior to the start of the case. Complications: none Coding - Acromioclavicular with ultrasound guidance (Right side, US guided) Procedure code (CPT) selection complete AMB Joint Injection/Aspiration Joint Injection/Aspiration Details: Right acromioclavicular joint injection, ultrasound guided. Primary Site: right shoulder Prep: site was prepped using sterile technique Injected: Kenalog (30 mg), with 1 mL of (ropivacaine 0.5%), 1% plain lidocaine and in the joint Approach Used: anterior Procedure: The patient tolerated the procedure well Coding Details: An ultrasound image of the injection was taken and stored in the permanent record. - Acromioclavicular with ultrasound guidance (Right side, US guided) Procedure code (CPT) selection complete Quality Reporting (2019) Adult ([facility] ) Smoking risk assessment performed?: Yes Patient Tobacco Use Status: Former Tobacco user Results Reviewed Results Reviewed: No imaging is available for review. Assessment & Plan Assessment & Plan (1) Tendinitis of right rotator cuff: Code(s): M75.81 - Other shoulder lesions, right shoulder Category: Medical (2) Acromioclavicular joint arthritis: Code(s): M19.019 - Primary osteoarthritis, unspecified shoulder Category: Medical Plan Patient is status post right AC joint injection, US guided and right supraspinatus tendon injection, US guided. Patient tolerated procedure well and was discharged home in stable condition with discharge instructions. All questions were answered. He will follow up as needed for repeat injection. He does have atrophy of biceps muscle likely secondary to the torn long head. I will refer him to orthopedics for consideration of surgical correction of his various soft tissue. Scribed for Dr. Serra by Tuan Gregory, clinical laboratory medical director, on 07/03/2024. I, Dr. Serra, have personally reviewed and agree with the information entered by the scribe. Coding Level of Care Code Est Pt Level 3 (88482) Diagnoses Tendinitis of right rotator cuff M75.81 Acromioclavicular joint arthritis M19.019 CPT Codes Coding - Joint 6: 96397 - Acromioclavicular with ultrasound guidance ([id number]) Coding - Joint 6: 53900 - Acromioclavicular with ultrasound guidance ([id number])
[2024-07-03 11:01] VITALS: BP 122/78; PULSE 70; RESP 18; O2SAT 98; BMI 31.5
== END 2024-07-03 11:43 | disposition home or self-care (01) ==
PROVIDERS: PCP Family Medicine; Visit Provider Internal Medicine
DX: M19.011 Primary osteoarthritis, right shoulder (principal); M75.81 Other shoulder lesions, right shoulder
CPT/HCPCS: 20550; 20606; 99213

== ENCOUNTER → 2024-07-03 10:49 | Outpatient (BNVA) | payer OTHER, SELFPAY | PROVIDERS: PCP Family Medicine; Visit Provider Internal Medicine | DX: M75.81 Other shoulder lesions, right shoulder (principal); M19.019 Primary osteoarthritis, unspecified shoulder | CPT/HCPCS: 20550; 20606; 99212 ==

== ENCOUNTER 2024-07-07 14:03 | Emergency (ER) | payer OTHER, SELFPAY ==
--- NOTE | ~2024-07-07 | XR_ITS ---
EXAMINATION: XR FINGER, LEFT CLINICAL INFORMATION: second digit laceration COMPARISON: Left hand 08/29/2018. TECHNIQUE: 4 of the left second digit. FINDINGS: There is a soft tissue defect involving the dorsum of the distal second digit, nailbed region. There is an underlying tuft fracture with approximately 1.5 mm of distraction of the distal fragment, distal phalanx, second digit. No radiopaque foreign body. Normal alignment. No joint abnormalities. XR/XR finger LT min 2V IMPRESSION: Oblique tuft fracture distal phalanx, second digit. Associated nail bed laceration consistent with open fracture. Electronically signed by: Arya Landry MD 07/07/2024 03:56 PM NOE
[2024-07-07 14:12] VITALS: BP 150/91; PULSE 72; RESP 20; TEMP 36.4; O2SAT 100; BMI 31.5
--- NOTE | 2024-07-07 14:17 | ED_ITS ---
HPI - Wound/Laceration General Chief Complaint: Wound/Laceration Stated Complaint: Hand lac Related Data Home Medications ?Medication ?Instructions ?Recorded ?Confirmed aspirin 81 mg tablet,delayed 81 mg PO DAILY 09/05/22 05/28/24 release blood pressure test kit-large #1 ea 08/22/23 05/28/24 loratadine 10 mg tablet 10 mg PO DAILY 08/22/23 05/28/24 atorvastatin 10 mg tablet 10 mg PO DAILY 02/27/24 05/28/24 clonidine HCl 0.1 mg tablet mg PO DAILY 02/27/24 05/28/24 famotidine 40 mg/5 mL (8 mg/mL) PO 02/27/24 05/28/24 oral suspension losartan 25 mg tablet 25 mg PO DAILY 02/27/24 05/28/24 Previous Rx's ?Medication ?Instructions ?Recorded albuterol sulfate 90 mcg/actuation 1 inh inhalation QID PRN shortness 08/07/21 aerosol inhaler of breath or wheezing 30 days #6.7 grams metoprolol succinate 25 mg 25 mg PO DAILY #30 tabs 12/24/21 tablet,extended release 24 hr gabapentin 400 mg capsule 400 mg PO TID 30 days #90 caps 08/06/22 lidocaine 5 % topical patch 1 patch topical DAILY #15 ea 10/10/22 omeprazole 20 mg tablet,delayed 20 mg PO BID h Pylori gastritis 90 08/22/23 release days #180 tabs acetaminophen 650 mg 650 mg PO Q8H PRN pain #30 tabs 02/03/24 tablet,extended release (Tylenol 8 Hour) methocarbamol 750 mg tablet 750 mg PO TID 3 days #9 tabs 02/03/24 oxycodone 5 mg tablet 5 mg PO Q8H PRN severe pain (scale 02/16/24 score 7-10) #6 tabs celecoxib 200 mg capsule (Celebrex) 200 mg PO BID 30 days #60 caps 02/27/24 Allergies Allergy/AdvReac Type Severity Reaction Status Date / Time cyclobenzaprine Allergy Intermediate erectile Verified 07/07/24 14:14 [From Flexeril] dysfunction diclofenac [DICLOFENAC] Allergy Intermediate STOMACH Verified 07/07/24 14:14 CRAMP, diarrhea ibuprofen [From Motrin] Allergy Intermediate bloody Verified 07/07/24 14:14 stools duloxetine Allergy Mild erectily Verified 07/07/24 14:14 dysfunction [facility] Past Medical History Medical History Anxiety Foot pain, bilateral Foot pain, bilateral Left shoulder pain Right hip pain Polyarthralgia Moderate recurrent major depression Lumbar pain Left hip pain NAFL (nonalcoholic fatty liver) Right shoulder pain Asthma Past heart attack Lumbar radiculopathy Long-term use of aspirin therapy Current smoker HTN (hypertension) Hyperlipidemia CAD (coronary artery disease) Surgical History H/O colonoscopy History of endoscopy History of open reduction and internal fixation (ORIF) procedure S/P hernia surgery History of back surgery Family History Family History Father CVD (cardiovascular disease) Mother Diabetes Hypertension CVD (cardiovascular disease) Social History Social History Household Members: Children Housing: House Alcohol intake: never Patient Tobacco Use Status: Former Tobacco user Tobacco use type: Cigarette e-Cigarette/Vaping Use: Never Used Second Hand Smoke Exposure: No Substance Use Type: Marijuana Advance Directives: No Advance Directives Information Provided: No service: No Current occupational status: unemployed and disabled 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 RME assessment and note performed by: Reanna Lyons PA-C This is a 43-year-old male who presents emergency department with complaints of laceration to left index finger. He had his finger stuck in a garage door at home. Positive laceration noted to his left 2nd digit with nail bed involvement. Likely needing suture repair. Plan: xrays tdap Reevaluation(s) Reevaluation #1: Patient left without completing treatment. Discharge Plan Discharge Clinical Impression: Laceration of finger Patient Disposition: Left W/O Completing Treatment Prescriptions: No Action albuterol sulfate 90 mcg/actuation HFA aerosol inhaler 1 inh inhalation QID PRN (Reason: shortness of breath or wheezing) 30 Days Qty: 6.7 3RF metoprolol succinate 25 mg tablet extended release 24 hr 25 mg PO DAILY Qty: 30 4RF gabapentin 400 mg capsule 400 mg PO TID 30 Days Qty: 90 3RF lidocaine 5 % adhesive patch,medicated 1 patch topical DAILY Qty: 15 0RF Rx Instructions: leave on most painful area for up to 12 hrs methocarbamol 750 mg tablet 750 mg PO TID 3 Days Qty: 9 0RF acetaminophen [Tylenol 8 Hour] 650 mg tablet extended release 650 mg PO Q8H PRN (Reason: pain) Qty: 30 0RF oxycodone 5 mg tablet 5 mg PO Q8H PRN (Reason: severe pain (scale score 7-10)) Qty: 6 0RF Rx Instructions: Partial Fill upon patient request. aspirin 81 mg tablet,delayed release (DR/EC) 81 mg PO DAILY loratadine 10 mg tablet 10 mg PO DAILY (DME) blood pressure test kit-large Kit See Rx Instructions .ROUTE DAILY Qty: 1 Rx Instructions: As directed omeprazole 20 mg tablet,delayed release (DR/EC) 20 mg PO BID 90 Days Qty: 180 1RF clonidine HCl 0.1 mg tablet PO DAILY atorvastatin 10 mg tablet 10 mg PO DAILY losartan 25 mg tablet 25 mg PO DAILY famotidine 40 mg/5 mL (8 mg/mL) suspension for reconstitution PO celecoxib [Celebrex] 200 mg capsule 200 mg PO BID 30 Days Qty: 60 3RF Discharge Date/Time: 07/07/24 20:27
== END 2024-07-07 20:27 | disposition left against medical advice (07) ==
PROVIDERS: Emergency Provider Internal Medicine
DX: S61.211A Laceration without foreign body of left index finger without damage to nail, initial encounter (principal); W23.0XXA Caught, crushed, jammed, or pinched between moving objects, initial encounter; Y93.9 Activity, unspecified; Y92.9 Unspecified place or not applicable; Y99.9 Unspecified external cause status; Z53.21 Procedure and treatment not carried out due to patient leaving prior to being seen by health care provider
CPT/HCPCS: 73140; 99281

== ENCOUNTER → 2024-07-07 14:16 | Outpatient (BNV) | payer OTHER, SELFPAY | PROVIDERS: Visit Provider Radiology Diagnostic Radiology | DX: S62.632A Displaced fracture of distal phalanx of right middle finger, initial encounter for closed fracture (principal) | CPT/HCPCS: 73140 ==

== ENCOUNTER 2024-09-07 10:56 | Outpatient (AMB) | payer OTHER, SELFPAY ==
[2024-09-07 11:53] VITALS: BP 120/80; PULSE 53; O2SAT 98
--- NOTE | 2024-09-07 11:53 | MHC.OFFWIV ---
Intake Vital Signs 09/07/24 11:53 Weight 201 lb BP 120/80 Blood Pressure Location Rt brachial Position Sitting Pulse 53 Pulse Source Pulse Oximeter Pulse Oximetry (%) 98 Oxygen Delivery Method Room Air Intake Visit Reasons: EP-rt throat pain Intake Note: Patient here for right side of neck/throat pain that started 2-3 days. Pt states he does not have a sore throat but feels like it is swollen. Patient Tobacco Use Status: Former Tobacco user Allergies cyclobenzaprine [From Flexeril] Allergy (Intermediate, Verified 09/07/24 11:56) erectile dysfunction diclofenac [DICLOFENAC] Allergy (Intermediate, Verified 09/07/24 11:56) STOMACH CRAMP, diarrhea ibuprofen [From Motrin] Allergy (Intermediate, Verified 09/07/24 11:56) bloody stools duloxetine Allergy (Mild, Verified 09/07/24 11:56) erectily dysfunction Do you need a note to return to daycare/school/sports/work: Yes HPI HPI Comments History of Present Illness Details 44 y/o male patient who presents to the walk in clinic with c/o right sided neck tenderness with swelling. He reports feeling a small lump inside right neck that is very painful with swallowing. He does report sinus pressure and headaches. He does have a Tooth cavity on one of his right Molar that needs extraction. [facility] Medical History Anxiety Foot pain, bilateral Foot pain, bilateral Left shoulder pain Right hip pain Polyarthralgia Moderate recurrent major depression Lumbar pain Left hip pain NAFL (nonalcoholic fatty liver) Right shoulder pain Asthma Past heart attack Lumbar radiculopathy Long-term use of aspirin therapy Current smoker HTN (hypertension) Hyperlipidemia CAD (coronary artery disease) Surgical History H/O colonoscopy History of endoscopy History of open reduction and internal fixation (ORIF) procedure S/P hernia surgery History of back surgery Family History Father CVD (cardiovascular disease) Mother Diabetes Hypertension CVD (cardiovascular disease) Social History Household Members: Children Housing: House Alcohol intake: never Patient Tobacco Use Status: Former Tobacco user Tobacco use type: Cigarette e-Cigarette/Vaping Use: Never Used Second Hand Smoke Exposure: No Substance Use Type: Marijuana service: No Current occupational status: unemployed and disabled 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 Cognitive needs: No Hearing needs: No Vision needs: No Review of Systems Const All systems reviewed & are unremarkable except as noted in HPI and below Physical Exam Vital Signs: Last Vital Signs Pulse 53 09/07/24 11:53 BP 120/80 09/07/24 11:53 Pulse Ox 98 09/07/24 11:53 Oxygen Delivery Method Room Air 09/07/24 11:53 Const General: cooperative and no acute distress Orientation/consciousness: patient oriented x3 HEENT Head: Yes normocephalic Ears: external ears normal and TM abnormal with fluid behind the TM bilateral General nose exam: Normal external nose present and Nasal discharge present Face and sinus: Yes sinus tenderness Mouth: moist mucous membranes Teeth and gingiva: multiple restorations and poor dentition Throat: Yes uvula midline Neck Neck: Yes full ROM, Yes trachea midline and Yes lymphadenopathy Thyroid: Thyroid normal Lymphatic: lymphedema (Submandibular) Neck images: 1. Submandibular Lymphedema, TTP. Neuro General: patient oriented x3 Assessment & Plan Assessment & Plan (1) Lymph node enlargement: Code(s): R59.9 - Enlarged lymph nodes, unspecified Plan: Sub-mandibular lymphdema. Advised to f/u with Dentist Sudafed for Sinus/nasal congestion. NSAIDs for pain relief. Coding Level of Care Code Est Pt Level 3 (50224) Diagnoses Lymph node enlargement R59.9 Time Spent (min) 15
== END 2024-09-07 12:30 | disposition home or self-care (01) ==
PROVIDERS: Visit Provider Nurse Practitioner Family
DX: R59.9 Enlarged lymph nodes, unspecified (principal)

== ENCOUNTER → 2024-09-07 10:56 | Outpatient (BNVA) | payer OTHER, SELFPAY | DX: R59.9 Enlarged lymph nodes, unspecified (principal) | CPT/HCPCS: 99212 ==

== ENCOUNTER 2024-09-18 08:57 | Outpatient (AMB) | payer OTHER, SELFPAY ==
[2024-09-18 09:01] VITALS: BP 138/80; PULSE 66; BMI 30.6
--- NOTE | 2024-09-18 09:01 | MHC.OFFVIS ---
Vital Signs 09/18/24 09:01 Height 5 ft 8 in Weight 201 lb BMI 30.6 BP 138/80 Blood Pressure Location Lt brachial Position Sitting Pulse 66 Pulse Source Monitor Intake Visit Reasons: r/s 08/10/24 1 yr followup w/ekg Bisque Placer Required: Yes Bisque Placer Language: [employer] Consultant Name: voice patric kelsey [id number] Allergies cyclobenzaprine [From Flexeril] Allergy (Intermediate, Verified 09/18/24 09:04) erectile dysfunction diclofenac [DICLOFENAC] Allergy (Intermediate, Verified 09/18/24 09:04) STOMACH CRAMP, diarrhea ibuprofen [From Motrin] Allergy (Intermediate, Verified 09/18/24 09:04) bloody stools duloxetine Allergy (Mild, Verified 09/18/24 09:04) erectily dysfunction Medication List - Last Reconciled 09/18/24 by Rosa Maria Kramer NP-C acetaminophen ER (Tylenol 8 Hour) 650 mg PO Q8H PRN albuterol sulfate 90 mcg/actuation 1 inh inhalation QID PRN 30 days aspirin 81 mg PO DAILY atorvastatin 10 mg PO DAILY blood pressure test kit-large As directed celecoxib (Celebrex) 200 mg PO BID 30 days clonidine HCl mg PO DAILY famotidine PO gabapentin 400 mg PO TID 30 days lidocaine 5% 1 patch topical DAILY loratadine 10 mg PO DAILY losartan 25 mg PO DAILY methocarbamol 750 mg PO TID 3 days metoprolol succinate ER 25 mg PO DAILY omeprazole 20 mg PO BID 90 days HPI HPI r/s 08/10/24 1 yr followup w/ekg: Details: Kosta is a 44-year-old male with past medical history of hypertension, hyperlipidemia, smoking, prior cocaine use, NSTEMI, mild CAD who presents for follow-up. His last prior visit to our office was 08/08/23. Today he reports that he has been experiencing issues with depression and anxiety. He says his family life is very stressful. He is having issues with his . He has to take care of an elderly relative. He has a lot going on and having difficulty managing it. He says at times he has thought of harming himself but not currently. He has a young child with him at this visit. He does not feel that he needs any emergent care or evaluation. Informed him I will forward this information to his PCP. Says he has had a counselor in the past but it was not a good fit. He would consider seeing another person. He has no cardiac concerns at this time. He still smokes marijuana routinely but denies any cocaine use. He has not had exertional chest discomfort. No shortness of breath, palpitations, lightheadedness, presyncope, syncope, PND, orthopnea or edema. No routine exercise. Takes meds as directed. [facility] Medical History Anxiety Foot pain, bilateral Foot pain, bilateral Left shoulder pain Right hip pain Polyarthralgia Moderate recurrent major depression Lumbar pain Left hip pain NAFL (nonalcoholic fatty liver) Right shoulder pain Asthma Past heart attack Lumbar radiculopathy Long-term use of aspirin therapy Current smoker HTN (hypertension) Hyperlipidemia CAD (coronary artery disease) Surgical History H/O colonoscopy History of endoscopy History of open reduction and internal fixation (ORIF) procedure S/P hernia surgery History of back surgery Family History Father CVD (cardiovascular disease) Mother Diabetes Hypertension CVD (cardiovascular disease) Social History Household Members: Children Housing: House Alcohol intake: never Patient Tobacco Use Status: Former Tobacco user Tobacco use type: Cigarette e-Cigarette/Vaping Use: Never Used Second Hand Smoke Exposure: No Substance Use Type: Marijuana service: No Current occupational status: unemployed and disabled 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 Cognitive needs: No Hearing needs: No Vision needs: No Review of Systems Const All systems reviewed & are unremarkable except as noted in HPI and below ENT Denies dizziness Card Denies chest pain, Denies chest pain at rest, Denies chest pain with activity, Denies rapid heart rate, Denies pedal edema, Denies edema, Denies leg edema, Denies lightheadedness, Denies palpitations, Denies dyspnea, Denies dyspnea on exertion and Denies orthopnea Resp Denies cough, Denies dyspnea and Denies dyspnea on exertion GI Denies hematochezia and Denies change in stool character Musc Denies abnormal gait, Denies limited range of motion, Denies muscle cramps, Denies muscle weakness, Denies numbness, Denies radiating pain into limb, Denies stiffness and Denies tingling Neuro Denies abnormal gait, Denies dizziness, Denies numbness and Denies tingling Psych Reports anxiety and Reports depression Endo Denies palpitations Physical Exam Vital Signs: Last Vital Signs Pulse 66 09/18/24 09:01 BP 138/80 09/18/24 09:01 BMI result Body Mass Index 30.6 Const General: cooperative, healthy appearing, comfortable and no acute distress Orientation/consciousness: patient oriented x3 Neck Neck: Yes normal visual inspection Resp Effort & Inspection: normal respiratory effort Auscultation: clear to auscultation bilaterally, no crackles, no rales, no rhonchi and no wheezes Cardio Jugular venous distension: no JVD Rate: regular rate Rhythm: regular rhythm Heart sounds: S1 normal heart sound present, S2 normal heart sound present, no murmurs and no rubs Neuro General: patient oriented x3 Extrem General: Yes normal to inspection and No no pedal edema Psych Appearance: grossly normal Mental Status: mental status grossly normal Speech and movement: Normal speech and movement present Office Procedures EKG Details: Today, read by me, NSR, nonspecific T wave abn, rate 66 [id number], Complete Quality Reporting (2019) Adult ([facility] ) Smoking risk assessment performed?: Yes Patient Tobacco Use Status: Former Tobacco user Assessment & Plan Assessment & Plan (1) CAD (coronary artery disease): Code(s): I25.10 - Atherosclerotic heart disease of [place] coronary artery without angina pectoris Category: Medical Qualifiers: Associated angina: with stable angina Coronary Disease-Associated Artery/Lesion type: [place] artery [place] vs. transplanted heart: [place] heart Qualified Code(s): I25.118 - Atherosclerotic heart disease of [place] coronary artery with other forms of angina pectoris Plan: History of NSTEMI in the setting of cocaine use with prior notes indicating mild right PDA stenosis. He denies any recent cocaine use however continues to smoke marijuana. He reports being depressed and under high stress but denies any cardiac symptoms. EKG done today showing normal sinus rhythm with nonspecific T-wave abnormality, rate 66. Reviewed Signs and symptoms of angina reviewed with him. Discussed increasing physical activity, smoking cessation, good blood pressure and cholesterol control reviewed. Continue aspirin, atorvastatin with ideal LDL goal less than 70, and metoprolol. Labs are followed by PCP. Cardiology follow-up in 1 year, sooner if needed. (2) HTN (hypertension): Code(s): I10 - Essential (primary) hypertension Category: Medical Qualifiers: Hypertension type: essential hypertension Qualified Code(s): I10 - Essential (primary) hypertension Plan: Mild elevation today. Patient reports feeling anxious and stressed. He is speaking with a counselor and has an appointment today. He is on metoprolol, will continue without change. If blood pressure remains elevated then use of hydrochlorothiazide versus Luis Angel/Arb can be added. Benefits of exercise and weight reduction reviewed. (3) Depression: Code(s): F32.A - Depression, unspecified Category: Medical Plan: Patient reports issues with depression and anxiety. He denies the need for ER evaluation. He does not feel like harming himself at this time. Will forward this note to his PCP for review. Patient is interested in treatment. (4) Anxiety: Code(s): F41.9 - Anxiety disorder, unspecified Category: Medical Plan Time spent on chart review, documentation, interview and assessment Coding Level of Care Code Est Pt Level 4 (29681) Complex EM visit Add On G2211 Diagnoses Coronary artery disease of [place] artery of [place] heart with stable angina pectoris I25.118 Associated angina: with stable angina Coronary Disease-Associated Artery/Lesion type: [place] artery [place] vs. transplanted heart: [place] heart Essential hypertension I10 Hypertension type: essential hypertension Depression F32.A Anxiety F41.9 CPT Codes EKG - CPT: [id number], Complete ([id number]) Time Spent (min) 28
--- OUTSIDE RECORDS SUMMARY | 2024-09-18 09:21 | XMS_ITS | Encounter Summary ---
Author Organization [facility] Address [address] [place] [address] [address] [place] [address] Care Team Providers Care Torch Cutter Name Role Phone Graciela Rich MD Primary Care Provider Unava Lily Ramirez MD Primary Care Provider [phone] Derrek Bob PharmD Unavailable [phone] Encounter Details Date Type Department Care Team (Latest Contact Info) Description 06/03/2019 Abstract [facility] CONVERSIONS Dental, Provider, DDS Social History Tobacco Use Types Packs/Day Years Used Date Smoking Tobacco: Never Assessed Sex and Gender Information Value Date Recorded Sex Assigned at Male 05/28/2022 10:34 AM EDT Legal Sex Male 10:34 AM EDT Gender Identity Male 05/28/2022 10:34 AM EDT Sexual Orientation Straight 05/28/2022 10 :34 AM EDT documented as of this encounter Plan of Treatment Not on file documented as of this encounter Visit Diagnoses Not on filedocumented in this encounter Care Teams Torch Cutter Relationship Specialty Start Date End Date Graciela Rich MD PCP - General Family Medicine 02/27/22 06/13/22 Lily Lopez MD [address] [place] [address] PCP - General Family Medicine 06/14/22 Derrek Bob, PharmD [address] [place] [address] Pharmacist Internal Medicine 01/04/23 documented as of this encounter
--- OUTSIDE RECORDS SUMMARY | 2024-09-18 09:21 | XMS_ITS | Encounter Summary ---
Author Organization [employer] Address [address] [facility] [address] [place] [address] Care Team Providers Care Nurse Discharge Planner Name Role Phone Lily Lopez MD Primary Care Provider [phone] Derrek Bob PharmD Unavailable [phone] Reason for Visit * Reason Comments Med Refill Encounter Details Date Type Department Care Team (Late st Contact Info) Description 09/08/2024 Refill [facility] [address] [place], [place] [phone] Gloria Monge MD [address] [place], [place] [phone] Chronic low back pain, unspecified back pain laterality, unspecified whether sciatica present Social History Tobacco Use Types Packs/Day Years Used Date Smoking Tobacco: Never Passive Smoke Exposure: Never Smokeless Tobacco: Never Alcohol Use Standard Drinks/Week Comments Not Currently 0 (1 standard drink = 0.6 oz pur e alcohol) Depression Answer Date Recorded Patient Health Questionnaire-9 Score 13 03/16/2024 Patient Health Questionnaire-9 Score 13 03/16/2024 Last PHQ-9: Questionnaire Data Not on file 0 03/16/2024 Housing Stability Answer Date Recorded What is your housing situation today? I have kellee leon 12/03/[address] you li ve. Do you have problems with any of the following? None of the above 12/03/2023 Food Insecurity Answer Date Recorded Within the past 12 months, y ou worried that your food would run out before you got money to buy more: Never True 12/03/2023 Within the past 12 months,th e food you bought just didn't last and you didn't have enough money to get more: Never True 01/2024 Transportation Answer Date Recorded In the past 12 months, has l ack of transportation kept you from medical appts, meetings, work or from getting things needed for daily living? No 12/03/2023 Utilities Answer Date Recorded In the past 12 months, has t he electric, gas, oil or water company threatened to shut off services in your home? No 12/03/2023 Depression Answer Date Recorded Patient Health Questionnaire-2 Score 3 03/16/2024 Sex and Gender Information Value Date Recorded Sex Assigned at Male 05/28/2022 10:34 AM EDT Legal Sex Male 10:34 AM EDT Gender Identity Male 05/28/2022 10:34 AM EDT Sexual Orientation Straight 05/28/2022 10 :34 AM EDT documented as of this encounter Plan of Treatment Not on file documented as of this encounter Goals Goal Patient Goal Type Associated Problems Recent Progress Patient-Stated? Author Blood Pressure < 140/90 Blood Pressure 128/78( 024 10:22 AM EST) No Derrek Bob, PharmD documented as of this encounter Visit Diagnoses Diagnosis Chronic low back pain, unspecified back pain laterality, unspecified whether sciatica present documented in this encounter Additional Health Concerns Assessment Noted Time PHQ-9 Depression Total Score: 13 024 1:11 PM EDT documented as of this encounter Care Teams Nurse Discharge Planner Relationship Specialty Start Date End Date Lily Lopez MD [address] [place] [address] PCP - General Family Medicine 06/14/22 Derrek Bob, PharmD [address] [place] [address] Pharmacist Internal Medicine 01/04/23 documented as of this encounter
--- OUTSIDE RECORDS SUMMARY | 2024-09-18 09:21 | XMS_ITS | Encounter Summary ---
Author Organization [employer] Address [address] [facility] [address]t [place] [address] Care Team Providers Care Marble Chip Terrazzo Worker Name Role Phone Lily Lopez MD Primary Care Provider [phone] Derrek Bob PharmD Unavailable [phone] Reason for Visit * Reason Onset Date Comments Appointment Request 05/15/2024 Encounter Details Date Type Department Care Team ([facility] st Contact Info) Description 05/15/2024 Telephone [facility] MED[facility]INE [address] [place], [place] [phone] Lily Lopez MD [address] [place], [place] [phone] Appointment Request Social History Tobacco Use Types Packs/Day Years [...] AM EDT documented as of this encounter Miscellaneous Notes * Telephone Encounter - Oleg Carrillo - 05/15/2024 8:40 AM EDT Tc from patient calling to cancel appt for 05/15 and would like a call back to reschedule documented in this encounter Plan of Treatment Not on file documented as of this encounter Goals Goal Patient Goal Type Associated Problems Recent Progress Patient-Stated? Author Blood Pressure < 140/90 Blood Pressure 128/78( 024 10:22 AM EST) No Derrek Bob, Susan documented as of this encounter Visit Diagnoses Not on filedocumented in this encounter Additional Health Concerns Assessment Noted Time PHQ-9 Depression Total Score: 13 024 1:11 PM EDT documented as of this encounter Care Teams Marble Chip Terrazzo Worker Relationship Specialty Start Date End Date Lily Lopez MD [address] [place] [address] PCP - General Family Medicine 06/14/22 Derrek Bob, Susan [address] [place] [address] Pharmacist Internal Medicine 01/04/23 documented as of this encounter
--- OUTSIDE RECORDS SUMMARY | 2024-09-18 09:21 | XMS_ITS | Encounter Summary ---
Author Organization [employer] Address [address] [place] [address] [address] [place] [address] Care Team Providers Care Infection Preventionist Name Role Phone Lily Lopez MD Primary Care Provider [phone] Derrek Bob PharmD Unavailable [phone] Reason for Visit * Reason Comments Med Refill Encounter Details Date Type Department Care Team (Late st Contact Info) Description 10/25/2022 Refill [facility] [address] [place], [place] [phone] Lily Lopez MD [address] [place], [place] [phone] Chronic low back pain, unspecified back pain laterality, unspecified whether sciatica present Social History Tobacco Use Types Packs/Day Years Used Date Smoking Tobacco: Former Cigarettes Passive Smoke Exposure: Past Smokeless Tobacco: Never Alcohol Use Standard Drinks/Week Comments Not Currently 0 (1 standard drink = 0.6 oz pur e alcohol) Depression Answer Date Recorded Patient Health Questionnaire-9 Score 18 09/03/2022 Depression Answer Date Recorded Patient Health Questionnaire-2 Score 4 09/03/2022 Sex and Gender Information Value Date Recorded Sex Assigned at Male 05/28/2022 10:34 AM EDT Legal Sex Male 10:34 AM EDT Gender Identity Male 05/28/2022 10:34 AM EDT Sexual Orientation Straight 05/28/2022 10 :34 AM EDT COVID-19 Exposure Response Date Recorded In the last 10 days, have yo u been in contact with someone who was confirmed or suspected to have Coronavirus/COVID-19? No / Unsure 10/12/2022 10:23 AM EDT documented as of this encounter Miscellaneous Notes * Telephone Encounter - Lily Lopez MD - 10/25/2022 4:33 PM EDT Pt received oxycodone from another provider. Pt will need to come in to review COT agreement again. documented in this encounter Plan of Treatment Not on file documented as of this encounter Visit Diagnoses Diagnosis Chronic low back pain, unspecified back pain laterality, unspecified whether sciatica present documented in this encounter Additional Health Concerns Assessment Noted Time PHQ-9 Depression Total Score: 18 023 2:57 PM EST documented as of this encounter Care Teams Infection Preventionist Relationship Specialty Start Date End Date Lily Lopez MD [address] [place] [address] PCP - General Family Medicine 06/14/22 Derrek Bob, BrooksD [address] [place] [phone] Pharmacist Internal Medicine 01/04/23 documented as of this encounter
--- OUTSIDE RECORDS SUMMARY | 2024-09-18 09:21 | XMS_ITS | Data Portability ---
Author Organization [employer] Address [address] [place] [id number] Assessment Encounter Date Assessment Date Assessment LastModified by Organization Details LastModified Time 11/02/2022 11/02/2022 Called to ryan flowers 42 y/o m w HTN, OA vs. sciatica? who is need of repeat Cr and LFTs. On further chart review, rationale for lab testing unclear and not warranted as pt w not renal/hepatic h/o and given 1x toradol. Today pt reports persistent sxs despite dose of toradol yesterday. He notes toradol was in effective. Pt states he was evaluated by PCP yesterday and given a prednisone burst for pain. VSS Etiology of pain appears to be in setting of OA w concomitant sciatica. Lidocaine patch offered but pt says it's not effective. Pt advised to follow w PCP to discuss optimization of gabapentin regimen as current dose 800mgqD and potential referral to pain management. Alarm signs reviewed, pt advised to call 911 if onset. Care team, please f/u member in 2-3 days. [email or web address] Not available 11/02/2022 11:19:23 Plan of Treatment Reminders Order Date Submit Date Provider Last Modified By Organization Details Last Modified Time Details Appointments None recorded. Lab None recorded. Referral None recorded. Procedures None recorded. Surgeries None recorded. Imaging None recorded. Medication Orders ketorolac 30 mg/mL (1 mL) injection solution 2022 023 [email or web address] Not available 16:52:36 Patient TargetsNo targets recorded. Patient InstructionsNo instructions recorded. Reason for Referral None Reported. Results Created Date Observation Date Name Description Value Unit Range Abnormal Flag Note LastModifiedBy Organization Detail LastModifiedTime 11/03/1911/02/2022 progr ess disch arge summa ry* No observ ation record ed. [email or web address] Not Available 2022 15:52:12 Result Notes None recorded. Procedures Surgical History None recorded. Imaging Results Imaging Date Name Status LastModified by [facility] Details LastModified Time 11/02/2022 progress discharge summary* completed [email or web address] Information not available 11/02/2022 15:52:12 Procedure Notes None recorded. Medical Equipment None Reported. Medications Name Sig Start Date Stop Date Status Note LastModified by Organization Details LastModified Time Anti-Diarrhe al (loperamide) 2 mg tablet TAKE 1 TO 2 TABLETS BY MOUTH FOUR TIMES DAILY NEEDED FOR DIARRHEA FOR UP TO 10 DAYS. active Not Available Not Available No t Available ondansetron HCl 4 mg tablet TAKE 1 TABLET BY MOUTH EVERY 4 HOURS NEEDED FOR NAUSEA AND VOMITING active Not Available Not Available No t Available clonazepam 0.5 mg tablet TAKE 1 TABLET BY MOUTH AT BEDTIME NEEDED FOR ANXIETY active Not Available Not Available No t Available gabapentin 400 mg capsule TAKE 1 CAPSULE BY MOUTH AT BEDTIME active Not Available Not Available No t Available aspirin 81 mg tablet,delay ed release TAKE 1 TABLET BY MOUTH EVERY DAY FOR CORONARY ARTERY DISEASE PROPHYLAXIS active Not Available Not Available Not Available tramadol 50 mg tablet TAKE 1 TABLET BY MOUTH AT BEDTIME active Not Available Not Available No t Available alprazolam 0.5 mg tablet TAKE 1 TABLET BY MOUTH EVERY DAY active Not Available Not Available No t Available losartan 25 mg tablet TAKE 1 TABLET BY MOUTH EVERY MORNING active Not Available Not Available No t Available docusate sodium 100 mg capsule TAKE 1 CAPSULE BY MOUTH AT BEDTIME NEEDED FOR CONSTIPATIO N active Not Available Not Available No t Available omeprazole 20 mg capsule,jayy yed release TAKE 1 CAPSULE BY MOUTH ONCE DAILY active Not Available Not Available No t Available metoprolol succinate ER 25 mg tablet,exten ded release 24 hr TAKE 1 TABLET BY MOUTH EVERY DAY active Not Available Not Available No t Available methylpredni solone 4 mg tablets in a dose pack TAKE BY MOUTH DIRECTED ON PACKAGE active Not Available Not Available No t Available Ventolin HFA 90 mcg/actuatio n aerosol inhaler INHALE 2 PUFFS BY MOUTH EVERY 4 TO 6 HOURS NEEDED active Not Available Not Available No t Available oxycodone 5 mg tablet TAKE 1 TABLET BY MOUTH EVERY 8 HOURS NEEDED FOR SEVERE PAIN active Not Available Not Available Not Available bupropion HCl XL 150 mg 24 hr tablet, extended release TAKE 1 TABLET BY MOUTH EVERY DAY IN THE MORNING active Not Available Not Available No t Available Flovent HFA 44 mcg/actuatio n aerosol inhaler INHALE 2 PUFFS BY MOUTH TWICE DAILY. RINSE MOUTH AFTER USING. active Not Available Not Available No t Available blood pressure test kit-large cuff USE TO CHECK BLOOD PRESSURE DIRECTED active Not Available Not Available No t Available Antacid-Anti gas 200 mg-200 mg-20 mg/5 mL oral suspension TAKE 30 ML BY MOUTH EVERY 6 HOURS NEEDED FOR INDIGESTION OR HEARTBURN FOR UP TO 10 DAYS active Not Available Not Available No t Available Vitals Date Recorded Respiratory rate Body temperature Oxygen saturation Oxygen saturation in Arterial blood by Pulse oximetry Heart rate Systolic blood pressure Diastolic blood pressure Provider Name and Address Organization Details Last Updated DateTime 3 18 /min 98.1 [degF] 99 % 99 % 74 /min 130 mm[Hg] 80 mm[Hg] Not Available [facility] 3 16:48:37 Date Recorded Respiratory rate Body weight Oxygen saturation Oxygen saturation in Arterial blood by Pulse oximetry Heart rate Oxygen saturation Oxygen saturation in Arterial blood by Pulse oximetry Body weight Respiratory rate Heart rate Respiratory rate Body weight Heart rate Oxygen saturation Oxygen saturation in Arterial blood by Pulse oximetry Systolic blood pressure Diastolic blood pressure Systolic blood pressure Diastolic blood pressure Provider Name and Address Organization Details Last Updated DateTime 3 18 /min 57304.8 48 g 99 % 99 % 66 /min 99 % 99 % 96733.8 48 g 18 /min 66 /min 18 /min 25366.8 48 g 66 /min 99 % 99 % 149 mm[Hg] 95 mm[Hg] 149 mm[Hg] 95 mm[Hg] Not Available [facility] 3 11:02:42 Social History None recorded. Functional Status None recorded. Mental Status None recorded. Family History Nothing Reported. Medical History No medical history recorded. Past Encounters Encounter ID Performer Location Encounter Start Date Encounter Closed Date Diagnosis/Indication Diagnosis SNOMED-CT Code Diagnosis ICD10 Code Diagnosis Note [id number] Jazmyne Ruiz MD [facility] [address] [place] [phone] 11/01/2022 16:48:35 11/05/2022 10:14:33 Pain in right hip joint 5499137881 47443 M25.551 As noted, we were called to see this patient regarding concerns of hip and back pain. Evaluation in the field was performed by my special day class teacher colleague, as noted above, I provided real-time direction and supervisio n for this visit. The evaluation revealed chronic low back pain with progressiv e onset right hip pain. no red flag sxs (urinary, bowels, fever, mm weakness). requesting toradol. Impression :R hip pain from [facility] etiology Plan:- 30 mg ketorolac now Primary care, considerf/ u in office to eval cause of hip pain and refer for appropriat e work up and managemnt (imaging and physical therapy as needed) Dispositio n: We discussed the diagnostic uncertaint y of home visits and the risk associated with this. In this case, the patient and I felt this to be an acceptable and reasonable amount of risk given the benefit of avoiding an ED visit. We discussed the need to seek care urgently/e mergently in the setting of any new or worsening serious symptoms, particular ly fever, chills, erythema, worsening hip pain, change in bowel or bladder [id number] Nita Lyman MD Main - [address] [phone] 11/02/2022 10:37:18 11/02/2022 13:17:46 Health Concerns Section Related Observation LastModified by Organization Detai ls LastModified Time None Recorded Concern Status LastModified by Organization Details LastModified Time None Recorded Advance Directives Directive None Recorded Payers Encounter Date Sequence Insurance Name Policy Number Policy Marie Covered Member ID Marie Member ID Guarantor Name 11/01/2022 1 [facility] - DOS PRIOR TO 2022 - DUAL ELIGIBLE (MEDICARE REPLACEMENT/ADV ANTAGE - HMO) Kosta Blackwood [id number] Kosta slaughter 11/02/2022 1 [facility] - DOS PRIOR TO 2022 - DUAL ELIGIBLE (MEDICARE REPLACEMENT/ADV ANTAGE - HMO) Kosta Blackwood [id number] Kosta slaughter Notes Date Note Type Note Provider Name and Address Organization Details Recorded Time 11/01/2022 text/html [facility] Nursing Assessment: Reason For Request: PT is experiencing pain from right hip down to his leg. Symptom has been going on for a week. Spouse describes this as a chronic pain that pt has had for a while. Pt was recently put on pain medications but has stopped taking them due to side effects. Chief Complaints: Pain PMH: Hypertension Allergies: No Known Comments: Verified identity Spoke with spouse regarding pain, Member was given pain medication for his back but was d/c due to side effects. Member had an accident at work resulted in a back injury. Member had sx for his disc. Member now has hip pain that is intermittent for over a week.add'l [facility] history: RIGHT hip pain. no kidney issues Jazmyne Ruiz MD [address] [facility],[address], [place], [address], [facility] [employer] 11/01/2022 16:52:53 11/02/2022 text/html [facility] Nursing Assessment: Chief Complaints: Pain PMH: Hypertension Allergies: Unknown Comments: REvisit per [facility] to recheck creatinine and LFTS Member received toradol > original referral Verified identity Spoke with spouse regarding pain, Member was given pain medication for his back but was d/c due to side effects. Member had an accident at work resulted in a back injury. Member had sx for his disc. Member now has hip pain that is intermittent for over a week. .................. .................. .................. .................. .................. .................. .................. ............... Rn Birthing Note From Tommy Davis: 42 YOM presents alert, no distress, vitals ok, limping around his apartment favoring the left side. Pt c/o one week of left sided sciatic nerve pain. Pt seen by Jani yesterday, recieved 30 mg IM ketorolac, and was seen by PCP's office yesterday and was rx 3 days of prednisone . Pt sts no relief from ketorolac. Pt sts in the past has not had relief from lidocaine patches. Pt sts he wants to go to the ED for another shot , presumably an injectable steroid, which has relieved pain in the past. Pt instructed to f/u with PCP about possibly altering his gabapentin dose to provide adequate relief. .................. .................. .................. .................. .................. .................. .................. ............... Disposition: Fulfilled Nita Lyman MD [address] [place] [address],[address], [place], [address], [facility] 11/02/2022 13:17:45
--- OUTSIDE RECORDS SUMMARY | 2024-09-18 09:21 | XMS_ITS | Encounter Summary ---
Author Organization [employer] Address [address] [place] [address] Care Team Providers Care Profile Shaper Operator Name Role Phone Lily Lopez MD Primary Care Provider [phone] Derrek Bob PharmD Unavailable [phone] Reason for Visit * Reason Comments Med Refill Encounter Details Date Type Department Care Team ([facility] st Contact Info) Description 06/29/2023 Refill [facility] [address] [place] [address] Ly Mckeon MD [address] [place] [address] Social History Tobacco Use Types Packs/Day Years Used Date Smoking Tobacco: Never Passive Smoke Exposure: Never Smokeless Tobacco: Never Alcohol Use Standard Drinks/Week Comments Not Currently 0 (1 standard drink = 0.6 oz pur e alcohol) Depression Answer Date Recorded Patient Health Questionnaire-9 Score 18 09/03/2022 Housing Stability Answer Date Recorded What is your housing situation today? I have kellee leon 06/03/[address] you li ve. Do you have problems with any of the following? None of the above 06/03/2023 Food Insecurity Answer Date Recorded Within the past 12 months, y ou worried that your food would run out before you got money to buy more: Never True 06/03/2023 Within the past 12 months,th e food you bought just didn't last and you didn't have enough money to get more: Never True 12/2022 Transportation Answer Date Recorded In the past 12 months, has l ack of transportation kept you from medical appts, meetings, work or from getting things needed for daily living? No 06/03/2023 Utilities Answer Date Recorded In the past 12 months, has t he electric, gas, oil or water company threatened to shut off services in your home? No 06/03/2023 Depression Answer Date Recorded Patient Health Questionnaire-2 [...] documented as of this encounter Care Teams Profile Shaper Operator Relationship Specialty Start Date End Date Lily Lopez MD [address] [place] [address] PCP - General Family Medicine 06/14/22 Derrek Bob, PharmD [address] [place] [address] Pharmacist Internal Medicine 01/04/23 documented as of this encounter
--- OUTSIDE RECORDS SUMMARY | 2024-09-18 09:21 | XMS_ITS | Encounter Summary ---
Author Organization [email or web address] Address [address] [place] [address] [address] [place] [address] Care Team Providers Care Bessemer Bottom Maker Name Role Phone Lily Lopez MD Primary Care Provider [phone] Derrek Bob PharmD Unavailable [phone] Reason for Referral * Consultation (Routine) - Authorized Specialty Diagnoses / Procedures Referred By Contac t Referred To Contact Pharmacy Diagnoses Essential hypertension Moderate persistent asthma without complication Lily Lopez MD [address] [place] [phone] Phone: tel: fax: Referral ID Status Reason Start Date Expiration Date Visits Requested Visits Authorized [id number] Authorized Consult and Treat 06/09/2024 06/09/2025 6 6 Encounter Details Date Type Department Care Team (Late st Contact Info) Description 06/09/2024 Orders Only [facility] [address] [place] [address] [phone] Lily Lopez MD [address] [place] [address] [phone] Essential hypertension (Primary Dx); Moderate persistent asthma without complication Social History Tobacco Use Types Packs/Day Years [...] as of this encounter Plan of Treatment Scheduled Referrals Name Type Priority Associated Diagnoses Orde r Schedule Referral to Pharmacy CDTM Outpatient Referral Routine Essential hypertension Moderate persistent asthma without complication Ordered: 06/09/2024 documented as of this encounter Goals Goal Patient Goal Type Associated Problems Recent Progress Patient-Stated? Author Blood Pressure < 140/90 Blood Pressure 128/78( 024 10:22 AM EST) No Derrek Bob, Susan documented as of this encounter Visit Diagnoses Diagnosis Essential hypertension- Primary Unspecified essential hypertension Moderate persistent asthma without complication documented in this encounter Additional Health Concerns Assessment Noted Time PHQ-9 Depression Total Score: 13 024 1:11 PM EDT documented as of this encounter Care Teams [employer] Bottom Maker Relationship Specialty Start Date End Date Lily Lopez MD [address] [place] [address] PCP - General Family Medicine 06/14/22 Derrek Bob, BrooksD [address] [place] [address] Pharmacist Internal Medicine 01/04/23 documented as of this encounter
--- OUTSIDE RECORDS SUMMARY | 2024-09-18 09:21 | XMS_ITS | Clinical Summary ---
Author Organization [employer] Address [address] [facility] [address] [place] [address] Care Team Providers Care Singing Telegram Performer Name Role Phone Lily Lopez MD Primary Care Provider [phone] Derrek Bob PharmD Unavailable Allergies Active Allergy Reactions Criticality Noted Date Comments Clonazepam Dizziness 11/01/2022 drowsiness Cyclobenzaprine 02/27/2022 Other reaction(s): erectile disfunction Ibuprofen Other 08/22/2022 Tramadol 08/22/2022 Chest pain Medications * This document contains information received from the source organization and may not represent a complete record from that organization. Ventolin HFA 108 (90 Base) MCG/ACT inhaler INHALE 2 PUFFS BY MOUTH EVERY 4 TO 6 HOURS NEEDED 2 Active loratadine (Claritin) 10 MG tablet Take 1 tablet (10 mg) by mouth in the morning. 30 tablet 11 3 Active fluticasone (Flonase) 50 MCG/ACT nasal spray Administer 2 sprays into each nostril in the morning. Shake gently. Before first use, prime pump. After use, clean tip and replace cap. 16 g 2 3 Active Acetaminophen Extra Strength 500 MG tablet TAKE 2 TABLETS BY MOUTH EVERY 8 HOURS NEEDED FOR PAIN OR FEVER OR HEADACHE. 60 tablet 3 4 Active metoprolol succinate XL (Toprol XL) 25 MG 24 hr tabletIndications :Essential hypertension Take 1 tablet by mouth daily 90 tablet 3 4 Active cloNIDine (Catapres) 0.1 MG tablet Take 1 tablet (0.1 mg) by mouth 1 (one) time for 1 dose. 90 tablet 3 4 Active celecoxib (CeleBREX) 200 MG capsule Take 200 mg by mouth 2 times daily. 4 Active omeprazole (PriLOSEC) [address] capsule TAKE 1 CAPSULE ORALLY 2 TIMES A DAY FOR H PYLORI GASTRITIS FOR 90 DAYS 4 Active Aspirin Low Dose 81 MG EC tabletIndications :Essential hypertension Take 1 tablet by mouth once daily 90 tablet 3 4 Active rosuvastatin (Crestor) 20 MG tabletIndications :Essential hypertension Take 1 tablet by mouth once daily 90 tablet 3 4 Active Blood Pressure Monitoring (Blood Pressure Kit) kitIndications:Es sential hypertension Use as directed daily 1 kit 4 Active gabapentin (Neurontin) 400 MG capsuleIndication s:Chronic low back pain, unspecified back pain laterality, unspecified whether sciatica present TAKE 1 CAPSULE BY MOUTH EVERY DAY AT BEDTIME 30 capsule 3 4 Active Active Problems Problem Noted Date Diagnosed Date Obesity, morbid 03/15/2024 Assessment & Plan (03/20/2024 12:20 PM EDT): - lifestyle modifications Varicose veins of bilateral lower extremities wi th pain 01/28/2024 Assessment & Plan (01/28/2024 4:27 PM EDT): -will refer him to vascular specialist -will prescribe compression stockings -advised to reduce sodium consumption Left knee pain 12/03/2023 Assessment & Plan (12/03/2023 5:26 PM EDT): - patient has history of s/p ORIF Left ankle pain 12/03/2023 Assessment & Plan (12/03/2023 5:26 PM EDT): - history of ankle fracture and s/p ORIF Cervical radiculopathy 11/01/2022 Assessment & Plan (11/09/2022 6:05 AM EDT): -[place] with [facility], seen by Dr. Serra on 10/22/22 -MRI on 08/14/22 showed: 1. Discogenic degenerative changes primarily at C5-C6 with disc osteophyte complex at this level and mild spondylosis, stable in appearance. 2. Multilevel central disc protrusions and disc osteophyte complexes, as described above, with moderate central spinal canal stenosis at C3-C4 and mild central spinal canal stenosis at C4-C5 and C5-C6, stable in appearance. 3. Multilevel DJD as described above with multilevel bilateral neural foraminal stenosis, most significant on the right at C3-C4 and C5-C6 and on the left at C4-C5 and C5-C6. -scheduled for epidural steroid injection -judicious use of APAP prn -short course of prednisone today Chronic right shoulder pain 11/01/2022 Assessment & Plan (03/20/2024 12:19 PM EDT): -05/22/22 Right shoulder MRI 1. Moderate supraspinatus, infraspinatus and subscapularis tendinosis. No focal rotator cuff tear is seen. 2. Superior and posterosuperior labral degeneration and probable tear. 3. Moderate to severe acromioclavicular arthritis. 4. Mild subacromial subdeltoid bursitis. -10/10/22 Right shoulder X-ray Degenerative arthritic changes right AC joint and glenohumeral joint. Continue APAP prn Following with [facility]. Last seen on 02/27/24. Recommended to check MRI status. Recommended to speak with [facility] personal care service provider regarding to [employer] service Assessment & Plan (01/28/2024 4:23 PM EDT): -05/22/22 Right shoulder MRI 1. Moderate supraspinatus, infraspinatus and subscapularis tendinosis. No focal rotator cuff tear is seen. 2. Superior and posterosuperior labral degeneration and probable tear. 3. Moderate to severe acromioclavicular arthritis. 4. Mild subacromial subdeltoid bursitis. -10/10/22 Right shoulder X-ray Degenerative arthritic changes right AC joint and glenohumeral joint. Continue APAP prn -Will refer back to orthopedist Assessment & Plan (11/09/2022 6:03 AM EDT): -05/22/22 Right shoulder MRI 1. Moderate supraspinatus, infraspinatus and subscapularis tendinosis. No focal rotator cuff tear is seen. 2. Superior and posterosuperior labral degeneration and probable tear. 3. Moderate to severe acromioclavicular arthritis. 4. Mild subacromial subdeltoid bursitis. -10/10/22 Right shoulder X-ray Degenerative arthritic changes right AC joint and glenohumeral joint. Continue APAP prn Pt no longer wants tramadol Right hip pain 11/01/2022 Assessment & Plan (11/09/2022 6:02 AM EDT): Will evaluate with x-ray Rx APAP prn Anxiety 09/14/2022 Assessment & Plan (01/28/2024 4:25 PM EDT): Patient stated he no longer wants to take Clonazepam. -following with counselor but patient would like to change -will contact our clinician to reach out to the patient Assessment & Plan (12/03/2023 5:29 PM EDT): Patient stated he no longer wants to take Clonazepam. -following with counselor but patient would like to change -patient was evaluated by [facility] today - patient would like to restart medication for anxiety, will resume prozac Assessment & Plan (11/01/2022 12:50 PM EDT): Patient states he no longer wants to take Clonazepam. -following with counselor and is still on wait-list for Psychiatry appointment -agreed to try daily medication for anxiety -will Rx Fluoxetine Assessment & Plan (09/14/2022 4:17 PM EST): -Pt has been on bupropion -Continue current [facility] Panic disorder 09/14/2022 Assessment & Plan (11/09/2022 6:04 AM EDT): -Previously prescribed Clonazepam and now wants to take another medication d/t affect of cognition to patient -Continue counseling as scheuled Assessment & Plan (09/14/2022 4:16 PM EST): -Agreed to continue clonazepam 0.5 mg daily prn Tobacco use disorder 09/14/2022 Assessment & Plan (11/01/2022 12:49 PM EDT): Patient reports he is no longer smoking -Continue bupropion Assessment & Plan (09/14/2022 4:18 PM EST): -Continue working on smoking cessation -Continue bupropion Chronic low back pain 09/02/2022 Assessment & Plan (11/01/2022 12:58 PM EDT): Following with Communication Clerk -Interested in Toradol Injections; given pt the number to instED Patient would like to also take Prednisone for a few-days, agreed to Rx for a few days Assessment & Plan (09/14/2022 4:09 PM EST): -Hx back surgery -Agreed to prescribe toramadol 50 mg once at bedtime -Schedule CTS appt Mood disorder 09/02/2022 Assessment & Plan (01/31/2024 6:16 AM EDT): -high level of anxiety, likely anxiety / depression, possibly bipolar -connected with [facility] provider / [place] -continue counseling / CBT -continue bupropion -continue fluoxetine Assessment & Plan (12/03/2023 5:29 PM EDT): -high level of anxiety, likely anxiety / depression, possibly bipolar -connected with [facility] provider / [facility] -continue counseling / CBT -continue bupropion -start fluoxetine -pt would like to stop taking clonazepam due to its effect on his cognition; his request was approved. Assessment & Plan (11/09/2022 6:04 AM EDT): -high level of anxiety, likely anxiety / depression, possibly bipolar -connected with [facility] provider / [place] [facility] -continue counseling / CBT -continue bupropion -start fluoxetine -pt would like to stop taking clonazepam due to its effect on his cognition; his request was approved. Assessment & Plan (09/14/2022 4:18 PM EST): -high level of anxiety, likely anxiety / depression, possibly bipolar -connected with [facility] provider / [facility] -continue counseling / CBT -continue bupropion -continue judicious use of clonazepam; schedule [facility] agreement Coronary artery disease 09/02/2022 Assessment & Plan (03/20/2024 12:17 PM EDT): -Followed by [facility] [place] -Very mild CAD -Avoid cardiotoxic substances (Hx cocaine use) -Continue working on lifestyle modifications -Continue ASA -continue metoprolol -continue losartan -continue atorvastatin Assessment & Plan (01/28/2024 4:22 PM EDT): -Followed by [facility] -Very mild CAD -Avoid cardiotoxic substances (Hx cocaine use) -Continue working on lifestyle modifications -Continue ASA -previously prescribed metoprolol succinate, but questionable adherence -continue losartan -Starting atorvastatin Assessment & Plan (11/09/2022 6:01 AM EDT): -Followed by [facility] [place] -Very mild CAD -Avoid cardiotoxic substances (Hx cocaine use) -Continue working on lifestyle modifications -Continue ASA -previously prescribed metoprolol succinate, but questionable adherence -continue losartan -Consider statin Assessment & Plan (09/14/2022 4:13 PM EST): -Followed by [facility] [place] -Very mild CAD -Avoid cardiotoxic substances (Hx cocaine use) -Continue working on lifestyle modifications -Continue ASA, metoprolol succinate -Consider statin -Adding ARB today Essential hypertension 09/02/2022 Assessment & Plan (03/20/2024 12:15 PM EDT): -Goal BP < 140/90 per JNC-8 and < 130/80 per ACC/AHA guideline (Treatment threshold >= 140/90 ) BP not at goal today. Not taking meds as prescribed. -Following with [facility] [place], last seen in Jul 2023 -Continue working on lifestyle modifications -Continue losartan 25 mg daily -continue metoprolol 25 mg daily -Continue clonidine -Follow up in 1 mo for BP check -Enrolled with [facility] and prescribe BP monitor Assessment & Plan (01/31/2024 6:12 AM EDT): -Goal BP < 140/90 per JNC-8 and < 130/80 per ACC/AHA guideline (Treatment threshold >= 140/90 ) BP not at goal today due to lack of medications -Continue working on lifestyle modifications -Continue losartan 25 mg daily -continue metoprolol 25 mg daily -Continue clonidine -Follow up in 1 mo for BP check -Enrolled with [facility] and prescribe BP monitor Assessment & Plan (12/03/2023 5:25 PM EDT): -Goal BP < 140/90 per JNC-8 and < 130/80 per ACC/AHA guideline (Treatment threshold >= 140/90 ) BP not at goal today due to missed dose this morning -Continue working on lifestyle modifications -Continue losartan 25 mg daily -continue metoprolol 25 mg daily -Improve adherence to metoprolol succinate (we can consider low-dose for mild CAD) -Follow up in 3 mo, sooner if any problem arises -Enrolled with [facility] and prescribe BP monitor -patient received clonidine in the clinic today Assessment & Plan (11/09/2022 6:02 AM EDT): -Goal BP < 140/90 per JNC-8 and < 130/80 per ACC/AHA guideline (Treatment threshold >= 140/90 ) BP not at goal today due to missed dose this morning -Treatment Hx: Metoprolol succinate 25 mg daily (questionable adherence) -Continue working on lifestyle modifications -Continue losartan 25 mg daily -Improve adherence to metoprolol succinate (we can consider low-dose for mild CAD) -Follow up in 3 mo, sooner if any problem arises -Enrolled with [facility] and prescribe BP monitor Assessment & Plan (09/14/2022 4:14 PM EST): -Goal BP < 140/90 per JNC-8 and < 130/80 per ACC/AHA guideline (Treatment threshold >= 140/90 ) -Treatment Hx: Metoprolol succinate 25 mg daily (questionable adherence) -Continue working on lifestyle modifications -Start losartan 25 mg daily -Improve adherence to metoprolol succinate (we can consider low-dose for mild CAD) -Follow up in 3 mo, sooner if any problem arises -Refer to [facility] and prescribe BP monitor Gastroesophageal reflux disease 09/02/2022 Assessment & Plan (01/28/2024 2:17 PM EDT): -s/p EGD / colonoscopy evaluation in October 2020, Positive H. Pylori and tubular adenoma of colon -s/p EGD on 09/06/22. Normal. Negative H. pylori -Continue omeprazole 20 mg daily Assessment & Plan (11/09/2022 6:00 AM EDT): -s/p EGD / colonoscopy evaluation in October 2020, Positive H. Pylori and tubular adenoma of colon -s/p EGD on 09/06/22. Normal. Negative H. pylori -Continue omeprazole 20 mg daily Assessment & Plan (09/14/2022 3:55 PM EST): -s/p EGD / colonoscopy evaluation in October 2020 -Positive H. Pylori and tubular adenoma of colon -Continue omeprazole 20 mg daily -Recheck H. Pylori Herniated lumbar intervertebral disc 05/09/2022 Encounters Date Type Department Care Team Description 09/08/2024 Refill [facility] [address] [place] [id number] Gloria Monge MD Chronic low back pain, unspecified back pain laterality, unspecified whether sciatica present from Last 3 Months Immunizations Name Administration Dates Next Due Influenza injectable quadriv alent IIV4 with preservative 06/04/2019,05/06/2018 Influenza injectable quadrivalent preservative f ree 09/03/2022,04/23/2020 Pfizer Covid-19 Vaccine 12+ 12/03/2023 Pfizer Covid-19 Vaccine 12+ Bivalent 09/03/2022 Pneumococcal Conjugate PCV 20 09/03/2022 Tdap 12/03/2023 Social History Tobacco Use Types Packs/Day Years Used Date Smoking Tobacco: Never Passive Smoke Exposure: Never Smokeless Tobacco: Never Tobacco Cessation:Counseling Given: Not Answered Alcohol Use Standard Drinks/Week Comments Not Currently [...] Orientation Straight 05/28/2022 10 :34 AM EDT Last Filed Vital Signs Vital Sign Reading Time Taken Comments Blood Pressure 128/78 06/17/2024 10:22 AM EST Pulse 66 06/17/2024 10:11 AM EST Temperature 36.5 ??C (97.7 ??F) 03/16/2024 1:07 PM ED T Respiratory Rate 18 03/23/2024 9:34 AM EDT Oxygen Saturation 98% 03/23/2024 9:34 AM EDT Inhaled Oxygen Concentration - - Weight 91.5 kg (201 lb 12.8 oz) 03/16/2024 1:07 PM EDT Height 152.4 cm (5') 02/14/2024 10:05 AM EDT Body Mass Index 39.41 02/14/2024 10:05 AM EDT Plan of Treatment Health Maintenance Due Date Last Done Comments CT Colonography 1978 FIT DNA/Cologuard 1978 FIT 1978 FOBT 1978 HIV Screening 1978 Sigmoidoscopy 1978 Alcohol/Substance Use Screening 1990 Family Planning (PISQ) 1993 Hepatitis B Vaccines (1 of 3 - 19+ 3-dose series) 1997 Dental Prophylaxis 12/03/2019 06/03/2019, 0 09/19/2018, 03/18/2018 Dental Oral Exam 10/25/2020 04/26/2020, , 03/06/2018 Dental X-Ray: Full Mouth 03/07/2021 03/06/2018 COVID-19 Vaccine ( season) 2024 12/03/2023, 09/03/2022, 12/08/2021, Additional history exists Influenza Vaccine (#1) 2024 , 04/23/2020, 06/04/2019, Additional history exists Colonoscopy 09/08/2024 09/08/2019 Colorectal Cancer Screening 09/08/2024 Depression Monitoring (PHQ-9) 09/16/2024 03/16/2024, 03/16/2024 Dental X-Ray: Bitewings 09/24/2024 09/23/19 24, 04/13/2022, 02/02/2021, Additional history exists SDOH Screening 12/02/2024 12/03/2023 Depression Screening 03/16/2025 03/16/2024, 03/16/20 24 Tobacco Screening 03/16/2025 03/16/2024 Zoster Vaccines (1 of 2) 2028 Lipid Panel 12/23/2028 12/24/2023, 03/16/2022 DTaP/Tdap/Td Vaccines (2 - Td or Tdap) 12/02/2033 12/03/2023 RSV Patients and Patients Aged 60 years or older (1 - 1-dose 75+ series) 2053 Hepatitis C Screening Completed 03/16/2022 Pneumococcal Vaccine: Pediatrics (0 to 5 Years) and At-Risk Patients (6 to 49) Years) Completed 09/03/2022 HIB Vaccines Aged Out No longer eligi ble based on patient's age to complete this topic HPV Vaccines Aged Out No longer eligi ble based on patient's age to complete this topic Hepatitis A Vaccines Aged Out No long er eligible based on patient's age to complete this topic IPV Vaccines Aged Out No longer eligi ble based on patient's age to complete this topic Meningococcal Vaccine Aged Out No chalino wagner eligible based on patient's age to complete this topic RSV under 20 months Aged Out No longe r eligible based on patient's age to complete this topic Rotavirus Vaccines Aged Out No longer eligible based on patient's age to complete this topic Goals Goal Patient Goal Type Associated Problems Recent Progress Patient-Stated? Author Blood Pressure < 140/90 Blood Pressure 128/78( 024 10:22 AM EST) Derrek Mccormick, Susan Procedures Procedure Name Priority Date/Time Associated Diagnosis Comments LIPID PANEL WITH REFLEX TO DIRECT LDL Routine 12/24/2023 3:47 PM EDT Essential hypertension BITEWING - SINGLE RADIOGRAPHIC IMAGE Routine 09/23/2023 8:15 AM EST ZZZ HISTORICAL HEPATITIS C AB W/REFL TO HCV RNA, QN, PCR Routine 03/16/2022 10:33 AM EDT PERIODIC ORAL EVALUATION - ESTABLISHED PATIENT Routine 04/26/2020 12:00 AM EDT HM COLONOSCOPY Routine 09/08/2019 PROPHYLAXIS - ADULT Routine 06/03/2019 1 2:00 AM EST INTRAORAL - COMPLETE SERIES OF RADIOGRAPHIC IMAGES Routine 03/06/2018 12:00 AM EDT from Last 3 Months or Most Recently Relevant to Health Maintenance Results * (ABNORMAL) Lipid Panel with Reflex to Direct LDL (12/24/2023 3:47 PM EDT) Triglycerides 143 <150 mg/dL [facility] Comment:Desirable Triglyceri de: less than 150 mg/dLBorderline High Triglyceride 150-199 mg/dLHigh Triglyceride: 200-499 mg/dLVery High Triglyceride: greater than or equal to 5OO mg/dL Cholesterol 248(H) <200 mg/dL [facility] Comment:Desirable Cholestero l: less than 200 mg/dLBorderline High Cholesterol: 200-239 mg/dLHigh Cholesterol: greater than 239 mg/dL LDL Cholesterol Calculated 161(H) <100 mg/dL [facility] Comment:Desirable LDL: less than 100 mg/dLNear Optimal/Above Optimal LDL: 110- 129 mg/dLBorderline High LDL: 130-159 mg/dLHigh LDL: 160-189 mg/dLVery High LDL: greater than or equal to 190 mg/dL HDL Cholesterol 59 >40 mg/dL [facility] Comment:Desirable HDL: great er than 40 mg/dL Note: This HDL assay may give artificially low results in patients with liver disease. Blood 12/24/2023 3:47 PM EDT 12/24/2023 6:02 PM EDT us Lily Lopez MD LAB BLOOD ORDERABLES Final Resul t Performing Organization Address [facility]/ZIP Co de Phone Number [facility] [address] [place] [address] [phone] * HEPATITIS C AB W/REFL TO HCV RNA, QN, PCR (03/16/2022 10:33 AM EDT) HEPATITIS C ANTIBODY NON-REACT ANNALISE NON-REACT ANNALISE [facility] INDEX 0.04 <1.00 [facility] Comment: ?? HCV antibody was non-reactive. There is no laboratory ?? evidence of HCV infection. ?? In most cases, no further action is required. However, if recent HCV exposure is suspected, a test for HCV RNA (test code 21513) is suggested. ?? For additional information please refer to http://education.Love [employer] Food.Legal Egg/faq/KJN25v0 (This link is being provided for informational/ educational purposes only.) ?? 03/16/2022 10:3 3 AM EDT us Ricky Carrillo MD HISTORICAL/NON ORDERA BLE LABS Final Result Performing Organization Address City/[facility]/ZIP Co de Phone Number [facility] [address] [place], [place] [address] * (ABNORMAL) Colonoscopy (09/08/2019) Colonoscopy Abnormal(A ) Normal Historical Provider MD HEALTH MAINTENANCE Final Result from Last 3 Months or Most Recently Relevant to Health Maintenance Insurance [facility] Care Teams Singing Telegram Performer Relationship Specialty Start Date End Date Lily Lopez MD [address] [place], [place] [phone] PCP - General Family Medicine 06/14/22 Derrek Bob, BrooksD [address] [place] [address] Pharmacist Internal Medicine 01/04/23
--- OUTSIDE RECORDS SUMMARY | 2024-09-18 09:21 | XMS_ITS | Encounter Summary ---
Author Organization [employer] Address [address] [facility] [address] [place] [address] Care Team Providers Care Product Development Coordinator Name Role Phone Lily Lopez MD Primary Care Provider [phone] Derrek Bob PharmD Unavailable [phone] Encounter Details Date Type Department Care Team (Late st Contact Info) Description 11/22/2023 Orders Only [facility] [address] [place], [place] [phone] Lily Lopez MD [address] [place], [place] [phone] Social History Tobacco Use Types Packs/Day Years [...] documented as of this encounter Care Teams Product Development Coordinator Relationship Specialty Start Date End Date Lily Lopez MD [address] [place] [address] PCP - General Family Medicine 06/14/22 Derrek Bob, PharmD [address] [place] [address] Pharmacist Internal Medicine 01/04/23 documented as of this encounter
--- OUTSIDE RECORDS SUMMARY | 2024-09-18 09:21 | XMS_ITS | Encounter Summary ---
Author Organization [employer] Address [address] [facility] [address] [place] [address] Care Team Providers Care Medical Claims Manager Name Role Phone Lily Lopez MD Primary Care Provider [phone] Derrek Bob PharmD Unavailable [phone] Encounter Details Date Type Department Care Team ([facility] st Contact Info) Description 01/14/2024 Orders Only [facility] [address], [place] [phone] Cinda Sanchez MD [address] [place] [address] Bicipital tendonitis of right shoulder (Primary Dx) Social History Tobacco Use Types Packs/Day Years Used Date Smoking Tobacco: Never Passive Smoke Exposure: Never Smokeless Tobacco: Never Alcohol Use Standard Drinks/Week Comments Not Currently 0 (1 standard drink = 0.6 oz pur e alcohol) Depression Answer Date Recorded Patient Health Questionnaire-9 Score 6 12/03/2023 Patient Health Questionnaire-9 Score 6 12/03/2023 Last PHQ-9: Questionnaire Data Not on file 0 12/03/2023 Housing Stability Answer Date Recorded What is [...] Answer Date Recorded Patient Health Questionnaire-2 Score 2 12/03/2023 Sex and Gender Information Value Date Recorded [...] as of this encounter Visit Diagnoses Diagnosis Bicipital tendonitis of right shoulder- Primary documented in this encounter Additional Health Concerns Assessment Noted Time PHQ-9 Depression Total Score: 6 12/03/19 24 1:44 PM EDT documented as of this encounter Care Teams Medical Claims Manager Relationship Specialty Start Date End Date Lily Lopez MD [address] [place] [address] PCP - General Family Medicine 06/14/22 Derrek Bob, PharmD [address] [place] [address] Pharmacist Internal Medicine 01/04/23 documented as of this encounter
== END 2024-09-18 09:40 | disposition home or self-care (01) ==
PROVIDERS: Visit Provider Nurse Practitioner Family
DX: I25.118 Atherosclerotic heart disease of native coronary artery with other forms of angina pectoris (principal); I10 Essential (primary) hypertension; F32.A Depression, unspecified; F41.9 Anxiety disorder, unspecified
CPT/HCPCS: 93010; 99214; G2211

== ENCOUNTER → 2024-09-18 08:57 | Outpatient (BNVA) | payer OTHER, SELFPAY | PROVIDERS: Visit Provider Nurse Practitioner Family | DX: I25.118 Atherosclerotic heart disease of native coronary artery with other forms of angina pectoris (principal); I10 Essential (primary) hypertension; F32.A Depression, unspecified; F41.9 Anxiety disorder, unspecified; R94.31 Abnormal electrocardiogram [ECG] [EKG] | CPT/HCPCS: 93005; 99212 ==

== ENCOUNTER 2025-01-28 08:10 | Outpatient (REF) | payer OTHER, SELFPAY ==
--- OUTSIDE RECORDS SUMMARY | 2025-01-28 08:14 | XMS_ITS | Encounter Summary ---
Author Organization [employer] Address [address] [facility] [address] [place] [address] Care Team Providers Care Nuclear Weapons Custodian Name Role Phone Lily Lopez MD Primary Care Provider [phone] Derrek Bob PharmD Unavailable [phone] Encounter Details Date Type Department Care Team (Late st Contact Info) Description 11/22/2023 Orders Only [facility] [address] [place], [place] [phone] Lily Lopez MD [address] [place], [place] [phone] Social History Tobacco Use Types Packs/Day Years [...] as of this encounter Plan of Treatment Upcoming Encounters Date Type Department Care Team (Late st Contact Info) Description 02/12/2025 9:00 AM EDT Telemedicine [facility] [address] [place] [address] Derrek Bob PharmD [address] [place] [address] documented as of this encounter Goals Goal Patient Goal Type Associated Problems Recent Progress Patient-Stated? Author Blood Pressure < 140/90 Blood Pressure 129/97( 025 10:21 AM EDT) No Derrek Bob, Susan documented as of this encounter Visit Diagnoses Not on filedocumented in this encounter Additional Health Concerns Assessment Noted Time PHQ-9 Depression Total Score: 18 023 2:57 PM EST documented as of this encounter Care Teams Nuclear Weapons Custodian Relationship Specialty Start Date End Date Lily Lopez MD [address] [place] [address] PCP - General Family Medicine 06/14/22 Derrek Bob, PharmD [address] [place] [address] Pharmacist Internal Medicine 01/04/23 documented as of this encounter
--- OUTSIDE RECORDS SUMMARY | 2025-01-28 08:15 | XMS_ITS | Data Portability ---
Author Organization [employer] [place] [facility] [facility] Address [address] [place] [address] Assessment Encounter Date Assessment Date Assessment LastModified by Organization Details LastModified Time 11/02/2022 11/02/2022 Called to kiraal a 42 y/o m w HTN, OA vs. [...] Available 2022 15:52:12 Result Notes None recorded. Medical Equipment None Reported. [...] /min 130 mm[Hg] 80 mm[Hg] Not Available [facility] [employer] 3 16:48:37 Date Recorded Respiratory rate Body [...] Details Last Updated DateTime 3 18 /min 75822.8 48 g 99 % 99 % 66 /min 99 % 99 % 18394.8 48 g 18 /min 66 /min 18 /min 33043.8 48 g 66 /min 99 % 99 % 149 mm[Hg] 95 mm[Hg] 149 mm[Hg] 95 mm[Hg] Not Available [employer] 3 11:02:42 Social History None recorded. Functional Status None recorded. Mental Status None recorded. Family History Nothing Reported. Medical History No medical history recorded. Past Encounters Encounter ID Performer Location Encounter Start Date Encounter Closed Date Diagnosis/Indication Diagnosis SNOMED-CT Code Diagnosis ICD10 Code Diagnosis Note [id number] Jazmyne Ruiz MD [facility] [address] [place] [phone] 11/01/2022 16:48:35 11/05/2022 10:14:33 Pain of right hip joint 9840806647 64315 M25.551 As noted, we were called to see this patient regarding concerns of hip and back pain. Evaluation in the field was performed by my swimming coach colleague, as noted above, I provided real-time [...] bladder [id number] Nita Lyman MD [facility] [address] [place] [phone] 11/02/2022 10:37:18 11/02/2022 13:17:46 Health Concerns Section Related Observation LastModified by Organization Detai ls LastModified Time None Recorded Concern Status LastModified by Organization Details LastModified Time None Recorded Advance Directives Directive None Recorded Payers Insurance Date Sequence Insurance Name Policy Number Policy Marie Covered Member ID Marie Member ID Guarantor Name 06/12/2023 1 [facility] - DOS PRIOR TO 2022 - DUAL ELIGIBLE (MEDICARE REPLACEMENT/ADV ANTAGE - HMO) Kosta Blackwood [id number] Kosta greene 11/22/2023 1 [facility] - DOS ON OR AFTER 2022 - DUAL ELIGIBLE - CARE HOME OPTIONS AND ONE CARE (MEDICARE REPLACEMENT/ADV ANTAGE - HMO) Kosta Blackwood [id number] Kosta greene Notes Date Note Type Note Provider Name [...] no kidney issues Jazmyne Ruiz MD [address] [facility],[address], [place], [address], [place] - [employer] 11/01/2022 16:52:53 11/02/2022 text/html CRC Nursing Assessment: [...] .................. .................. .................. .................. .................. .................. ............... Medical Cost Consultant Note From Tommy Davis: 42 YOM presents alert, no distress, vitals ok, limping around his apartment favoring the left side. Pt c/o one week of left sided sciatic nerve pain. Pt seen by [facility] yesterday, recieved 30 mg IM ketorolac, and [...] .................. ............... Disposition: Fulfilled Nita Lyman MD [address] [facility],[address], [place], [address], [place] - BETSY ACOSTA 11/02/2022 13:17:45
[2025-01-28 11:51] LABS: Alanine Aminotransferase 37 U/L (0-40); Albumin Level 4.6 g/dL (3.5-5.0); Alkaline Phosphatase 75 U/L (39-117); Anion Gap 11 (12-20); Aspartate Amino Transferase 30 U/L (5-37); Blood Urea Nitrogen 21 mg/dL (9-16); Calcium 9.2 mg/dL (8.4-10.2); Carbon Dioxide 29 mmol/L (22-29); Chloride 105 mmol/L (96-108); Cholesterol 176 mg/dL (<200); Estimated Glomerular Filt Rate > 60; HDL Cholesterol 52 mg/dL (>40); Potassium 4.5 mmol/L (3.3-5.1); Sodium 140 mmol/L (135-145); Total Protein 7.0 g/dL (6.5-8.0); Triglycerides 109 mg/dL (<150)
== END 2025-01-28 08:11 | disposition home or self-care (01) ==
LOC: HO.HHCL 08:10
PROVIDERS: PCP Family Medicine; Visit Provider Family Medicine
DX: I10 Essential (primary) hypertension (principal)
CPT/HCPCS: 36415; 80048; 80061; 80076

== ENCOUNTER 2025-02-04 08:12 | Outpatient (AMB) | payer OTHER, SELFPAY ==
--- OUTSIDE RECORDS SUMMARY | 2025-02-04 08:19 | XMS_ITS | Encounter Summary ---
Author Organization [employer] Address [address] [facility] [address] [place] [address] Care Team Providers Care Coastal/Harbor Defense Officer Name Role Phone Lily Lopez MD Primary Care Provider [phone] Derrek Bob PharmD Unavailable [phone] Encounter Details Date Type Department Care Team (Late st Contact Info) Description 11/22/2023 Orders Only [facility] [address] [place], [place] [phone] Lily Lopez MD [address] [place], [place] [phone] Social History Tobacco Use Types Packs/Day Years [...] Info) Description 02/12/2025 9:00 AM EDT Telemedicine [facility] [address] [place] [address] Derrek Bob PharmD [address] [place] [address] documented as of this encounter Goals Goal [...] documented as of this encounter Care Teams Coastal/Harbor Defense Officer Relationship Specialty Start Date End Date Lily Lopez MD [address] [place] [address] PCP - General Family Medicine 06/14/22 Derrek Bob, PharmD [address] [place] [address] Pharmacist Internal Medicine 01/04/23 documented as of this encounter
--- OUTSIDE RECORDS SUMMARY | 2025-02-04 08:19 | XMS_ITS | Data Portability ---
Author Organization [employer] [place] [employer] [facility] Address [address] [place] [address] Assessment Encounter Date Assessment Date Assessment LastModified [...] blood by Pulse oximetry Heart rate Systolic And Diastolic Provider Name and Address Organization Details Last Updated DateTime 3 18 /min 98.1 [degF] 99 % 99 % 74 /min 130/80 mm[Hg] Not Available [facility] 3 16:48:37 Date Recorded Respiratory rate Body weight Oxygen saturation Oxygen saturation in Arterial blood by Pulse oximetry Heart rate Oxygen saturation Oxygen saturation in Arterial blood by Pulse oximetry Body weight Respiratory rate Heart rate Respiratory rate Body weight Provider Name and Address Organization Details Last Updated DateTime 3 18 /min 27756.8 48 g 99 % 99 % 66 /min 99 % 99 % 17495.8 48 g 18 /min 66 /min 18 /min 16747.8 48 g Not Available [facility] 3 11:02:42 Date Recorded Heart rate Oxygen saturation Oxygen saturation in Arterial blood by Pulse oximetry Systolic And Diastolic Systolic And Diastolic Provider Name and Address Organization Details Last Updated DateTime 3 66 /min 99 % 99 % 149/95 mm[Hg] 149/95 mm[Hg] Not Available [facility] 3 11:02:42 Social History None recorded. Functional Status None recorded. Mental Status None recorded. Family History Nothing Reported. Medical History No medical history recorded. Past Encounters Encounter ID Performer Location Encounter Start Date Encounter Closed Date Diagnosis/Indication Diagnosis SNOMED-CT Code Diagnosis ICD10 Code Diagnosis Note [id number] Jazmyne Ruiz MD [facility] [address] [place] [phone] 11/01/2022 16:48:35 11/05/2022 10:14:33 Pain of right hip joint [id number] 03058 M25.551 As noted, we were called to see this patient regarding concerns of hip and back pain. Evaluation in the field was performed by my crester colleague, as noted above, I provided real-time [...] [id number] Nita Lyman MD [facility] [address] [place] [phone] 11/02/2022 10:37:18 11/02/2022 13:17:46 Health Concerns Section Related Observation LastModified by Organization Detai ls LastModified Time None Recorded Concern Status LastModified by Organization Details LastModified Time None Recorded Advance Directives Directive None Recorded Payers Insurance Date Sequence Insurance Name Policy Number Policy Marie Covered Member ID Marie Member ID Guarantor Name 06/12/2023 1 [facility] - DOS PRIOR TO 2022 - DUAL ELIGIBLE (MEDICARE REPLACEMENT/ADV ANTAGE - HMO) Kosta Blackwood [id number] Kosta greene 11/22/2023 1 [facility] - DOS ON OR AFTER 2022 - DUAL ELIGIBLE - ASSISTED OPTIONS AND ONE CARE (MEDICARE REPLACEMENT/ADV ANTAGE - HMO) Kosta Blackwood [id number] Kosta greene Notes Date Note Type Note [...] that is intermittent for over a week.add'l [facility] history: RIGHT hip pain. no kidney issues Jazmyne Ruiz MD [address] [facility],[address], [place], [address], [place] - [employer] 11/01/2022 16:52:53 11/02/2022 text/html CRC Nursing Assessment: Chief Complaints: Pain PMH: Hypertension Allergies: Unknown Comments: REvisit per [facility] to recheck creatinine and LFTS Member received [...] .................. .................. .................. .................. .................. .................. ............... Metal Storage Worker Note From Tommy Davis: 42 YOM presents [...] .................. ............... Disposition: Fulfilled Nita Lyman MD [address] [place] [address],[address] [facility], [place], [address], BETSY WU 11/02/2022 13:17:45
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
[2025-02-04 08:26] VITALS: BP 124/79; PULSE 63; BMI 30.2
== END 2025-02-04 09:15 | disposition home or self-care (01) ==
LOC: HO.HGI 08:13
PROVIDERS: Visit Provider Internal Medicine Gastroenterology
DX: Z87.19 Personal history of other diseases of the digestive system (principal); Z86.19 Personal history of other infectious and parasitic diseases; K52.9 Noninfective gastroenteritis and colitis, unspecified; K21.9 Gastro-esophageal reflux disease without esophagitis; R13.14 Dysphagia, pharyngoesophageal phase; Z86.0100 Personal history of colon polyps, unspecified
CPT/HCPCS: 99214

== ENCOUNTER → 2025-02-04 08:12 | Outpatient (BNVA) | payer OTHER, SELFPAY | PROVIDERS: Visit Provider Internal Medicine Gastroenterology | DX: K21.9 Gastro-esophageal reflux disease without esophagitis (principal); K52.9 Noninfective gastroenteritis and colitis, unspecified; R13.14 Dysphagia, pharyngoesophageal phase; Z87.19 Personal history of other diseases of the digestive system; Z86.19 Personal history of other infectious and parasitic diseases; Z86.0100 Personal history of colon polyps, unspecified | CPT/HCPCS: 99212 ==

== ENCOUNTER 2025-02-08 11:23 | Outpatient (REF) | payer OTHER, SELFPAY ==
--- OUTSIDE RECORDS SUMMARY | 2025-02-08 12:32 | XMS_ITS | Encounter Summary ---
Author Organization [employer] Address [address] [place] [address] Care Team Providers Care Phys Ther Name Role Phone Lily Lopez MD Primary Care Provider [phone] Derrek Bob PharmD Unavailable Encounter Details Date Type Department Care Team (Late st Contact Info) Description 11/22/2023 Orders Only [facility] [address], [place] [phone] Lily Lopez MD [address] [place], [place] [phone] Social History Tobacco Use Types Packs/Day Years [...] 02/12/2025 9:00 AM EDT Telemedicine [facility] [address] [place] [address] Derrek Bob PharmD [address] [place] [address] documented as of this encounter Goals Goal [...] documented as of this encounter Care Teams Phys Ther Relationship Specialty Start Date End Date Lily Lopez MD [address] [place] [address] PCP - General Family Medicine 06/14/22 Derrek Bob, PharmD [address] [place] [address] Pharmacist Internal Medicine 01/04/23 documented as of this encounter
--- OUTSIDE RECORDS SUMMARY | 2025-02-08 12:32 | XMS_ITS | Data Portability ---
Author Organization [employer] [facility] Address [address] [place] [address] Assessment Encounter Date Assessment Date Assessment LastModified [...] % 74 /min 130/80 mm[Hg] Not Available [employer] 3 16:48:37 Date Recorded Respiratory rate Body weight Oxygen saturation Oxygen saturation in Arterial blood by Pulse oximetry Heart rate Oxygen saturation Oxygen saturation in Arterial blood by Pulse oximetry Body weight Respiratory rate Heart rate Respiratory rate Body weight Provider Name and Address Organization Details Last Updated DateTime 3 18 /min 19707.8 48 g 99 % 99 % 66 /min 99 % 99 % 52634.8 48 g 18 /min 66 /min 18 /min 22967.8 48 g Not Available [employer] 3 11:02:42 Date Recorded Heart rate Oxygen saturation Oxygen saturation in Arterial blood by Pulse oximetry Systolic And Diastolic Systolic And Diastolic Provider Name and Address Organization Details Last Updated DateTime 3 66 /min 99 % 99 % 149/95 mm[Hg] 149/95 mm[Hg] Not Available [employer] 3 11:02:42 Social History None recorded. Functional Status None recorded. Mental Status None recorded. Family History Nothing Reported. Medical History No medical history recorded. Past Encounters Encounter ID Performer Location Encounter Start Date Encounter Closed Date Diagnosis/Indication Diagnosis SNOMED-CT Code Diagnosis ICD10 Code Diagnosis Note [id number] Jazmyne Ruiz MD [facility] [address] [place] [address] 11/01/2022 16:48:35 11/05/2022 10:14:33 Pain of right hip joint [id number] 46966 M25.551 As noted, we were called to see this patient regarding concerns of hip and back pain. Evaluation in the field was performed by my freelance graphic designer colleague, as noted above, I provided real-time [...] [id number] Nita Lyman MD [facility] [address] [place] [phone] 11/02/2022 10:37:18 11/02/2022 13:17:46 Health Concerns Section Related Observation LastModified by Organization Deta[employer] ls LastModified Time None Recorded Concern Status LastModified by Organization Details LastModified Time None Recorded Advance Directives Directive None Recorded Payers Insurance Date Sequence Insurance Name Policy Number Policy Marie Covered Member ID Marie Member ID Guarantor Name 06/12/2023 1 [facility] - DOS PRIOR TO 2022 - DUAL ELIGIBLE (MEDICARE REPLACEMENT/ADV ANTAGE - HMO) Kosta Blackwood [id number] Kosta greene 11/22/2023 1 [facility] - DOS ON OR AFTER 2022 - DUAL ELIGIBLE - SKILLED NURSING OPTIONS AND ONE CARE (MEDICARE REPLACEMENT/ADV ANTAGE - HMO) Kosta Blackwood [id number] Kosta greene Notes Date Note Type Note [...] that is intermittent for over a week.[place] [facility] [place]: [place] pain. no kidney issues Jazmyne Ruiz MD [address] [facility],[address], [place], [address], [place] - [employer] 11/01/2022 16:52:53 11/02/2022 text/html CRC Nursing Assessment: Chief Complaints: Pain PMH: Hypertension Allergies: Unknown Comments: [place] [facility] [place] and LFTS Member received [...] .................. .................. .................. .................. .................. .................. ............... Protective Services Officer Note From Tommy Davis: 42 YOM presents [...] .................. ............... Disposition: Fulfilled Nita Lyman MD [address] [place] [address],[address] [facility], [place], [address], BETSY WU 11/02/2022 13:17:45
[2025-02-08 13:03] LABS: CDiff Gene PCR NEGATIVE (Negative)
[2025-02-08 15:25] LABS: E. coli EAEC Not Detected (Not Detect.); E. coli EPEC Not Detected (Not Detect.); E. coli ETEC Not Detected (Not Detect.); E. coli STEC Not Detected (Not Detect.); Shigella sp./EIEC Not Detected (Not Detect.)
[2025-02-13 22:03] LABS: Calprotectin, Fecal 100 mcg/g
== END 2025-02-08 11:24 | disposition home or self-care (01) ==
LOC: HO.LNP 11:23
PROVIDERS: Visit Provider Internal Medicine Gastroenterology
DX: K52.9 Noninfective gastroenteritis and colitis, unspecified (principal)
CPT/HCPCS: 82656; 83993; 87177; 87209; 87493; 87507

== ENCOUNTER 2025-03-18 09:21 | Outpatient (AMB) | payer OTHER, SELFPAY ==
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
[2025-03-18 09:29] VITALS: BP 147/87; PULSE 98; O2SAT 98; BMI 31.2
== END 2025-03-18 10:05 | disposition home or self-care (01) ==
LOC: HO.HGI 09:22
PROVIDERS: Visit Provider Internal Medicine Gastroenterology
DX: Z87.19 Personal history of other diseases of the digestive system (principal); K52.9 Noninfective gastroenteritis and colitis, unspecified; K29.70 Gastritis, unspecified, without bleeding; B96.81 Helicobacter pylori [H. pylori] as the cause of diseases classified elsewhere; K21.9 Gastro-esophageal reflux disease without esophagitis; R13.14 Dysphagia, pharyngoesophageal phase; Z86.0100 Personal history of colon polyps, unspecified; K86.89 Other specified diseases of pancreas
CPT/HCPCS: 99214

== ENCOUNTER → 2025-03-18 09:21 | Outpatient (BNVA) | payer OTHER, SELFPAY | PROVIDERS: Visit Provider Internal Medicine Gastroenterology | DX: K21.9 Gastro-esophageal reflux disease without esophagitis (principal); R13.14 Dysphagia, pharyngoesophageal phase; K86.89 Other specified diseases of pancreas; Z86.0100 Personal history of colon polyps, unspecified; K29.70 Gastritis, unspecified, without bleeding; B96.81 Helicobacter pylori [H. pylori] as the cause of diseases classified elsewhere | CPT/HCPCS: 99212 ==

== ENCOUNTER 2025-03-23 08:28 | Outpatient (REF) | payer OTHER, SELFPAY ==
--- NOTE | ~2025-03-23 | XR_ITS ---
EXAMINATION: XR LUMBOSACRAL SPINE CLINICAL INFORMATION: low back pain COMPARISON: December 08, 2021, TECHNIQUE: Three views of the lumbosacral spine. FINDINGS: There are 5 nonrib-bearing lumbar segments. There is 11 degrees levoscoliosis. Physiologic wedging of T12 is stable. L1-2 demonstrates mild disc space narrowing with anterior osteophytes. L2-3 demonstrates grade 1 retrolisthesis, mild disc space during, and anterior osteophytes. L3-4 demonstrates moderate disc space narrowing with endplate sclerosis and osteophytes. There are also facet osteophytes. L4-5 demonstrates mild to moderate disc space narrowing with endplate sclerosis and osteophytes. There is facet sclerosis. L5-S1 demonstrates mild disc space narrowing with endplate osteophytes and facet sclerosis. Degenerative changes have increased since prior. XR/XR lumbar spine 2-3V IMPRESSION: Multilevel degenerative disc disease and facet osteoarthritis, increased since the prior. Electronically signed by: Pio Mills MD 03/23/2025 10:29 AM EDT
--- NOTE | ~2025-03-23 | XR_ITS ---
EXAMINATION: XR HIP, LEFT CLINICAL INFORMATION: PAIN COMPARISON: None available. TECHNIQUE: AP pelvis, and 2 views of the left hip. FINDINGS: No fracture, dislocation, or suspicious bone lesion. Normal bone mineralization. Normal alignment. Normal acetabular coverage bilaterally. Normal femoral head contours without evidence of AVN. Joint spaces are preserved. No significant arthropathy. Soft tissues appear normal. XR/XR hip LT w PEL1V IMPRESSION: Normal left hip. Electronically signed by: Arya Landry MD 03/23/2025 10:24 AM EDT
--- OUTSIDE RECORDS SUMMARY | 2025-03-23 08:41 | XMS_ITS | Encounter Summary ---
Author Organization [employer] Address [address] [facility] [address] [facility] [address] [place] [address] Care Team Providers Care Research Assistant Member Name Role Phone Lily Lopez MD Primary Care Provider [phone] Derrek Bob PharmD Unavailable [phone] Encounter Details Date Type Department Care Team (Late st Contact Info) Description 01/14/2024 Orders Only [facility] [address] [place], [place] [phone] Cinda Sanchez MD [address] [place], [place] [phone] Bicipital tendonitis of right shoulder (Primary Dx) [...] Care Team (Late st Contact Info) Description 05/21/2025 9:00 AM EDT Telemedicine [facility] [address] [place] [phone] Derrek Bob PharmD [address] [place] [phone] documented as of this encounter Goals Goal Patient Goal Type Associated Problems Recent Progress Patient-Stated? Author Blood Pressure < 140/90 Blood Pressure 124/78( 025 11:24 AM EDT) No Derrek Bob, Susan documented as of this encounter Visit Diagnoses Diagnosis Bicipital tendonitis of right shoulder- Primary documented in this encounter Additional Health Concerns Assessment Noted Time PHQ-9 Depression Total Score: 6 12/03/19 24 1:44 PM EDT documented as of this encounter Care Teams Research Assistant Member Relationship Specialty Start Date End Date Lily Lopez MD [address] [place] [id number] PCP - General Family Medicine 06/14/22 Derrek Bob, BrooksD [address] [place] [phone] Pharmacist Internal Medicine 01/04/23 documented as of this encounter
--- OUTSIDE RECORDS SUMMARY | 2025-03-23 08:41 | XMS_ITS | Encounter Summary ---
Author Organization [employer] Address [address] [place] [address] Care Team Providers Care Farm Machinery Mechanic Name Role Phone Lily Lopez MD Primary Care Provider [phone] Derrek Bob PharmD Unavailable [phone] Reason for Visit * Reason Comments Med Refill Encounter Details Date Type Department Care Team ([facility] st Contact Info) Description 06/29/2023 Refill [facility] [address] [place] [address] Ly Mckeon MD [address] [place] [address] Social History Tobacco Use Types Packs/Day Years [...] Info) Description 05/21/2025 9:00 AM EDT Telemedicine [facility] [address] [place] [address] Derrek Bob, Susan [address] [place] [address] documented as of this encounter Goals Goal Patient Goal Type Associated Problems Recent Progress Patient-Stated? Author Blood Pressure < 140/90 Blood Pressure 124/78( 025 11:24 AM EDT) No Derrek Bob, PharmD documented as of this encounter Visit Diagnoses Not on filedocumented in this encounter Additional Health Concerns Assessment Noted Time PHQ-9 Depression Total Score: 18 023 2:57 PM EST documented as of this encounter Care Teams Farm Machinery Mechanic Relationship Specialty Start Date End Date Lily Lopez MD [address] [place] [address] PCP - General Family Medicine 06/14/22 Derrek Bob, PharmD [address] [place] [phone] Pharmacist Internal Medicine 01/04/23 documented as of this encounter
--- OUTSIDE RECORDS SUMMARY | 2025-03-23 08:41 | XMS_ITS | Encounter Summary ---
Author Organization [employer] Address [address] [facility] [address] [place] [address] Care Team Providers Care Bank Representative Name Role Phone Lily Lopez MD Primary Care Provider [phone] Derrek Bob PharmD Unavailable [phone] Reason for Visit * Reason Onset Date Comments Appointment Request 05/15/2024 Encounter Details Date Type Department Care Team ([facility] Contact Info) Description 05/15/2024 Telephone [facility] [address] [place], [place] [phone] Lily Lopez MD [address] [place], [place] [phone] Appointment Request Social History Tobacco Use Types [...] documented in this encounter Plan of Treatment Upcoming Encounters Date Type Department Care Team (Late st Contact Info) Description 05/21/2025 9:00 AM EDT Telemedicine [facility] [address] [place] [address] Derrek Bob, PharmFredis [address] [place] [address] documented as of this encounter Goals Goal [...] documented as of this encounter Care Teams Bank Representative Relationship Specialty Start Date End Date Lily Lopez MD [address] [place] [address] PCP - General Family Medicine 06/14/22 Derrek Bob, PharmD [address] [place] [address] Pharmacist Internal Medicine 01/04/23 documented as of this encounter
--- OUTSIDE RECORDS SUMMARY | 2025-03-23 08:41 | XMS_ITS | Encounter Summary ---
Author Organization [employer] [facility] Address [address] [facility] [address] [place] [address] Care Team Providers Care Senior Portfolio Analyst Name Role Phone Graciela Rich MD Primary Care Provider Lily Sierra MD Primary Care Provider Derrek Bob PharmD Unavailable [phone] Encounter Details Date Type Department Care Team (Latest Contact Info) Description 06/03/2019 Abstract [facility] CONVERSIONS Dental, Provider, DDS Social History Tobacco [...] Info) Description 05/21/2025 9:00 AM EDT Telemedicine [facility] MED[facility]INE [address] [place] [address] Derrek Bob, PharmD [address] [place] [address] documented as of this encounter Visit Diagnoses Not on filedocumented in this encounter Care Teams Senior Portfolio Analyst Relationship Specialty Start Date End Date Graciela Rich MD PCP - General Family Medicine 02/27/22 06/13/22 Lily Lopez MD [address] [place] [address] PCP - General Family Medicine 06/14/22 Derrek Bob, PharmD [address] [place] [phone] Pharmacist Internal Medicine 01/04/23 documented as of this encounter
--- OUTSIDE RECORDS SUMMARY | 2025-03-23 08:41 | XMS_ITS | Encounter Summary ---
Author Organization [employer] Address [address] [facility] [address] [place] [address] Care Team Providers Care Curtain Stretcher Assembler Name Role Phone Lily Lopez MD Primary Care Provider [phone] Derrek Bob PharmD Unavailable [phone] Reason for Referral * Consultation (Routine) - Authorized Specialty Diagnoses / Procedures Referred By Contac t Referred To Contact Pharmacy Diagnoses Essential hypertension Moderate persistent asthma without complication Lily Lopez MD [address] [place] [id number] Phone: tel: fax: Referral ID Status Reason Start Date Expiration Date Visits Requested Visits Authorized [id number] Authorized Consult and Treat 06/09/2024 06/09/2025 6 6 Encounter Details Date Type Department Care Team (Late st Contact Info) Description 06/09/2024 Orders Only [facility] [address] [place] [phone] Lily Lopez MD [address] [place] [address] Essential hypertension (Primary Dx); Moderate persistent asthma [...] Info) Description 05/21/2025 9:00 AM EDT Telemedicine [facility] [address] [place] [address] Derrek Bob PharmD [address] [place] [address] Scheduled Referrals Name Type Priority Associated Diagnoses [...] documented as of this encounter Care Teams Curtain Stretcher Assembler Relationship Specialty Start Date End Date Lily oLpez MD [address] [place] [address] PCP - General Family Medicine 06/14/22 Derrek Bob, BrooksD [address] [place] [address] Pharmacist Internal Medicine 01/04/23 documented as of this encounter
--- OUTSIDE RECORDS SUMMARY | 2025-03-23 08:41 | XMS_ITS | Encounter Summary ---
Author Organization [employer] [facility] Address [address] [facility] [address] [place] [address] Care Team Providers Care Timekeeper Supervisor Name Role Phone Lily Lopez MD Primary Care Provider [phone] Derrek Bob PharmD Unavailable [phone] Reason for Visit * Reason Comments Med Refill Encounter Details Date Type Department Care Team (Late st Contact Info) Description 10/25/2022 Refill [facility] [address] [place], [place] [phone] Lily Lopez MD [address] [place], [place] [phone] Chronic low back pain, unspecified back pain [...] Info) Description 05/21/2025 9:00 AM EDT Telemedicine [facility] [address] [place] [address] Derrek Bob, PharmD [address] [place] [address] documented as of this encounter Visit Diagnoses Diagnosis Chronic low back pain, unspecified back pain laterality, unspecified whether sciatica present documented in this encounter Additional Health Concerns Assessment Noted Time PHQ-9 Depression Total Score: 18 023 2:57 PM EST documented as of this encounter Care Teams Timekeeper Supervisor Relationship Specialty Start Date End Date Lily Lopez MD [address] [place] [phone] PCP - General Family Medicine 06/14/22 Derrek Bob, PharmD [address] [place] [phone] Pharmacist Internal Medicine 01/04/23 documented as of this encounter
--- OUTSIDE RECORDS SUMMARY | 2025-03-23 08:41 | XMS_ITS | Clinical Summary ---
Author Organization [employer] Address [address] [place] [address] Care Team Providers Care Contact Worker Name Role Phone Jd Lopez MD Primary Care Provider [phone] Derrek Bob PharmD Unavailable [phone] Allergies Active Allergy Reactions Criticality Noted Date Comments Clonazepam Dizziness 11/01/2022 drowsiness Cyclobenzaprine 02/27/2022 Other reaction(s): erectile disfunction Ibuprofen Other 08/22/2022 Tramadol 08/22/2022 Chest pain Medications * This document contains information received from the source organization and may not represent a complete record from that organization. fluticasone (Flonase) 50 MCG/ACT nasal spray Administer 2 sprays into each nostril in the morning. Shake gently. Before first use, prime pump. After use, clean tip and replace cap. 16 g 2 07/02/20 23 Active omeprazole (PriLOSEC) [address] capsule TAKE 1 CAPSULE ORALLY 2 TIMES A DAY FOR H PYLORI GASTRITIS FOR 90 DAYS 08/22/19 24 Active Aspirin Low Dose 81 MG EC tabletIndication s:Essential hypertension Take 1 tablet by mouth once daily 90 tablet 3 04/20/20 24 Active rosuvastatin (Crestor) 20 MG tabletIndication s:Essential hypertension Take 1 tablet by mouth once daily 90 tablet 3 04/20/20 24 Active lidocaine-priloc oskar (Emla) 2.5-2.5 % creamIndications :Bicipital tendonitis of right shoulder APPLY TOPICALLY ONCE DAILY DIRECTED 30 g 1 10/02/19 25 Active metoprolol succinate XL (Toprol-XL) 25 MG 24 hr tabletIndication s:Essential hypertension TAKE 1 TABLET BY MOUTH EVERY MORNING 90 tablet 3 01/07/20 25 Active Blood Pressure Monitoring (Blood Pressure Kit) kitIndications:E ssential hypertension Use as directed daily 1 kit 01/16/20 25 Active albuterol (Ventolin HFA) 108 (90 Base) MCG/ACT inhalerIndicatio ns:Moderate persistent asthma without complication Inhale 2 puffs Every 4-6 hours as needed for wheezing or shortness of breath. 18 g 3 01/16/20 25 Active acetaminophen (Tylenol 8 Hour) 650 MG ER tablet Take 1 tablet by mouth every 8 (eight) hours if needed for pain. 02/05/20 25 Active FT Fiber Supplement 400 MG capsule Take 1 capsule by mouth 2 times daily. 02/05/20 25 Active gabapentin (Neurontin) 400 MG capsuleIndicatio ns:Chronic low back pain, unspecified back pain laterality, unspecified whether sciatica present TAKE 1 CAPSULE BY MOUTH AT BEDTIME 30 capsule 03/02/20 25 Active Diclofenac Sodium 1 % gel Apply to affected area once or twice daily as needed for pain 350 g 3 03/15/20 25 Active lidocaine (Lidoderm) 5 % patchIndications :Left hip pain,Midline low back pain, unspecified chronicity, unspecified whether sciatica present Apply 1 patch topically Once per day. Remove & discard patch within 12 hours or as directed by MD. 30 patch 11 03/15/20 25 Active gabapentin (Neurontin) 400 MG capsuleIndicatio ns:Chronic low back pain, unspecified back pain laterality, unspecified whether sciatica present TAKE 1 CAPSULE BY MOUTH AT BEDTIME 30 capsule 02/05/20 25 025 Discontinued Hospital, Clinic, or Other Facility Administered Medication Ordered Dose Route Frequency Start Date End Date Status ketorolac (Toradol) injection 30 mgIndications:Left hip pain 30 mg IM Once 03/15/2025 03/15/20 25 Ended Active Problems Problem Noted Date Diagnosed Date Dyslipidemia 03/19/2025 Assessment & Plan (03/19/2025 11:21 AM EDT): - current medication: rosuvastatin - last lipid profile 01/28/25 - continue working on lifestyle modification Severe anxiety 12/04/2024 Assessment & Plan (12/08/2024 8:56 AM EDT): During IBH Consult Kosta presenting with excessive worry/anxiety, difficulty controlling worry, anxiety/worry associated to restlessness and/or feeling keyed-up/On edge , easily fatigued , difficulty concentrating and/or mind going blank , irritability, and sleep disturbance difficulty falling asleep, and Fear ; for a period of 6-12 mo, for most or all symptoms in the context of family issues, financial concern, illness or family illness, and relationship issues. Pt with hx of Mood Disorder per his medical chart. Today she presented with anxiety sxs associated with his medical condition, unemployment, financial and relationship issues. Kosta was referred to [facility] for OP and psychiatry services. Printed out letter with agency information. We practiced grounding techniques to decrease his anxiety and provided empathic counseling approach. Class 1 obesity 03/15/2024 Assessment & Plan (03/19/2025 10:06 AM EDT): >>ASSESSMENT AND PLAN FOR OBESITY, MORBID (CMS/HCC) WRITTEN ON 03/20/2024 12:20 PM BY JD LOPEZ MD - lifestyle modifications Assessment & Plan (03/19/2025 10:06 AM EDT): - Continue working on lifestyle modifications. - Generic advice as below. Tailor for your unique body, character, and specific condition. Dietary Recommendations: Fruits, vegetables, whole grains, protein foods, and fat-free or low-fat dairy products are healthy choices. Eat different types of protein foods in your diet. This can include seafood, lean meats, poultry, beans, peas, lentils, nuts, seeds, soy products, and eggs. Limit foods and beverages higher in added sugars, saturated fat, and sodium. 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 Serra on 10/22/22 -MRI [...] right shoulder pain 11/01/2022 Assessment & Plan (03/19/2025 11:17 AM EDT): Most recent imaging: MRI of the right shoulder on 05/25/2024 1. Moderate to severe supraspinatus and infraspinatus tendinosis. Bursal surface fraying of the anterior supraspinatus tendon extending posteriorly into the intrasubstance of the junctional fibers and articular surface of the infraspinatus tendon. Overall the tearing measures 2.6 x 2.6 cm and contains a full-thickness component. Moderate subscapularis tendinosis. 2. poorly visualized biceps tendon with heterogenous thin fibers which could indicate a longitudinal partial tearing. 3. Severe AC osteoarthritis. Small subacromial spurs. 4. Irregular tearing through the periphery of the superior and posterior superior labrum. 5. Small glenohumeral joint effusion Degenerative arthritic changes right AC joint and glenohumeral joint. Continue APAP prn Following with [facility] Ortho. Last seen on 05/28/2024. Following with [facility] pain management. Last seen in June 2024. Received steroid injection to AC joint and supraspinatus tendon Given ketorolac injection today Assessment & Plan (03/20/2024 12:19 PM EDT): -05/22/22 Right shoulder MRI 1. Moderate supraspinatus, infraspinatus and subscapularis tendinosis. No focal rotator cuff tear is seen. 2. Superior and posterosuperior labral degeneration and probable tear. 3. Moderate to severe acromioclavicular arthritis. 4. Mild subacromial subdeltoid bursitis. -10/10/22 Right shoulder X-ray Degenerative arthritic changes right AC joint and glenohumeral joint. Continue APAP prn Following with [facility] Ortho. Last seen on 02/27/24. Recommended to check MRI status. Recommended to speak with [facility] regarding to [employer] service Assessment & Plan (01/28/2024 4:23 PM [...] like to change -patient was evaluated by [facility] today - patient would like to restart [...] -Pt has been on bupropion -Continue current [facility] Panic disorder 09/14/2022 Assessment & Plan (11/09/2022 6:04 AM EDT): -Previously prescribed Clonazepam and now wants to take another medication d/t affect of cognition to patient -Continue counseling as scheuled Assessment & Plan (09/14/2022 4:16 PM EST): -Agreed to continue clonazepam 0.5 mg daily prn History of tobacco use 09/14/2022 Assessment & Plan (03/19/2025 10:12 AM EDT): - Patient reports he is no longer smoking cigarette Assessment & Plan (11/01/2022 12:49 PM EDT): Patient reports he is no longer smoking -Continue bupropion Assessment & Plan (09/14/2022 4:18 PM EST): -Continue working on smoking cessation -Continue bupropion Chronic low back pain 09/02/2022 Assessment & Plan (03/19/2025 10:15 AM EDT): - Previously following with [facility] - Patient request ketorolac injection today. He was also interested in prednisone. Discussed about adverse effects of frequent different steroid use. Patient elected ketorolac injection only today and agreed to try physical therapy - Recommended to try diclofenac gel and lidocaine patch Assessment & Plan (11/01/2022 12:58 PM EDT): Following with [facility] -Interested in Toradol Injections; given pt the number to instED Patient would like to also take Prednisone for a few-days, agreed to Rx for a few days Assessment & Plan (09/14/2022 4:09 PM EST): -Hx back surgery -Agreed to prescribe toramadol 50 mg once at bedtime -Schedule CTS appt Mood disorder 09/02/2022 Assessment & Plan (03/19/2025 10:11 AM EDT): - PHQ-9 score 17 and MARYURI-7 score 14 in November 2024 - High level of anxiety, likely anxiety / depression, possibly bipolar - Likely ADHD - Previously connected with [facility] provider / [facility] - Patient is hesitant to try medication due to adverse reactions with several medications - Previously tried bupropion, which was initially effective, but his anxiety worsened - Previously on fluoxetine, which was discontinued for unclear reason - Previously on quetiapine, which was too sedating - Patient was seen by integrated behavioral health service clinician today; patient will be arranged for appointment with psychiatrist Assessment & Plan (01/31/2024 6:16 AM EDT): [...] anxiety / depression, possibly bipolar -connected with [facility] provider / [facility] -continue counseling / CBT -continue bupropion -continue judicious use of clonazepam; schedule [facility] [employer] agreement Coronary artery disease 09/02/2022 Assessment & Plan (03/19/2025 10:05 AM EDT): -Followed by [facility] cardiology, last seen in August 2024 -Very mild CAD -Avoid cardiotoxic substances (Hx cocaine use) -Continue working on lifestyle modifications -Continue ASA -continue metoprolol -previously on losartan, which was discontinued due to normal blood pressure with metoprolol only -continue rosuvastatin Assessment & Plan (03/20/2024 12:17 PM EDT): -Followed by [facility] cardiology -Very mild CAD -Avoid cardiotoxic substances (Hx cocaine use) -Continue working on lifestyle modifications -Continue ASA -continue metoprolol -continue losartan -continue atorvastatin Assessment & Plan (01/28/2024 4:22 PM EDT): -Followed by [facility] cardiology -Very mild CAD -Avoid cardiotoxic substances (Hx cocaine use) -Continue working on lifestyle modifications -Continue ASA -previously prescribed metoprolol succinate, but questionable adherence -continue losartan -Starting atorvastatin Assessment & Plan (11/09/2022 6:01 AM EDT): -Followed by [facility] cardiology -Very mild CAD -Avoid cardiotoxic substances (Hx cocaine use) -Continue working on lifestyle modifications -Continue ASA -previously prescribed metoprolol succinate, but questionable adherence -continue losartan -Consider statin Assessment & Plan (09/14/2022 4:13 PM EST): -Followed by [facility] cardiology -Very mild CAD -Avoid cardiotoxic substances (Hx cocaine use) -Continue working on lifestyle modifications -Continue ASA, metoprolol succinate -Consider statin -Adding ARB today Essential hypertension 09/02/2022 Assessment & Plan (03/19/2025 10:03 AM EDT): -Goal BP < 130/80 per ACC/AHA guideline (Treatment threshold >= 140/90 ) -BP almost at goal -Comanaged with machine puller and pharmacist -Following with [facility] cardiology, last seen in August 2024. -Continue working on lifestyle modifications -Continue metoprolol succinate 25 mg daily -Treatment history: --Previously on clonidine for both mental health and cardiovascular health. It was discontinued to simplify his medications --Previously on losartan which was discontinued due to erratic use of the medication -Avoid cardiotoxic drug use (he has not been using cocaine for long time) Assessment & Plan (03/20/2024 12:15 PM EDT): -Goal BP < 140/90 per JNC-8 and < 130/80 per ACC/AHA guideline (Treatment threshold >= 140/90 ) BP not at goal today. Not taking meds as prescribed. -Following with [facility] cardiology, last seen in Jul 2023 -Continue [...] Gastroesophageal reflux disease 09/02/2022 Assessment & Plan (03/15/2025 9:04 AM EDT): -s/p EGD / colonoscopy evaluation in October 2020, Positive H. Pylori and tubular adenoma of colon -s/p EGD on 09/06/22. Normal. Negative H. pylori -Continue omeprazole 20 mg daily Assessment & Plan (01/28/2024 2:17 PM EDT): [...] Encounters Date Type Department Care Team Description 03/16/2025 11:30 AM EDT Office Visit [facility] [address] [place] [address] eDnise Moreno, DDS Loss of retention of dental crown (Primary Dx) 03/15/2025 9:45 AM EDT Office Visit [facility] MED[facility] [address] [place] [address] Jd Lopez MD Essential hypertension (Primary Dx); Coronary artery disease involving [place] coronary artery of [place] heart without angina pectoris; Varicose veins of bilateral lower extremities with pain; Severe anxiety; History of tobacco use; Gastroesophageal reflux disease, unspecified whether esophagitis present; Left hip pain; Midline low back pain, unspecified chronicity, unspecified whether sciatica present; Dietary counseling; Exercise counseling; Class 1 obesity due to excess calories with serious comorbidity and body mass index (BMI) of 31.0 to 31.9 in adult; Obesity, morbid (CMS/HCC); Class 1 obesity; Mood disorder (CMS/HCC); Chronic right shoulder pain; Chronic right-sided low back pain, unspecified whether sciatica present; Confusion; Amnesia; Right hip pain; Dyslipidemia 03/15/2025 Travel 03/12/2025 Telephone [facility] [address] [place] [address] Jd Lopez MD chart prep 03/01/2025 Refill [facility] [address] [place] [address] Jd Lopez MD Chronic low back pain, unspecified back pain laterality, unspecified whether sciatica present 02/12/2025 9:00 AM EDT Telemedicine [facility] [address] [place] [address] Derrek Bob, BrooksD Essential hypertension (Primary Dx); Moderate persistent asthma without complication 02/04/2025 Refill [facility] [address] [place] [address] Jd Lopez MD Chronic low back pain, unspecified back pain laterality, unspecified whether sciatica present 01/28/2025 Orders Only [facility] [address] [facility] [place] [address] Jd Lopez MD 01/15/2025 Travel 01/05/2025 Refill [facility] [address] [place] [address] Jd Lopez MD Essential hypertension 01/01/2025 Refill [facility] [address] [place] [address] Marie Florian ANP Chronic low back pain, unspecified back pain laterality, unspecified whether sciatica present 12/30/2024 Telephone [facility] [address] [facility] [place] [address] Jd Lopez MD No Show 12/30/2024 Travel 12/29/2024 Telephone [facility] [address] [place] [address] Jd Lopez MD Chart Prep from Last 3 Months Immunizations Immunization Administration Dates Next Due Influenza injectable quadriv alent IIV4 with preservative 06/04/2019,05/06/2018 Influenza injectable quadrivalent preservative f ree 09/03/2022,04/23/2020 Pfizer Covid-19 Vaccine 12+ 12/03/2023 Pfizer Covid-19 Vaccine 12+ Bivalent 09/03/2022 Pneumococcal Conjugate PCV 20 09/03/2022 Tdap 07/07/2024,12/03/2023 Social History Tobacco Use Types Packs/Day Years Used Date Smoking Tobacco: Never Passive Smoke Exposure: Never Smokeless Tobacco: Never Tobacco Cessation:Counseling Given: Not Answered Alcohol Use Standard Drinks/Week Comments Not Currently 0 (1 standard drink = 0.6 oz pur e alcohol) Depression Answer Date Recorded Patient Health Questionnaire-9 Score 17 12/07/2024 Patient Health Questionnaire-9 Score 17 12/07/2024 Last PHQ-9: Questionnaire Data Not on file 0 12/07/2024 Housing Stability Answer Date Recorded What is your housing situation today? I have kellee leon 03/15/[address] you li ve. Do you have problems with any of the following? None of the above 03/15/2025 Food Insecurity Answer Date Recorded Within the past 12 months, y ou worried that your food would run out before you got money to buy more: Never True 03/15/2025 Within the past 12 months,th e food you bought just didn't last and you didn't have enough money to get more: Never True Transportation Answer Date Recorded In the past 12 months, has l ack of transportation kept you from medical appts, meetings, work or from getting things needed for daily living? No 03/15/2025 Utilities Answer Date Recorded In the past 12 months, has t he electric, gas, oil or water company threatened to shut off services in your home? No 03/15/2025 Depression Answer Date Recorded Patient Health Questionnaire-2 Score 4 12/07/2024 Internet Access Answer Date Recorded Internet Access Q1 Yes 03/15/2025 Internet Access Q2 Not on file 03/15/2025 Sex and Gender Information Value Date Recorded Sex Assigned at Male 05/28/2022 10:34 AM EDT Legal Sex Male 10:34 AM EDT Gender Identity Male 05/28/2022 10:34 AM EDT Sexual Orientation Straight 05/28/2022 10 :34 AM EDT Last Filed Vital Signs Vital Sign Reading Time Taken Comments Blood Pressure 124/78 03/16/2025 11:24 AM EDT Pulse 53 03/15/2025 9:50 AM EDT Temperature 36.9 C (98.4 F) 03/15/2025 9:50 AM EDT Respiratory Rate 20 03/15/2025 9:50 AM EDT Oxygen Saturation 99% 03/15/2025 9:50 AM EDT Inhaled Oxygen Concentration - - Weight 92.9 kg (204 lb 12.8 oz) 03/15/2025 9:50 AM EDT Height 172.7 cm (5' 8 ) 03/15/2025 9:50 AM EDT Body Mass Index 31.14 03/15/2025 9:50 AM EDT Plan of Treatment Upcoming Encounters Date Type Department Care Team (Late st Contact Info) Description 05/21/2025 9:00 AM EDT Telemedicine [facility] [address] [place] [address] Derrek Bob, PharmD [address] [place] [address] Health Maintenance Due Date Last Done Comments CT Colonography 1978 FIT DNA/Cologuard 1978 FIT 1978 FOBT 1978 HIV Screening 1978 Sigmoidoscopy 1978 Family Planning (PISQ) 1993 Dental Prophylaxis 12/03/2019 06/03/2019, 0 09/19/2018, 03/18/2018 Dental Oral Exam 10/25/2020 04/26/2020, , 03/06/2018 Dental X-Ray: Full Mouth 03/07/2021 03/06/2018 COVID-19 Vaccine ( season) 2024 12/03/2023, 09/03/2022, 12/08/2021, Additional history exists Colonoscopy 09/08/2024 09/08/2019 Colorectal Cancer Screening 09/08/2024 Dental X-Ray: Bitewings 09/24/2024 09/23/19 24, 04/13/2022, 02/02/2021, Additional history exists Influenza Vaccine (#1) 2025 3, 04/23/2020, 06/04/2019, Additional history exists Depression Monitoring 06/09/2025 12/07/2024, 025 Alcohol/Substance Use Screening 03/15/2026 03/15/2025 Disability Screening 03/15/2026 03/15/2025 SDOH Screening 03/15/2026 03/15/2025 Tobacco Screening 03/16/2026 03/16/2025 Zoster Vaccines (1 of 2) 2028 Lipid Panel 01/28/2030 01/28/2025, 11/27, 03/16/2022 DTaP/Tdap/Td Vaccines (3 - Td or Tdap) 07/07/2034 07/07/2024, 12/03/2023 RSV Patients and Patients Aged 60 years or older (1 - 1-dose 75+ series) 2053 Hepatitis C Screening Completed 03/16/2022 Pneumococcal Vaccine: Pediatrics (0 to 5 Years) and At-Risk Patients (6 to 49) Years Completed 09/03/2022 HIB Vaccines Aged Out No longer eligi ble based on patient's age to complete this topic HPV Vaccines Aged Out No longer eligi ble based on patient's age to complete this topic Hepatitis A Vaccines Aged Out No long er eligible based on patient's age to complete this topic Hepatitis B Vaccines Discontinued IPV Vaccines Aged Out No longer eligi ble based on patient's age to complete this topic Meningococcal B Vaccine Aged Out No l onger eligible based on patient's age to complete [...] 11:24 AM EDT) No Derrek Bob, PharmD Procedures Procedure Name Priority Date/Time Associated Diagnosis Comments CASE PRESENTATION, DETAILED AND EXTENSIVE TREATMENT PLANNING Routine 03/16/2025 11:30 AM EDT Loss of retention of dental crown PALLIATIVE (EMERGENCY) TREATMENT OF DENTAL PAIN - MINOR PROCEDURE Routine 03/16/2025 11:30 AM EDT Loss of retention of dental crown INTRAORAL - PERIAPICAL FIRST RADIOGRAPHIC IMAGE Routine 03/16/2025 11:30 AM EDT Loss of retention of dental crown 7 ROOT CANAL Routine 03/16/2025 12:00 AM EDT LIPID PANEL, STANDARD Routine 01/28/2025 8:15 AM EDT BASIC METABOLIC PANEL, FASTING Routine 01/28/2025 8:15 AM EDT HEPATIC FUNCTION PANEL Routine 01/28/2025 8:15 AM EDT BITEWING - SINGLE RADIOGRAPHIC IMAGE Routine 09/23/2023 [...] Relevant to Health Maintenance Results * (ABNORMAL) Basic Metabolic Panel, Fasting (01/28/2025 8:15 AM EDT) Sodium 140 135 - 145 mmol/L [facility] Potassium 4.5 3.3 - 5.1 mmol/L [facility] Chloride 105 96 - 108 mmol/L [facility] Carbon Dioxide 29 22 - 29 mmol/L [facility] Anion Gap 11(L) 12 - 20 [facility] Urea Nitrogen (BUN) 21(H) 9 - 16 mg/dL [facility] Creatinine, Serum 0.99 0.5 - 1.4 mg/dL [facility] Estimated Glomerular Filt Rate >60 [facility] Comment:Chronic Kidney Disea se: Estimated GFR < 60 mL/min/1.52w7Sivfau Kidney Disease: Estimated GFR < 15 mL/min/1.73m2 Glucose Fasting 105(H) 60 - 99 mg/dL [facility] Comment:A fasting glucose fr om 100-125 mg/dl is considered impaired(pre-diabetes). Calcium 9.2 8.4 - 10.2 mg/dL [facility] 01/28/2025 8:15 AM EDT 01/28/2025 11:02 AM EDT us Jd Lopez MD LAB BLOOD ORDERABLES Final Resul t Performing Organization Address [facility] Number [facility] [address] [place] [phone] * Hepatic Function Panel (01/28/2025 8:15 AM EDT) Pathologist [facility] Bilirubin, Total 0.4 0.0 - 1.0 mg/dL [facility] Bilirubin, Direct 0.2 0.0 - 0.5 mg/dL [facility] Aspartate Amino Transferase 30 5 - 37 U/L [facility] Alanine Aminotransferase 37 0 - 40 U/L [facility] Total Protein 7.0 6.5 - 8.0 g/dL [facility] Albumin Level 4.6 3.5 - 5.0 g/dL [facility] Alkaline Phosphatase 75 39 - 117 U/L [facility] 01/28/2025 8:15 AM EDT 01/28/2025 11:02 AM EDT Jd Lopez MD LAB BLOOD ORDERABLES Final Resul t Performing Organization Address [facility] Number [facility] [address] [place] [phone] * (ABNORMAL) Lipid Panel, Standard (01/28/2025 8:15 AM EDT) Triglycerides 109 <150 mg/dL [facility] Comment:Desirable Triglyceri de: less than 150 mg/dLBorderline High Triglyceride 150-199 mg/dLHigh Triglyceride: 200-499 mg/dLVery High Triglyceride: greater than or equal to 5OO mg/dL Cholesterol 176 <200 mg/dL [facility] Comment:Desirable Cholestero l: less than 200 mg/dLBorderline High Cholesterol: 200-239 mg/dLHigh Cholesterol: greater than 239 mg/dL LDL Cholesterol Calculated 103(H) <100 mg/dL [facility] Comment:Desirable LDL: less than 100 mg/dLNear Optimal/Above Optimal LDL: 110- 129 mg/dLBorderline High LDL: 130-159 mg/dLHigh LDL: 160-189 mg/dLVery High LDL: greater than or equal to 190 mg/dL HDL Cholesterol 52 >40 mg/dL [facility] Comment:Desirable HDL: great er than 40 mg/dL Note: This HDL assay may give artificially low results in patients with liver disease. 01/28/2025 8:15 AM EDT 01/28/2025 11:02 AM EDT us Jd Lopez MD LAB BLOOD ORDERABLES Final Resul t [facility] [address] [place] [phone] * HEPATITIS C AB W/REFL TO HCV RNA, QN, PCR (03/16/2022 10:33 AM EDT) HEPATITIS C ANTIBODY NON-REACT [facility] NON-REACT [facility] INDEX 0.04 <1.00 [facility] Comment: HCV antibody was non-reactive. There is no laboratory evidence of HCV infection. In most cases, no further action is required. However, if recent HCV exposure is suspected, a test for HCV RNA (test code 04613) is suggested. For additional information please refer to http://education.Defense Mobile/faq/RYB58z6 (This link is being provided for informational/ educational purposes only.) 03/16/2022 10:3 3 AM EDT Ricky Carrillo MD HISTORICAL/NON ORDERA BLE LABS Final Result [facility] [address] * (ABNORMAL) Colonoscopy (09/08/2019) Colonoscopy Abnormal(A ) Normal Historical Provider HEALTH MAINTENANCE Final Result from Last 3 Months or Most Recently Relevant to Health Maintenance Insurance [facility] < [address] [place] [address] Care Teams Contact Worker Relationship Specialty Start Date End Date Jd Lopez MD [address] [place] [address] PCP - General Family Medicine 06/14/22 Derrek Bob, BrooksD [address] [place] [address] [phone] Pharmacist Internal Medicine 01/04/23
--- OUTSIDE RECORDS SUMMARY | 2025-03-23 08:41 | XMS_ITS | Encounter Summary ---
Author Organization [employer] Address 75 [facility] 7t [place] [address] Care Team Providers Care Tank House Operator Helper Name Role Phone Lily Lopez MD Primary Care Provider [phone] Derrek Bob PharmD Unavailable [phone] Encounter Details Date Type Department Care Team (Late st Contact Info) Description 11/22/2023 Orders Only [facility] [address] [place], [place] [phone] Lily Lopez MD [address] [place], [place] [phone] Social History Tobacco Use Types Packs/Day Years [...] Info) Description 05/21/2025 9:00 AM EDT Telemedicine [facility] [address] [place] [address] Derrek Bob PharmD [address] [place] [address] documented as of this encounter Goals Goal [...] documented as of this encounter Care Teams Tank House Operator Helper Relationship Specialty Start Date End Date Lily Lopez MD [address] [place] [address] PCP - General Family Medicine 06/14/22 Derrek Bob, PharmD [address] [place] [address] Pharmacist Internal Medicine 01/04/23 documented as of this encounter
--- OUTSIDE RECORDS SUMMARY | 2025-03-23 08:41 | XMS_ITS | Encounter Summary ---
Author Organization [employer] Address 75 [facility] 7t [place] [address] Care Team Providers Care Oyster Planter Name Role Phone Lily Lopez MD Primary Care Provider [phone] Derrek Bob PharmD Unavailable [phone] Reason for Visit * Reason Comments Med Refill Encounter Details Date Type Department Care Team (Late st Contact Info) Description 09/08/2024 Refill [facility] 230 [place], [place] [phone] Gloria Monge MD [address] [place], [place] [phone] Chronic low back pain, unspecified back pain [...] Description 05/21/2025 9:00 AM EDT Telemedicine [facility] [address] [place] [address] Derrek Bob, PharmD [address] [place] [address] documented as of this encounter Goals Goal [...] documented as of this encounter Care Teams Oyster Planter Relationship Specialty Start Date End Date Lily Lopez MD [address] [place] [phone] PCP - General Family Medicine 06/14/22 Derrek Bob, PharmD [address] [place] [phone] Pharmacist Internal Medicine 01/04/23 documented as of this encounter
== END 2025-03-23 08:29 | disposition home or self-care (01) ==
LOC: HO.HHCX 08:28
PROVIDERS: PCP Family Medicine; Visit Provider Family Medicine
DX: M54.50 Low back pain, unspecified (principal); M25.552 Pain in left hip
CPT/HCPCS: 72100; 73502

== ENCOUNTER → 2025-03-23 08:53 | Outpatient (BNV) | payer OTHER, SELFPAY | PROVIDERS: PCP Family Medicine; Visit Provider Radiology Diagnostic Radiology | DX: M51.360 Other intervertebral disc degeneration, lumbar region with discogenic back pain only (principal); M25.552 Pain in left hip | CPT/HCPCS: 72100; 73502 ==

== ENCOUNTER 2025-04-14 11:19 | Emergency (ER) | payer OTHER, SELFPAY ==
--- NOTE | ~2025-04-14 | XR_ITS ---
EXAMINATION: XR LUMBOSACRAL SPINE CLINICAL INFORMATION: back pain COMPARISON: 03/23/2025, 12/08/2021. TECHNIQUE: Three views of the lumbosacral spine. FINDINGS: There is a mild levoconvex scoliosis, apex at L2. There is a normal lordosis. There are stable 3 mm degenerative retrolistheses L2 on L3, L3 on L4, and 2 mm of L4 on L5. There is no fracture, compression deformity, or suspicious bone lesion. Mild to moderate disc degeneration is present throughout, most severe at L5-S1. There is normal facet alignment. There is degenerative facet change most notable L4-S1. There is mild arthritic change of both SI joints. The sacrum is intact. There are no soft tissue abnormalities. XR/XR lumbar spine 2-3V IMPRESSION: 1. No acute findings 2. Mild to moderate degenerative spondylosis of the lumbar spine, unchanged from the prior exam. Electronically signed by: Arya Landry MD 04/14/2025 12:53 PM EDT
[2025-04-14 12:10] VITALS: BP 147/108; PULSE 85; RESP 16; TEMP 36.6; O2SAT 100; BMI 22.9
--- NOTE | 2025-04-14 13:21 | ED.GENADULT ---
HPI - General Adult General Chief complaint: Back Pain/Injury Stated complaint: back pain Time Seen by Provider: 04/14/25 12:15 Source: patient Mode of arrival: ambulatory History of Present Illness ED Provider: El Pena HPI narrative: 44 yold male presents to the ED for low back radaiting down left leg since yesterday. patient he slipped while chasing his son and pulled his back. patient denies flling to the ground or head trauma. patient states pmh of back pain Related Data Home Medications ?Medication ?Instructions ?Recorded ?Confirmed aspirin 81 mg tablet,delayed 81 mg PO DAILY 09/05/22 03/18/25 release blood pressure test kit-large #1 ea 08/22/23 03/18/25 loratadine 10 mg tablet 10 mg PO DAILY 08/22/23 03/18/25 famotidine 40 mg/5 mL (8 mg/mL) PO 02/27/24 03/18/25 oral suspension losartan 25 mg tablet 25 mg PO DAILY 02/27/24 03/18/25 rosuvastatin 20 mg tablet 20 mg PO BEDTIME 02/04/25 03/18/25 Previous Rx's ?Medication ?Instructions ?Recorded albuterol sulfate 90 mcg/actuation 1 inh inhalation QID PRN shortness 08/07/21 aerosol inhaler of breath or wheezing 30 days #6.7 grams metoprolol succinate 25 mg 25 mg PO DAILY #30 tabs 12/24/21 tablet,extended release 24 hr gabapentin 400 mg capsule 400 mg PO TID 30 days #90 caps 08/06/22 lidocaine 5 % topical patch 1 patch topical DAILY #15 ea 10/10/22 psyllium husk 0.4 gram capsule 0.4 g PO BID 30 days #60 caps 02/04/25 (Fiber (psyllium husk)) [id number] 1 cap PO TID 30 days #90 caps 02/15/25 10,000-32,000-42,000 unit capsule,delayed rel (Zenpep) omeprazole 20 mg tablet,delayed 20 mg PO BID h Pylori gastritis 90 02/25/25 release days #180 tabs acetaminophen 650 mg 650 mg PO Q8H PRN pain #30 tabs 03/18/25 tablet,extended release (Tylenol 8 Hour) oxycodone 5 mg capsule 5 mg PO Q8H PRN pain #9 caps 04/14/25 prednisone 20 mg tablet 40 mg (2 x 20 mg) PO DAILY 5 days 04/14/25 #10 tabs Allergies Allergy/AdvReac Type Severity Reaction Status Date / Time cyclobenzaprine (From Allergy Intermediate erectile Verified 04/14/25 12:14 Flexeril) dysfunction diclofenac (DICLOFENAC) Allergy Intermediate STOMACH Verified 04/14/25 12:14 CRAMP, diarrhea ibuprofen (From Motrin) Allergy Intermediate bloody Verified 04/14/25 12:14 stools duloxetine Allergy Mild erectily Verified 04/14/25 12:14 dysfunction Review of Systems Review of Systems: back pain Yes all other systems are reviewed and are negative [facility] Past Medical History Medical History Anxiety Foot pain, bilateral Foot pain, bilateral Left shoulder pain Right hip pain Polyarthralgia Moderate recurrent major depression Lumbar pain Left hip pain NAFL (nonalcoholic fatty liver) Right shoulder pain Asthma Past heart attack Lumbar radiculopathy Long-term use of aspirin therapy Current smoker HTN (hypertension) Hyperlipidemia CAD (coronary artery disease) Surgical History H/O colonoscopy History of endoscopy History of open reduction and internal fixation (ORIF) procedure S/P hernia surgery History of back surgery Family History Family History Father CVD (cardiovascular disease) Mother Diabetes Hypertension CVD (cardiovascular disease) Social History Social History Household Members: Children Housing: House Alcohol intake: never Patient Tobacco Use Status: Former Tobacco user Tobacco use type: Cigarette e-Cigarette/Vaping Use: Never Used Second Hand Smoke Exposure: No Substance Use Type: Marijuana Advance Directives: No Advance Directives Information Provided: No service: No Current occupational status: unemployed and disabled 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 Cognitive needs: No Hearing needs: No Vision needs: No Physical Exam ED Vital Signs: Vital Signs - 24 hr 04/14/25 12:10 04/14/25 14:21 Temperature 97.8 F 96.8 F Pulse Rate 85 62 Respiratory Rate 16 18 Blood Pressure 147/108 H 144/81 H Pulse Oximetry 100 99 Oxygen Delivery Method Room Air Room Air BMI result Body Mass Index 22.9 Const General: cooperative, healthy appearing, comfortable, no acute distress, well developed, alert, awake and Physically active Orientation/consciousness: patient oriented x3 [facility] Head: Yes normal to inspection, Yes No palpable skull fracture present, Yes normocephalic and Yes atraumatic Eyes General: appearance normal, both eyes and all related structures Neck Neck: Yes normal visual inspection, Yes full ROM, Yes no lymphadenopathy, Yes no meningeal signs, Yes trachea midline, Yes supple, No anterior neck swelling and No tender Chest Chest palpation & inspection: normal inspection of the chest and normal palpation of entire chest wall Resp Effort & Inspection: normal respiratory effort and able to speak in complete sentences Auscultation: clear to auscultation bilaterally Cardio Jugular venous distension: no JVD Heart sounds: S1 normal heart sound present and S2 normal heart sound present GI Inspection: Yes normal to inspection Palpation (GI): Soft to palpation, not firm, nontender, no guarding and not rigid General: Yes no CVA tenderness Back/Spine/Pelvis Back: no CVA tenderness and back tenderness (lumbar spine tenderness) Skin General skin exam: no rashes or lesions noted, elasticity normal and turgor normal Neuro General: patient oriented x3, gait normal, tone normal, moves all extremities, Normal light touch and pain sensation, no meningeal signs, no focal motor deficits and CN's II-XI intact bilaterally Extrem General: Yes normal to inspection, Yes full ROM and Yes capillary refill normal Psych Appearance: grossly normal, well kempt and not disheveled Medical Decision Making Medical Decision Making MDM Narrative: [age] year male presents to ED for left-sided back pain. Patient states yesterday last night his son was running and tried to linda after sun his left leg slipped which caused him to pull his back. Patient denies falling to the ground, hitting head or any other complaints/trauma. Patient denies any urinary/bowel incontinence. Patient denies any usually history of IV drug use or immunocompromise diseases. Patient well-appearing. We will discharge patient was oxycodone and steroid for x-ray of spondylosis. Not suspecting cauda equinus, epidural abscess, osteomyelitis, sepsis, any other life-threatening etiology Differential Diagnosis Differential Diagnoses: The differential diagnosis associated with the presentation includes (Fracture, arthritis, dislocation) Admission/Observation Consideration of admission/observation: Escalation of care including admission/observation considered Independent Interpretation I performed an independent interpretation of an: Plain X-Ray Radiology Impression Discussion of test interpretation with radiology: I have reviewed the radiologist's reading. Independent Historian Clinical information obtained from an independent historian. History obtained from or confirmed by: Other (patient) Prescription Management I considered prescription management with: Pain Medication Discharge Plan Discharge Clinical Impression: Spondylosis Patient Disposition: Home, Self-Care Instructions: Osteoarthritis (ED) Additional Instructions: Recommend follow-up with primary care provider. Return to the ED immediately for worsening back pain, abdominal pain, nausea, vomiting, flank pain, fever, chills, dysuria, hematuria, testicular pain, urinary/bowel incontinence, numbness/tingling, paralysis, or any other concerning symptoms. Ordering Physician: El Pena Date of Service: 04/14/25 Procedure(s): XR lumbar spine 2-3V Accession Number(s): [id number] cc: El Pena; Lily Lopez MD~ Reason for Exam: back pain EXAMINATION: XR LUMBOSACRAL SPINE CLINICAL INFORMATION: back pain COMPARISON: 03/23/2025, 12/08/2021. TECHNIQUE: Three views of the lumbosacral spine. FINDINGS: There is a mild levoconvex scoliosis, apex at L2. There is a normal lordosis. There are stable 3 mm degenerative retrolistheses L2 on L3, L3 on L4, and 2 mm of L4 on L5. There is no fracture, compression deformity, or suspicious bone lesion. Mild to moderate disc degeneration is present throughout, most severe at L5-S1. There is normal facet alignment. There is degenerative facet change most notable L4-S1. There is mild arthritic change of both SI joints. The sacrum is intact. There are no soft tissue abnormalities. XR/XR lumbar spine 2-3V IMPRESSION: 1. No acute findings 2. Mild to moderate degenerative spondylosis of the lumbar spine, unchanged from the prior exam. Electronically signed by: Arya Landry MD 04/14/2025 12:53 PM EDT Prescriptions: New prednisone 20 mg tablet 40 mg PO DAILY 5 Days Qty: 10 0RF oxycodone 5 mg capsule 5 mg PO Q8H PRN (Reason: pain) Qty: 9 0RF Rx Instructions: Partial Fill upon patient request. side effect is drowsiness. Do not take at home or while driving. No Action albuterol sulfate 90 mcg/actuation HFA aerosol inhaler 1 inh inhalation QID PRN (Reason: shortness of breath or wheezing) 30 Days Qty: 6.7 3RF metoprolol succinate 25 mg tablet extended release 24 hr 25 mg PO DAILY Qty: 30 4RF gabapentin 400 mg capsule 400 mg PO TID 30 Days Qty: 90 3RF Zenpep 10,000-32,000 -42,000 unit capsule,delayed release(DR/EC) 1 cap PO TID 30 Days Qty: 90 3RF Rx Instructions: administer with meals and/or snacks omeprazole 20 mg tablet,delayed release (DR/EC) 20 mg PO BID 90 Days Qty: 180 1RF lidocaine 5 % adhesive patch,medicated 1 patch topical DAILY Qty: 15 0RF Rx Instructions: leave on most painful area for up to 12 hrs aspirin 81 mg tablet,delayed release (DR/EC) 81 mg PO DAILY loratadine 10 mg tablet 10 mg PO DAILY (DME) blood pressure test kit-large Kit See Rx Instructions .ROUTE DAILY Qty: 1 Rx Instructions: As directed acetaminophen [Tylenol 8 Hour] 650 mg tablet extended release 650 mg PO Q8H PRN (Reason: pain) Qty: 30 3RF losartan 25 mg tablet 25 mg PO DAILY famotidine 40 mg/5 mL (8 mg/mL) suspension for reconstitution PO rosuvastatin 20 mg tablet 20 mg PO BEDTIME psyllium husk [Fiber (psyllium husk)] 0.4 gram capsule 0.4 g PO BID 30 Days Qty: 60 4RF Referrals: Matheus Cary MD, PhD [Physician, Neuro Spine] - 3 days Referral Note: Spondylosis back pain Clinical Impression: Spondylosis Lily Lopez MD [Primary Care Provider, Internal Medicine] - 2 days Referral Note: Chronic back pain exacerbation Clinical Impression: Spondylosis Stand Alone Forms: Work/School Release Interventions: ED Discharge Assessment Last Done: 04/14/25 14:21 Discharge Date/Time: 04/14/25 14:22 Print Language: Upper Sorbian
[2025-04-14 14:21] VITALS: BP 144/81; PULSE 62; RESP 18; TEMP 36; O2SAT 99
--- OUTSIDE RECORDS SUMMARY | 2025-04-14 17:00 | XMS_ITS | Encounter Summary ---
Author Organization [employer] Address 75 [facility] 7t [place] [address] Care Team Providers Care Specialty Molder Name Role Phone Lily Lopez MD Primary Care Provider [phone] Derrek Bob PharmD Unavailable [phone] Encounter Details Date Type Department Care Team (Late st Contact Info) Description 11/22/2023 Orders Only [facility] [address] [place], [place] [phone] Lily Lopez MD [address] [place], [place] [phone] Social History Tobacco Use Types Packs/Day Years [...] Info) Description 05/21/2025 9:00 AM EDT Telemedicine [facility] [address] [place] [address] [phone] Derrek Bob PharmD [address] [place] [phone] 06/01/2025 9:15 AM EST Office Visit [facility] [address] [place] [phone] Lily Lopez MD [address] [place] [phone] documented as of this encounter Goals Goal Patient Goal Type Associated Problems Recent Progress Patient-Stated? Author Blood Pressure < 140/90 Blood Pressure 124/78( 025 11:24 AM EDT) No Derrek Bob PharmD documented as of this encounter Visit Diagnoses Not on filedocumented in this encounter Additional Health Concerns Assessment Noted Time PHQ-9 Depression Total Score: 18 023 2:57 PM EST documented as of this encounter Care Teams Specialty Molder Relationship Specialty Start Date End Date Lily Lopez MD [address] [place] [address] [phone] PCP - General Family Medicine 06/14/22 Derrek Bob, BrooksD [address] [place] [address] [phone] Pharmacist Internal Medicine 01/04/23 documented as of this encounter
--- OUTSIDE RECORDS SUMMARY | 2025-04-14 17:00 | XMS_ITS | Encounter Summary ---
Author Organization [employer] Address 75 [facility] 7t [place] [address] Care Team Providers Care Meat And Seafood Manager Name Role Phone Lily Lopez MD Primary Care Provider [phone] Derrek Bob PharmD Unavailable [phone] Reason for Visit * Reason Onset Date Comments Appointment Request 05/15/2024 Encounter Details Date Type Department Care Team ([facility] Contact Info) Description 05/15/2024 Telephone [facility]INE [address] [place], [place] [phone] Lily Lopez MD 230 [place], [place] [phone] Appointment Request Social History Tobacco Use Types [...] Info) Description 05/21/2025 9:00 AM EDT Telemedicine [facility]INE [address] [place] [phone] Derrek Bob, PharmD [address] [place] [phone] 06/01/2025 9:15 AM EST Office Visit [facility] [address] [place] [phone] Lily Lopez MD [address] [place] [address] documented as of this encounter Goals Goal [...] documented as of this encounter Care Teams Meat And Seafood Manager Relationship Specialty Start Date End Date Lily Lopez MD [address] [place] [address] PCP - General Family Medicine 06/14/22 Derrek Bob, Susan [address] [place] [address] Pharmacist Internal Medicine 01/04/23 documented as of this encounter
--- OUTSIDE RECORDS SUMMARY | 2025-04-14 17:00 | XMS_ITS | Encounter Summary ---
Author Organization [employer] [facility] Address 75 [facility] 7t [place] [address] Care Team Providers Care Strategic Intelligence Officer Name Role Phone Graciela Rich MD Primary Care Provider Lily Sierra MD Primary Care Provider [phone] Derrek Bob PharmD Unavailable [phone] Encounter Details Date Type Department Care Team (Latest Contact Info) Description 06/03/2019 Abstract [facility] CONVERSIONS Dental, Provider, DDS Social History [...] Upcoming Encounters Date Type Department Care Team ( st Contact Info) Description 05/21/2025 9:00 AM EDT Telemedicine [facility]INE [address] [place] [phone] Derrek Bob, PharmD [address] [place] [address] 06/01/2025 9:15 AM EST Office Visit [facility] [address] [place] [phone] Lily Lopez MD [address] [place] [phone] documented as of this encounter Visit Diagnoses Not on filedocumented in this encounter Care Teams Strategic Intelligence Officer Relationship Specialty Start Date End Date Graciela Rich MD PCP - General Family Medicine 02/27/22 06/13/22 Lily Lopez MD 230 [place] [address] PCP - General Family Medicine 06/14/22 Derrek Bob PharmD 230 [place] [phone] Pharmacist Internal Medicine 01/04/23 documented as of this encounter
--- OUTSIDE RECORDS SUMMARY | 2025-04-14 17:00 | XMS_ITS | Encounter Summary ---
Author Organization [employer] Address 75 [facility] 7t [place] [address] Care Team Providers Care Material Handling Crew Supervisor Name Role Phone Lily Lopez MD Primary Care Provider [phone] Derrek Bob PharmD Unavailable [phone] Reason for Visit * Reason Comments Med Refill Encounter Details Date Type Department Care Team (Late st Contact Info) Description 09/08/2024 Refill [facility]INE 230 [place], [place] [phone] Gloria Monge MD 230 [place], [place] [phone] Chronic low back pain, unspecified back pain [...] Info) Description 05/21/2025 9:00 AM EDT Telemedicine [facility] MEDICINE [address] [place] [phone] Derrek Bob, PharmD [address] [place] [phone] 06/01/2025 9:15 AM EST Office Visit [facility] [address] [place] [address] Lily Lopez MD [address] [place] [phone] documented as of this encounter Goals Goal [...] documented as of this encounter Care Teams Material Handling Crew Supervisor Relationship Specialty Start Date End Date Lily Lopez MD [address] [place] [phone] PCP - General Family Medicine 06/14/22 Derrek Bob, PharmD 230 [place] [address] Pharmacist Internal Medicine 01/04/23 documented as of this encounter
--- OUTSIDE RECORDS SUMMARY | 2025-04-14 17:00 | XMS_ITS | Encounter Summary ---
Author Organization [employer] [facility] Address 75 [facility] 7t [place] [address] Care Team Providers Care Anaesthesiologist Name Role Phone Lily Lopez MD Primary Care Provider [phone] Derrek Bob PharmD Unavailable [phone] Reason for Visit * Reason Comments Med Refill Encounter Details Date Type Department Care Team (Late st Contact Info) Description 10/25/2022 Refill [facility] MED[facility]INE 230 [place], [place] [phone] Lily Lopez MD [address] [place], [place] [phone] Chronic low back pain, unspecified back pain [...] Info) Description 05/21/2025 9:00 AM EDT Telemedicine [facility] MED[facility]INE [address] [place] [phone] Derrek Bob, Susan [address] [place] [phone] 06/01/2025 9:15 AM EST Office Visit [facility] [address] [place] [phone] Lily Lopez MD [address] [place] [phone] documented as of this encounter Visit Diagnoses Diagnosis Chronic low back pain, unspecified back pain laterality, unspecified whether sciatica present documented in this encounter Additional Health Concerns Assessment Noted Time PHQ-9 Depression Total Score: 18 023 2:57 PM EST documented as of this encounter Care Teams Anaesthesiologist Relationship Specialty Start Date End Date Lily Lopez MD [address] [place] [phone] PCP - General Family Medicine 06/14/22 Derrek Bob, PharmD [address] [place] [phone] Pharmacist Internal Medicine 01/04/23 documented as of this encounter
--- OUTSIDE RECORDS SUMMARY | 2025-04-14 17:00 | XMS_ITS | Encounter Summary ---
Author Organization [employer] Address [address] [place] [address] Care Team Providers Care Non Destructive Tester Name Role Phone Lily Lopez MD Primary Care Provider [phone] Derrek Bob PharmD Unavailable [phone] Reason for Visit * Reason Comments Med Refill Encounter Details Date Type Department Care Team ([facility] st Contact Info) Description 06/29/2023 Refill [facility] [address] [place] [address] Ly Mckeon MD [address] [place] [address] Social History Tobacco Use Types Packs/Day Years [...] 05/21/2025 9:00 AM EDT Telemedicine [facility] [address] [place] [phone] Derrek Bob, PharmFredis [address] [place] [address] 06/01/2025 9:15 AM EST Office Visit [facility] [address] [place] [phone] Lily Lopez MD [address] [place] [phone] documented as of this encounter Goals Goal [...] documented as of this encounter Care Teams Non Destructive Tester Relationship Specialty Start Date End Date Lily Lopez MD [address] [place] [address] [phone] PCP - General Family Medicine 06/14/22 Derrek Bob, PharmD [address] [place] [address] [phone] Pharmacist Internal Medicine 01/04/23 documented as of this encounter
--- OUTSIDE RECORDS SUMMARY | 2025-04-14 17:00 | XMS_ITS | Encounter Summary ---
Author Organization [employer] Address [address] [facility] [address] [place] [address] Care Team Providers Care Surveillance Analyst Name Role Phone Lily Lpoez MD Primary Care Provider [phone] Derrek Bob PharmD Unavailable [phone] Encounter Details Date Type Department Care Team (Late st Contact Info) Description 04/14/2025 Abstract [facility] [address] [place], [place] [phone] Lily Lopez MD [address] [place], [place] [phone] Social History Tobacco Use Types Packs/Day Years [...] Info) Description 05/21/2025 9:00 AM EDT Telemedicine [facility] [address] [place] [phone] Derrek Bob, PharmD [address] [place] [phone] 06/01/2025 9:15 AM EST Office Visit [facility] [address] [place] [phone] Lily Lopez MD [address] [place] [phone] documented as of this encounter Goals Goal Patient Goal Type Associated Problems Recent Progress Patient-Stated? Author Blood Pressure < 140/90 Blood Pressure 124/78( 025 11:24 AM EDT) No Derrek Bob, PharmD documented as of this encounter Procedures Procedure Name Priority Date/Time Associated Diagnosis Comments COLONOSCOPY Routine 11/21/2020 7:00 PM EDT documented in this encounter Results * (ABNORMAL) Colonoscopy (11/21/2020 7:00 PM EDT) Colonoscopy Abnormal(A ) Normal Historical Provider HEALTH MAINTENANCE Final Result documented in this encounter Visit Diagnoses Not on filedocumented in this encounter Additional Health Concerns Assessment Noted Time PHQ-9 Depression Total Score: 17 025 9:16 AM EDT documented as of this encounter Care Teams Surveillance Analyst Relationship Specialty Start Date End Date Lily Lopez MD [address] [place] [address] PCP - General Family Medicine 06/14/22 Derrek Bob, Susan [address] [place] [address] Pharmacist Internal Medicine 01/04/23 documented as of this encounter
--- OUTSIDE RECORDS SUMMARY | 2025-04-14 17:00 | XMS_ITS | Encounter Summary ---
Author Organization [employer] Address [address] [facility] [address] [place] [address] Care Team Providers Care Commercial Credit Specialist Name Role Phone Lily Lopez MD Primary Care Provider Derrek Bob PharmD Unavailable [phone] Reason for Referral * Consultation (Routine) - Authorized Specialty Diagnoses / Procedures Referred By Contac t Referred To Contact Pharmacy Diagnoses Essential hypertension Moderate persistent asthma without complication Lily Lopez MD [address] [place] [phone] Phone: tel: fax: Referral ID Status Reason Start Date Expiration Date Visits Requested Visits Authorized [id number] Authorized Consult and Treat 06/09/2024 06/09/2025 6 6 Encounter Details Date Type Department Care Team (Late st Contact Info) Description 06/09/2024 Orders Only [facility] [address] [place] [phone] Lily Lopez MD [address] [place] [phone] Essential hypertension (Primary Dx); Moderate [...] Info) Description 05/21/2025 9:00 AM EDT Telemedicine [facility] [address] [place] [phone] Derrek Bob, BrooksD [address] [place] [phone] 06/01/2025 9:15 AM EST Office Visit [facility] [address] [place] [phone] Lily Lopez MD [address] [place] [phone] Scheduled Referrals Name Type Priority Associated Diagnoses [...] documented as of this encounter Care Teams Commercial Credit Specialist Relationship Specialty Start Date End Date Lily Lopez MD [address] [place] [address] PCP - General Family Medicine 06/14/22 Derrek Bob, PharmD [address] [place] [address] Pharmacist Internal Medicine 01/04/23 documented as of this encounter
--- OUTSIDE RECORDS SUMMARY | 2025-04-14 17:00 | XMS_ITS | Encounter Summary ---
Author Organization [employer] Address [address] [facility] 7[address] [place] [address] Care Team Providers Care Excellence Specialist Name Role Phone Lily Lopez MD Primary Care Provider [phone] Derrek Bob PharmD Unavailable [phone] Encounter Details Date Type Department Care Team (Late st Contact Info) Description 01/14/2024 Orders Only [facility] [address] [place], [place] [phone] Cinda Sanchez MD [address] [place], [place] [phone] Bicipital tendonitis of right shoulder (Primary Dx) [...] Info) Description 05/21/2025 9:00 AM EDT Telemedicine [facility] [address] [place] [phone] Derrek Bob PharmD [address] [place] [address] 06/01/2025 9:15 AM EST Office Visit [address] [phone] Lily Lopez MD [address] [place] [phone] documented as of this encounter Goals Goal [...] documented as of this encounter Care Teams Excellence Specialist Relationship Specialty Start Date End Date Lily Lopez MD [address] [place] [phone] PCP - General Family Medicine 06/14/22 Derrek Bob PharmD [address] [place] [phone] Pharmacist Internal Medicine 01/04/23 documented as of this encounter
--- OUTSIDE RECORDS SUMMARY | 2025-04-14 17:00 | XMS_ITS | Clinical Summary ---
Author Organization [email or web address] Address [address] [facility] 7t [place] [address] Care Team Providers Care Tin Worker Name Role Phone Lily Lopez MD Primary Care Provider [phone] Derrek Bob PharmD Unavailable Allergies Active Allergy [...] GASTRITIS FOR 90 DAYS 08/22/19 24 Active lidocaine-priloc oskar (Emla) 2.5-2.5 % [...] MD. 30 patch 11 03/15/20 25 Active rosuvastatin (Crestor) 20 MG tabletIndication s:Essential hypertension TAKE 1 TABLET BY MOUTH EVERY MORNING 90 tablet 3 03/25/20 25 Active Aspirin Low Dose 81 MG EC tabletIndication s:Essential hypertension TAKE 1 TABLET BY MOUTH EVERY MORNING 90 tablet 3 03/25/20 25 Active Aspirin Low Dose 81 MG EC tabletIndication s:Essential hypertension Take 1 tablet by mouth once daily 90 tablet 3 04/20/20 24 025 Discontinued rosuvastatin (Crestor) 20 MG tabletIndication s:Essential hypertension Take 1 tablet by mouth once daily 90 tablet 3 04/20/20 24 025 Discontinued Active Problems Problem Noted Date Diagnosed Date [...] and relationship issues. Kosta was referred to [facility] for OP and psychiatry services. Printed out letter with agency information. We practiced grounding techniques to decrease his anxiety and provided empathic counseling approach. Class 1 obesity 03/15/2024 Assessment & Plan (03/19/2025 10:06 AM EDT): >>ASSESSMENT AND PLAN FOR OBESITY, MORBID (CMS/HCC) WRITTEN ON 03/20/2024 12:20 PM BY LILY LOPEZ MD - lifestyle modifications Assessment & [...] Plan (11/09/2022 6:05 AM EDT): -Following with [facility] picture painter, seen by Dr. Serra on 10/22/22 -MRI [...] Following with [facility]. Last seen on 05/28/2024. Following with [facility] pain management. Last seen in June 2024. [...] MRI status. Recommended to speak with [facility] child care supervisor regarding to [facility] service Assessment & Plan (01/28/2024 4:23 PM [...] to change -patient was evaluated by [facility] today - patient would like to restart [...] -Pt has been on bupropion -Continue current [facility] Panic disorder 09/14/2022 Assessment & Plan (11/09/2022 [...] 10:15 AM EDT): - Previously following with District Plant Engineer - Patient request ketorolac injection today. He was also interested in prednisone. Discussed about adverse effects of frequent different steroid use. Patient elected ketorolac injection only today and agreed to try physical therapy - Recommended to try diclofenac gel and lidocaine patch Assessment & Plan (11/01/2022 12:58 PM EDT): Following with District Plant Engineer -Interested in Toradol Injections; given pt the [...] - Likely ADHD - Previously connected with [facility] provider / [facility] - Patient is hesitant to try medication [...] anxiety / depression, possibly bipolar -connected with [facility] provider / [facility] -continue counseling / [...] anxiety / depression, possibly bipolar -connected with [facility] provider / [facility] -continue counseling / CBT -continue bupropion -continue judicious use of clonazepam; schedule PRINT PRODUCTION ASSOCIATE agreement Coronary artery disease 09/02/2022 Assessment & Plan (03/19/2025 10:05 AM EDT): -Followed by [facility] cardiology, last seen in August 2024 -Very mild CAD -Avoid cardiotoxic substances (Hx cocaine use) -Continue working on lifestyle modifications -Continue ASA -continue metoprolol -previously on losartan, which was discontinued due to normal blood pressure with metoprolol only -continue rosuvastatin Assessment & Plan (03/20/2024 12:17 PM EDT): -Followed by [facility] cardiology -Very mild CAD -Avoid cardiotoxic substances (Hx cocaine use) -Continue working on lifestyle modifications -Continue ASA -continue metoprolol -continue losartan -continue atorvastatin Assessment & Plan (01/28/2024 4:22 PM EDT): -Followed by [facility] cardiology -Very mild CAD -Avoid cardiotoxic substances (Hx cocaine use) -Continue working on lifestyle modifications -Continue ASA -previously prescribed metoprolol succinate, but questionable adherence -continue losartan -Starting atorvastatin Assessment & Plan (11/09/2022 6:01 AM EDT): -Followed by [facility] cardiology -Very mild CAD -Avoid cardiotoxic substances (Hx cocaine use) -Continue working on lifestyle modifications -Continue ASA -previously prescribed metoprolol succinate, but questionable adherence -continue losartan -Consider statin Assessment & Plan (09/14/2022 4:13 PM EST): -Followed by [facility] cardiology -Very mild CAD -Avoid cardiotoxic substances (Hx cocaine use) -Continue working on lifestyle modifications -Continue ASA, metoprolol succinate -Consider statin -Adding ARB today Essential hypertension 09/02/2022 Assessment & Plan (03/19/2025 10:03 AM EDT): -Goal BP < 130/80 per ACC/AHA guideline (Treatment threshold >= 140/90 ) -BP almost at goal -Comanaged with assembler insulator and pharmacist -Following with [facility] cardiology, last seen in August 2024. -Continue [...] Not taking meds as prescribed. -Following with [facility] cardiology, last seen in Jul 2023 -Continue [...] Encounters Date Type Department Care Team Description 04/14/2025 Abstract [facility] [address] [place] [address] Lily Lopez MD 04/07/2025 Telephone [facility] [address] [place] [address] Lily Lopez MD may03/25/2025 Refill [facility] [address] [place] [address] Derrek Bob, PharmD Essential hypertension 03/25/2025 Refill [facility] [address] [place] [address] Lily Lopez MD 03/24/2025 Results Follow-Up [facility] [address] [place] [address] Lily Lopez MD XR Hip left with Pelvis 1 view 03/23/2025 Orders Only [facility] [address] [facility] [place] [address] Lily Lopez MD 03/16/2025 11:30 AM EDT Office Visit [facility] [address] [place] [address] Trevizo-Gilmore, Denise, DDS Loss of retention of dental crown (Primary Dx) 03/15/2025 9:45 AM EDT Office Visit [facility] [address] [facility] [place] [address] Lily Lopez MD Essential hypertension (Primary Dx); Coronary artery disease involving [place] coronary artery of [place] heart without angina pectoris; Varicose veins of [...] hip pain; Dyslipidemia 03/15/2025 Travel 03/12/2025 Telephone [facility] [address] [facility] [place] [address] Lily Lopez MD chart prep 03/01/2025 Refill [facility] [address] [place] [address] Lily Lopez MD Chronic low back pain, unspecified back pain laterality, unspecified whether sciatica present 02/12/2025 9:00 AM EDT Telemedicine [facility] [address] [facility] [place] [address] Derrek Bob, PharmD Essential hypertension (Primary Dx); Moderate persistent asthma without complication 02/04/2025 Refill [facility] [address] [facility] [place] [address] Lily Lopez MD Chronic low back pain, unspecified back pain laterality, unspecified whether sciatica present 01/28/2025 Orders Only [facility] [address] [place] [address] Lily Lopez MD 01/15/2025 Travel from Last 3 Months Immunizations Immunization Administration [...] Info) Description 05/21/2025 9:00 AM EDT Telemedicine [facility] [address] [place] [phone] Derrek Bob, PharmD [address] [place] [phone] 06/01/2025 9:15 AM EST Office Visit [facility] [address] [place] [phone] Lily Lopez MD [address] [place] [address] Health Maintenance Due Date Last Done Comments CT Colonography 1978 FIT DNA/Cologuard 1978 FIT 1978 FOBT 1978 HIV Screening 1980 Sigmoidoscopy 1978 Family Planning (PISQ) 1993 Dental Prophylaxis 12/03/2019 06/03/2019, 0 09/19/2018, 03/18/2018 Dental Oral Exam 10/25/2020 04/26/2020, , 03/06/2018 Dental X-Ray: Full Mouth 03/07/2021 03/06/2018 Dental X-Ray: Bitewings 09/24/2024 09/23/19 24, 04/13/2022, 02/02/2021, Additional history exists COVID-19 Vaccine ( season) 2025 12/03/2023, 09/03/2022, 12/08/2021, Additional history exists Influenza Vaccine (#1) 2025 , 04/23/2020, 06/04/2019, Additional history exists Depression Monitoring 06/09/2025 12/07/2024, 025 Colonoscopy 11/21/2025 11/21/2020, 09/08/2019 Colorectal Cancer Screening 11/21/2025 Alcohol/Substance Use Screening 03/15/2026 03/15/2025 Disability Screening [...] 11:24 AM EDT) No Derrek Bob, Susan Procedures Procedure Name Priority Date/Time Associated Diagnosis Comments XR LUMBAR SPINE 2-3 VIEWS Routine 04/14/2025 12:35 PM EDT XR HIP LEFT WITH PELVIS 1 VIEW Routine 03/23/2025 8:53 AM EDT XR LUMBAR SPINE 2-3 VIEWS Routine 03/23/2025 8:15 AM EDT Midline low back pain, unspecified chronicity, unspecified whether sciatica present CASE PRESENTATION, DETAILED AND EXTENSIVE TREATMENT PLANNING [...] QN, PCR Routine 03/16/2022 10:33 AM EDT HM COLONOSCOPY Routine 11/21/2020 7:00 PM EDT PERIODIC ORAL EVALUATION - ESTABLISHED PATIENT Routine 04/26/2020 12:00 AM EDT PROPHYLAXIS - ADULT Routine 06/03/2019 1 2:00 AM EST INTRAORAL - COMPLETE SERIES OF RADIOGRAPHIC IMAGES Routine 03/06/2018 12:00 AM EDT from Last 3 Months or Most Recently Relevant to Health Maintenance Results * XR Lumbar Spine 2-3 Views (04/14/2025 12:35 PM EDT) Only the most recent of2 resultswithin the time period is included. Anatomical Region Laterality Modality Spine, L-spine Radiographic Hilda ging 04/14/2025 12:3 5 PM EDT Narrative 04/14/2025 12:56 PM EDT [address] [address] XRay Report Signed Patient: Kosta Clark MR#: [id number] : 1980 Acct:[id number] Age/Sex: 44 / M ADM Date: 04/14/25 Loc: HO.ED Attending Dr: Ordering Physician: El Pena Date of Service: 04/14/25 Procedure(s): XR lumbar spine 2-3V Accession Number(s): [id number] cc: El Pena; Lily Lopez MD Reason for Exam: back pain EXAMINATION: XR LUMBOSACRAL SPINE CLINICAL INFORMATION: back pain COMPARISON: 03/23/2025, 12/08/2021. TECHNIQUE: Three views of the lumbosacral spine. FINDINGS: There is a mild levoconvex scoliosis, apex at L2. There is a normal lordosis. There are stable 3 mm degenerative retrolistheses L2 on L3, L3 on L4, and 2 mm of L4 on L5. There is no fracture, compression deformity, or suspicious bone lesion. Mild to moderate disc degeneration is present throughout, most severe at L5-S1. There is normal facet alignment. There is degenerative facet change most notable L4-S1. There is mild arthritic change of both SI joints. The sacrum is intact. There are no soft tissue abnormalities. XR/XR lumbar spine 2-3V IMPRESSION: 1. No acute findings 2. Mild to moderate degenerative spondylosis of the lumbar spine, unchanged from the prior exam. Electronically signed by: Arya Landry MD 04/14/2025 12:53 PM EDT RP Dictated By: Arya Landry MD Signed By: <Electronically signed by Arya Landry MD in OV> 04/14/25 1253 DD/ 1235 TD/TT: 04/14/25 1245 Top Screw: Procedure Note Donotuseinterpreter, Image - 04/14/[address] [address] XRay Report Signed Patient: Kosta ClarkMR#: [id number] : 1980Acct:[id number] Age/Sex: 44 / MADM Date: 04/14/25 Loc: HO.ED Attending Dr: Ordering Physician: El Pena Date of Service: 04/14/25 Procedure(s): XR lumbar spine 2-3V Accession Number(s): [id number] cc: El Pena; Lily Lopez MD Reason for Exam: back pain EXAMINATION: XR LUMBOSACRAL SPINE CLINICAL INFORMATION: back pain COMPARISON: 03/23/2025, 12/08/2021. TECHNIQUE: Three views of the lumbosacral spine. FINDINGS: There is a mild levoconvex scoliosis, apex at L2. There is a normal lordosis. There are stable 3 mm degenerative retrolistheses L2 on L3, L3 on L4, and 2 mm of L4 on L5. There is no fracture, compression deformity, or suspicious bone lesion. Mild to moderate disc degeneration is present throughout, most severe at L5-S1. There is normal facet alignment. There is degenerative facet change most notable L4-S1. There is mild arthritic change of both SI joints. The sacrum is intact. There are no soft tissue abnormalities. XR/XR lumbar spine 2-3V IMPRESSION: 1. No acute findings 2. Mild to moderate degenerative spondylosis of the lumbar spine, unchanged from the prior exam. Electronically signed by: Arya Landry MD 04/14/2025 12:53 PM EDT RP Dictated By: Arya Landry MD Signed By: <Electronically signed by Arya Landry MD in OV> 04/14/25 1253 DD/ 1235 TD/TT: 04/14/25 1245 Top Screw: [facility] External Provider IMG XR PROCEDURES Edited Result - Final * XR Hip left with Pelvis 1 view (03/23/2025 8:53 AM EDT) Anatomical Region Laterality Modality Lower Extremities, Hip Bilateral Radiograp hic Imaging 03/23/2025 8:53 AM EDT Narrative 03/23/2025 10:27 AM EDT [address] [address] XRay Report Signed Patient: Kosta Clark MR#: [id number] : 1980 Acct:[id number] Age/Sex: 44 / M ADM Date: 03/23/25 Loc: HO.HHX Attending Dr: Lily Lopez MD Ordering Physician: Lily Lopez MD Date of Service: 03/23/25 Procedure(s): XR hip LT w PEL1V Accession Number(s): [id number] cc: Lily Lopez MD EXAMINATION: XR HIP, LEFT CLINICAL INFORMATION: PAIN COMPARISON: None available. TECHNIQUE: AP pelvis, and 2 views of the left hip. FINDINGS: No fracture, dislocation, or suspicious bone lesion. Normal bone mineralization. Normal alignment. Normal acetabular coverage bilaterally. Normal femoral head contours without evidence of AVN. Joint spaces are preserved. No significant arthropathy. Soft tissues appear normal. XR/XR hip LT w PEL1V IMPRESSION: Normal left hip. Electronically signed by: Arya Landry MD 03/23/2025 10:24 AM EDT RP Dictated By: Arya Landry MD Signed By: <Electronically signed by Arya Landry MD in OV> 03/23/25 1024 DD/ 0853 TD/TT: 03/23/25 0900 Top Screw: Procedure Note Donotuseinterpreter, Image - 03/23/2025 [facility] [address] [facility] [place] [address] XRay Report Signed Patient: Kosta ClarkMR#: [id number] : 1980Acct:[id number] Age/Sex: 44 / MADM Date: 03/23/25 Loc: HO.HHCX Attending Dr: Lily Lopez MD Ordering Physician: Lily Lopez MD Date of Service: 03/23/25 Procedure(s): XR hip LT w PEL1V Accession Number(s): [id number] cc: Lily Lopez MD EXAMINATION: XR HIP, LEFT CLINICAL INFORMATION: PAIN COMPARISON: None available. TECHNIQUE: AP pelvis, and 2 views of the left hip. FINDINGS: No fracture, dislocation, or suspicious bone lesion. Normal bone mineralization. Normal alignment. Normal acetabular coverage bilaterally. Normal femoral head contours without evidence of AVN. Joint spaces are preserved. No significant arthropathy. Soft tissues appear normal. XR/XR hip LT w PEL1V IMPRESSION: Normal left hip. Electronically signed by: Arya Landry MD 03/23/2025 10:24 AM EDT Dictated By: Arya Landry MD Signed By: <Electronically signed by Arya Landry MD in OV> 03/23/25 1024 DD/ 0853 TD/TT: 03/23/25 0900 Top Screw: Lily Lopez MD IMG XR PROCEDURES Final Result * (ABNORMAL) Basic Metabolic Panel, Fasting (01/28/2025 8:15 AM EDT) Sodium 140 135 - 145 mmol/L [facility] Potassium 4.5 3.3 - 5.1 mmol/L [facility] Chloride 105 96 - 108 mmol/L [facility] Carbon Dioxide 29 22 - 29 mmol/L [facility] Anion Gap 11(L) 12 - 20 [facility] Urea Nitrogen (BUN) 21(H) 9 - 16 mg/dL [facility] Creatinine, Serum 0.99 0.5 - 1.4 mg/dL [facility] Estimated Glomerular Filt Rate >60 [facility] Comment:Chronic Kidney Disea se: Estimated GFR < 60 mL/min/1.25r0Bsyedz Kidney Disease: Estimated GFR < 15 mL/min/1.73m2 Glucose Fasting 105(H) 60 - 99 mg/dL [facility] Comment:A fasting glucose fr om 100-125 mg/dl is considered impaired(pre-diabetes). Calcium 9.2 8.4 - 10.2 mg/dL [facility] 01/28/2025 8:15 AM EDT 01/28/2025 11:02 AM EDT Lily Lopez MD LAB BLOOD ORDERABLES Final Resul t Performing Organization Address [facility] de Phone Number [facility] [address] [place] [phone] * Hepatic Function Panel (01/28/2025 8:15 AM EDT) Bilirubin, Total 0.4 0.0 - 1.0 mg/dL [facility] Bilirubin, Direct 0.2 0.0 - 0.5 mg/dL [facility] Aspartate Amino Transferase 30 5 - 37 U/L [facility] Alanine Aminotransferase 37 0 - 40 U/L [facility] Total Protein 7.0 6.5 - 8.0 g/dL [facility] Albumin Level 4.6 3.5 - 5.0 g/dL [facility] Alkaline Phosphatase 75 39 - 117 U/L [facility] 01/28/2025 8:15 AM EDT 01/28/2025 11:02 AM EDT us Lily Lopez MD LAB BLOOD ORDERABLES Final Resul t Performing Organization Address [facility] Co de Phone Number [facility] [address] [place] [phone] * (ABNORMAL) Lipid Panel, Standard (01/28/2025 8:15 AM EDT) Triglycerides 109 <150 mg/dL [facility] Comment:Desirable Triglyceri de: less than 150 mg/dLBorderline High Triglyceride 150-199 mg/dLHigh Triglyceride: 200-499 mg/dLVery High Triglyceride: greater than or equal to 5OO mg/dL Cholesterol 176 <200 mg/dL [facility] Comment:Desirable Cholestero l: less than 200 mg/dLBorderline High Cholesterol: 200-239 mg/dLHigh Cholesterol: greater than 239 mg/dL LDL Cholesterol Calculated 103(H) <100 mg/dL [facility] Comment:Desirable LDL: less than 100 mg/dLNear Optimal/Above Optimal LDL: 110- 129 mg/dLBorderline High LDL: 130-159 mg/dLHigh LDL: 160-189 mg/dLVery High LDL: greater than or equal to 190 mg/dL HDL Cholesterol 52 >40 mg/dL [facility] Comment:Desirable HDL: great er than 40 mg/dL Note: This HDL assay may give artificially low results in patients with liver disease. 01/28/2025 8:15 AM EDT 01/28/2025 11:02 AM EDT Lily Lopez MD LAB BLOOD ORDERABLES Final Resul t [facility] [address] [place] [phone] * HEPATITIS C AB W/REFL TO [...] a test for HCV RNA (test code 37559) is suggested. For additional information please refer to http://education.[employer]/faq/YHG11k6 (This link is being provided for informational/ educational purposes only.) 03/16/2022 10:3 3 AM EDT us Ricky Carrillo MD HISTORICAL/NON ORDERA BLE LABS Final Result [facility] [address] [place] [phone], * (ABNORMAL) Hm Colonoscopy (11/21/2020 7:00 PM EDT) Colonoscopy Abnormal(A ) Normal us Historical Provider HEALTH MAINTENANCE Final Result from Last 3 Months or Most Recently Relevant to Health Maintenance Insurance [facility] < 65 [facility] Care Teams Tin Worker Relationship Specialty Start Date End Date Lily Lopez MD [address] [place] [address] PCP - General Family Medicine 06/14/22 Derrek Bob, BrooksD [address] [place] [phone] Pharmacist Internal Medicine 01/04/23
--- OUTSIDE RECORDS SUMMARY | 2025-04-14 17:00 | XMS_ITS | Encounter Summary ---
Author Organization [employer] Address [address] [facility] 7t [place] [address] Care Team Providers Care Postdoctoral Fellow Name Role Phone Lily Lopez MD Primary Care Provider [phone] Derrek Bob PharmD Unavailable [phone] Reason for Visit * Reason Comments Med Refill Encounter Details Date Type Department Care Team ([facility] st Contact Info) Description 03/25/2025 Refill [facility] [address] [place], [place] [phone] Lily Lopez MD [address] [place], [place] [phone] Social History Tobacco Use Types Packs/Day Years [...] AM EDT Telemedicine [facility] [address] [place] [phone] Derrek Bob, PharmD [address] [place] [phone] 06/01/2025 9:15 AM EST Office Visit [facility] [address] [place] [phone] Lily Lopez MD [address] [place] [phone] documented as of this encounter Goals Goal [...] documented as of this encounter Care Teams Postdoctoral Fellow Relationship Specialty Start Date End Date Lily Lopez MD [address] [place] [phone] PCP - General Family Medicine 06/14/22 Derrek Bob, PharmD [address] [place] [phone] Pharmacist Internal Medicine 01/04/23 documented as of this encounter
== END 2025-04-14 14:22 | disposition home or self-care (01) ==
PROVIDERS: Emergency Provider Emergency Medicine; PCP Family Medicine
DX: M47.9 Spondylosis, unspecified (principal); M79.605 Pain in left leg; M54.50 Low back pain, unspecified; Z79.899 Other long term (current) drug therapy
CPT/HCPCS: 72100; 99282; 99283

== ENCOUNTER → 2025-04-14 12:15 | Outpatient (BNV) | payer OTHER, SELFPAY | PROVIDERS: Emergency Provider Emergency Medicine; PCP Family Medicine; Visit Provider Radiology Diagnostic Radiology | DX: M47.896 Other spondylosis, lumbar region (principal) | CPT/HCPCS: 72100 ==

== ENCOUNTER → 2025-05-08 10:06 | Outpatient (BNV) | payer OTHER, SELFPAY | PROVIDERS: PCP Family Medicine; Visit Provider Student in an Organized Health Care Education/Training Program | DX: R41.0 Disorientation, unspecified (principal); R41.3 Other amnesia | CPT/HCPCS: 70551 ==

== ENCOUNTER 2025-05-08 10:24 | Outpatient (REF) | payer OTHER, SELFPAY ==
--- OUTSIDE RECORDS SUMMARY | 2025-05-08 10:27 | XMS_ITS | Encounter Summary ---
Author Organization [employer] Address [address] 7[address] [place] [address] Care Team Providers Care Broadcast Maintenance Technician Name Role Phone Lily Lopez MD Primary Care Provider [phone] Derrek Bob PharmD Unavailable [phone] Reason for Visit * Reason Comments Med Refill Encounter Details Date Type Department Care Team ([facility] st Contact Info) Description 06/29/2023 Refill [facility] [address] [place] [address] Ly Mckeon MD [address] [place] [address] Social History Tobacco Use Types Packs/Day Years [...] Info) Description 05/21/2025 9:00 AM EDT Telemedicine [facility] [address] [place] [phone] Derrek Bob, PharmD [address] [place] [phone] 05/28/2025 9:00 AM EDT Office Visit [facility] [address] [place] [phone] Denise Moreno, DDS [address] [place] [address] 06/01/2025 9:15 AM EST Office Visit [facility] [address] [place] [phone] Lily Lopez MD [address] [place] [phone] documented as of this encounter Goals Goal [...] documented as of this encounter Care Teams Broadcast Maintenance Technician Relationship Specialty Start Date End Date Lily Lopez MD [address] [place] [phone] PCP - General Family Medicine 06/14/22 Derrek Bob, PharmD [address] [place] [address] [place] [phone] Pharmacist Internal Medicine 01/04/23 documented as of this encounter
--- OUTSIDE RECORDS SUMMARY | 2025-05-08 10:27 | XMS_ITS | Clinical Summary ---
Author Organization [employer] Address [address] [facility] 7t [place] [address] Care Team Providers Care Is/It Project Manager Name Role Phone Lily Lopez MD Primary Care Provider [phone] Derrek Bob PharmD Unavailable Allergies Active Allergy [...] mouth 2 times daily. 02/05/20 25 Active Diclofenac Sodium 1 % gel [...] MORNING 90 tablet 3 03/25/20 25 Active gabapentin (Neurontin) 400 MG capsuleIndicatio ns:Chronic low back pain, unspecified back pain laterality, unspecified whether sciatica present TAKE 1 CAPSULE BY MOUTH AT BEDTIME 30 capsule 04/29/20 25 Active gabapentin (Neurontin) 400 MG capsuleIndicatio ns:Chronic low back pain, unspecified back pain laterality, unspecified whether sciatica present TAKE 1 CAPSULE BY MOUTH AT BEDTIME 30 capsule 03/02/20 25 025 Discontinued Active Problems Problem Noted Date [...] issues. Kosta was referred to [facility] for OP and psychiatry services. 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 Serra on 10/22/22 -MRI [...] glenohumeral joint. Continue APAP prn Following with [facility] Ortho. Last seen on 05/28/2024. Following with [facility] pain management. Last seen in June 2024. [...] glenohumeral joint. Continue APAP prn Following with [facility] Ortho. Last seen on 02/27/24. Recommended to check MRI status. 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 He was also interested in prednisone. Discussed about adverse effects of frequent different steroid use. Patient elected ketorolac injection only today and agreed to try physical therapy - Recommended to try diclofenac gel and lidocaine patch Assessment & Plan (11/01/2022 12:58 PM EDT): Following with [employer] -Interested in Toradol Injections; given pt the [...] - Likely ADHD - Previously connected with [facility] provider / [facility] - Patient is hesitant to try medication [...] anxiety / depression, possibly bipolar -connected with [facility] provider / [facility] -continue counseling / CBT -continue bupropion -continue fluoxetine Assessment & Plan (12/03/2023 5:29 PM EDT): -high level of anxiety, likely anxiety / depression, possibly bipolar -connected with [facility] provider / [place] -continue counseling / CBT -continue bupropion -start fluoxetine -pt would like to stop taking clonazepam due to its effect on his cognition; his request was approved. Assessment & Plan (11/09/2022 6:04 AM EDT): -high level of anxiety, likely anxiety / depression, possibly bipolar -connected with [facility] provider / [place] -continue counseling / CBT -continue bupropion -start fluoxetine -pt would like to stop taking clonazepam due to its effect on his cognition; his request was approved. Assessment & Plan (09/14/2022 4:18 PM EST): -high level of anxiety, likely anxiety / depression, possibly bipolar -connected with [facility] provider / [place] -continue counseling / CBT -continue bupropion -continue judicious use of clonazepam; schedule TREATMENT COORDINATOR agreement Coronary artery disease 09/02/2022 Assessment & Plan (03/19/2025 10:05 AM EDT): -Followed by [facility] cardiology, last seen in August 2024 -Very mild CAD -Avoid cardiotoxic substances (Hx cocaine use) -Continue working on lifestyle modifications -Continue ASA -continue metoprolol -previously on losartan, which was discontinued due to normal blood pressure with metoprolol only -continue rosuvastatin Assessment & Plan (03/20/2024 12:17 PM EDT): -Followed by [facility] cardiology -Very mild CAD -Avoid cardiotoxic substances (Hx cocaine use) -Continue working on lifestyle modifications -Continue ASA -continue metoprolol -continue losartan -continue atorvastatin Assessment & Plan (01/28/2024 4:22 PM EDT): -Followed by [facility] cardiology -Very mild CAD -Avoid cardiotoxic substances (Hx cocaine use) -Continue working on lifestyle modifications -Continue ASA -previously prescribed metoprolol succinate, but questionable adherence -continue losartan -Starting atorvastatin Assessment & Plan (11/09/2022 6:01 AM EDT): -Followed by [facility] cardiology -Very mild CAD -Avoid cardiotoxic substances (Hx cocaine use) -Continue working on lifestyle modifications -Continue ASA -previously prescribed metoprolol succinate, but questionable adherence -continue losartan -Consider statin Assessment & Plan (09/14/2022 4:13 PM EST): -Followed by [facility] cardiology -Very mild CAD -Avoid cardiotoxic substances (Hx cocaine use) -Continue working on lifestyle modifications -Continue ASA, metoprolol succinate -Consider statin -Adding ARB today Essential hypertension 09/02/2022 Assessment & Plan (03/19/2025 10:03 AM EDT): -Goal BP < 130/80 per ACC/AHA guideline (Treatment threshold >= 140/90 ) -BP almost at goal -Comanaged with bakery manager and pharmacist -Following with [facility] cardiology, last seen in August 2024. -Continue [...] Not taking meds as prescribed. -Following with [facility] cardiology, last seen in Jul 2023 -Continue [...] Encounters Date Type Department Care Team Description 04/28/2025 Telephone [facility] ADULT DENTAL [address] [place] [address] Denise Moreno, DDS 04/28/2025 Refill [facility] MEDICINE [address] [place] [address] Ricky Smith MD Chronic low back pain, unspecified back pain laterality, unspecified whether sciatica present 04/14/2025 Abstract [facility] MEDICINE [address] [place] [address] Lily Lopez MD 04/07/2025 Telephone [facility] MEDICINE [address] [place] [address] Lily Lopez MD may recall 03/25/2025 Refill [facility] MEDICINE [address] [place] [address] Derrek Bob, PharmD Essential hypertension 03/25/2025 Refill [facility] [place] [address] Lily Lopez MD 03/24/2025 Results Follow-Up [facility] MED[facility] [place] [phone] Lily Lopez MD XR Hip left with Pelvis 1 view 03/23/2025 Orders Only [facility] [place] [address] Lily Lopez MD 03/16/2025 11:30 AM EDT Office Visit [facility] ADULT DENTAL [place] [phone] TrevizoNessGilmore, Denise, DDS Loss of retention of dental crown (Primary Dx) 03/15/2025 9:45 AM EDT Office Visit [facility] MEDICINE [place] [phone] Lily Lopez MD Essential hypertension (Primary Dx); Coronary artery disease involving hoh coronary artery of hoh heart without angina pectoris; Varicose veins of [...] hip pain; Dyslipidemia 03/15/2025 Travel 03/12/2025 Telephone [facility] [place] [address] Lily Lopez MD chart prep 03/01/2025 Refill [facility] [place] [address] Lily Lopez MD Chronic low back pain, unspecified back pain laterality, unspecified whether sciatica present 02/12/2025 9:00 AM EDT Telemedicine [facility] MED[facility]INE [place] [phone] Derrek Bob, PharmD Essential hypertension (Primary Dx); Moderate persistent asthma without complication from Last 3 Months Immunizations Immunization Administration [...] EDT Telemedicine [facility] MEDICINE [address] [place] [address] Derrek Bob, PharmD [address] [place] [address] 05/28/2025 9:00 AM EDT Office Visit [facility] ADULT DENTAL [address] [place] [address] Denise Moreno DDS [address] [place] [address] 06/01/2025 9:15 AM EST Office Visit [facility] MEDICINE [address] [place] [address] Lily Lopez MD [address] [place] [address] Health Maintenance Due Date Last Done Comments [...] PANEL, STANDARD Routine 01/28/2025 8:15 AM EDT BITEWING - [...] PM EDT Narrative 04/14/2025 12:56 PM EDT [address] [address] XRay Report Signed Patient: Kosta Clark MR#: [id number] : 1980 Acct:[id number] Age/Sex: 44 / M ADM Date: 04/14/25 Loc: HO.ED Attending Dr: Ordering Physician: El Pena Date of Service: 04/14/25 Procedure(s): XR lumbar spine 2-3V Accession Number(s): [id number] cc: El Pena; Lily Lopez MD Reason [...] 04/14/25 1253 DD/ 1235 TD/TT: 04/14/25 1245 Cyber Reverse Engineer: Procedure Note Donotuseinterpreter, Image - 04/14/[address] [address] XRay Report Signed Patient: Kosta ClarkMR#: [id number] : 1980Acct:[id number] Age/Sex: 44 / MADM Date: 04/14/25 Loc: .ED Attending Dr: Ordering Physician: El Pena Date of Service: 04/14/25 Procedure(s): XR lumbar spine 2-3V Accession Number(s): [id number] cc: El Pena; Lily Lopez MD Reason [...] 04/14/25 1253 DD/ 1235 TD/TT: 04/14/25 1245 Cyber Reverse Engineer: [facility] External Provider IMG XR PROCEDURES Edited Result - Final * XR Hip left with Pelvis 1 view (03/23/2025 8:53 AM EDT) Anatomical Region Laterality Modality Lower Extremities, Hip Bilateral Radiograp hic Imaging 03/23/2025 8:53 AM EDT Narrative 03/23/2025 10:27 AM EDT [address] [address] XRay Report Signed Patient: Kosta Clark MR#: [id number] : 1980 Acct:[id number] Age/Sex: 44 / M ADM Date: 03/23/25 Loc: HO.HHCX Attending Dr: Lily Lopez MD Ordering Physician: Lily Lopez MD Date of Service: 03/23/25 Procedure(s): XR hip LT w PEL1V Accession Number(s): [id number] cc: Lily Lopez MD EXAMINATION: XR HIP, [...] 03/23/25 1024 DD/ 0853 TD/TT: 03/23/25 0900 Cyber Reverse Engineer: Procedure Note Latoyater, Image - 03/23/2025 [facility] [address] [place] [address] XRay Report Signed Patient: Kosta ClarkMR#: [id number] : 1980Acct:[id number] Age/Sex: 44 / MADM Date: 03/23/25 Loc: HO.HHCX Attending Dr: Lily Lopez MD Ordering Physician: Lily Lopez MD Date of Service: 03/23/25 Procedure(s): XR hip LT w PEL1V Accession Number(s): [id number] cc: Lily Lopez MD EXAMINATION: XR HIP, [...] 03/23/25 1024 DD/ 0853 TD/TT: 03/23/25 0900 Cyber Reverse Engineer: Lily Lopez MD IMG XR PROCEDURES Final Result * (ABNORMAL) Lipid Panel, Standard (01/28/2025 8:15 AM EDT) Triglycerides 109 <150 mg/dL [facility] Comment:Desirable Triglyceri de: less than 150 mg/dLBorderline High Triglyceride 150-199 mg/dLHigh Triglyceride: 200-499 mg/dLVery High Triglyceride: greater than or equal to 5OO mg/dL Cholesterol 176 <200 mg/dL [facility] Comment:Desirable Cholestero l: less than 200 mg/dLBorderline High Cholesterol: 200-239 mg/dLHigh Cholesterol: greater than 239 mg/dL LDL Cholesterol Calculated 103(H) <100 mg/dL [facility] Comment:Desirable LDL: less than 100 mg/dLNear Optimal/Above Optimal LDL: 110- 129 mg/dLBorderline High LDL: 130-159 mg/dLHigh LDL: 160-189 mg/dLVery High LDL: greater than or equal to 190 mg/dL HDL Cholesterol 52 >40 mg/dL [facility] Comment:Desirable HDL: great er than 40 mg/dL Note: This HDL assay may give artificially low results in patients with liver disease. 01/28/2025 8:15 AM EDT 01/28/2025 11:02 AM EDT Lily Lopez MD LAB BLOOD ORDERABLES Final Resul t Performing Organization Address [facility] Co de Phone Number [facility] [address] [place] [address] [phone] * HEPATITIS C AB W/REFL TO [...] a test for HCV RNA (test code 31707) is suggested. For additional information please refer to http://education.AngioScore.WallStrip/faq/XKN42g4 (This link is being provided for informational/ educational purposes only.) 03/16/2022 10:3 3 AM EDT us Ricky Carrillo MD HISTORICAL/NON ORDERA BLE LABS Final Result Performing Organization Address City/[facility] Co de Phone Number [facility] [address] * (ABNORMAL) Hm Colonoscopy (11/21/2020 7:00 PM EDT) Colonoscopy Abnormal(A ) Normal us Historical Provider HEALTH MAINTENANCE Final Result from Last 3 Months or Most Recently Relevant to Health Maintenance Insurance [facility] < [address] [id number] DENTAL [facility] Care Teams Is/It Project Manager Relationship Specialty Start Date End Date Lily Lopez MD [address] [place] [address] PCP - General Family Medicine 06/14/22 Derrek Bob, BrooksD [address] [place] [address] Pharmacist Internal Medicine 01/04/23
--- OUTSIDE RECORDS SUMMARY | 2025-05-08 10:27 | XMS_ITS | Encounter Summary ---
Author Organization [employer] Address 75 [facility] 7t [place] [address] Care Team Providers Care Acetylene Torch Operator Name Role Phone Lily Lopez MD Primary Care Provider [phone] Derrek Bob PharmD Unavailable [phone] Encounter Details Date Type Department Care Team (Late st Contact Info) Description 11/22/2023 Orders Only [facility] [address] [place], [place] [phone] Lily Lopez MD [address] [place], [place] [phone] Social History Tobacco Use Types Packs/Day Years [...] Info) Description 05/21/2025 9:00 AM EDT Telemedicine [facility] [address] [place] [phone] Derrek Bob PharmFredis [address] [place] [phone] 05/28/2025 9:00 AM EDT Office Visit [facility] ADULT DENTAL [address] [place] [address] Denise Moreno, DDS [address] [place] [address] 06/01/2025 9:15 AM EST Office Visit [facility] [address] [place] [address] Lily Lopez MD [address] [place] [address] documented as of this encounter Goals Goal [...] documented as of this encounter Care Teams Acetylene Torch Operator Relationship Specialty Start Date End Date Lily Lopez MD [address] [place] [address] PCP - General Family Medicine 06/14/22 Derrek Bob, BrooksD [address] [place] [address] Pharmacist Internal Medicine 01/04/23 documented as of this encounter
--- OUTSIDE RECORDS SUMMARY | 2025-05-08 10:27 | XMS_ITS | Encounter Summary ---
Author Organization [employer] Address 75 [facility] 7t [place] [address] Care Team Providers Care Raw Stock Dyeing Machine Tender Name Role Phone Lily Lopez MD Primary Care Provider [phone] Derrek Bob PharmD Unavailable [phone] Reason for Visit * Reason Comments Med Refill Encounter Details Date Type Department Care Team (Late st Contact Info) Description 09/08/2024 Refill [facility] MEDICINE [address] [place], [place] [phone] Gloria Monge MD [address] [place], [place] [phone] Chronic low back pain, unspecified back pain [...] Info) Description 05/21/2025 9:00 AM EDT Telemedicine [facility] MEDICINE [address] [place] [address] Derrek Bob, PharmD [address] [place] [address] 05/28/2025 9:00 AM EDT Office Visit [facility] ADULT DENTAL [address] [place] [address] Denise Moreno DDS [address] [place] [address] 06/01/2025 9:15 AM EST Office Visit [facility] MEDICINE [address] [place] [address] Lily Lopez MD [address] [place] [address] documented as of this encounter Goals Goal [...] documented as of this encounter Care Teams Raw Stock Dyeing Machine Tender Relationship Specialty Start Date End Date Lily Lopez MD [address] [place] [address] PCP - General Family Medicine 06/14/22 Derrek Bob, BrooksD [address] [place] [address] Pharmacist Internal Medicine 01/04/23 documented as of this encounter
--- OUTSIDE RECORDS SUMMARY | 2025-05-08 10:27 | XMS_ITS | Encounter Summary ---
Author Organization [employer] Address 75 [facility] 7t [place] [address] Care Team Providers Care Slurry Control Operator Helper Name Role Phone Lily Lopez MD Primary Care Provider [phone] Derrek Bob PharmD Unavailable [phone] Reason for Visit * Reason Comments Med Refill Encounter Details Date Type Department Care Team ([facility] st Contact Info) Description 03/25/2025 Refill [facility] MEDICINE [address] [place], [place] [phone] Lily Lopez MD [address] [place], [place] [phone] Social History Tobacco Use Types Packs/Day Years [...] Info) Description 05/21/2025 9:00 AM EDT Telemedicine [facility] MEDICINE [address] [place] [phone] Derrek Bob, PharmD [address] [place] [phone] 05/28/2025 9:00 AM EDT Office Visit [facility] ADULT DENTAL [address] [place] [phone] Denise Moreno DDS [address] [place] [address] 06/01/2025 9:15 AM EST Office Visit [facility] MEDICINE [address] [place] [address] Lily Lopez MD [address] [place] [address] documented as of this encounter Goals Goal [...] documented as of this encounter Care Teams Slurry Control Operator Helper Relationship Specialty Start Date End Date Lily Lopez MD [address] [place] [address] PCP - General Family Medicine 06/14/22 Derrek Bob, Susan [address] [place] [address] Pharmacist Internal Medicine 01/04/23 documented as of this encounter
--- OUTSIDE RECORDS SUMMARY | 2025-05-08 10:28 | XMS_ITS | Encounter Summary ---
Author Organization [employer] [facility] Address 75 [facility] 7t [place] [address] Care Team Providers Care Accounting Instructor Name Role Phone Graciela Rich MD Primary Care Provider Lily Sierra MD Primary Care Provider [phone] Derrek Bob PharmD Unavailable [phone] Encounter Details Date Type Department Care Team (Latest Contact Info) Description 06/03/2019 Abstract [facility] CONVERSIONS Dental, Provider, DDS Social History [...] Description 05/21/2025 9:00 AM EDT Telemedicine [facility] MEDICINE [address] [place] [phone] Derrek Bob, PharmD [address] [place] [address] 05/28/2025 9:00 AM EDT Office Visit [facility] ADULT DENTAL [address] [place] [address] Denise Moreno DDS [address] [place] [address] 06/01/2025 9:15 AM EST Office Visit [facility] MEDICINE [address] [place] [address] Lily Lopez MD [address] [place] [address] documented as of this encounter Visit Diagnoses Not on filedocumented in this encounter Care Teams Accounting Instructor Relationship Specialty Start Date End Date Graciela Rich MD PCP - General Family Medicine 02/27/22 06/13/22 Lily Lopez MD [address] [place] [address] PCP - General Family Medicine 06/14/22 Derrek Bob, BrooksD [address] [place] [address] Pharmacist Internal Medicine 01/04/23 documented as of this encounter
--- OUTSIDE RECORDS SUMMARY | 2025-05-08 10:28 | XMS_ITS | Encounter Summary ---
Author Organization [employer] Address 75 [facility] 7t [place] [address] Care Team Providers Care Nuclear Radiation Engineer Name Role Phone Lily Lopez MD Primary Care Provider [phone] Derrek Bob PharmD Unavailable [phone] Reason for Visit * Reason Onset Date Comments Appointment Request 05/15/2024 Encounter Details Date Type Department Care Team ([facility] Contact Info) Description 05/15/2024 Telephone [facility] [address] [place], [place] [phone] Lily Lopez MD [address] [place], [place] [phone] Appointment Request Social History Tobacco Use Types [...] Info) Description 05/21/2025 9:00 AM EDT Telemedicine [facility] MED[facility] [address] [place] [phone] Derrek Bob, PharmD [address] [place] [address] 05/28/2025 9:00 AM EDT Office Visit [facility] ADULT DENTAL [address] [place] [address] Denise Moreno DDS [address] [place] [address] 06/01/2025 9:15 AM EST Office Visit [facility] [address] [place] [address] Lily Lopez MD [address] [place] [address] documented as of this encounter Goals Goal [...] as of this encounter Care Teams Nuclear Radiation Engineer Relationship Specialty Start Date End Date Lily Lopez MD [address] [place] [address] PCP - General Family Medicine 06/14/22 Derrek Bob, PharmD [address] [place] [address] Pharmacist Internal Medicine 01/04/23 documented as of this encounter
--- OUTSIDE RECORDS SUMMARY | 2025-05-08 10:28 | XMS_ITS | Encounter Summary ---
Author Organization [employer] Address 75 [facility] 7t [place] [address] Care Team Providers Care Senior Commercial Loan Officer Name Role Phone Lily Lopez MD Primary Care Provider [phone] Derrek Bob PharmD Unavailable [phone] Reason for Referral * Consultation (Routine) - Authorized Specialty Diagnoses / Procedures Referred By Contac t Referred To Contact Pharmacy Diagnoses Essential hypertension Moderate persistent asthma without complication Lily Lopez MD [address] [place] [address] Phone: tel: fax: Referral ID Status Reason Start Date Expiration Date Visits Requested Visits Authorized [id number] Authorized Consult and Treat 06/09/2024 06/09/2025 6 6 Encounter Details Date Type Department Care Team (Late st Contact Info) Description 06/09/2024 Orders Only [facility] MEDICINE [address] [place] [phone] Lily Lopez MD [address] [place] [phone] Essential hypertension (Primary Dx); Moderate [...] 05/21/2025 9:00 AM EDT Telemedicine [facility] MEDICINE [address] [place] [address] Derrek Bob, BrooksD [address] [place] [address] 05/28/2025 9:00 AM EDT Office Visit [facility] ADULT DENTAL [address] [place] [address] Denise Moreno DDS [address] [place] [phone] 06/01/2025 9:15 AM EST Office Visit [facility] MEDICINE [address] [place] [address] Lily Lopez MD [address] [place] [address] Scheduled Referrals Name Type Priority Associated Diagnoses [...] documented as of this encounter Care Teams Senior Commercial Loan Officer Relationship Specialty Start Date End Date Lily Lopez MD [address] [place] [phone] PCP - General Family Medicine 06/14/22 Derrek Bob, PharmD [address] [place] [phone] Pharmacist Internal Medicine 01/04/23 documented as of this encounter
--- OUTSIDE RECORDS SUMMARY | 2025-05-08 10:28 | XMS_ITS | Encounter Summary ---
Author Organization [employer] Address [address] [facility] 7t [place] [address] Care Team Providers Care Riveter Automobile Brakes Name Role Phone Lily Lopez MD Primary Care Provider [phone] Derrek Bob PharmD Unavailable [phone] Encounter Details Date Type Department Care Team (Late st Contact Info) Description 01/14/2024 Orders Only [facility] MED & PEDS [address] [place], [place] [phone] Cinda Sanchez MD [address] [place], [place] [phone] Bicipital tendonitis of right shoulder (Primary Dx) [...] EDT Telemedicine [facility] MEDICINE [address] [place] [address] Derrek Bob, PharmFredis [address] [place] [address] 05/28/2025 9:00 AM EDT Office Visit [facility] ADULT DENTAL [address] [place] [address] 117[address] Denise Moreno DDS [address] [place] [address] 06/01/2025 9:15 AM EST Office Visit [facility] MEDICINE [address] [place] [address] 16838 Lily Lopez MD [address] [place] [address] documented as of this encounter Goals Goal [...] documented as of this encounter Care Teams Riveter Automobile Brakes Relationship Specialty Start Date End Date Lily Lopez MD [address] [place] [address] PCP - General Family Medicine 06/14/22 Derrek Bob, BrooksD [address] [place] [address] Pharmacist Internal Medicine 01/04/23 documented as of this encounter
--- OUTSIDE RECORDS SUMMARY | 2025-05-08 10:28 | XMS_ITS | Encounter Summary ---
Author Organization [employer] [facility] Address 75 [facility] 7t [place] [address] Care Team Providers Care Veneer Gluer Name Role Phone Lily Lopez MD Primary Care Provider [phone] Derrek Bob PharmD Unavailable [phone] Reason for Visit * Reason Comments Med Refill Encounter Details Date Type Department Care Team (Late st Contact Info) Description 10/25/2022 Refill [facility] MEDICINE [address] [place], [place] [phone] Lily Lopez MD 230 [place], [place] [phone] Chronic low back pain, unspecified back pain [...] 05/21/2025 9:00 AM EDT Telemedicine [facility] MEDICINE [address] [place] [address] Derrek Bob, Susan [address] [place] [address] 05/28/2025 9:00 AM EDT Office Visit [facility] ADULT DENTAL [address] [place] [address] Denise Moreno, DDS [address] [place] [address] 06/01/2025 9:15 AM EST Office Visit [facility] MEDICINE [address] [place] [address]265 Lily Lopez MD [address] [place] [address] documented as of this encounter Visit Diagnoses Diagnosis Chronic low back pain, unspecified back pain laterality, unspecified whether sciatica present documented in this encounter Additional Health Concerns Assessment Noted Time PHQ-9 Depression Total Score: 18 023 2:57 PM EST documented as of this encounter Care Teams Veneer Gluer Relationship Specialty Start Date End Date Lily Lopez MD [address] [place] [address] PCP - General Family Medicine 06/14/22 Derrek Bob, PharmD [address] [place] [address] Pharmacist Internal Medicine 01/04/23 documented as of this encounter
== END 2025-05-08 10:25 | disposition home or self-care (01) ==
LOC: HO.MRI 10:24
PROVIDERS: PCP Family Medicine; Visit Provider Family Medicine
DX: R41.0 Disorientation, unspecified (principal); R41.3 Other amnesia
CPT/HCPCS: 70551

== ENCOUNTER 2025-05-20 08:53 | Outpatient (REF) | payer OTHER, SELFPAY ==
--- NOTE | 2025-05-20 | EEG_ITS ---
Reason for Exam: Confusion R41.0 Amnesia R41.3 Roomed Performed:?402 History: heart attack, anxiety, depression, nonalcoholic fatty liver, asthma, hypertension, hyperlipidemia, CAD - Patient reported pressure in head, confusion and memory issues. Patient had slight headache at time of test. Last meal was 6p yesterday. Medication: no list available Technical description Photic stimulation: completed Hyperventilation:? omitted Behavioral state: pleasant, cooperative State of Consciousness: awake and sleep Skull defect: none Sedation: none Handedness: right Duration of study:?31 min 43? sec Description: This is a 16 channel EEG with an EKG lead. Patient is reported awake during the tracing. Background EEG rhythm is about 10 hertz 5-50 microvolt posteriorly and lower amplitude fast anteriorly with no obvious asymmetry or paroxysmal tendency. Photic stimulation does not produce any significant driving. Hyperventilation is not performed]. No sharp waves, spikes, asymmetric activity, or paroxysmal activity noted. Cardiac lead does not reveal any significant abnormality. Patient transitioned into light sleep. Impression: Unremarkable EEG. MTDD
--- OUTSIDE RECORDS SUMMARY | 2025-05-20 09:36 | XMS_ITS | Clinical Summary ---
Author Organization [employer] Address 75 [facility] 7t [place] [address] Care Team Providers Care Vacuum Cleaner Repairer Name Role Phone Lily Lopez MD Primary Care Provider [phone] Derrek Bob PharmD Unavailable [phone] Allergies Active Allergy Reactions Criticality Noted Date [...] WRITTEN ON 03/20/2024 12:20 PM BY LILY LOEPZ MD - lifestyle modifications Assessment & Plan [...] [facility] pain medicine physician, seen by Dr. Serra on 10/22/22 -MRI [...] MRI status. Recommended to speak with [facility] day care worker regarding to SITE OPERATIONS MANAGER service Assessment & Plan (01/28/2024 4:23 PM [...] 10:15 AM EDT): - Previously following with [facility] - Patient request ketorolac injection today. He was also interested in prednisone. Discussed about adverse effects of frequent different steroid use. Patient elected ketorolac injection only today and agreed to try physical therapy - Recommended to try diclofenac gel and lidocaine patch Assessment & Plan (11/01/2022 12:58 PM EDT): Following with [facility] -Interested in Toradol Injections; given pt the [...] - Likely ADHD - Previously connected with [facility] provider / [facility] - Patient is hesitant to try medication [...] anxiety / depression, possibly bipolar -connected with [facility] provider / [facility] -continue counseling / CBT -continue bupropion -continue fluoxetine Assessment & Plan (12/03/2023 5:29 PM EDT): -high level of anxiety, likely anxiety / depression, possibly bipolar -connected with [facility] provider / [facility] -continue counseling / CBT -continue bupropion -start fluoxetine -pt would like to stop taking clonazepam due to its effect on his cognition; his request was approved. Assessment & Plan (11/09/2022 6:04 AM EDT): -high level of anxiety, likely anxiety / depression, possibly bipolar -connected with [facility] provider / [facility] -continue counseling / CBT -continue bupropion -start fluoxetine -pt would like to stop taking clonazepam due to its effect on his cognition; his request was approved. Assessment & Plan (09/14/2022 4:18 PM EST): -high level of anxiety, likely anxiety / depression, possibly bipolar -connected with [facility] provider / [facility] -continue counseling / CBT -continue bupropion -continue judicious use of clonazepam; schedule ASSISTANT PRODUCT MANAGER agreement Coronary artery disease 09/02/2022 Assessment & [...] ) -BP almost at goal -Comanaged with laundry clerk and pharmacist -Following with [facility] [...] Encounters Date Type Department Care Team Description 05/12/2025 Results Follow-Up [address] [address] Lily Lopez MD MR Brain w/o Contrast 05/11/[address] [address] Lily Lopez MD Durable Medical Equipment ([facility]: aluminum foam waist pleater handle cane) 04/28/2025 Telephone [facility] ADULT DENTAL [address] [place], [place] [phone] Denise Moreno DDS 04/28/[address] [address] Ricky Smith MD Chronic low back pain, unspecified back pain laterality, unspecified whether sciatica present 04/14/[address] [address] Lily Lopez MD 04/07/2025 Telephone [facility] MEDICINE [place] [phone] Lily Lopez MD may03/25/2025 Refill [facility]IC[facility] [place] [phone] Derrek Bob, PharmD Essential hypertension 03/25/2025 Refill [facility]IC[facility] [place] [phone] Lily Lopez MD 03/24/2025 Results Follow-Up [facility] [place] [phone] Lily Lopez MD XR Hip left with Pelvis 1 view 03/23/2025 Orders Only [facility] MEDICINE [place] [phone] Lily Lopez MD 03/16/2025 11:30 AM EDT Office Visit [facility] ADULT DENTAL [place] [phone] Denise Moreno, DDS Loss of retention of dental crown (Primary Dx) 03/15/2025 9:45 AM EDT Office Visit [facility] [place] [phone] Lily Lopez MD Essential hypertension (Primary Dx); Coronary artery disease involving [place] coronary artery of [place] heart without angina pectoris; Varicose veins of [...] hip pain; Dyslipidemia 03/15/2025 Travel 03/12/2025 Telephone [facility] MEDICINE [place] [phone] Lily Lopez MD chart prep 03/01/2025 Refill [facility] MEDICINE [address] [place] [address] Lily Lopez MD Chronic low back pain, unspecified back pain laterality, unspecified whether sciatica present from Last 3 Months Immunizations Immunization Administration [...] Info) Description 05/21/2025 9:00 AM EDT Telemedicine [facility] MEDICINE [address] [place] [address] Derrek Bob, PharmD [address] [place] [address] 05/28/2025 9:00 AM EDT Office Visit [facility] ADULT DENTAL [address] [place] [address] Denise Moreno, DDS [address] [place] [address] 06/01/2025 9:15 AM EST Office Visit [facility] MEDICINE [address] [place] [address] Lily Lopez MD [address] [place] [address] Health Maintenance Due Date Last Done Comments [...] of 2) 2028 Lipid Panel 01/28/2030 01/28/2025, 052 02/2024, 03/16/2022 DTaP/Tdap/Td Vaccines (3 - Td or [...] Procedure Name Priority Date/Time Associated Diagnosis Comments MR BRAIN WO CONTRAST Routine 05/12/2025 2:42 AM EDT Confusion Amnesia XR LUMBAR SPINE 2-3 VIEWS Routine 04/14/2025 [...] Recently Relevant to Health Maintenance Results * MR Brain w/o Contrast (05/12/2025 2:42 AM EDT) Anatomical Region Laterality Modality Brain Magnetic Resonan ce 05/12/2025 2:42 AM EDT Narrative 05/12/2025 2:44 AM EDT [place] [address] Magnetic Resonance Report Signed Patient: Kosta Clark MR#: [id number] : 1980 Acct:[id number] Age/Sex: 44 / M ADM Date: 05/08/25 Loc: HO.MRI Attending Dr: Lily Lopez MD Ordering Physician: Lily Lopez MD Date of Service: 05/08/25 Procedure(s): MR head/brain wo con Accession Number(s): [id number] cc: Lily Lopez MD Reason for Exam: confusion, amnesia, CLINICAL HISTORY: confusion, amnesia, MR Brain without gadolinium Comparison: None provided Findings: No restricted diffusion. No intra-axial mass or hemorrhage. No midline shift. No hydrocephalus. Vascular flow voids are intact. The orbits are normal. Left maxillary mucous retention cyst. Small right maxillary mucous retention cyst. No focal bone lesion. IMPRESSION: No acute intracranial abnormality. This document has been electronically signed by: Richard He MD on 05/12/2025 02:42:02 Dictated By: Richard He MD Signed By: <Electronically signed by Richard He MD in OV> 05/12/25 0243 DD/ 1 TD/TT: 05/12/25241 Conventional Mortgage Underwriter: Procedure Note Donotuseinterpreter, Image - 05/12/[address] [address] Magnetic Resonance Report Signed Patient: Kosta ClarkMR#: [id number] : 1980Acct:[id number] Age/Sex: 44 / MADM Date: 05/08/25 Loc: HO.MRI Attending Dr: Lily Lopez MD Ordering Physician: Lily Lopez MD Date of Service: 05/08/25 Procedure(s): MR head/brain wo con Accession Number(s): [id number] cc: Lily Lopez MD Reason for Exam: confusion, amnesia, CLINICAL HISTORY: confusion, amnesia, MR Brain without gadolinium Comparison: None provided Findings: No restricted diffusion. No intra-axial mass or hemorrhage. No midline shift. No hydrocephalus. Vascular flow voids are intact. The orbits are normal. Left maxillary mucous retention cyst. Small right maxillary mucous retention cyst. No focal bone lesion. IMPRESSION: No acute intracranial abnormality. This document has been electronically signed by: Richard He MD on 05/12/2025 02:42:02 Dictated By: Richard He MD Signed By: <Electronically signed by Richard He MD in OV> 05/12/25242 DD/ 1 TD/TT: 05/12/25241 Conventional Mortgage Underwriter: Lily Lopez MD IMG MRI PROCEDURES Edited Result - Final * XR Lumbar Spine 2-3 Views (04/14/2025 12:35 PM EDT) Only the most recent of2 resultswithin the time period is included. Anatomical Region Laterality Modality Spine, L-spine Radiographic Hilda ging 04/14/2025 12:3 5 PM EDT Narrative 04/14/2025 12:56 PM EDT [address] [address] XRay Report Signed Patient: Kosta Clark MR#: [id number] : 1980 Acct:[id number] Age/Sex: 44 / M ADM Date: 04/14/25 Loc: HO.ED Attending Dr: Ordering Physician: El Pena Date of Service: 04/14/25 Procedure(s): XR lumbar spine 2-3V Accession Number(s): [id number] cc: El Pena; Lily Lopez MD Reason [...] Arya Landry MD 04/14/2025 12:53 PM EDT Dictated By: Arya Landry MD Signed By: <Electronically signed by Arya Landry MD in OV> 04/14/25 1253 DD/ 1235 TD/TT: 04/14/25 1245 Conventional Mortgage Underwriter: Procedure Note Donotuseinterpreter, Image - 04/14/[address] [address] XRay Report Signed Patient: Kosta ClarkMR#: [id number] : 1980Acct:[id number] Age/Sex: 44 / MADM Date: 04/14/25 Loc: HO.ED Attending Dr: Ordering Physician: El Pena Date of Service: 04/14/25 Procedure(s): XR lumbar spine 2-3V Accession Number(s): [id number] cc: El Pena; Lily Lopez MD Reason [...] Arya Landry MD 04/14/2025 12:53 PM EDT Dictated By: Arya Landry MD Signed By: <Electronically signed by Arya Landry MD in OV> 04/14/25 1253 DD/ 1235 TD/TT: 04/14/25 1245 Conventional Mortgage Underwriter: [facility] External Provider IMG XR PROCEDURES Edited Result - Final * XR Hip left with Pelvis 1 view (03/23/2025 8:53 AM EDT) Anatomical Region Laterality Modality Lower Extremities, Hip Bilateral Radiograp hic Imaging 03/23/2025 8:53 AM EDT Narrative 03/23/2025 10:27 AM EDT [address] [address] XRay Report Signed Patient: Kosta Clark MR#: [id number] : 1980 Acct:[id number] Age/Sex: 44 / M ADM Date: 03/23/25 Loc: HO.HHCX Attending Dr: Lily Lopez MD Ordering Physician: Lily Lopez MD Date of Service: 03/23/25 Procedure(s): XR hip LT w PEL1V Accession Number(s): [id number] cc: Lily Lopez MD EXAMINATION: XR HIP, [...] 03/23/25 1024 DD/ 0853 TD/TT: 03/23/25 0900 Conventional Mortgage Underwriter: Procedure Note Donotuseinterpreter, Image - 03/23/2025 [place] [address] XRay Report Signed Patient: Kosta ClarkMR#: [id number] : 1980Acct:[id number] Age/Sex: 44 / MADM Date: 03/23/25 Loc: HO.SHELLEYCX Attending Dr: Lily Lopez MD Ordering Physician: Lily Lopez MD Date of Service: 03/23/25 Procedure(s): XR hip LT w PEL1V Accession Number(s): [id number] cc: Lily Lopez MD EXAMINATION: XR HIP, [...] 03/23/25 1024 DD/ 0853 TD/TT: 03/23/25 0900 Conventional Mortgage Underwriter: us Lily Lopez MD IMG XR PROCEDURES Final Result * (ABNORMAL) Lipid Panel, Standard (01/28/2025 8:15 AM EDT) Triglycerides 109 <150 mg/dL [facility] Comment:Desirable Triglyceri de: less than 150 mg/dLBorderline High Triglyceride 150-199 mg/dLHigh Triglyceride: 200-499 mg/dLVery High Triglyceride: greater than or equal to 5OO mg/dL Cholesterol 176 <200 mg/dL [facility] Comment:Desirable Cholestero l: less than 200 mg/dLBorderline High Cholesterol: 200-239 mg/dLHigh Cholesterol: greater than 239 mg/dL LDL Cholesterol Calculated 103(H) <100 mg/dL [facility] Comment:Desirable LDL: less than 100 mg/dLNear Optimal/Above Optimal LDL: 110- 129 mg/dLBorderline High LDL: 130-159 mg/dLHigh LDL: 160-189 mg/dLVery High LDL: greater than or equal to 190 mg/dL HDL Cholesterol 52 >40 mg/dL [facility] Comment:Desirable HDL: great er than 40 mg/dL Note: This HDL assay may give artificially low results in patients with liver disease. 01/28/2025 8:15 AM EDT 01/28/2025 11:02 AM EDT us Lily Lopez MD LAB BLOOD ORDERABLES Final Resul t [facility] [address] [place] [address] [phone] * HEPATITIS C AB W/REFL TO HCV RNA, QN, PCR (03/16/2022 10:33 AM EDT) HEPATITIS C ANTIBODY NON-REACT ANNALISE NON-REACT ANNALISE [facility] INDEX 0.04 <1.00 [facility] Comment: HCV antibody was non-reactive. There is no laboratory evidence of HCV infection. In most cases, no further action is required. However, if recent HCV exposure is suspected, a test for HCV RNA (test code 74450) is suggested. For additional information please refer to http://education.Beneq/faq/PSL53j1 (This link is being provided for informational/ educational purposes only.) 03/16/2022 10:3 3 AM EDT Ricky Carrillo MD HISTORICAL/NON ORDERA BLE LABS Final Result [facility] [address] * (ABNORMAL) Colonoscopy (11/21/2020 7:00 PM EDT) Colonoscopy Abnormal(A ) Normal Historical Provider HEALTH MAINTENANCE Final Result from Last 3 Months or Most Recently Relevant to Health Maintenance Insurance [facility] ONE CARE < [address] [id number] DENTAL - [facility] Care Teams Vacuum Cleaner Repairer Relationship Specialty Start Date End Date Lily Lopez MD [address] [place] [address] PCP - General Family Medicine 06/14/22 Derrek Bob, PharmD [address] [place] [address] Pharmacist Internal Medicine 01/04/23
--- OUTSIDE RECORDS SUMMARY | 2025-05-20 09:36 | XMS_ITS | Encounter Summary ---
Author Organization [employer] Address 75 [facility] 7t [place] [address] Care Team Providers Care Strategic Planning Analyst Name Role Phone Lily Lopez MD Primary Care Provider [phone] Derrek Bob PharmD Unavailable [phone] Encounter Details Date Type Department Care Team ([facility] Contact Info) Description 05/12/2025 Results Follow-Up [facility] MEDICINE [address] [place], [place] [phone] Lily Lopez MD [address] [place], [place] [phone] MR Brain w/o Contrast Social History Tobacco Use Types Packs/Day Years [...] Info) Description 05/21/2025 9:00 AM EDT Telemedicine [facility] MEDICINE [address] [place] [address] Derrek Bob, PharmD [address] [place] [address] 05/28/2025 9:00 AM EDT Office Visit [facility] ADULT DENTAL [address] [place] [address] Denise Moreno DDS [address] [place] [address] 06/01/2025 9:15 AM EST Office Visit [facility] MEDICINE [address] [place] [address] Lily Lopez MD [address] [place] [address] documented as of this encounter Goals Goal [...] documented as of this encounter Care Teams Strategic Planning Analyst Relationship Specialty Start Date End Date Lily Lopez MD [address] [place] [address] PCP - General Family Medicine 06/14/22 Derrek Bob, BrooksD [address] [place] [address] Pharmacist Internal Medicine 01/04/23 documented as of this encounter
--- OUTSIDE RECORDS SUMMARY | 2025-05-20 09:36 | XMS_ITS | Encounter Summary ---
Author Organization [employer] Address 75 [facility] 7t [place] [address] Care Team Providers Care Pit Tanner Name Role Phone Lily Lopez MD Primary Care Provider [phone] Derrek Bob PharmD Unavailable [phone] Reason for Visit * Reason Comments Med Refill Encounter Details Date Type Department Care Team ([facility] st Contact Info) Description 03/25/2025 Refill [facility] MEDICINE [address] [place], [place] [phone] Lily Lopez MD [address] [place], [place] [phone] Social History Tobacco Use Types Packs/Day Years [...] Info) Description 05/21/2025 9:00 AM EDT Telemedicine [facility] MEDICINE [address] [place] [address] Derrek Bob, PharmD [address] [place] [address] 05/28/2025 9:00 AM EDT Office Visit [facility] ADULT DENTAL [address] [place] [address] Denise Moreno DDS [address] [place] [address] 06/01/2025 9:15 AM EST Office Visit [facility] MEDICINE [address] [place] [address] Lily Lopez MD [address] [place] [address] documented as of this encounter Goals Goal [...] documented as of this encounter Care Teams Pit Tanner Relationship Specialty Start Date End Date Lily Lopez MD [address] [place] [address] PCP - General Family Medicine 06/14/22 Derrek Bob, Susan [address] [place] [address] Pharmacist Internal Medicine 01/04/23 documented as of this encounter
--- OUTSIDE RECORDS SUMMARY | 2025-05-20 09:36 | XMS_ITS | Encounter Summary ---
Author Organization [employer] Address 75 [facility] 7t [place] [address] Care Team Providers Care Clinical Care Manager Name Role Phone Lily Lopez MD Primary Care Provider [phone] Derrek Bob PharmD Unavailable [phone] Encounter Details Date Type Department Care Team (Late st Contact Info) Description 11/22/2023 Orders Only [facility] MEDICINE [address] [place], [place] [phone] Lily Lopez MD [address] [place], [place] [phone] Social History Tobacco Use Types Packs/Day Years [...] 05/21/2025 9:00 AM EDT Telemedicine [facility] MEDICINE [address] [place] [address] Derrek Bob PharmFredis [address] [place] [address] 05/28/2025 9:00 AM EDT Office Visit [facility] ADULT DENTAL [address] [place] [address] Denise Moreno, DDS [address] [place] [address] 06/01/2025 9:15 AM EST Office Visit [facility] MEDICINE [address] [place] [address] Lily Lopez MD [address] [place] [address] documented as of this encounter Goals Goal [...] documented as of this encounter Care Teams Clinical Care Manager Relationship Specialty Start Date End Date Lily Lopez MD [address] [place] [address] PCP - General Family Medicine 06/14/22 Derrek Bob, BrooksD [address] [place] [address] Pharmacist Internal Medicine 01/04/23 documented as of this encounter
--- OUTSIDE RECORDS SUMMARY | 2025-05-20 09:36 | XMS_ITS | Encounter Summary ---
Author Organization [employer] [facility] Address [address] [facility] 7t [place] [address] Care Team Providers Care Formulation Chemist Name Role Phone Graciela Rich MD Primary Care Provider Lily Sierra MD Primary Care Provider [phone] Derrek Bob PharmD Unavailable [phone] Encounter Details Date Type Department Care Team (Latest Contact Info) Description 06/03/2019 Abstract [facility] CONVERSIONS Dental, Provider, DDS Social [...] Description 05/21/2025 9:00 AM EDT Telemedicine [facility] MEDICINE [address] [place] [address] 84482 Derrek Bob, PharmD 230 [place] [address] 05/28/2025 9:00 AM EDT Office Visit [facility] ADULT DENTAL [address] [place] [address] 17984 Denise Moreno DDS 230 [place] [address] 06/01/2025 9:15 AM EST Office Visit [facility] MEDICINE [address] [place] [address] 63730 Lily Lopez MD [address] [place] [address] 75706 documented as of this encounter Visit Diagnoses Not on filedocumented in this encounter Care Teams Formulation Chemist Relationship Specialty Start Date End Date Graciela Rich MD PCP - General Family Medicine 02/27/22 06/13/22 Lily Lopez MD [address] [place] [address] 67195 PCP - General Family Medicine 06/14/22 Derrek Bob, BrooksD [address] [place] [address] 72088 Pharmacist Internal Medicine 01/04/23 documented as of this encounter
--- OUTSIDE RECORDS SUMMARY | 2025-05-20 09:36 | XMS_ITS | Encounter Summary ---
Author Organization [employer] Address 75 [facility] 7t [place] [address] Care Team Providers Care Committee Member Name Role Phone Lily Lopez MD Primary Care Provider Derrek Bob PharmD Unavailable [phone] Reason for Visit * Reason Comments Med Refill Encounter Details Date Type Department Care Team (Late st Contact Info) Description 09/08/2024 Refill [facility] MEDICINE 230 [place], [place] [phone] Gloria Monge MD 230 [place], [place] [phone] Chronic low back pain, unspecified back pain [...] 05/21/2025 9:00 AM EDT Telemedicine [facility] MEDICINE [address] [place] [address] 19953 Derrek Bob, PharmD [address] [place] [address] 133[address] 05/28/2025 9:00 AM EDT Office Visit [facility] ADULT DENTAL [address] [place] [address] 65961 Denise Moreno DDS [address] [place] [address] 225[address] 06/01/2025 9:15 AM EST Office Visit [facility] MEDICINE [address] [place] [address] 99407 Lily Lopez MD [address] [place] [address] 36592 documented as of this encounter Goals Goal [...] documented as of this encounter Care Teams Committee Member Relationship Specialty Start Date End Date Lily Lopez MD 230 [place] [address] PCP - General Family Medicine 06/14/22 Derrek Bob, BrooksD 230 [place] [address] Pharmacist Internal Medicine 01/04/23 documented as of this encounter
--- OUTSIDE RECORDS SUMMARY | 2025-05-20 09:36 | XMS_ITS | Encounter Summary ---
Author Organization [employer] [facility] Address [address] [facility] 7t [place] [address] Care Team Providers Care Fire Regulator Name Role Phone Lily Lopez MD Primary Care Provider [phone] Derrek Bob PharmD Unavailable [phone] Reason for Visit * Reason Comments Med Refill Encounter Details Date Type Department Care Team (Late st Contact Info) Description 10/25/2022 Refill [facility] MEDICINE 230 [place], [place] [phone] Lily Lopez MD 230 [place], [place] [phone] Chronic low back pain, unspecified back pain [...] 05/21/2025 9:00 AM EDT Telemedicine [facility] MEDICINE [address] [place] [address] 84648 Derrek Bob, Susan [address] [place] [address] 05/28/2025 9:00 AM EDT Office Visit [facility] ADULT DENTAL [address] [place] [address] 91367 Denise Moreno, DDS 230 [place] [address] 06/01/2025 9:15 AM EST Office Visit [facility] MEDICINE [address] [place] [address] 53777 Lily Lopez MD [address] [place] [address] 86997 documented as of this encounter Visit Diagnoses Diagnosis Chronic low back pain, unspecified back pain laterality, unspecified whether sciatica present documented in this encounter Additional Health Concerns Assessment Noted Time PHQ-9 Depression Total Score: 18 023 2:57 PM EST documented as of this encounter Care Teams Fire Regulator Relationship Specialty Start Date End Date Lily Lopez MD [address] [place] [address] 24619 PCP - General Family Medicine 06/14/22 Derrek Bob, PharmD [address] [place] [address] 31305 Pharmacist Internal Medicine 01/04/23 documented as of this encounter
--- OUTSIDE RECORDS SUMMARY | 2025-05-20 09:36 | XMS_ITS | Encounter Summary ---
Author Organization [employer] Address [address] [facility] 7t [place] [address] Care Team Providers Care Air Purifier Servicer Name Role Phone Lily Lopez MD Primary Care Provider [phone] Derrek Bob PharmD Unavailable [phone] Reason for Visit * Reason Onset Date Comments Appointment Request 05/15/2024 Encounter Details Date Type Department Care Team ([facility] Contact Info) Description 05/15/2024 Telephone [facility] MEDICINE 230 [place], [place] [phone] Lily Lopez MD 230 [place], [place] [phone] Appointment Request Social History Tobacco Use Types [...] 05/21/2025 9:00 AM EDT Telemedicine [facility] MEDICINE [address] [place] [address] 25135 Derrek Bob, PharmD [address] [place] [address] 40665 05/28/2025 9:00 AM EDT Office Visit [facility] ADULT DENTAL [address] [place] [address] 44055 Denise Moreno DDS 230 [place] [address] 06/01/2025 9:15 AM EST Office Visit [facility] MEDICINE [address] [place] [address] 38489 Lily Lopez MD 230 [place] [address] documented as of this encounter Goals Goal [...] documented as of this encounter Care Teams Air Purifier Servicer Relationship Specialty Start Date End Date Lily Lopez MD 230 [place] [address] PCP - General Family Medicine 06/14/22 Derrek Bob, PharmD 230 [place] [address] Pharmacist Internal Medicine 01/04/23 documented as of this encounter
--- OUTSIDE RECORDS SUMMARY | 2025-05-20 09:36 | XMS_ITS | Encounter Summary ---
Author Organization [employer] Address [address] [facility] [address] 7t [place] [address] Care Team Providers Care Dehydrogenation Operator Name Role Phone Lily Lopez MD Primary Care Provider [phone] Derrek Bob PharmD Unavailable [phone] Reason for Visit * Reason Comments Med Refill Encounter Details Date Type Department Care Team ([facility] st Contact Info) Description 06/29/2023 Refill [facility] 230 [place] [address] Ly Mckeon MD 505 [place] [address] Social History Tobacco Use Types Packs/Day Years [...] EDT Telemedicine [facility] MEDICINE [address] [place] [address] 25797 Derrek Bob, PharmD [address] [place] [address] 9[address] 05/28/2025 9:00 AM EDT Office Visit [facility] ADULT DENTAL [address] [place] [address] 599[address] Denise Moreno, DDS 230 [place] [address] 06/01/2025 9:15 AM EST Office Visit [facility] MEDICINE [address] [place] [address] 92185 Lily Lopez MD [address] [place] [address] 45501 documented as of this encounter Goals Goal [...] documented as of this encounter Care Teams Dehydrogenation Operator Relationship Specialty Start Date End Date Lily Lopez MD [address] [place] [address] 70897 PCP - General Family Medicine 06/14/22 Derrek Bob, PharmD [address] [place] [address] [place] [address] Pharmacist Internal Medicine 01/04/23 documented as of this encounter
--- OUTSIDE RECORDS SUMMARY | 2025-05-20 09:36 | XMS_ITS | Encounter Summary ---
Author Organization [employer] Address [address] [facility] 7t [place] [address] Care Team Providers Care Investment Banking Associate Name Role Phone Lily Lopez MD Primary Care Provider [phone] Derrek Bob PharmD Unavailable [phone] Reason for Referral * Consultation (Routine) - Authorized Specialty Diagnoses / Procedures Referred By Contac t Referred To Contact Pharmacy Diagnoses Essential hypertension Moderate persistent asthma without complication Lily Lopez MD [address] [place] [address]11 Phone: tel: fax: Referral ID Status Reason Start Date Expiration Date Visits Requested Visits Authorized [id number] Authorized Consult and Treat 06/09/2024 06/09/2025 6 6 Encounter Details Date Type Department Care Team (Late st Contact Info) Description 06/09/2024 Orders Only [facility] MEDICINE [address] [place] [address] 01040 Lily Lopez MD 230 [place] [address] Essential hypertension (Primary Dx); Moderate [...] Info) Description 05/21/2025 9:00 AM EDT Telemedicine [facility] MEDICINE [address] [place] [address] 77834 Derrek Bob, BrooksD [address] [place] [address] 69[address] 05/28/2025 9:00 AM EDT Office Visit [facility] ADULT DENTAL [address] [place] [address] 01691 Denise Moreno DDS [address] [place] [address] 51678 06/01/2025 9:15 AM EST Office Visit [facility] MEDICINE [address] [place] [address] 51045 Lily Lopez MD [address] [place] [address] 15164 Scheduled Referrals Name Type Priority Associated Diagnoses [...] documented as of this encounter Care Teams Investment Banking Associate Relationship Specialty Start Date End Date Lily Lopez MD [address] [place] [address] 32280 PCP - General Family Medicine 06/14/22 Derrek Bob, PharmD [address] [place] [address] 79498 Pharmacist Internal Medicine 01/04/23 documented as of this encounter
--- OUTSIDE RECORDS SUMMARY | 2025-05-20 09:37 | XMS_ITS | Encounter Summary ---
Author Organization [employer] Address 75 [facility] 7t [place] [address] Care Team Providers Care Tap Dancer Name Role Phone Lily Lopez MD Primary Care Provider [phone] Derrek Bob PharmD Unavailable [phone] Encounter Details Date Type Department Care Team (Late st Contact Info) Description 01/14/2024 Orders Only [facility] MED [facility] PEDS 505 [place], [place] [phone] Cinda Sanchez MD 505 [place], [place] [phone] Bicipital tendonitis of right shoulder (Primary Dx) [...] EDT Telemedicine [facility] MEDICINE [address] [place] [address] 58126 Derrek Bob, PharmFredis [address] [place] [address] 28889 05/28/2025 9:00 AM EDT Office Visit [facility] ADULT DENTAL [address] [place] [address] 25431 Denise Moreno DDS [address] [place] [address] 55966 06/01/2025 9:15 AM EST Office Visit [facility] MEDICINE [address] [place] [address] 89829 Lily Lopez MD [address] [place] [address] 57315 documented as of this encounter Goals Goal [...] documented as of this encounter Care Teams Tap Dancer Relationship Specialty Start Date End Date Lily Lopez MD 230 [place] [address] PCP - General Family Medicine 06/14/22 Derrek Bob, BrooksD 230 [place] [address] Pharmacist Internal Medicine 01/04/23 documented as of this encounter
== END 2025-05-20 08:54 | disposition home or self-care (01) ==
LOC: HO.NEURO 08:53
PROVIDERS: PCP Family Medicine; Visit Provider Family Medicine
DX: R41.3 Other amnesia (principal); R41.0 Disorientation, unspecified
CPT/HCPCS: 95819

== ENCOUNTER → 2025-05-20 09:00 | Outpatient (BNV) | payer OTHER, SELFPAY | PROVIDERS: PCP Family Medicine; Visit Provider Psychiatry & Neurology Neurology | DX: R41.3 Other amnesia (principal) | CPT/HCPCS: 95819 ==

== ENCOUNTER 2025-07-25 08:20 | Emergency (ER) | payer OTHER, SELFPAY ==
[2025-07-25 08:22] VITALS: BP 145/73; PULSE 71; RESP 20; TEMP 36; O2SAT 99; BMI 30.7
--- OUTSIDE RECORDS SUMMARY | 2025-07-25 11:23 | XMS_ITS | Encounter Summary ---
Author Organization [employer] Address 75 [facility] 7t [place] [address] Care Team Providers Care Speech Writer Name Role Phone Lily Lopez MD Primary Care Provider [phone] Derrek Bob PharmD Unavailable Reason for Visit * Reason Onset Date Comments Appointment Request 05/15/2024 Encounter Details Date Type Department Care Team ([facility] Contact Info) Description 05/15/[address] [facility] MEDICINE 230 [place], [place] [phone] Lily Lopez MD 230 [place], [place] [phone] Appointment Request Social History Tobacco Use Types [...] Care Team (Late st Contact Info) Description 08/27/2025 9:00 AM EST Medication [address] [facility] MEDICINE 230 [place] [address] Derrek Bob PharmD 230 [place] [address] documented as of this encounter Goals Goal Patient Goal Type Associated Problems Recent Progress Patient-Stated? Author Blood Pressure < 140/90 Blood Pressure 142/90( 025 9:07 AM EST) No Derrek Bob PharmD documented as of this encounter Visit Diagnoses Not on filedocumented in this encounter Additional Health Concerns Assessment Noted Time PHQ-9 Depression Total Score: 13 024 1:11 PM EDT documented as of this encounter Care Teams Speech Writer Relationship Specialty Start Date End Date Lily Lopez MD 230 [place] [address] PCP - General Family Medicine 06/14/22 Derrek Bob, PharmD [address] [place] [address] 31368 Pharmacist Internal Medicine 01/04/23 documented as of this encounter
--- OUTSIDE RECORDS SUMMARY | 2025-07-25 11:23 | XMS_ITS | Encounter Summary ---
Author Organization [employer] Address [address] [facility] 7t [place] [address] Care Team Providers Care Shrimp Peeling Machine Tender Name Role Phone Lily Lopez MD Primary Care Provider [phone] Derrek Bob PharmD Unavailable [phone] Reason for Visit * Reason Comments Med Refill Encounter Details Date Type Department Care Team (Late st Contact Info) Description 09/08/2024 Refill [facility] MEDICINE 230 [place], [place] [phone] Gloria Monge MD 230 [place], [place] [phone] Chronic low back pain, unspecified back pain [...] Description 08/27/2025 9:00 AM EST Medication Management [facility] MEDICINE 230 [place] [address] Derrek Bob, PharmD 230 [place] [address] documented as of this encounter Goals Goal Patient Goal Type Associated Problems Recent Progress Patient-Stated? Author Blood Pressure < 140/90 Blood Pressure 142/90( 025 9:07 AM EST) No Derrek Bob, PharmD documented as of this encounter Visit Diagnoses Diagnosis Chronic low back pain, unspecified back pain laterality, unspecified whether sciatica present documented in this encounter Additional Health Concerns Assessment Noted Time PHQ-9 Depression Total Score: 13 024 1:11 PM EDT documented as of this encounter Care Teams Shrimp Peeling Machine Tender Relationship Specialty Start Date End Date Lily Lopez MD [address] [place] [address] [phone] PCP - General Family Medicine 06/14/22 Derrek Bob, PharmD [address] [place] [address] 47[address] Pharmacist Internal Medicine 01/04/23 documented as of this encounter
--- OUTSIDE RECORDS SUMMARY | 2025-07-25 11:23 | XMS_ITS | Encounter Summary ---
Author Organization [employer] [facility] Address 75 [facility] 7t [place] [address] Care Team Providers Care Prn Occupational Therapist Name Role Phone Lily Lopez MD Primary Care Provider [phone] Derrek Bob PharmD Unavailable [phone] Reason for Referral * Consultation (Urgent) - Closed Specialty Diagnoses / Procedures Referred By Contac t Referred To Contact Behavioral Health Diagnoses Generalized anxiety disorder Mood disorder (CMS/HCC) Procedures Referral to Behavioral Health Lily Lopez MD [address] [place] [address] Phone: tel: fax: Referral ID Status Reason Start Date Expiration Date V isits Requested Visits Authorized [id number] Closed Specialty Services Required 06/09/2025 12/08/2026 1 1 Encounter Details Date Type Department Care Team (Late st Contact Info) Description 06/09/2025 Orders Only [facility] MEDICINE [address] [place] [address] 01040 Lily Lopez MD [address] [place] [address] [phone] Generalized anxiety disorder (Primary Dx); Mood disorder (CMS/HCC) Social History Tobacco Use Types Packs/Day Years Used Date Smoking Tobacco: Never Passive Smoke Exposure: Never Smokeless Tobacco: Never Alcohol Use Standard Drinks/Week Comments Not Currently 0 (1 standard drink = 0.6 oz pur e alcohol) Depression Answer Date Recorded Patient Health Questionnaire-9 Score 2 06/01/2025 Patient Health Questionnaire-9 Score 2 06/01/2025 Last PHQ-9: Questionnaire Data Not on file 1 08/01/2024 Housing Stability Answer Date Recorded What is [...] Answer Date Recorded Patient Health Questionnaire-2 Score 0 06/01/2025 Internet Access Answer Date Recorded Internet Access [...] Description 08/27/2025 9:00 AM EST Medication Management [facility] MEDICINE 230 [place] [address] Derrek Bob, BrooksD 230 [place] [address] documented as of this encounter Goals Goal Patient Goal Type Associated Problems Recent Progress Patient-Stated? Author Blood Pressure < 140/90 Blood Pressure 142/90( 025 9:07 AM EST) No Derrek Bob, PharmD documented as of this encounter Visit Diagnoses Diagnosis Generalized anxiety disorder- Primary Mood disorder (CMS/HCC) Unspecified episodic mood disorder documented in this encounter Additional Health Concerns Assessment Noted Time PHQ-9 Depression Total Score: 2 06/01/20 25 9:16 AM EST documented as of this encounter Care Teams Prn Occupational Therapist Relationship Specialty Start Date End Date Lily Lopez MD 230 [place] [address] PCP - General Family Medicine 06/14/22 Derrek Bob PharmD 230 [place] [address] Pharmacist Internal Medicine 01/04/23 documented as of this encounter
--- OUTSIDE RECORDS SUMMARY | 2025-07-25 11:23 | XMS_ITS | Encounter Summary ---
Author Organization [employer] Address [address] [facility] [address] 7t [place] [address] Care Team Providers Care Drafting Technician Name Role Phone Lily Lopez MD Primary Care Provider [phone] Derrek Bob PharmD Unavailable [phone] Reason for Visit * Reason Comments Med Refill Encounter Details Date Type Department Care Team ([facility] st Contact Info) Description 06/29/2023 Refill [facility] 230 [place] [address] Ly Mckeon MD [address] [place] [address] Social History Tobacco Use Types Packs/Day Years [...] Description 08/27/2025 9:00 AM EST Medication Management [facility] MEDICINE 230 [place] [address] Derrek Bob PharmD 230 [place] [address] documented as of this encounter Goals Goal Patient Goal Type Associated Problems Recent Progress Patient-Stated? Author Blood Pressure < 140/90 Blood Pressure 142/90( 025 9:07 AM EST) No Derrek Bob PharmFredis documented as of this encounter Visit Diagnoses Not on filedocumented in this encounter Additional Health Concerns Assessment Noted Time PHQ-9 Depression Total Score: 18 023 2:57 PM EST documented as of this encounter Care Teams Drafting Technician Relationship Specialty Start Date End Date Lily Lopez MD 230 [place] [address] PCP - General Family Medicine 06/14/22 Derrek Bob, PharmD [address] [place] [address] 88042 Pharmacist Internal Medicine 01/04/23 documented as of this encounter
--- OUTSIDE RECORDS SUMMARY | 2025-07-25 11:23 | XMS_ITS | Encounter Summary ---
Author Organization [employer] [facility] Address 75 [facility] 7t [place] [address] Care Team Providers Care Town Administrator Name Role Phone Lily Lopez MD Primary Care Provider [phone] Derrek Bob PharmD Unavailable [phone] Reason for Visit * Reason Comments Med Refill Encounter Details Date Type Department Care Team (Late st Contact Info) Description 10/25/2022 Refill [facility] MEDICINE 230 [place], [place] [phone] Lily Lopez MD 230 [place], [place] [phone] Chronic low back pain, unspecified back pain [...] Description 08/27/2025 9:00 AM EST Medication Management [facility] MEDICINE 230 [place] [address] Derrek Bob, PharmD 230 [place] [address] documented as of this encounter Visit Diagnoses Diagnosis Chronic low back pain, unspecified back pain laterality, unspecified whether sciatica present documented in this encounter Additional Health Concerns Assessment Noted Time PHQ-9 Depression Total Score: 18 023 2:57 PM EST documented as of this encounter Care Teams Town Administrator Relationship Specialty Start Date End Date Lily Lopez MD [address] [place] [address] 18703 PCP - General Family Medicine 06/14/22 Derrek Bob, PharmD [address] [place] [address] 7[address] Pharmacist Internal Medicine 01/04/23 documented as of this encounter
--- OUTSIDE RECORDS SUMMARY | 2025-07-25 11:23 | XMS_ITS | Encounter Summary ---
Author Organization [employer] Address 75 [facility] 7t [place] [address] Care Team Providers Care Senior Administrator Support Name Role Phone Lily Lopez MD Primary Care Provider [phone] Derrek Bob PharmD Unavailable [phone] Reason for Referral * Consultation (Routine) - Authorized Specialty Diagnoses / Procedures Referred By Contac t Referred To Contact Pharmacy Diagnoses Essential hypertension Lily oLpez MD 230 [place] [address] Phone: tel: fax: Referral ID Status Reason Start Date Expiration Date Visits Requested Visits Authorized [id number] Authorized Consult and Treat 05/24/2025 05/24/2026 6 6 Encounter Details Date Type Department Care Team (Late st Contact Info) Description 05/24/2025 Orders Only [facility] MEDICINE 230 [place], [place] [phone] Lily Lopez MD 230 [place], [place] [phone] Essential hypertension (Primary Dx) Social History Tobacco Use Types [...] Upcoming Encounters Date Type Department Care Team ([facility] st Contact Info) Description 08/27/2025 9:00 AM EST Medication Management [facility] MEDICINE 230 [place] [address] Derrek Bob, BrooksD 230 [place] [address] Scheduled Referrals Name Type Priority Associated Diagnoses Orde r Schedule Referral to Pharmacy CDTM Outpatient Referral Routine Essential hypertension Ordered: 05/24/2025 documented as of this encounter Goals Goal Patient Goal Type Associated Problems Recent Progress Patient-Stated? Author Blood Pressure < 140/90 Blood Pressure 142/90( 025 9:07 AM EST) No Derrek Bob, Susan documented as of this encounter Visit Diagnoses Diagnosis Essential hypertension- Primary Unspecified essential hypertension documented in this encounter Additional Health Concerns Assessment Noted Time PHQ-9 Depression Total Score: 17 025 9:16 AM EDT documented as of this encounter Care Teams Senior Administrator Support Relationship Specialty Start Date End Date Lily Lopez MD 230 [place] [address] PCP - General Family Medicine 06/14/22 Derrek Bob, Susan 230 [place] [address] Pharmacist Internal Medicine 01/04/23 documented as of this encounter
--- OUTSIDE RECORDS SUMMARY | 2025-07-25 11:23 | XMS_ITS | Encounter Summary ---
Author Organization [employer] Address [address] [facility] [address] [place] [address] Care Team Providers Care Sdet Name Role Phone Lily Lopez MD Primary Care Provider [phone] Derrek Bob PharmD Unavailable [phone] Reason for Visit * Reason Comments Med Refill Encounter Details Date Type Department Care Team ([facility] st Contact Info) Description 03/25/2025 Refill [facility] [address] [place], [place] [phone] Lily Lopez MD [address], [place] [phone] Social History Tobacco Use Types Packs/Day Years [...] Description 08/27/2025 9:00 AM EST Medication Management [facility] [address] [place] [address] Derrek Bob, Susan [address] [place] [address] documented as of this encounter Goals Goal [...] documented as of this encounter Care Teams Sdet Relationship Specialty Start Date End Date Lily Lopez MD [address] [place] [id number] PCP - General Family Medicine 06/14/22 Derrek Bob, BrooksD [address] [place] [id number] Pharmacist Internal Medicine 01/04/23 documented as of this encounter
--- OUTSIDE RECORDS SUMMARY | 2025-07-25 11:23 | XMS_ITS | Clinical Summary ---
Author Organization [employer] Address [address] [facility] [address] [place] [address] Care Team Providers Care Help Desk Consultant Name Role Phone Lily Lopez MD Primary Care Provider [phone] Derrek Bob PharmD Unavailable [phone] Allergies Active Allergy Reactions Criticality Noted Date Comments Clonazepam Dizziness 11/01/2022 drowsiness Cyclobenzaprine 02/27/2022 Other reaction(s): erectile disfunction Ibuprofen Other 08/22/2022 Tramadol 08/22/2022 Chest pain Medications * This document contains information received from the source organization and may not represent a complete record from that organization. omeprazole (PriLOSEC) [address] capsule TAKE 1 CAPSULE ORALLY 2 TIMES A DAY FOR H PYLORI GASTRITIS FOR 90 DAYS 4 Active lidocaine-priloca ine (Emla) 2.5-2.5 % creamIndications: Bicipital tendonitis of right shoulder APPLY TOPICALLY ONCE DAILY DIRECTED 30 g 1 5 Active metoprolol succinate XL (Toprol-XL) 25 MG 24 hr tabletIndications :Essential hypertension TAKE 1 TABLET BY MOUTH EVERY MORNING 90 tablet 3 06/15/2025 4:25 PM EST 5 Active Blood Pressure Monitoring (Blood Pressure Kit) kitIndications:Es sential hypertension Use as directed daily 1 kit 5 Active acetaminophen (Tylenol 8 Hour) 650 MG ER tablet Take 1 tablet by mouth every 8 (eight) hours if needed for pain. 5 Active FT Fiber Supplement 400 MG capsule Take 1 capsule by mouth 2 times daily. 5 Active Diclofenac Sodium 1 % gel Apply to affected area once or twice daily as needed for pain 350 g 3 5 Active lidocaine (Lidoderm) 5 % patchIndications: Left hip pain,Midline low back pain, unspecified chronicity, unspecified whether sciatica present Apply 1 patch topically Once per day. Remove & discard patch within 12 hours or as directed by MD. 30 patch 11 5 Active rosuvastatin (Crestor) 20 MG tabletIndications :Essential hypertension TAKE 1 TABLET BY MOUTH EVERY MORNING 90 tablet 3 06/15/2025 4:25 PM EST 5 Active Aspirin Low Dose 81 MG EC tabletIndications :Essential hypertension TAKE 1 TABLET BY MOUTH EVERY MORNING 90 tablet 3 06/15/2025 4:25 PM EST 5 Active Xiidra 5 % solution PLACE 1 DROP IN EACH EYE TWICE DAILY 5 Active Zenpep 31928-69142 units capsule delayed-release particles capsule TAKE 1 CAPSULE BY MOUTH THREE TIMES DAILY WITH MEALS OR SNACKS 5 Active albuterol (Ventolin HFA) 108 (90 Base) MCG/ACT inhalerIndication s:Moderate persistent asthma without complication Inhale 2 puffs every 4 (four) hours if needed for wheezing or shortness of breath. 18 g 3 06/15/2025 4:25 PM EST 5 Active loratadine (Claritin) 10 MG tablet Take 1 tablet (10 mg) by mouth Once per day. 90 tablet 3 06/15/2025 4:25 PM EST 5 Active gabapentin (Neurontin) 400 MG capsuleIndication s:Chronic low back pain, unspecified back pain laterality, unspecified whether sciatica present Take 1 capsule (400 mg) by mouth at bedtime. 30 capsule 5 Active Active Problems Problem Noted Date Diagnosed Date Allergic rhinitis 06/06/2025 Assessment & Plan (06/06/2025 6:47 AM EST): - Recent conjunctivitis - Patient declines nasal spray treatment - Continue loratadine - Patient is interested in allergy testing and immunotherapy / biologics, if indicated Marijuana use 06/01/2025 Assessment & Plan (06/06/2025 6:39 AM EST): - Patient is planning to reduce consumption Abdominal discomfort 05/31/2025 Assessment & Plan (05/31/2025 5:59 AM EST): - following with [facility], last seen by Dr. Hatch on 03/18/2025 - GERD, dysphagia, history of gastric ulcer associated with Helicobacter pylori infection - he has had extensive GI work-up and treatment as summarized by Dr. Hatch's last note - 02/2019 Prescribed eradication treatment for H pylori with amoxicillin, clarithromycin and omeprazole. - 09/08/19 repeat EGD showed persistent gastric ulcers with Helicobacter pylori gastritis. Patient admits to taking a baby aspirin once a week. Prescribed quadruple therapy x 14 days for H Pylori eradication. - Patient reported abdominal gas with intermittent diarrhea felt to be functional. Stool for WBC and occult blood was negative in July of 2018. - November 2018 barium swallow showed a normal mucosal fold of her tongue, without mucosal thickening, ulceration, mass or stricture. Mild to moderate esophageal dysmotility, with tertiary contractions and 2 and the floor motion of the ingested oral contrast. No hiatal hernia. Gastroesophageal reflux is not seen despite reflux maneuvers. - 09/14/2020 Abdominal ultrasound showed fatty liver and was negative for gallstones. - 11/01/2020 EGD and colonoscopy: Tortuous esophagus with increased tertiary contractions without stricture or ring; no esophagitis or Clemente's; moderate diffuse gastric erythema with nodular appearing gastric mucosa; chronic appearing antral erosions and a healing 6 to 7 mm antral ulcer-biopsied. Biopsies showed ulcerated antral-type mucosa with marked inflammation and regenerative changes; positive for H. pylori; antral type mucosa with severe chronic active inflammation; polypoid oxyntic mucosa with severe chronic active inflammation; tubular adenoma of descending colon polyp, no high-grade dysplasia. - 08/2022 FU EGD: Normal esophagus; normal stomach (biopsy); normal duodenum. Biopsy showed antral-type and oxyntic mucosa with moderate chronic active inflammation. Positive for H. pylori - 01/17/2023 Pt retreated for HPylori with Amox + Levo + Omeprazole x 14 days - July 2023 Treatment of H pylori with amoxicillin + levofloxacin + omeprazole x 14 days - Barium swallow in October 2023 showed: Small amount of laryngeal penetration to a very object through vocal cords on the initial swallow; no tracheal aspiration was seen; mild to moderate esophagus dysmotility; small type I hiatal hernia. - 03/19/2024 Patient reported acid reflex with burning sensation, chronic constipation with soft stool, and hiccups. Advised to resume taking Omeprazole twice daily for GERD and hiccups. Hold off treatment for H Pylori until anxiety improves -02/04/2025 patient reported stomach pain with spicy food and gagging with milk products.. Patient reported diarrhea every day. Stool culture negative for infectious cause. Stool pancreatic elastase test showed mild to moderate exocrine pancreatic insufficiency. - 03/18/2025 Notes rumbling in his stomach after he drinks milk. Advised to switch to Lactaid milk. Discontinue milk products for the next [address] scan to evaluate the pancreas. Take pancreatic enzymes in the middle of his meals Helicobacter pylori gastritis 05/31/2025 Assessment & Plan (05/31/2025 5:48 AM EST): - since 2018 - difficulty completing eradication treatment as prescribed - History of prescribed eradication treatment as followin02/2019 amoxicillin, clarithromycin and omeprazole 09/08/19 quadruple therapy x 14 days 01/17/23 Amox + Levo + Omeprazole x 14 days 08/22/23 amoxicillin + levofloxacin + omeprazole x 14 days - most recent EGD in Aug 2022. Moderate chronic active inflammation of gastric mucosa and positive H. Pylori - plan is to retry eradication treatment once his anxiety improves Pancreatic insufficiency 05/31/2025 Assessment & Plan (05/31/2025 6:01 AM EST): - pancreatic enzyme stool test in January 2025 suggests mild to moderate exocrine pancrease insufficiency Dyslipidemia 03/19/2025 Assessment & Plan (06/06/2025 6:39 AM EST): - current medication: rosuvastatin - last lipid profile 01/28/25 - continue working on lifestyle modification Assessment & Plan (03/19/2025 11:21 AM EDT): - current medication: rosuvastatin - last lipid profile 01/28/25 - continue working on lifestyle modification Class 1 obesity 03/15/2024 Assessment & Plan [...] wi th pain 01/28/2024 Assessment & Plan (06/01/2025 10:47 AM EST): -referred to vascular specialist last year -advised to reduce sodium consumption -wear compression stocking Assessment & Plan (03/15/2025 5:11 AM EDT): [...] Plan (11/09/2022 6:05 AM EDT): -Following with [facility] dial painter, seen by Dr. Serra on 10/22/22 [...] glenohumeral joint. Continue APAP prn Following with [facility]. Last seen on 05/28/2024. Following with [facility] pain management. Last seen in June 2024. [...] glenohumeral joint. Continue APAP prn Following with [facility]. Last seen on 02/27/24. Recommended to check MRI status. Recommended to speak with [employer] plant health care technician regarding to SUPERVISOR/PORT DIRECTOR service Assessment & Plan (01/28/2024 4:23 PM [...] Will evaluate with x-ray Rx APAP prn Generalized anxiety disorder 09/14/2022 Assessment & Plan (06/01/2025 10:54 AM EST): >>ASSESSMENT AND PLAN FOR SEVERE ANXIETY WRITTEN ON 12/08/2024 8:56 AM BY MAKENNA SALINAS During IB Consult Kosta presenting with excessive worry/anxiety, difficulty [...] and relationship issues. Kosta was referred to [facility] for OP and psychiatry services. Printed out letter with agency information. We practiced grounding techniques to decrease his anxiety and provided empathic counseling approach. Assessment & Plan (06/01/2025 10:53 AM EST): - severe, with panic attacks - previously taking clonazepam, which he self-discontinued - previously had behavioral health service provider, but patient would like to have another behavioral health service provider - seen by integrated behavioral health service clinician in November 2024 - will check the status of offsite behavioral health service referral Assessment & Plan (01/28/2024 4:25 PM EDT): [...] like to change -patient was evaluated by [facility] today - patient would like to restart [...] -Pt has been on bupropion -Continue current BHS Panic disorder 09/14/2022 Assessment & Plan (11/09/2022 [...] low back pain 09/02/2022 Assessment & Plan (06/06/2025 6:51 AM EST): - Previously following with [facility] Supervisor - Patient has received ketorolac at our [facility] and home several times - Starting PT - Recommended to try diclofenac gel and lidocaine patch Assessment & Plan (03/19/2025 10:15 AM EDT): - Previously following with [facility] Super[facility] - Patient request ketorolac injection today. He was also interested in prednisone. Discussed about adverse effects of frequent different steroid use. Patient elected ketorolac injection only today and agreed to try physical therapy - Recommended to try diclofenac gel and lidocaine patch Assessment & Plan (11/01/2022 12:58 PM EDT): Following with [facility] Supervisor -Interested in Toradol Injections; given pt the number to instED Patient would like to also take Prednisone for a few-days, agreed to Rx for a few days Assessment & Plan (09/14/2022 4:09 PM EST): -Hx back surgery -Agreed to prescribe toramadol 50 mg once at bedtime -Schedule CTS appt Mood disorder 09/02/2022 Assessment & Plan (06/06/2025 6:43 AM EST): - PHQ-9 score 17 and MARYURI-7 score 14 in November 2024 - High level of anxiety, likely anxiety / depression, possibly bipolar - Likely ADHD - Previously connected with [facility] provider / [facility] - Patient is hesitant to try medication due to adverse reactions with several medications - Previously tried bupropion, which was initially effective, but his anxiety worsened - Previously on fluoxetine, which was discontinued for unclear reason - Previously on quetiapine, which was too sedating - Patient was seen by integrated behavioral health service clinician in February; patient was supposed to be seen by a psychiatrist. Will check the status. Assessment & Plan (03/19/2025 10:11 AM EDT): - PHQ-9 score 17 and MARYURI-7 score 14 in November 2024 - High level of anxiety, likely anxiety / depression, possibly bipolar - Likely ADHD - Previously connected with [facility] provider / [facility] - Patient is hesitant to try medication [...] anxiety / depression, possibly bipolar -connected with [facility] provider / [place] -continue counseling / CBT -continue bupropion -continue fluoxetine Assessment & Plan (12/03/2023 5:29 PM EDT): -high level of anxiety, likely anxiety / depression, possibly bipolar -connected with [facility] provider / [place] -continue counseling / CBT -continue bupropion -start fluoxetine -pt would like to stop taking clonazepam due to its effect on his cognition; his request was approved. Assessment & Plan (11/09/2022 6:04 AM EDT): -high level of anxiety, likely anxiety / depression, possibly bipolar -connected with [facility] provider / [place] -continue counseling / CBT -continue bupropion -start fluoxetine -pt would like to stop taking clonazepam due to its effect on his cognition; his request was approved. 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 Coronary artery disease 09/02/2022 Assessment & Plan (06/06/2025 6:40 AM EST): -Followed by [facility], last seen in August 2024 -Very mild CAD -Avoid cardiotoxic substances (Hx cocaine use) -Continue working on lifestyle modifications -Continue ASA -continue metoprolol -previously on losartan, which was discontinued due to normal blood pressure with metoprolol only -continue rosuvastatin Assessment & Plan (03/19/2025 10:05 AM EDT): -Followed by [facility], last seen in August 2024 -Very mild CAD -Avoid cardiotoxic substances (Hx cocaine use) -Continue working on lifestyle modifications -Continue ASA -continue metoprolol -previously on losartan, which was discontinued due to normal blood pressure with metoprolol only -continue rosuvastatin Assessment & Plan (03/20/2024 12:17 PM EDT): -Followed by [facility] -Very mild CAD -Avoid cardiotoxic substances (Hx cocaine use) -Continue working on lifestyle modifications -Continue ASA -continue metoprolol -continue losartan -continue atorvastatin Assessment & Plan (01/28/2024 4:22 PM EDT): -Followed by [facility] -Very mild CAD -Avoid cardiotoxic substances (Hx cocaine use) -Continue working on lifestyle modifications -Continue ASA -previously prescribed metoprolol succinate, but questionable adherence -continue losartan -Starting atorvastatin Assessment & Plan (11/09/2022 6:01 AM EDT): -Followed by [facility] -Very mild CAD -Avoid cardiotoxic substances (Hx cocaine use) -Continue working on lifestyle modifications -Continue ASA -previously prescribed metoprolol succinate, but questionable adherence -continue losartan -Consider statin Assessment & Plan (09/14/2022 4:13 PM EST): -Followed by [facility] -Very mild CAD -Avoid cardiotoxic substances (Hx cocaine use) -Continue working on lifestyle modifications -Continue ASA, metoprolol succinate -Consider statin -Adding ARB today Essential hypertension 09/02/2022 Assessment & Plan (06/06/2025 6:38 AM EST): -Goal BP < 130/80 per ACC/AHA guideline (Treatment threshold >= 140/90 ) -BP slightly elevated today, he attributes to skipping medication this morning -Co-managed with lyft driver and pharmacist -Following with [facility], last seen in August 2024. -Continue [...] cocaine for long time) Assessment & Plan (03/19/2025 10:03 AM EDT): -Goal BP < 130/80 per ACC/AHA guideline (Treatment threshold >= 140/90 ) -BP almost at goal -Comanaged with lyft driver and pharmacist -Following with [facility], last seen in August 2024. -Continue [...] Not taking meds as prescribed. -Following with [facility], last seen in Jul 2023 -Continue [...] Gastroesophageal reflux disease 09/02/2022 Assessment & Plan (06/06/2025 6:41 AM EST): -s/p EGD / colonoscopy evaluation in October 2020, Positive H. Pylori and tubular adenoma of colon -s/p EGD on 09/06/22. H. Pylori still present - patient has not been able to complete eradication treatment yet - Continue omeprazole 20 mg daily and follow up with GI as scheduled Assessment & Plan (03/15/2025 9:04 AM EDT): [...] H. Pylori Herniated lumbar intervertebral disc 05/09/2022 Resolved Problems Problem Noted Date Diagnosed Date Resolved Date Asthma 05/21/2025 Encounters * This document contains information received from the source organization and may not represent a complete record from that organization. Date Type Department Care Team Description 06/17/2025 3:15 PM EST Office Visit [facility] [address] [place] [address] Denise Moreno DDS Loss of retention of dental crown (Primary Dx); Full coverage crown needed for tooth at risk for fracture 06/11/2025 1:00 PM EST Office Visit [facility] [place] [address] Denise Moreno DDS 06/09/2025 Orders Only [facility] [address] [place] [id number] Lily Lopez MD Generalized anxiety disorder (Primary Dx); Mood disorder (CMS/HCC) 06/04/2025 Refill [facility] [place] [address] Lily Lopez MD Chronic low back pain, unspecified back pain laterality, unspecified whether sciatica present 06/01/2025 10:00 AM EST Office Visit [facility] [place] [address] Denise Moreno DDS Loss of retention of dental crown (Primary Dx); Closed fracture of tooth, initial encounter 06/01/2025 9:15 AM EST Office Visit [facility] [place] [address] Lily Lopez MD Abdominal discomfort (Primary Dx); Helicobacter pylori gastritis; Pancreatic insufficiency; Essential hypertension; Encounter for immunization; Moderate persistent asthma without complication; Generalized anxiety disorder; Marijuana use; Dyslipidemia; Coronary artery disease involving [place] coronary artery of [place] heart without angina pectoris; Gastroesophageal reflux disease, unspecified whether esophagitis present; Mood disorder (CMS/HCC); Allergic rhinitis, unspecified seasonality, unspecified trigger; Chronic right-sided low back pain, unspecified whether sciatica present 06/01/2025 Travel 05/31/2025 Telephone [facility] [address] [place] [phone] Angela Jenkins [place] 05/24/2025 Orders Only [address] [address] Lily Lopez MD Essential hypertension (Primary Dx) 05/21/2025 Travel 05/12/2025 Results Follow-Up [address] [address] Lily Lopez MD MR Brain w/o Contrast 05/11/[address] [address] Lily Lopez MD Durable Medical Equipment ([facility]: aluminum foam 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 handle cane) 04/28/2025 Telephone [facility] [address] [place], [place] [id number] Denise Moreno, DDS 04/28/[address] [address] Ricky Smith MD Chronic low back pain, unspecified back pain laterality, unspecified whether sciatica present from Last 3 Months Immunizations Immunization Administration Dates Next Due Influenza injectable quadriv alent IIV4 with preservative 06/04/2019,05/06/2018 Influenza injectable quadrivalent preservative f ree 09/03/2022,04/23/2020 Influenza, seasonal, injectable, preservative fr ee 06/01/2025 Pfizer Covid-19 Vaccine 12+ 12/03/2023 Pfizer Covid-19 [...] Sign Reading Time Taken Comments Blood Pressure 142/90 06/01/2025 9:07 AM EST Pulse 82 06/01/2025 9:07 AM EST Temperature 36.1 C (96.9 F) 06/01/2025 9:07 AM EST Respiratory Rate 15 06/01/2025 9:07 AM EST Oxygen Saturation 99% 03/15/2025 9:50 AM EDT Inhaled Oxygen Concentration - - Weight 94.6 kg (208 lb 9.6 oz) 06/01/2025 9:07 A M EST Height 172.7 cm (5' 8 ) 06/01/2025 9:07 AM EST Body Mass Index 31.72 06/01/2025 9:07 AM EST Plan of Treatment Upcoming Encounters Date Type Department Care Team (Late st Contact Info) Description 08/27/2025 9:00 AM EST Medication Management [facility] [address] [place] [address] Derrek Bob, PharmD [address] [place] [address] Health Maintenance Due Date Last Done Comments CT Colonography 1978 FIT DNA/Cologuard 1978 FIT 1978 FOBT 1978 HIV Screening 1980 Sigmoidoscopy 1978 Family Planning (PISQ) 1993 Dental Prophylaxis 12/03/2019 06/03/2019, 0 09/19/2018, 03/18/2018 Dental Oral Exam 10/25/2020 04/26/2020, , 03/06/2018 Dental X-Ray: Full Mouth 03/07/2021 03/06/2018 Dental X-Ray: Bitewings 09/24/2024 09/23/19 24, 04/13/2022, 02/02/2021, Additional history exists Colonoscopy 11/21/2025 11/21/2020, 09/08/2019 Colorectal Cancer Screening 11/21/2025 Alcohol/Substance Use Screening 03/15/2026 03/15/2025 SDOH Screening 03/15/2026 03/15/2025 Disability Screening 05/21/2026 05/21/2025 COVID-19 Vaccine ( season) 2026 12/03/2023, 09/03/2022, 12/08/2021, Additional history exists Postponed from 03/29/2025 (Patient Refused) Depression Screening 06/01/2026 06/01/2025, 06/01/20 Tobacco Screening 06/11/2026 06/11/2025 Zoster Vaccines (1 of 2) 2028 Lipid Panel 01/28/2030 01/28/2025, 05/2 02/2024, 03/16/2022 DTaP/Tdap/Td Vaccines (3 - Td or Tdap) 07/07/2034 07/07/2024, 12/03/2023 RSV Patients and Patients Aged 60 years or older (1 - 1-dose 75+ series) 2053 Hepatitis C Screening Completed 03/16/2022 Pneumococcal Vaccine: Pediatrics (0 to 5 Years) and At-Risk Patients (6 to 49) Years Completed 09/03/2022 Influenza Vaccine Completed 06/01/2025, , 04/23/2020, Additional history exists HIB Vaccines Aged Out No longer eligi [...] Blood Pressure 142/90( 025 9:07 AM EST) Derrek Mccormick, BrooksD Procedures Procedure Name Priority Date/Time Associated Diagnosis Comments CASE PRESENTATION, DETAILED AND EXTENSIVE TREATMENT PLANNING Routine 06/17/2025 3:15 PM EST Loss of retention of dental crown Full coverage crown needed for tooth at risk for fracture INTRAORAL - PERIAPICAL FIRST RADIOGRAPHIC IMAGE Routine 06/17/2025 3:15 PM EST Loss of retention of dental crown Full coverage crown needed for tooth at risk for fracture 7 CROWN - PORCELAIN/CERAMIC Routine 06/17/2025 3:15 PM EST Loss of retention of dental crown Full coverage crown needed for tooth at risk for fracture NO CHARGE PROCEDURE Routine 06/11/2025 1 :00 PM EST CASE PRESENTATION, DETAILED AND EXTENSIVE TREATMENT PLANNING Routine 06/01/2025 10:00 AM EST Loss of retention of dental crown Closed fracture of tooth, initial encounter INTRAORAL - PERIAPICAL FIRST RADIOGRAPHIC IMAGE Routine 06/01/2025 10:00 AM EST Loss of retention of dental crown Closed fracture of tooth, initial encounter CROWN PREP Routine 06/01/2025 10:00 AM EST Loss of retention of dental crown Closed fracture of tooth, initial encounter 7 PREFABRICATED POST AND CORE IN ADDITION TO CROWN Routine 06/01/2025 10:00 AM EST Loss of retention of dental crown Closed fracture of tooth, initial encounter MR BRAIN WO CONTRAST Routine 05/12/2025 2:42 AM EDT Confusion Amnesia LIPID PANEL, STANDARD Routine 01/28/2025 8:15 AM [...] AM EDT Narrative 05/12/2025 2:44 AM EDT [place] [address] Magnetic Resonance Report Signed Patient: Kosta Clark MR#: [id number] : 1980 Acct:[id number] Age/Sex: 44 / M ADM Date: 05/08/25 Loc: HO.MRI Attending Dr: Lily Lopez MD Ordering Physician: Lily Lopez MD Date of Service: 05/08/25 Procedure(s): MR head/brain wo con Accession Number(s): [id number] cc: Lily Lopez MD Reason for Exam: [...] in OV> 05/12/25242 DD/ 1 TD/TT: 05/12/25241 Plastics Tooling Engineer: Procedure Note Donotuseinterpreter, Image - 05/12/2025 [place] [address] Magnetic Resonance Report Signed Patient: Kosta Clark#: [id number] : 1980Acct:[id number] Age/Sex: 44 / MADM Date: 05/08/25 Loc: HO.MRI Attending Dr: Lily Lopez MD Ordering Physician: Lily Lopez MD Date of Service: 05/08/25 Procedure(s): MR head/brain wo con Accession Number(s): [id number] cc: Lily Lopez MD Reason for Exam: [...] MD in OV> 05/12/25242 DD/ 1 TD/TT: 05/12/25 0242 Plastics Tooling Engineer: Lily Lopez MD IMG MRI PROCEDURES Edited Result - Final * (ABNORMAL) Lipid Panel, Standard (01/28/2025 8:15 AM EDT) Triglycerides 109 <150 mg/dL [facility] Comment:Desirable Triglyceri de: less than 150 mg/dLBorderline High Triglyceride 150-199 mg/dLHigh Triglyceride: 200-499 mg/dLVery High Triglyceride: greater than or equal to 5OO mg/dL Cholesterol 176 <200 mg/dL [facility] Comment:Desirable Cholestero l: less than 200 mg/dLBorderline High Cholesterol: 200-239 mg/dLHigh Cholesterol: greater than 239 mg/dL LDL Cholesterol Calculated 103(H) <100 mg/dL [facility] Comment:Desirable LDL: less than 100 mg/dLNear Optimal/Above Optimal LDL: 110- 129 mg/dLBorderline High LDL: 130-159 mg/dLHigh LDL: 160-189 mg/dLVery High LDL: greater than or equal to 190 mg/dL HDL Cholesterol 52 >40 mg/dL [facility] Comment:Desirable HDL: great er than 40 mg/dL Note: This HDL assay may give artificially low results in patients with liver disease. 01/28/2025 8:15 AM EDT 01/28/2025 11:02 AM EDT Lily Lopez MD LAB BLOOD ORDERABLES Final Resul t [facility] [address] [place] [phone] * HEPATITIS C AB W/REFL TO [...] a test for HCV RNA (test code 71384) is suggested. For additional information please refer to http://education.Kutenda.bCODE/faq/OTV82m8 (This link is being provided for informational/ educational purposes only.) 03/16/2022 10:3 3 AM EDT Ricky Carrillo MD HISTORICAL/NON ORDERA BLE LABS Final Result [facility] [address] [place] [address] * (ABNORMAL) Colonoscopy (11/21/2020 7:00 PM EDT) Colonoscopy Abnormal(A ) Normal Historical Provider HEALTH MAINTENANCE Final Result from Last 3 Months or Most Recently Relevant to Health Maintenance Insurance [facility] ONE CARE < 65 [address] [place]INH [id number] [facility] Care Teams Help Desk Consultant Relationship Specialty Start Date End Date Lily Lopez MD [address] [place] [address] PCP - General Family Medicine 06/14/22 Derrek Bob, BrooksD [address] [place] [address] Pharmacist Internal Medicine 01/04/23
--- OUTSIDE RECORDS SUMMARY | 2025-07-25 11:23 | XMS_ITS | Encounter Summary ---
Author Organization [employer] [facility] Address [address] [facility] 7t [place] [address] Care Team Providers Care Weight Checker Name Role Phone Graciela Rich MD Primary Care Provider Lily Sierra MD Primary Care Provider [phone] Derrek Bob PharmD Unavailable [phone] Encounter Details Date Type Department Care Team (Latest Contact Info) Description 06/03/2019 Abstract [facility] CONVERSIONS Dental, Provider, DDS Social History Tobacco [...] 08/27/2025 9:00 AM EST Medication Management [facility]IC[facility] [address] [place] [address] Derrek Bob, PharmD [address] [place] [address] documented as of this encounter Visit Diagnoses Not on filedocumented in this encounter Care Teams Weight Checker Relationship Specialty Start Date End Date Graciela Rich MD PCP - General Family Medicine 02/27/22 06/13/22 Lily Lopez MD [address] [place] [address] PCP - General Family Medicine 06/14/22 Derrek Bob, PharmD [address] [place] [address] Pharmacist Internal Medicine 01/04/23 documented as of this encounter
--- OUTSIDE RECORDS SUMMARY | 2025-07-25 11:23 | XMS_ITS | Encounter Summary ---
Author Organization [employer] Address [address] [facility] 7t [place] [address] Care Team Providers Care Body Builder Apprentice Name Role Phone Lily Lopez MD Primary Care Provider [phone] Derrek Bob PharmD Unavailable [phone] Encounter Details Date Type Department Care Team (Late st Contact Info) Description 11/22/[address] [facility] [address] [place], [place] [phone] Lily Lopez MD [address] [place], [place] [phone] Social History Tobacco Use Types Packs/Day Years [...] 08/27/2025 9:00 AM EST Medication Management [facility] [address] [place] [address] Derrek Bob PharmD [address] [place] [address] documented as of this encounter Goals Goal [...] documented as of this encounter Care Teams Body Builder Apprentice Relationship Specialty Start Date End Date Lily Lopez MD [address] [place] [address] PCP - General Family Medicine 06/14/22 Derrek Bob, BrooksD [address] [place] [phone] Pharmacist Internal Medicine 01/04/23 documented as of this encounter
--- OUTSIDE RECORDS SUMMARY | 2025-07-25 11:23 | XMS_ITS | Encounter Summary ---
Author Organization [employer] Address [address] [facility] [address]t [place] [address] Care Team Providers Care Clinical Review Specialist Name Role Phone Lily Lopez MD Primary Care Provider [phone] Derrek Bob PharmD Unavailable [phone] Encounter Details Date Type Department Care Team (Late st Contact Info) Description 01/14/2024 Orders Only [facility] [address] [place], [place] [phone] Cinda Sanchez MD [address] [place], [place] [phone] Bicipital tendonitis of right shoulder (Primary Dx) [...] Description 08/27/2025 9:00 AM EST Medication Management [facility] [address] [place] [address] Derrek Bob PharmD [address] [place] [address] documented as of this encounter Goals Goal [...] as of this encounter Care Teams Clinical Review Specialist Relationship Specialty Start Date End Date Lily Lopez MD [address] [place] [address] PCP - General Family Medicine 06/14/22 Derrek Bob, BrooksD [address] [place] [phone] Pharmacist Internal Medicine 01/04/23 documented as of this encounter
--- OUTSIDE RECORDS SUMMARY | 2025-07-25 11:23 | XMS_ITS | Encounter Summary ---
Author Organization [employer] Address [address] [facility] [address]t [place] [address] Care Team Providers Care Wood Machine Carver Name Role Phone Lily Lopez MD Primary Care Provider [phone] Derrek Bob PharmD Unavailable [phone] Reason for Referral * Consultation (Routine) - Closed Specialty Diagnoses / Procedures Referred By Contsavita t Referred To Contact Pharmacy Diagnoses Essential hypertension Moderate persistent asthma without complication Lily Lopez MD [address] [place] [address] Phone: tel: fax: Referral ID Status Reason Start Date Expiration Date V isits Requested Visits Authorized [id number] Closed Consult and Treat 06/09/2024 06/09/2025 6 6 Encounter Details Date Type Department Care Team (Late st Contact Info) Description 06/09/2024 Orders Only [facility] [address] [place] [phone] Lily Lopez MD [address] [place] [address] Essential hypertension (Primary Dx); Moderate [...] Description 08/27/2025 9:00 AM EST Medication Management [facility] [address] [place] [address] Derrek Bob PharmD [address] [place] [address] Scheduled Referrals Name Type Priority Associated Diagnoses [...] documented as of this encounter Care Teams Wood Machine Carver Relationship Specialty Start Date End Date Lily Lopez MD [address] [place] [address] PCP - General Family Medicine 06/14/22 Derrek Bob, BrooksD [address] [place] [address] Pharmacist Internal Medicine 01/04/23 documented as of this encounter
--- OUTSIDE RECORDS SUMMARY | 2025-07-25 11:23 | XMS_ITS | Data Portability ---
Author Organization [employer] [facility] Address [address] [place] [address] Assessment Encounter Date Assessment Date Assessment LastModified by Organization Details LastModified Time 11/02/2022 11/02/2022 Called to kiraal kristie 42 y/o m w HTN, OA vs. [...] Recorded Respiratory rate Body temperature Oxygen saturation Heart rate Systolic And Diastolic Provider Name and Address Organization Details Last Updated DateTime 3 18 /min 98.1 [degF] 99 % 74 /min 130/80 mm[Hg] Not Available [facility] 3 16:48:37 Date Recorded Respiratory rate Body weight Oxygen saturation Heart rate Oxygen saturation Body weight Respiratory rate Heart rate Respiratory rate Body weight Heart rate Oxygen saturation Provider Name and Address Organization Details Last Updated DateTime 3 18 /min 65276.8 48 g 99 % 66 /min 99 % 37903.8 48 g 18 /min 66 /min 18 /min 46637.8 48 g 66 /min 99 % Not Available [facility] production 3 11:02:42 Date Recorded Systolic And Diastolic Systolic And Diastolic Provider Name and Address Organization Details Last Updated DateTime 11/02/2022 149/95 mm[Hg] 149/95 mm[Hg] Not Available [facility] 11/02/2022 11:02:42 Social History None recorded. Functional Status None recorded. Mental Status None recorded. Family History Nothing Reported. Medical History No medical history recorded. Past Encounters Encounter ID Performer Location Encounter Start Date Encounter Closed Date Diagnosis/Indication Diagnosis SNOMED-CT Code Diagnosis ICD10 Code Diagnosis IMO Codes Diagnosis Note [id number] Jazmyne Ruiz MD [facility] [address] [place] [phone] 11/01/2022 16:48:35 11/05/2022 10:14:33 Pain of right hip joint 4246041618 62885 M25.551 As noted, we were called to see this patient regarding concerns of hip and back pain. Evaluation in the field was performed by my pipe finisher colleague, as noted above, I provided real-time [...] [id number] Nita Lyman MD [facility] [address] [place] [phone] 11/02/2022 10:37:18 11/02/2022 13:17:46 Health Concerns Section Related Observation LastModified by Organization Detai ls LastModified Time None Recorded Concern Status LastModified by Organization Details LastModified Time None Recorded Advance Directives Directive None Recorded Payers Insurance Date Sequence Insurance Name Policy Number Policy Marie Covered Member ID Marie Member ID Guarantor Name 06/12/2023 1 [facility] - DOS PRIOR TO 2022 - DUAL ELIGIBLE (MEDICARE REPLACEMENT/ADV ANTAGE - HMO) Kosta Blackwood [id number] Kosta greene 11/22/2023 1 [facility] - DOS ON OR AFTER 2022 - DUAL ELIGIBLE - PENITENTIARY OPTIONS AND ONE CARE (MEDICARE REPLACEMENT/ADV ANTAGE - HMO) Kosta Blackwood [id number] Kosta greene Notes Date Note Type Note [...] that is intermittent for over a week.add'l [facility] history: RIGHT hip pain. no kidney issues Jazmyne Ruiz MD [address] [facility], [place], [address], [place] - [employer] 11/01/2022 16:52:53 11/02/2022 text/html CRC Nursing Assessment: Chief Complaints: Pain PMH: Hypertension Allergies: Unknown Comments: REvisit per [facility] to recheck creatinine and LFTS Member received [...] .................. .................. .................. .................. .................. .................. ............... Nuclear Fuel Processing Technician Note From Tommy Davis: 42 YOM presents alert, no distress, vitals ok, limping around his apartment favoring the left side. Pt c/o one week of left sided sciatic nerve pain. [facility] recieved 30 mg IM ketorolac, and [...] ............... Disposition: Fulfilled Nita Lyman MD [address] [facility],[address], [place], [address], [place] [facility] BETSY ACOSTA 11/02/2022 13:17:45
== END 2025-07-25 11:24 | disposition left against medical advice (07) ==
LOC: HO.ED 11:19
PROVIDERS: Emergency Provider Emergency Medicine; PCP Family Medicine
DX: M54.2 Cervicalgia (principal); M25.511 Pain in right shoulder; M25.512 Pain in left shoulder; Z53.21 Procedure and treatment not carried out due to patient leaving prior to being seen by health care provider
CPT/HCPCS: 99281